=== PATIENT | male | born 1940 | race Hispanic/Latino ===

== ENCOUNTER 2017-10-07 15:49 | Inpatient (IN) | payer MEDICARE, BC ==
[2017-10-07 15:49] VITALS: BMI 28.8
[2017-10-07 16:57] LABS: BASO # 0.03 K/mm3 (0.0-2.0); BASO % 0.1 % (0.0-3.0); EOS # 0.1 (0.0-0.7); EOS % 0.1 % (1.5-5.0); MEAN CELL VOLUME 99.1 fl (80.0-105.0); MEAN CORPUSCULAR HEMOGLOBIN 32.3 pg (25.0-35.0); MEAN CORPUSCULAR HGB CONC 32.6 g/dl (31.0-37.0); MEAN PLATELET VOLUME 10.5 fl (7.0-11.0); PLATELET COUNT 100 10^3/uL (120.0-450.0); RED CELL DISTRIBUTION WIDTH 16.9 % (11.5-14.5)
[2017-10-07 16:58] LABS: HEMATOCRIT 22.4 % (42.0-52.0)
[2017-10-07 17:03] LABS: ALB/GLOB RATIO 1.1 (1.1-1.8); ALKALINE PHOSPHATASE 95 U/L (38-126); ALT/SGPT 104 U/L (7-56); AST/SGOT 93 U/L (17-59); BILIRUBIN,TOTAL 0.9 mg/dL (0.2-1.3); BLOOD UREA NITROGEN 38 mg/dL (7-21); CALCIUM 8.6 mg/dL (8.4-10.5); CARBON DIOXIDE 24 mmol/L (21-33); CHLORIDE 99 mmol/L (98-107); GFR AFRICAN-AMERICAN > 60; GLUCOSE,RANDOM 163 mg/dL (70-110); MAGNESIUM 2.5 mg/dL (1.7-2.2); PHOSPHOROUS 3.2 mg/dL (2.5-4.5); POTASSIUM 3.8 mmol/L (3.6-5.0); SODIUM 134 mmol/L (132-148); TOTAL PROTEIN 6.4 g/dL (5.8-8.3)
[2017-10-07 17:06] LABS: INR 1.55 (0.93-1.08); PARTIAL THROMBOPLASTIN TIME 30.4 Seconds (25.1-36.5)
[2017-10-07 17:17] LABS: TROPONIN I < 0.01 ng/mL
--- NOTE | 2017-10-07 17:42 | RAD ---
HISTORY: r/o infiltrate COMPARISON: Comparison is made to 11/05/2016 TECHNIQUE: Chest PA and lateral FINDINGS: LUNGS: Heterogeneous opacity and infiltrate at the left lower lung may represent pneumonia. PLEURA: Left pleural effusion is also noted new compared to the previous exam may represent parapneumonic effusion CARDIOVASCULAR: Normal. OSSEOUS STRUCTURES: No significant abnormalities. VISUALIZED UPPER ABDOMEN: Normal. OTHER FINDINGS: None. IMPRESSION: Heterogeneous opacity and infiltrate at the left lower lobe associated with left pleural effusion may represent pneumonia and parapneumonic effusion.
[2017-10-07] MEDS ORDERED: Cefepime 1gm in NS 100ml 1 GM/100 ML BAG IVPB SCH ×2 (17:45→22:00)
[2017-10-07] MEDS ORDERED: Vancomycin 1gm in NS 250ml 1 GM/250 ML BAG IVPB SCH (17:45)
--- NOTE | 2017-10-07 17:57 | CP.PCM.CON ---
<Harshal Paredes - Last Filed: 10/07/17 18:15> History of Present Illness - History of Present Illness History of Present Illness: Critical Care Consult note. Dr Bird 77yo M with PMHx Bladder CA, B Cell Lymphoma, CAD w/ stents, HTN, HLD, DM here for evaluation of shortness of breath. Patient reports that he has been coughing for the past week and was evaluated at [facility] and was diagnosed with pneumonia and started of Avelox, which he has been taking for the past 5 days. He then flew to [place] two days ago and started have worsening SBO and cough. He denies any fevers or chills. He went to see his PMD today, and was sent to [facility] for further evaluation. He does report increased bilateral lower extremity swelling over the past few days. Currently, he states that his shortness of breath has improved while on 2L NC. He does report orthopnea. Denies any N/V/D. No abd pain. No headaches. No urinary changes. PMD: Dr. Johnson Heme/Onc: Dr. Lane ([place]) PMHx: B Cell Lymphoma (recently diagnosed, not on chemo), Bladder CA, CAD, DM, HTN, HLD PSHx: Coronary stents x5, L orchiectomy Social Hx: Denies Tob, Occasional ETOH, Denies substance abuse Allergy: Scottie Review of Systems - Review of Systems All systems: reviewed and no additional remarkable complaints except - Constitutional Constitutional: absent: Chills, Fever - EENT Ears: absent: Ear Discharge, Dizziness Nose/Mouth/Throat: absent: Epistaxis - Cardiovascular Cardiovascular: Dyspnea, Edema, Leg Edema. absent: Chest Pain - Respiratory Respiratory: Cough, Dyspnea - Genitourinary Genitourinary: absent: Dysuria, Flank Pain - Musculoskeletal Musculoskeletal: absent: Back Pain Past Patient History - Past Medical History & Family History Past Medical History?: Yes - Past Social History Smoking Status: Never Smoked Alcohol: Occasional Drugs: Denies - CARDIAC Hx Cardiac Disorders: Yes Hx Hypercholesterolemia: Yes Hx Hypertension: Yes Hx Pacemaker: No - PULMONARY Hx Respiratory Disorders: No - NEUROLOGICAL Hx Neurological Disorder: No Hx Paralysis: No - HEENT Hx HEENT Problems: No - RENAL Hx Chronic Kidney Disease: No - ENDOCRINE/METABOLIC Hx Endocrine Disorders: Yes Hx Diabetes Mellitus Type 2: Yes - HEMATOLOGICAL/ONCOLOGICAL Hx Blood Disorders: Yes Hx Blood Transfusions: No Hx Blood Transfusion Reaction: No Hx Cancer: Yes (bladder) Hx Leukemia: Yes (B cell) - INTEGUMENTARY Hx Dermatological Problems: No Hx Basil Cell: No - MUSCULOSKELETAL/RHEUMATOLOGICAL Hx Musculoskeletal Disorders: Yes Hx Back Pain: Yes - GASTROINTESTINAL Hx Gastrointestinal Disorders: No - GENITOURINARY/GYNECOLOGICAL Hx Genitourinary Disorders: No - PSYCHIATRIC Hx Psychophysiologic Disorder: No Hx Emotional Abuse: No Hx Physical Abuse: No Hx Substance Use: No - SURGICAL HISTORY Hx Surgeries: Yes Hx Cardiac Catheterization: Yes Hx Coronary Stent: Yes - ANESTHESIA Hx Anesthesia Reactions: No Hx Malignant Hyperthermia: No Meds Allergies/Adverse Reactions: Allergies Allergy/AdvReac Type Severity Reaction Status Date / Time mussels Allergy Severe VOMITING/GI Verified 10/07/17 16:15 DISTRESS Physical Exam - Constitutional Appears: Well, No Acute Distress - Head Exam Head Exam: ATRAUMATIC, NORMAL INSPECTION, NORMOCEPHALIC - Eye Exam Eye Exam: EOMI, Normal appearance - ENT Exam ENT Exam: Mucous Membranes Moist - Neck Exam Neck exam: Positive for: Normal Inspection - Respiratory Exam Respiratory Exam: absent: Respiratory Distress Additional comments: egophany Left lung - Cardiovascular Exam Cardiovascular Exam: RRR. absent: JVD - GI/Abdominal Exam GI & Abdominal Exam: Soft. absent: Distended, Firm, Guarding, Tenderness - Extremities Exam Extremities exam: Positive for: pedal edema Additional comments: bilateral 2+ pitting edema - Neurological Exam Neurological exam: Alert, Oriented x3 - Psychiatric Exam Psychiatric exam: Normal Affect, Normal Mood - Skin Skin Exam: Dry, Intact, Normal Color, Warm Results - Vital Signs Recent Vital Signs: Last Vital Signs Temp 98.8 F 10/07/17 16:34 Pulse 60 10/07/17 16:34 Resp 18 10/07/17 16:49 BP 130/60 10/07/17 16:34 Pulse Ox 95 10/07/17 16:49 - Labs Result Diagrams: 10/07/17 16:30 10/07/17 16:30 Labs: Laboratory Results - last 24 hr 10/07/17 10/07/17 10/07/17 16:30 16:30 16:30 WBC 38.0 H* D RBC 2.26 L Hgb 7.3 L Hct 22.4 L MCV 99.1 MCH 32.3 MCHC 32.6 RDW 16.9 H Plt Count 100 L MPV 10.5 Eos % (Auto) 0.1 L Baso % (Auto) 0.1 Eos # 0.1 Baso # 0.03 PT 17.0 H INR 1.55 H APTT 30.4 Sodium 134 Potassium 3.8 Chloride 99 Carbon Dioxide 24 Anion Gap 15 BUN 38 H Creatinine 1.1 Est GFR ( Amer) > 60 Est GFR (Non-Af Amer) > 60 Random Glucose 163 H Calcium 8.6 Phosphorus 3.2 Magnesium 2.5 H Total Bilirubin 0.9 AST 93 H ALT 104 H Alkaline Phosphatase 95 Lactate Dehydrogenase 526 Total Creatine Kinase 74 Troponin I < 0.01 NT-Pro-B Natriuret Pep 562 H Total Protein 6.4 Albumin 3.3 Globulin 3.1 Albumin/Globulin Ratio 1.1 Assessment & Plan - Assessment and Plan (Free Text) Assessment: 77yo M with PMHx of B Cell lymphoma, Bladder CA, HTN, DM, HLD, CAD and recent diagnosis of left sided Pneumonia here for evaluation of worsening SOB. Neuro: Alert and oriented x3 Cardio: Vital signs stable bilateral LE edema noted f/u ECHO continue home meds Cardio consult requested, appreciate recs Resp: CXR - left lower lobe pneumonia ID consult requested by PMD, recs appreciated Abx as per ID GI: heart healthy diet ID: Left lower lobe pneumonia WBC 38 in the setting of B Cell lymphoma. Afebrile Failed outpatient ABX (Avelox x 5 days taken) ID consult requested Heme/Onc: WBC 38 (Lymphocyte predominant) in the setting of B Cell lymphoma Heme/Onc consult requested. Recs appreciated Extremities: bilateral lower extremity edema noted in the setting of recent air travel f/u Lower Extremity Doppler Endocrine: Hx of DM Accuchecks continue home meds Discussed case with Dr. Marge Paredes PGY1 <Rory Bird - Last Filed: 10/07/17 18:34> Meds - Medications Medications: Current Medications Aspirin (Ecotrin) 81 mg PO QAM DAISY Atorvastatin Calcium (Lipitor) 20 mg PO QPM DAISY Furosemide (Lasix) 40 mg IV ONCE ONE Stop: 10/07/17 21:01 Glyburide (Micronase) 5 mg PO BRKDIN DAISY Non-Formulary Medication (Dutasteride [Avodart]) 0.5 mg PO QAM DAISY Propranolol HCl (Inderal La) 120 mg PO DAILY DAISY Tamsulosin HCl (Flomax) 0.4 mg PO QPM DAISY Results - Vital Signs Recent Vital Signs: Last Vital Signs Temp 98.8 F 10/07/17 16:34 Pulse 63 10/07/17 18:26 Resp 18 10/07/17 18:26 BP 128/58 L 10/07/17 18:26 Pulse Ox 90 L 10/07/17 18:26 - Labs Result Diagrams: 10/07/17 16:30 10/07/17 16:30 Labs: Laboratory Results - last 24 hr 10/07/17 10/07/17 10/07/17 16:30 16:30 16:30 WBC 38.0 H* D RBC 2.26 L Hgb 7.3 L Hct 22.4 L MCV 99.1 MCH 32.3 MCHC 32.6 RDW 16.9 H Plt Count 100 L MPV 10.5 Eos % (Auto) 0.1 L Baso % (Auto) 0.1 Eos # 0.1 Baso # 0.03 PT 17.0 H INR 1.55 H APTT 30.4 Sodium 134 Potassium 3.8 Chloride 99 Carbon Dioxide 24 Anion Gap 15 BUN 38 H Creatinine 1.1 Est GFR ( Amer) > 60 Est GFR (Non-Af Amer) > 60 Random Glucose 163 H Calcium 8.6 Phosphorus 3.2 Magnesium 2.5 H Total Bilirubin 0.9 AST 93 H ALT 104 H Alkaline Phosphatase 95 Lactate Dehydrogenase 526 Total Creatine Kinase 74 Troponin I < 0.01 NT-Pro-B Natriuret Pep 562 H Total Protein 6.4 Albumin 3.3 Globulin 3.1 Albumin/Globulin Ratio 1.1 Crossmatch BBK History Checked 10/07/17 18:00 WBC RBC Hgb Hct MCV MCH MCHC RDW Plt Count MPV Eos % (Auto) Baso % (Auto) Eos # Baso # PT INR APTT Sodium Potassium Chloride Carbon Dioxide Anion Gap BUN Creatinine Est GFR ( Amer) Est GFR (Non-Af Amer) Random Glucose Calcium Phosphorus Magnesium Total Bilirubin AST ALT Alkaline Phosphatase Lactate Dehydrogenase Total Creatine Kinase Troponin I NT-Pro-B Natriuret Pep Total Protein Albumin Globulin Albumin/Globulin Ratio Crossmatch See Detail BBK History Checked No verified bt Assessment & Plan - Assessment and Plan (Free Text) Assessment: Patient seen and examined with resident, agree with note with following additions/exceptions: Pt is 77yo M with PMHx of B Cell lymphoma, Bladder CA, HTN, DM, HLD, CAD and recent diagnosis of left sided Pneumonia here for evaluation of worsening SOB. Currently the patient is awake, alert, NAD, comfortable on 2LNC, no resting SOB. Endorses dry non productive cough, and orthopnea, associated with LE edema. Had outpatient CT scan of chest which showed left sided infiltrate with effusion. Has taken Avelox for 4 days. PNA Pleural Effusion DM HTN HLD Hx of B cell lymphoma Recommend: - supp o2 as needed - antibiotics as per ID - hold BP meds for now - ECHO - LE Duplex, r/o DVT - ID consult - Duonebs - GI ppx - DVT ppx - Admit to MICU
--- NOTE | 2017-10-07 18:11 | ED PDOC ---
Arrival/HPI - General Chief Complaint: Cough, Cold, Congestion Time Seen by Provider: 10/07/17 16:09 Historian: Patient - History of Present Illness Narrative History of Present Illness (Text): 10/07/17 16:30 A 77 year old male presents to the emergency department referred by PMD complaining of increasing shortness of breath and cough. Patient also reports increasing lower extremity edema. Patient has a history of CLL, currently being treated in [facility]. Patient had CT of chest done, which showed small pleural effusion and moderate left side infiltrate, currently on Avelox. Patient denies any chest pain, fever, nausea, vomiting or any other complaints at this time. PMD: Dr. Johnson Symptom Onset: Sudden Symptom Course: Unchanged Activities at Onset: Rest Context: Home Past Medical History - Provider Review Nursing Documentation Reviewed: Yes - Cardiac Hx Cardiac Disorders: Yes Hx Hypertension: Yes Hx Pacemaker: No - Pulmonary Hx Respiratory Disorders: No - Neurological Hx Neurological Disorder: No Hx Paralysis: No - HEENT Hx HEENT Disorder: No - Renal Hx Renal Disorder: No - Endocrine/Metabolic Hx Endocrine Disorders: Yes Hx Diabetes Mellitus Type 2: Yes - Hematological/Oncological Hx Blood Disorders: Yes Hx Blood Transfusions: No Hx Blood Transfusion Reaction: No Hx Cancer: Yes (bladder) Hx Leukemia: Yes (B cell) - Integumentary Hx Dermatological Disorder: No Hx Basal Cell Carcinoma: No - Musculoskeletal/Rheumatological Hx Musculoskeletal Disorders: Yes Hx Back Pain: Yes - Gastrointestinal Hx Gastrointestinal Disorders: No - Genitourinary/Gynecological Hx Genitourinary Disorders: No - Psychiatric Hx Psychophysiologic Disorder: No Hx Emotional Abuse: No Hx Physical Abuse: No Hx Substance Use: No - Surgical History Hx Cardiac Catheterization: Yes Hx Coronary Stent: Yes - Anesthesia Hx Anesthesia Reactions: No Hx Malignant Hyperthermia: No - Suicidal Assessment Feels Threatened In Home Enviroment: No Family/Social History - Physician Review Nursing Documentation Reviewed: Yes Family/Social History: No Known Family HX Smoking Status: Never Smoked Hx Alcohol Use: Yes (OCC WINE) Frequency of alcohol use: Socially Hx Substance Use: No Hx Substance Use Treatment: No Allergies/Home Meds Allergies/Adverse Reactions: Allergies mussels Allergy (Severe, Verified 10/07/17 16:15) VOMITING/GI DISTRESS Home Medications: Home Meds Medication Instructions Recorded Confirmed Atorvastatin Calcium [Lipitor] 20 mg PO QPM 08/12/12 10/07/17 Tamsulosin [Flomax] 0.4 mg PO QPM 02/01/14 10/07/17 Amlodipine Besylate [Norvasc] 10 mg PO DAILY 03/12/16 10/07/17 Aspirin [Ecotrin] 81 mg PO QAM 03/12/16 10/07/17 Dutasteride [Avodart] 0.5 mg PO QAM 03/12/16 10/07/17 Propranolol HCl [Innopran Xl] 120 mg PO DAILY 03/12/16 10/07/17 Diovan Hct 160-25 Mg Tab 1 tab PO QAM 03/28/16 10/07/17 Glyburide/Metformin HCl 1 tab PO BID 10/07/17 10/07/17 [Glucovance 5-500 mg Tablet] Moxifloxacin [Avelox] 400 mg PO DAILY 10/07/17 10/07/17 Review of Systems - Physician Review All systems were reviewed & negative as marked: Yes - Review of Systems Constitutional: absent: Fevers Respiratory: SOB, Cough Cardiovascular: absent: Chest Pain Gastrointestinal: absent: Nausea, Vomiting Musculoskeletal: Other (LE edema) Physical Exam Vital Signs Reviewed: Yes Vital Signs Temp Pulse Resp BP Pulse Ox 10/07/17 18:26 63 18 128/58 L 90 L 10/07/17 16:49 18 95 10/07/17 16:34 98.8 F 60 18 130/60 90 L Temperature: Afebrile Blood Pressure: Normal Pulse: Regular Respiratory Rate: Normal Appearance: Positive for: Well-Appearing, Non-Toxic, Comfortable Pain Distress: None Mental Status: Positive for: Alert and Oriented X 3 - Systems Exam Head: Present: Atraumatic, Normocephalic Pupils: Present: PERRL Extroacular Muscles: Present: EOMI Conjunctiva: Present: Normal Mouth: Present: Dry Neck: Present: Normal Range of Motion Respiratory/Chest: Present: Rhonchi (left sided). No: Accessory Muscle Use Cardiovascular: Present: Regular Rate and Rhythm, Normal S1, S2. No: Murmurs Abdomen: Present: Normal Bowel Sounds. No: Tenderness, Distention, Peritoneal Signs Back: Present: Normal Inspection Upper Extremity: Present: Normal Inspection. No: Cyanosis, Edema Lower Extremity: Present: Normal Inspection, Edema (1+ LE edema) Neurological: Present: GCS=15, CN II-XII Intact, Speech Normal Skin: Present: Warm, Dry, Normal Color. No: Rashes Psychiatric: Present: Alert, Oriented x 3, Normal Insight, Normal Concentration Medical Decision Making ED Course and Treatment: 10/07/17 16:30 Impression: A 77 year old male with shortness of breath and cough. Plan: -- EKG -- chest xray -- US lower extremity -- labs -- Urinalysis -- Reassess and disposition Prior Visits: Notes and results from previous visits were reviewed. Patient last reported to the emergency department on 08/12/12 for evaluation of abdominal pain. Progress Notes: EKG: Ordered, reviewed, and independently interpreted the EKG. Rate: 59 BPM Rhythm: Sinus bradycardia Interpretation: Normal intervals, normal axis 10/07/17 17:44 Chest xray: Creator : Marek Nuñez MD FINDINGS: LUNGS: Heterogeneous opacity and infiltrate at the left lower lung may represent pneumonia. PLEURA: Left pleural effusion is also noted new compared to the previous exam may represent parapneumonic effusion CARDIOVASCULAR: Normal. OSSEOUS STRUCTURES: No significant abnormalities. VISUALIZED UPPER ABDOMEN: Normal. IMPRESSION: Heterogeneous opacity and infiltrate at the left lower lobe associated with left pleural effusion may represent pneumonia and parapneumonic effusion. Dr. johnson in ER requesting consults for cardiology ID and hematology and ICU eval. - Lab Interpretations Lab Results: 10/07/17 16:30 10/07/17 16:30 Lab Results 10/07/17 18:00: Blood Type Pending, Antibody Screen Pending, Crossmatch See Detail, BBK History Checked No verified bt 10/07/17 16:30: Sodium 134, Potassium 3.8, Chloride 99, Carbon Dioxide 24, Anion Gap 15, BUN 38 H, Creatinine 1.1, Est GFR ( Amer) > 60, Est GFR ( Non-Af Amer) > 60, Random Glucose 163 H, Calcium 8.6, Phosphorus 3.2, Magnesium 2.5 H, Total Bilirubin 0.9, AST 93 H, ALT 104 H, Alkaline Phosphatase 95, Lactate Dehydrogenase 526, Total Creatine Kinase 74, Troponin I < 0.01, NT-Pro- B Natriuret Pep 562 H, Total Protein 6.4, Albumin 3.3, Globulin 3.1, Albumin/ Globulin Ratio 1.1 10/07/17 16:30: PT 17.0 H, INR 1.55 H, APTT 30.4 10/07/17 16:30: WBC 38.0 H* D, RBC 2.26 L, Hgb 7.3 L, Hct 22.4 L, MCV 99.1, MCH 32.3, MCHC 32.6, RDW 16.9 H, Plt Count 100 L, MPV 10.5, Eos % (Auto) 0.1 L, Baso % (Auto) 0.1, Eos # 0.1, Baso # 0.03, Neutrophils % (Manual) Pending, Lymphocytes % (Manual) Pending, Monocytes % (Manual) Pending I have reviewed the lab results: Yes - RAD Interpretation Radiology Orders: 10/07/17 16:23 CHEST TWO VIEWS (PA/LAT) [RAD] Stat DUPLEX LOWER EXTRM VEIN BILAT [US] Stat - EKG Interpretation Interpreted by ED Physician: Yes Type: 12 lead EKG - Medication Orders Current Medication Orders: Aspirin (Ecotrin) 81 mg PO QAM DAISY Atorvastatin Calcium (Lipitor) 20 mg PO QPM DAISY Furosemide (Lasix) 40 mg IV ONCE ONE Stop: 10/07/17 21:01 Glyburide (Micronase) 5 mg PO BRKDIN DAISY Cefepime HCl (Maxipime 1gm) 1 gm in 100 mls @ 100 mls/hr IVPB Q8 DAISY PRN Reason: Protocol Vancomycin HCl (Vancomycin 1gm) 1 gm in 250 mls @ 167 mls/hr IVPB Q12H DAISY PRN Reason: Protocol Metformin HCl (Glucophage) 500 mg PO BRKDIN DAISY Non-Formulary Medication (Dutasteride [Avodart]) 0.5 mg PO QAM DAISY Propranolol HCl (Inderal La) 120 mg PO DAILY DAISY Tamsulosin HCl (Flomax) 0.4 mg PO QPM DAISY Discontinued Medications Potassium Chloride (K-Dur 20 Meq Er Tab) 40 meq PO STAT STA Stop: 10/07/17 18:22 - Scribe Statement The provider has reviewed the documentation as recorded by the Scribe Marshal Rivera All medical record entries made by the Scribe were at my direction and personally dictated by me. I have reviewed the chart and agree that the record accurately reflects my personal performance of the history, physical exam, medical decision making, and the department course for this patient. I have also personally directed, reviewed, and agree with the discharge instructions and disposition. Disposition/Present on Arrival - Present on Arrival Any Indicators Present on Arrival: No History of DVT/PE: No History of Uncontrolled Diabetes: No Urinary Catheter: No History of Decub. Ulcer: No History Surgical Site Infection Following: None - Disposition Have Diagnosis and Disposition been Completed?: Yes Diagnosis: Pneumonia, CLL (chronic lymphocytic leukemia), Anemia Disposition Time: 18:10 Condition: GUARDED Referrals: Melissa Johnson MD [Primary Care Provider] - Follow up with primary Forms: [employer] (Moroccan) Critical Care Time - Critical Care Note Total Time (in mins): 30 Documented critical care: time excludes all time spent performing seperately billable procedures.
[2017-10-07] MEDS ORDERED: Potassium Chloride 20 mEq ER Tab PO STA (18:21)
[2017-10-07] MEDS: Vancomycin 1gm in NS 250ml 1 GM/250 ML BAG IVPB SCH (18:59)
[2017-10-07 19:56] LABS: EOSINOPHIL 2 % (0.0-3.0); MYELOCYTE 1 %; NEUTROPHIL 10 % (50.0-70.0)
[2017-10-07] MEDS: POLYETHYLENE GLYCOL 3350 17 GM/Dose PACKET PO SCH (22:00)
[2017-10-07] MEDS: Meropenem 1 GM in Dextrose 5% In Water 100 ML IVPB SCH (22:13)
--- NOTE | 2017-10-08 03:11 | CON ---
DATE: 10/07/2017 REASON FOR CONSULTATION: Followup cardiac evaluation, history of coronary artery disease, admitted with shortness of breath, bilateral leg swelling, severe anemia, thrombocytopenia and leukocytosis. BRIEF CLINICAL HISTORY: This is a 77-year-old male with past medical history significant for coronary artery disease, status post multiple stents, history of prostate CA in the past, who recently diagnosed B-cell lymphoma and recently had left lower lobe pneumonia, was treated with Levaquin. The patient went to [place] while taking Levaquin. On way home, yesterday, the patient became very short of breath in the airport, so came to see Dr. Johnson who found the patient to be severely anemic, leukocytosis and thrombocytopenia with leg swelling. He denies any chest pain, denies any shortness of breath, denies any palpitation. PAST MEDICAL HISTORY: Significant for coronary artery disease; diabetes; hypertension; hyperlipidemia; prostate CA, status post chemo; history of multiple PTCAs in January 2008, April 2009 and most recently the patient in 03/2016, mid LAD with RANDY was done. The patient was recently diagnosed B-cell lymphoma and received a call from [employer] in [place] that he wanted to start the chemo which has increased risk of bleeding and the patient is on dual-antiplatelet therapy, so after consultation states it is more than a year, the last angioplasty was done, so decided to leave on baby aspirin and discontinue Plavix. Recently, the patient was diagnosed with pneumonia, treated with Levaquin. The patient went to [place] and way back, the patient was very short of breath and today came to the emergency room. SOCIAL HISTORY: Denies any smoking history. Denies any history of alcohol abuse. CARDIAC WORKUP: Most recent cardiac workup, the patient has a stress test on 03/12/2016 with apical ischemia followed by the patient had a cardiac catheterization and subsequently, PTCA of the stent in mid LAD was done. The patient's echocardiography done dated 02/15/2016 that shows a trace aortic regurgitation, [id number] mitral regurgitation, mild tricuspid regurgitation and mild pulmonary insufficiency. The patient's baseline hemoglobin is 14, WBC is 13 and platelets 139. CURRENT MEDICATIONS: The patient is taking Flomax, propanolol, Avelox, glyburide, Diovan, atorvastatin, aspirin and amlodipine. REVIEW OF SYSTEMS: As per HPI. PHYSICAL EXAMINATION: VITAL SIGNS: Temperature afebrile, heart rate 60 and blood pressure 130/60. HEENT: PERRLA, intact. NECK: Supple. No carotid bruit. No thyromegaly. CHEST: Clear to auscultation. HEART: S1 and S2 regular. ABDOMEN: Soft. EXTREMITIES: Clubbing and cyanosis negative. E to A changes noted on the left side. LABORATORY DATA: Blood workup as follows: WBC 38, hemoglobin 7.2, hematocrit 22.4 and platelet count 100. Chemistry shows sodium 134, potassium 3.0, chloride 90, calcium 24, anion gap of 38, BUN 15 and creatinine 1.1. Troponin is 0.01. EKG pending. Chest x-ray shows left lower lobe pneumonia. IMPRESSION: Leukocytosis, severe anemia, thrombocytopenia, possibly secondary to B-cell lymphoma, this seems most likely secondary attributable to anemia as well as pneumonia, doubt it is cardiac, leg edema, it could be secondary to lymphadenopathy as well as now secondary to amlodipine. RECOMMENDATION: We will get echo, lipid profile, TSH, hemoglobin A1c, lower extremity Duplex, stat followup chest x-ray,EKG, get echocardiogram to assess LV function, give diuretics and give 1 unit of packed RBC. We will discuss with Dr. Johnson. Thank you Dr. Johnson for providing us the opportunity in taking care of Reji Buchanan. Toribio Valles MD
[2017-10-08 05:19] LABS: URINE BILIRUBIN NEGATIVE (NEGATIVE); URINE BLOOD NEGATIVE (NEGATIVE); URINE GLUCOSE (UA) NEGATIVE (NEGATIVE); URINE KETONE NEGATIVE (NEGATIVE); URINE LEUKOCYTE ESTERASE NEGATIVE Leu/uL (NEGATIVE); URINE PROTEIN NEGATIVE mg/dL (<30 mg/dL); URINE UROBILINOGEN 0.2 E.U./dL (<1 E.U./dL)
[2017-10-08 05:26] LABS: URINE APPEARANCE CLEAR (CLEAR); URINE COLOR YELLOW (YELLOW)
--- NOTE | 2017-10-08 05:53 | HP ---
HISTORY OF PRESENT ILLNESS: This is a 77-year-old male who was referred to [facility]. The patient had a history of a dry cough and was being following by his oncologist, who has been following the patient for a B-cell lymphoma. A recent CT of his chest showed evidence of a left pleural effusion with pulmonary infiltrates in the left middle and upper lobes. He was initiated on Avelox by his oncologist. The patient over the course of the weekend, traveled and today noted that the cough had become productive and he was mildly short of breath. Denied any chest pain, fever or chills, but in fact had been stating that he felt worth. He also noticed that there was evidence of swelling of his legs. PAST MEDICAL HISTORY: The patient has a past medical history of bladder cancer, coronary artery disease with stents, non-insulin dependent diabetes, hypertension, lumbar disc disease, BPH, bladder cancer. SOCIAL HISTORY: He is a nonsmoker, nondrinker. ALLERGIES: HE HAS ALLERGY TO MUSSELS. REVIEW OF SYSTEMS: Ten systems are reviewed. Pertinent finding as stated above. PHYSICAL EXAMINATION: VITAL SIGNS: The patient was found to have a temp of 98.8 orally, his pulse is 60, his blood pressure is 130/60, his respiratory rate is 18 and his oxygen saturation on room air is reported at 88% to 90%. GENERAL: He is alert and oriented x3. LUNGS: Auscultation of the lungs show bibasilar rhonchi with rales. HEART: S1 and S2 rhythm. ABDOMEN: Soft, scaphoid with positive bowel sounds. EXTREMITIES: Show 2+ edema. NEUROLOGIC: He is alert and oriented x3. LABORATORY DATA: Shows a WBC of 38, RBC 2.26, hemoglobin 7.3, hematocrit 22.4, platelet count 100,000. His PT is 17 with an INR of 1.55. His PTT is 30.4. Chemistry showed a sodium of 134, potassium 3.8, chloride 99, BUN is 38, his creatinine is 1 . His magnesium is 2.5, phosphorus 2.2. AST 93, ALT 104. His BNP was 562 and his troponin was less than 0.01. A Doppler study of the lower extremities was verbally reported as showing no evidence of DVT. His chest x-ray was to be reported as showing heterogeneous opacity and infiltrate of the left lower lung, left pleural effusion. HOME MEDICATIONS: The patient's home medications consist of Avelox 400 mg daily, Lipitor 20 mg daily, Flomax 0.4 mg daily, Glucovance 5/500 b.i.d., Avodart 0.5 mg daily, amlodipine 10 mg daily, propranolol 120 mg daily, Diovan/hydrochlorothiazide 160/25 daily, and Ecotrin 81 mg daily. IMPRESSION: A 77-year-old male with B-cell lymphoma, chronic lymphocytic leukemia with pleural effusion, pneumonic infiltrate, anemia, pedal edema, history of bladder cancer, non-insulin dependent diabetes, hypertension, coronary artery disease. A request has been made for the patient to be seen by the grout pump operator in the intensive care unit and discussion with his oncologist, Dr. Nielson. The patient will receive 1 unit of blood. Infectious Disease consult has been requested. The patient has been pancultured to rule out underlying possibility of sepsis. His weather strip installer has been requesting to see the patient as well for his Pulmonary. More than 50 minutes have been spent reviewing the clinical data, discussing the clinical findings with the emergency room staff, individual tanning consultant, the patient and the family. Melissa Johnson MD
[2017-10-08 06:12] LABS: BASO # 0.02 K/mm3 (0.0-2.0); BASO % 0.1 % (0.0-3.0); EOS # 0.1 (0.0-0.7); EOS % 0.2 % (1.5-5.0); HEMATOCRIT 25.4 % (42.0-52.0); MEAN CELL VOLUME 97.3 fl (80.0-105.0); MEAN CORPUSCULAR HEMOGLOBIN 31.8 pg (25.0-35.0); MEAN CORPUSCULAR HGB CONC 32.7 g/dl (31.0-37.0); MEAN PLATELET VOLUME 10.3 fl (7.0-11.0); PLATELET COUNT 92 10^3/uL (120.0-450.0); RED CELL DISTRIBUTION WIDTH 18.7 % (11.5-14.5)
[2017-10-08 06:39] LABS: WHITE BLOOD COUNT 37.8 10^3/ul (4.5-11.0)
[2017-10-08 06:49] LABS: ALKALINE PHOSPHATASE 92 U/L (38-126); ALT/SGPT 104 U/L (7-56); AST/SGOT 103 U/L (17-59); BILIRUBIN,TOTAL 1.3 mg/dL (0.2-1.3); BLOOD UREA NITROGEN 30 mg/dL (7-21); CALCIUM 8.7 mg/dL (8.4-10.5); CARBON DIOXIDE 27 mmol/L (21-33); CHLORIDE 102 mmol/L (98-107); CHOLESTEROL 60 mg/dL (130-200); GFR AFRICAN-AMERICAN > 60; GLUCOSE,RANDOM 132 mg/dL (70-110); MAGNESIUM 2.4 mg/dL (1.7-2.2); PHOSPHOROUS 3.2 mg/dL (2.5-4.5); POTASSIUM 3.7 mmol/L (3.6-5.0); SODIUM 138 mmol/L (132-148); TOTAL PROTEIN 6.1 g/dL (5.8-8.3)
[2017-10-08 06:57] LABS: EOSINOPHIL 1 % (0.0-3.0); NEUTROPHIL 7 % (50.0-70.0)
[2017-10-08 06:58] LABS: PLATELET ESTIMATE LOW (NORMAL)
[2017-10-08] MEDS ORDERED: Albuterol-Ipratrop 3 mg / 0.5 (3 ml) UD IH PRN (06:59)
[2017-10-08] MEDS: Meropenem 1 GM in Dextrose 5% In Water 100 ML IVPB SCH ×3 (07:00→22:00)
[2017-10-08] MEDS: Vancomycin 1gm in NS 250ml 1 GM/250 ML BAG IVPB SCH ×2 (07:02→20:27)
[2017-10-08] MEDS: Budesonide 0.5 mg/2 ml Inhal Susp UD IH SCH ×2 (07:10→20:18)
[2017-10-08] MEDS: Albuterol-Ipratrop 3 mg / 0.5 (3 ml) UD IH SCH ×3 (07:10→20:18)
--- NOTE | 2017-10-08 07:27 | CON ---
DATE: 10/08/2017 REASON FOR CONSULTATION: Pneumonia. REFERRING PHYSICIAN: Melissa Johnson MD HISTORY OF PRESENT ILLNESS: The patient is a 77-year-old male, with past medical history significant for coronary artery disease, status post multiple cardiac stents, recently diagnosed B-cell lymphoma, diabetes mellitus, hypertension, who presents to [facility] with main complaints of dyspnea on exertion, cough, and sputum production for the past week. The patient denies shortness of breath at rest. There is also no history of chest pain, coughing up of blood, or chest pain-made worse with deep respirations. There is no history of temperatures, chills, or infectious exposure. There is no history of night sweats, weight loss or appetite change prior to the above events. No history of calf pains. No history of syncope or diaphoresis. The patient has traveled recently. No history of trauma. REVIEW OF SYSTEMS: No history of nausea, vomiting or diarrhea. No acute urinary symptoms. No new neurologic or musculoskeletal complaints. Rest of the review of systems negative. ALLERGIES: NO KNOWN DEMONSTRABLE ALLERGIES. SOCIAL HISTORY: Negative for tobacco and negative for alcohol. FAMILY HISTORY: No inheritable diseases HOME MEDICATIONS: Include Avelox, Lipitor, Flomax, Avodart, Norvasc, Diovan, Ecotrin and Plavix. PHYSICAL EXAMINATION: GENERAL: The patient is resting comfortably. He is not short of breath at rest. VITAL SIGNS: Temperature is 98.5, pulse 58, respirations 18, blood pressure 129/48. Oxygen saturation on nasal cannula is 94%. HEENT: Normocephalic, atraumatic. NECK: No JVD. CARDIOVASCULAR: Systolic ejection murmur at the lower left sternal border. No S3 gallop. LUNGS: Crackles noted at the left lower lobe. Scattered bilateral rhonchi. No wheezing. EXTREMITIES: Mild edema. No cyanosis, no clubbing. Calves are nontender to palpation. GASTROINTESTINAL: Abdomen is soft, nontender and nondistended. Bowel sounds are positive. SKIN: No acute rash. NEUROLOGIC: Limited at the present time. PERTINENT LABORATORY DATA: Chest x-ray was done yesterday and reviewed. There is a left lower lobe infiltrate with associated left pleural effusion noted. CBC: White count 37,800, hemoglobin 8.3, hematocrit 25.4, platelets of 92,000. INR 1.55. Complete metabolic profile: BUN 38, glucose 163, magnesium 2.5, AST 93, ALT 104. B-type natriuretic peptide 562. Rest of the metabolic profile is within normal limits. IMPRESSION: 1. Left lower lobe pneumonia. 2. Left pleural effusion. 3. Acute bronchitis. 4. B-cell lymphoma. 5. Anemia. PLAN: The patient presents to [facility] with a 1-week history of worsening pulmonary symptoms. Apparently, the patient did have an outpatient CAT scan chest-which showed a left lower lobe infiltrate, and left pleural effusion. That CAT scan (and the results) are not available at the present time. The patient did state that he would ask his to bring in the scan this morning. I will check it when feasible. I did review the chest x-ray as above. There is a left lower lobe infiltrate with left pleural effusion noted. The patient has been pancultured, and started on antibiotic therapy. Input by Infectious Disease is noted. On physical exam, the patient is in mild bronchospasm. I will start nebulizer treatments and inhaled steroids this morning. I would also check a repeat chest x-ray in a few days-for comparison. The patient was also seen by Cardiology. Input by Dr. Valles is noted. The patient does state to feeling much better this morning, and is clinically improved. Additional pulmonary intervention will be based on the above results, as well as the clinical status of the patient. I did discuss the case with Dr. Johnson last night. I will discuss the above with him this morning. I will also discuss the above with the entire ICU team later this morning. Thank you very much for this pulmonary consultation. Tyler Moore MD NELSY
--- NOTE | 2017-10-08 07:37 | CP.CCUPN ---
<Harshal Paredes - Last Filed: 10/08/17 10:38> CCU Subjective - Physician Review Events Since Last Encounter (Free Text): 10/08/17 10:[address] Bird Patient seen and examined at bedside. No acute events overnight. Denies any N/V/ D. States that lower extremity swelling has improved. Still with mild pink tinged sputum with cough. Denies any F/C. Still c/o mild SOB. Denies any CP. No new complaints. No signs of active bleeding. CCU Objective - Vital Signs / Intake & Output Vital Signs (Last 4 hours): Vital Signs Pulse 10/08/17 04:08 58 L Intake and Output (Last 8hrs): Intake & Output 10/07/17 10/08/17 10/08/17 22:59 06:59 14:59 Intake Total 0 1525 Output Total 1500 Balance 0 25 Intake: IV 450 Bilateral Antecubital 450 Oral 750 Blood Product 0 325 Red Blood Cells Cpd As1 0 325 Lr Unit [id number] Output: Urine 1500 Urine, Voided 1500 Other: # Bowel Movements 1 - Physical Exam Head: Positive for: Atraumatic, Normocephalic Pupils: Positive for: PERRL Extroacular Muscles: Positive for: EOMI Conjunctiva: Positive for: Normal Mouth: Positive for: Dry Neck: Positive for: Normal Range of Motion Respiratory/Chest: Positive for: Rhonchi (left sided), Other (left sided egophany). Negative for: Accessory Muscle Use Cardiovascular: Positive for: Regular Rate and Rhythm, Normal S1, S2. Negative for: Murmurs Abdomen: Positive for: Normal Bowel Sounds. Negative for: Tenderness, Distention, Peritoneal Signs Back: Positive for: Normal Inspection Upper Extremity: Positive for: Normal Inspection. Negative for: Cyanosis, Edema Lower Extremity: Positive for: Edema (lower extremity edema improving). Negative for: CALF TENDERNESS Neurological: Positive for: GCS=15, CN II-XII Intact, Speech Normal Skin: Positive for: Warm, Dry, Normal Color. Negative for: Rashes Psychiatric: Positive for: Alert, Oriented x 3, Normal Insight, Normal Concentration - Medications Active Medications: Active Medications Generic Name Dose Route Start Last Admin Trade Name Freq PRN Reason Stop Dose Admin Albuterol/Ipratropium 3 ml 10/08/17 08:00 10/08/17 07:10 Duoneb 3 Mg/0.5 Mg (3 Ml) Ud IH 3 ml [id number] DAISY Administration Albuterol/Ipratropium 3 ml 10/08/17 06:59 Duoneb 3 Mg/0.5 Mg (3 Ml) Ud IH Q2H PRN Shortness of Breath Aspirin 81 mg 10/08/17 10:00 Ecotrin PO QAM DAISY Atorvastatin Calcium 20 mg 10/08/17 18:00 Lipitor PO QPM DAISY Budesonide 0.5 mg 10/08/17 08:00 10/08/17 07:10 Pulmicort Respules IH 0.5 mg [id number] DAISY Administration Doxycycline Hyclate 100 mg 10/07/17 22:00 10/07/17 22:13 Doryx PO 100 mg Q12 DAISY Administration Protocol Glyburide 5 mg 10/08/17 08:00 Micronase PO BRKDIN DAISY Vancomycin HCl 1 gm in 250 mls @ 167 mls/hr 10/07/17 19:00 10/08/17 07:02 Vancomycin 1gm IVPB 167 mls/hr Q12H DAISY Administration Protocol Meropenem 1 gm/ Dextrose 100 mls @ 100 mls/hr 10/07/17 19:15 10/08/17 07:00 IVPB 10/14/17 19:16 100 mls/hr Q8 DAISY Administration Protocol Metformin HCl 500 mg 10/08/17 07:30 Glucophage PO BRKDIN DAISY Non-Formulary Medication 0.5 mg 10/08/17 10:00 Dutasteride [Avodart] PO QAM DAISY Polyethylene Glycol 17 gm 10/07/17 21:00 10/07/17 22:00 Miralax PO 17 gm BID DAISY Administration Propranolol HCl 120 mg 10/08/17 10:00 Inderal La PO DAILY DAISY Tamsulosin HCl 0.4 mg 10/08/17 18:00 Flomax PO QPM DAISY - Patient Studies Lab Studies: Lab Studies 10/08/17 10/08/17 10/08/17 Range/Units 05:30 05:30 04:09 WBC 37.8 H* (4.5-11.0) 10^3/ul RBC 2.61 L (3.5-6.1) 10^6/uL Hgb 8.3 L (14.0-18.0) g/dL Hct 25.4 L (42.0-52.0) % MCV 97.3 (80.0-105.0) fl MCH 31.8 (25.0-35.0) pg MCHC 32.7 (31.0-37.0) g/dl RDW 18.7 H (11.5-14.5) % Plt Count 92 L (120.0-450.0) 10^3/uL MPV 10.3 (7.0-11.0) fl Eos % (Auto) 0.2 L (1.5-5.0) % Baso % (Auto) 0.1 (0.0-3.0) % Eos # 0.1 (0.0-0.7) Baso # 0.02 (0.0-2.0) K/mm3 Neutrophils % (Manual) 7 L (50.0-70.0) % Lymphocytes % (Manual) 90 H (22.0-35.0) % Monocytes % (Manual) 2 (1.0-6.0) % Eosinophils % (Manual) 1 (0.0-3.0) % Platelet Evaluation Low (NORMAL) Sodium 138 (132-148) mmol/L Potassium 3.7 (3.6-5.0) mmol/L Chloride 102 (98-107) mmol/L Carbon Dioxide 27 (21-33) mmol/L Anion Gap 13 (10-20) BUN 30 H (7-21) mg/dL Creatinine 1.0 (0.8-1.5) mg/dL Est GFR ( Amer) > 60 Est GFR (Non-Af Amer) > 60 POC Glucose (mg/dL) (65-110) mg/dL Random Glucose 132 H (70-110) mg/dL Calcium 8.7 (8.4-10.5) mg/dL Phosphorus 3.2 (2.5-4.5) mg/dL Magnesium 2.4 H (1.7-2.2) mg/dL Total Bilirubin 1.3 (0.2-1.3) mg/dL AST 103 H (17-59) U/L ALT 104 H (7-56) U/L Alkaline Phosphatase 92 (38-126) U/L Total Protein 6.1 (5.8-8.3) g/dL Albumin 3.1 (3.0-4.8) g/dL Globulin 3.0 gm/dL Albumin/Globulin Ratio 1.0 L (1.1-1.8) Triglycerides 67 (35-160) mg/dL Cholesterol 60 L (130-200) mg/dL LDL Cholesterol Direct 40 (0-129) mg/dL HDL Cholesterol 14 L (29-60) mg/dL Urine Color Yellow (YELLOW) Urine Appearance Clear (CLEAR) Urine pH 6.0 (4.7-8.0) Ur Specific [place] 1.010 (1.005-1.035) Urine Protein Negative (<30 mg/dL) mg/dL Urine Glucose (UA) Negative (NEGATIVE) mg/dL Urine Ketones Negative (NEGATIVE) mg/dL Urine Blood Negative (NEGATIVE) Urine Nitrate Negative (NEGATIVE) Urine Bilirubin Negative (NEGATIVE) Urine Urobilinogen 0.2 (<1 E.U./dL) E.U./dL Ur Leukocyte Esterase Negative (NEGATIVE) Teresa/uL 10/07/17 Range/Units 21:08 WBC (4.5-11.0) 10^3/ul RBC (3.5-6.1) 10^6/uL Hgb (14.0-18.0) g/dL Hct (42.0-52.0) % MCV (80.0-105.0) fl MCH (25.0-35.0) pg MCHC (31.0-37.0) g/dl RDW (11.5-14.5) % Plt Count (120.0-450.0) 10^3/uL MPV (7.0-11.0) fl Eos % (Auto) (1.5-5.0) % Baso % (Auto) (0.0-3.0) % Eos # (0.0-0.7) Baso # (0.0-2.0) K/mm3 Neutrophils % (Manual) (50.0-70.0) % Lymphocytes % (Manual) (22.0-35.0) % Monocytes % (Manual) (1.0-6.0) % Eosinophils % (Manual) (0.0-3.0) % Platelet Evaluation (NORMAL) Sodium (132-148) mmol/L Potassium (3.6-5.0) mmol/L Chloride (98-107) mmol/L Carbon Dioxide (21-33) mmol/L Anion Gap (10-20) BUN (7-21) mg/dL Creatinine (0.8-1.5) mg/dL Est GFR ( Amer) Est GFR (Non-Af Amer) POC Glucose (mg/dL) 203 H (65-110) mg/dL Random Glucose (70-110) mg/dL Calcium (8.4-10.5) mg/dL Phosphorus (2.5-4.5) mg/dL Magnesium (1.7-2.2) mg/dL Total Bilirubin (0.2-1.3) mg/dL AST (17-59) U/L ALT (7-56) U/L Alkaline Phosphatase (38-126) U/L Total Protein (5.8-8.3) g/dL Albumin (3.0-4.8) g/dL Globulin gm/dL Albumin/Globulin Ratio (1.1-1.8) Triglycerides (35-160) mg/dL Cholesterol (130-200) mg/dL LDL Cholesterol Direct (0-129) mg/dL HDL Cholesterol (29-60) mg/dL Urine Color (YELLOW) Urine Appearance (CLEAR) Urine pH (4.7-8.0) Ur Specific [place] (1.005-1.035) Urine Protein (<30 mg/dL) mg/dL Urine Glucose (UA) (NEGATIVE) mg/dL Urine Ketones (NEGATIVE) mg/dL Urine Blood (NEGATIVE) Urine Nitrate (NEGATIVE) Urine Bilirubin (NEGATIVE) Urine Urobilinogen (<1 E.U./dL) E.U./dL Ur Leukocyte Esterase (NEGATIVE) Teresa/uL Laboratory Results - last 24 hr 10/07/17 10/08/17 10/08/17 21:08 04:09 05:30 WBC 37.8 H* RBC 2.61 L Hgb 8.3 L Hct 25.4 L MCV 97.3 MCH 31.8 MCHC 32.7 RDW 18.7 H Plt Count 92 L MPV 10.3 Eos % (Auto) 0.2 L Baso % (Auto) 0.1 Eos # 0.1 Baso # 0.02 Neutrophils % (Manual) 7 L Lymphocytes % (Manual) 90 H Monocytes % (Manual) 2 Eosinophils % (Manual) 1 Platelet Evaluation Low Sodium Potassium Chloride Carbon Dioxide Anion Gap BUN Creatinine Est GFR ( Amer) Est GFR (Non-Af Amer) POC Glucose (mg/dL) 203 H Random Glucose Calcium Phosphorus Magnesium Total Bilirubin AST ALT Alkaline Phosphatase Total Protein Albumin Globulin Albumin/Globulin Ratio Triglycerides Cholesterol LDL Cholesterol Direct HDL Cholesterol Urine Color Yellow Urine Appearance Clear Urine pH 6.0 Ur Specific [place] 1.010 Urine Protein Negative Urine Glucose (UA) Negative Urine Ketones Negative Urine Blood Negative Urine Nitrate Negative Urine Bilirubin Negative Urine Urobilinogen 0.2 Ur Leukocyte Esterase Negative 10/08/17 05:30 WBC RBC Hgb Hct MCV MCH MCHC RDW Plt Count MPV Eos % (Auto) Baso % (Auto) Eos # Baso # Neutrophils % (Manual) Lymphocytes % (Manual) Monocytes % (Manual) Eosinophils % (Manual) Platelet Evaluation Sodium 138 Potassium 3.7 Chloride 102 Carbon Dioxide 27 Anion Gap 13 BUN 30 H Creatinine 1.0 Est GFR ( Amer) > 60 Est GFR (Non-Af Amer) > 60 POC Glucose (mg/dL) Random Glucose 132 H Calcium 8.7 Phosphorus 3.2 Magnesium 2.4 H Total Bilirubin 1.3 AST 103 H ALT 104 H Alkaline Phosphatase 92 Total Protein 6.1 Albumin 3.1 Globulin 3.0 Albumin/Globulin Ratio 1.0 L Triglycerides 67 Cholesterol 60 L LDL Cholesterol Direct 40 HDL Cholesterol 14 L Urine Color Urine Appearance Urine pH Ur Specific [place] Urine Protein Urine Glucose (UA) Urine Ketones Urine Blood Urine Nitrate Urine Bilirubin Urine Urobilinogen Ur Leukocyte Esterase Assessment/Plan - Assessment and Plan (Free Text) Assessment: 77yo M with PMHx of B Cell lymphoma, Bladder CA, HTN, DM, HLD, CAD and recent diagnosis of left sided Pneumonia here after no clinical improvement on Avelox as out-patient and with para-pneumonic effusion. Patient also found to be anemic in the setting of recent dx of B cell lymphoma. ID, Pulmonology, heme/onc , cardiology following. Neuro: Alert and oriented x3 Cardio: Vital signs stable bilateral LE edema improving f/u ECHO continue home meds Cardio consult requested, appreciate recs Resp: CXR - left lower lobe pneumonia family to bring in CT scan from [place] will consider repeat CT chest ID consult requested by PMD, recs appreciated Abx as per ID inhaled steroids Pulm following. Continue current management GI: heart healthy diet ID: Left lower lobe pneumonia WBC 37.8 in the setting of B Cell lymphoma. Afebrile Failed outpatient ABX (Avelox x 5 days taken at home) ID consult appreciated Merrem and vanc as per ID Heme/Onc: WBC 37.8 (Lymphocyte predominant) in the setting of B Cell lymphoma Hb 8.3 today, S/p 1U PRBC with appropriate response Heme/Onc consult requested. Recs appreciated Extremities: bilateral lower extremity edema improved after lasix in the setting of recent air travel Lower Extremity Doppler - negative DVT study Endocrine: Hx of DM Accuchecks continue home meds PPx: SCDs Lovenox Daily Discussed case with Dr. Marge Paredes PGY1 <Rory Bird - Last Filed: 10/08/17 11:20> CCU Objective - Vital Signs / Intake & Output Vital Signs (Last 4 hours): Vital Signs Temp Pulse Resp BP Pulse Ox 10/08/17 11:00 94 L 10/08/17 10:50 60 17 155/103 H 93 L 10/08/17 10:40 62 26 H 95 10/08/17 10:30 58 L 19 95 10/08/17 10:21 63 155/100 H 10/08/17 10:20 61 19 93 L 10/08/17 10:10 63 26 H 93 L 10/08/17 10:00 63 16 144/61 94 L 10/08/17 09:50 64 25 H 92 L 10/08/17 09:40 62 28 H 89 L 10/08/17 09:30 60 15 90 L 10/08/17 09:20 62 21 90 L 10/08/17 09:10 60 20 93 L 10/08/17 09:00 59 L 20 143/61 93 L 10/08/17 08:50 62 23 91 L 10/08/17 07:51 63 21 146/57 L 93 L 10/08/17 07:50 63 24 92 L 10/08/17 07:40 70 30 H 93 L 10/08/17 07:30 98.5 F 56 L 22 93 L 10/08/17 07:20 58 L 19 93 L Intake and Output (Last 8hrs): Intake & Output 10/07/17 10/08/17 10/08/17 22:59 06:59 14:59 Intake Total 0 1525 250 Output Total 1500 500 Balance 0 25 -250 Intake: IV 450 250 Bilateral Antecubital 450 250 Oral 750 Blood Product 0 325 Red Blood Cells Cpd As1 0 325 Lr Unit [id number] Output: Urine 1500 500 Urine, Voided 1500 500 Other: # Bowel Movements 1 - Medications Active Medications: Active Medications Generic Name Dose Route Start Last Admin Trade Name Freq PRN Reason Stop Dose Admin Albuterol/Ipratropium 3 ml 10/08/17 08:00 10/08/17 07:10 Duoneb 3 Mg/0.5 Mg (3 Ml) Ud IH 3 ml [id number] DAISY Administration Albuterol/Ipratropium 3 ml 10/08/17 06:59 Duoneb 3 Mg/0.5 Mg (3 Ml) Ud IH Q2H PRN Shortness of Breath Aspirin 81 mg 10/08/17 10:00 10/08/17 10:22 Ecotrin PO 81 mg QAM DAISY Administration Atorvastatin Calcium 20 mg 10/08/17 18:00 Lipitor PO QPM DAISY Budesonide 0.5 mg 10/08/17 08:00 10/08/17 07:10 Pulmicort Respules IH 0.5 mg [id number] DAISY Administration Doxycycline Hyclate 100 mg 10/07/17 22:00 10/08/17 10:22 Doryx PO 100 mg Q12 DAISY Administration Protocol Enoxaparin Sodium 30 mg 10/08/17 10:00 10/08/17 10:22 Lovenox SC 30 mg DAILY DAISY Administration Protocol Glyburide 5 mg 10/08/17 08:00 10/08/17 10:31 Micronase PO 5 mg BRKDIN DAISY Administration Hydrochlorothiazide 25 mg 10/08/17 10:00 10/08/17 10:21 Hydrodiuril PO 25 mg DAILY DAISY Administration Vancomycin HCl 1 gm in 250 mls @ 167 mls/hr 10/07/17 19:00 10/08/17 07:02 Vancomycin 1gm IVPB 167 mls/hr Q12H DAISY Administration Protocol Meropenem 1 gm/ Dextrose 100 mls @ 100 mls/hr 10/07/17 19:15 10/08/17 07:00 IVPB 10/14/17 19:16 100 mls/hr Q8 DAISY Administration Protocol Insulin Human Regular 0 units 10/08/17 11:30 Humulin R Low SC ACHS DAISY Protocol Losartan Potassium 100 mg 10/08/17 10:00 10/08/17 10:21 Cozaar PO 100 mg DAILY DAISY Administration Metformin HCl 500 mg 10/08/17 07:30 10/08/17 07:52 Glucophage PO 500 mg BRKDIN DAISY Administration Non-Formulary Medication 0.5 mg 10/08/17 10:00 Dutasteride [Avodart] PO QAM DAISY Polyethylene Glycol 17 gm 10/07/17 21:00 10/08/17 10:22 Miralax PO 17 gm BID DAISY Administration Propranolol HCl 120 mg 10/08/17 10:00 10/08/17 10:21 Inderal La PO 120 mg DAILY DAISY Administration Tamsulosin HCl 0.4 mg 10/08/17 18:00 Flomax PO QPM DAISY - Patient Studies Lab Studies: Lab Studies 10/08/17 10/08/17 10/08/17 Range/Units 07:48 06:00 05:30 WBC (4.5-11.0) 10^3/ul RBC (3.5-6.1) 10^6/uL Hgb (14.0-18.0) g/dL Hct (42.0-52.0) % MCV (80.0-105.0) fl MCH (25.0-35.0) pg MCHC (31.0-37.0) g/dl RDW (11.5-14.5) % Plt Count (120.0-450.0) 10^3/uL MPV (7.0-11.0) fl Eos % (Auto) (1.5-5.0) % Baso % (Auto) (0.0-3.0) % Eos # (0.0-0.7) Baso # (0.0-2.0) K/mm3 Neutrophils % (Manual) (50.0-70.0) % Lymphocytes % (Manual) (22.0-35.0) % Monocytes % (Manual) (1.0-6.0) % Eosinophils % (Manual) (0.0-3.0) % Platelet Evaluation (NORMAL) Sodium 138 (132-148) mmol/L Potassium 3.7 (3.6-5.0) mmol/L Chloride 102 (98-107) mmol/L Carbon Dioxide 27 (21-33) mmol/L Anion Gap 13 (10-20) BUN 30 H (7-21) mg/dL Creatinine 1.0 (0.8-1.5) mg/dL Est GFR ( Amer) > 60 Est GFR (Non-Af Amer) > 60 POC Glucose (mg/dL) 159 H (65-110) mg/dL Random Glucose 132 H (70-110) mg/dL Calcium 8.7 (8.4-10.5) mg/dL Phosphorus 3.2 (2.5-4.5) mg/dL Magnesium 2.4 H (1.7-2.2) mg/dL Total Bilirubin 1.3 (0.2-1.3) mg/dL AST 103 H (17-59) U/L ALT 104 H (7-56) U/L Alkaline Phosphatase 92 (38-126) U/L Total Protein 6.1 (5.8-8.3) g/dL Albumin 3.1 (3.0-4.8) g/dL Globulin 3.0 gm/dL Albumin/Globulin Ratio 1.0 L (1.1-1.8) Triglycerides 67 (35-160) mg/dL Cholesterol 60 L (130-200) mg/dL LDL Cholesterol Direct 40 (0-129) mg/dL HDL Cholesterol 14 L (29-60) mg/dL TSH 3rd Generation 1.13 (0.46-4.68) mIU/mL Urine Color (YELLOW) Urine Appearance (CLEAR) Urine pH (4.7-8.0) Ur Specific [place] (1.005-1.035) Urine Protein (<30 mg/dL) mg/dL Urine Glucose (UA) (NEGATIVE) mg/dL Urine Ketones (NEGATIVE) mg/dL Urine Blood (NEGATIVE) Urine Nitrate (NEGATIVE) Urine Bilirubin (NEGATIVE) Urine Urobilinogen (<1 E.U./dL) E.U./dL Ur Leukocyte Esterase (NEGATIVE) Teresa/uL 10/08/17 10/08/17 10/07/17 Range/Units 05:30 04:09 21:08 WBC 37.8 H* (4.5-11.0) 10^3/ul RBC 2.61 L (3.5-6.1) 10^6/uL Hgb 8.3 L (14.0-18.0) g/dL Hct 25.4 L (42.0-52.0) % MCV 97.3 (80.0-105.0) fl MCH 31.8 (25.0-35.0) pg MCHC 32.7 (31.0-37.0) g/dl RDW 18.7 H (11.5-14.5) % Plt Count 92 L (120.0-450.0) 10^3/uL MPV 10.3 (7.0-11.0) fl Eos % (Auto) 0.2 L (1.5-5.0) % Baso % (Auto) 0.1 (0.0-3.0) % Eos # 0.1 (0.0-0.7) Baso # 0.02 (0.0-2.0) K/mm3 Neutrophils % (Manual) 7 L (50.0-70.0) % Lymphocytes % (Manual) 90 H (22.0-35.0) % Monocytes % (Manual) 2 (1.0-6.0) % Eosinophils % (Manual) 1 (0.0-3.0) % Platelet Evaluation Low (NORMAL) Sodium (132-148) mmol/L Potassium (3.6-5.0) mmol/L Chloride (98-107) mmol/L Carbon Dioxide (21-33) mmol/L Anion Gap (10-20) BUN (7-21) mg/dL Creatinine (0.8-1.5) mg/dL Est GFR ( Amer) Est GFR (Non-Af Amer) POC Glucose (mg/dL) 203 H (65-110) mg/dL Random Glucose (70-110) mg/dL Calcium (8.4-10.5) mg/dL Phosphorus (2.5-4.5) mg/dL Magnesium (1.7-2.2) mg/dL Total Bilirubin (0.2-1.3) mg/dL AST (17-59) U/L ALT (7-56) U/L Alkaline Phosphatase (38-126) U/L Total Protein (5.8-8.3) g/dL Albumin (3.0-4.8) g/dL Globulin gm/dL Albumin/Globulin Ratio (1.1-1.8) Triglycerides (35-160) mg/dL Cholesterol (130-200) mg/dL LDL Cholesterol Direct (0-129) mg/dL HDL Cholesterol (29-60) mg/dL TSH 3rd Generation (0.46-4.68) mIU/mL Urine Color Yellow (YELLOW) Urine Appearance Clear (CLEAR) Urine pH 6.0 (4.7-8.0) Ur Specific [place] 1.010 (1.005-1.035) Urine Protein Negative (<30 mg/dL) mg/dL Urine Glucose (UA) Negative (NEGATIVE) mg/dL Urine Ketones Negative (NEGATIVE) mg/dL Urine Blood Negative (NEGATIVE) Urine Nitrate Negative (NEGATIVE) Urine Bilirubin Negative (NEGATIVE) Urine Urobilinogen 0.2 (<1 E.U./dL) E.U./dL Ur Leukocyte Esterase Negative (NEGATIVE) Teresa/uL Laboratory Results - last 24 hr 10/07/17 10/08/17 10/08/17 21:08 04:09 05:30 WBC 37.8 H* RBC 2.61 L Hgb 8.3 L Hct 25.4 L MCV 97.3 MCH 31.8 MCHC 32.7 RDW 18.7 H Plt Count 92 L MPV 10.3 Eos % (Auto) 0.2 L Baso % (Auto) 0.1 Eos # 0.1 Baso # 0.02 Neutrophils % (Manual) 7 L Lymphocytes % (Manual) 90 H Monocytes % (Manual) 2 Eosinophils % (Manual) 1 Platelet Evaluation Low Sodium Potassium Chloride Carbon Dioxide Anion Gap BUN Creatinine Est GFR ( Amer) Est GFR (Non-Af Amer) POC Glucose (mg/dL) 203 H Random Glucose Calcium Phosphorus Magnesium Total Bilirubin AST ALT Alkaline Phosphatase Total Protein Albumin Globulin Albumin/Globulin Ratio Triglycerides Cholesterol LDL Cholesterol Direct HDL Cholesterol TSH 3rd Generation Urine Color Yellow Urine Appearance Clear Urine pH 6.0 Ur Specific [place] 1.010 Urine Protein Negative Urine Glucose (UA) Negative Urine Ketones Negative Urine Blood Negative Urine Nitrate Negative Urine Bilirubin Negative Urine Urobilinogen 0.2 Ur Leukocyte Esterase Negative 10/08/17 10/08/17 10/08/17 05:30 06:00 07:48 WBC RBC Hgb Hct MCV MCH MCHC RDW Plt Count MPV Eos % (Auto) Baso % (Auto) Eos # Baso # Neutrophils % (Manual) Lymphocytes % (Manual) Monocytes % (Manual) Eosinophils % (Manual) Platelet Evaluation Sodium 138 Potassium 3.7 Chloride 102 Carbon Dioxide 27 Anion Gap 13 BUN 30 H Creatinine 1.0 Est GFR ( Amer) > 60 Est GFR (Non-Af Amer) > 60 POC Glucose (mg/dL) 159 H Random Glucose 132 H Calcium 8.7 Phosphorus 3.2 Magnesium 2.4 H Total Bilirubin 1.3 AST 103 H ALT 104 H Alkaline Phosphatase 92 Total Protein 6.1 Albumin 3.1 Globulin 3.0 Albumin/Globulin Ratio 1.0 L Triglycerides 67 Cholesterol 60 L LDL Cholesterol Direct 40 HDL Cholesterol 14 L TSH 3rd Generation 1.13 Urine Color Urine Appearance Urine pH Ur Specific [place] Urine Protein Urine Glucose (UA) Urine Ketones Urine Blood Urine Nitrate Urine Bilirubin Urine Urobilinogen Ur Leukocyte Esterase Assessment/Plan - Assessment and Plan (Free Text) Assessment: Patient seen and examined with resident, agree with note with following additions/exceptions: Patient is 77yo male with PMhx of B cell Lymphoma, CAD, DM, HTN, a.w worsening PNA, and SOB. Patient is afebrile, HD stable, comfortable on 2LNC, sitting up in a chair. ID, cardiology, and pulmonary following. CXR with LLL PNA with possible effusion, concerning for parapneumonic effusion. Dopplers LE negative. SOB PNA Cough LE edema CAD Hx of Lymphoma Leukocytosis Pleural Effusion Recommend: - supp o2 as needed - antibiotics as per ID - ECHO - Duonebs PRN - IV steroids - follow up pulmonary, consider diagnostic thoracentesis with IR of L pleural effusion - follow up ID - follow up Heme Onc - would hold off IVF for now - FS control - GI ppx - DVT ppx - continue care in MICU
[2017-10-08] MEDS ORDERED: Potassium Chloride 20 mEq ER Tab PO ONE (07:39)
--- NOTE | 2017-10-08 09:28 | US ---
HISTORY: Leg pain and swelling. Evaluate for DVT PHYSICIAN(S): Jerome Rivera MD. TECHNIQUE: Duplex sonography and color-flow Doppler with graded compression were used to evaluate the deep venous systems of both lower extremities. FINDINGS: The visualized deep venous systems of both lower extremities are sonographically normal and compressible. Normal wave forms and augmentation are seen. There is no sonographic evidence for deep venous thrombosis in the visualized segments of both lower extremities. IMPRESSION: No sonographic evidence for deep venous thrombosis in the visualized segments of both lower extremities.
[2017-10-08] MEDS ORDERED: DIOVAN HCT PO SCH (10:00)
--- NOTE | 2017-10-08 10:13 | CP.PCM.CON ---
History of Present Illness - History of Present Illness History of Present Illness: 77 year old male with PMH of B-cell lymphoma, CAD S/P PCI and stents placed, HTN , DM, dyslipidemia, bladder CA, s/P left orchiectomy was brought in to [facility] because of continued cough and SOB which started about a week ago. He was being worked up for his lymphoma which included a CT scan of the chest which showed left sided pneumonia. He was given Avelox and he took it for at least 5 days. He went to [place] last week [place] made him cough more. He did not have fever or chills, he was not in direct contact with the animals at the racetrack, no nausea or vomiting, no headache or dizziness, no chest pain, no abdominal pain, no diarrhea, no dysuria, no sore throat, no bleeding, no dysphagia. CXR is still showing the left sided infiltrate and WBC count is markedly elevated. Infectious Diseases consult is requested to further evaluate and manage. Review of Systems - Review of Systems All systems: reviewed and no additional remarkable complaints except (as per HPI ) Past Patient History - Past Medical History & Family History Past Medical History?: Yes - Past Social History Smoking Status: Never Smoked - CARDIAC Hx Cardiac Disorders: Yes Hx Hypertension: Yes Hx Pacemaker: No - PULMONARY Hx Respiratory Disorders: No - NEUROLOGICAL Hx Neurological Disorder: No Hx Paralysis: No - HEENT Hx HEENT Problems: No - RENAL Hx Chronic Kidney Disease: No - ENDOCRINE/METABOLIC Hx Endocrine Disorders: Yes Hx Diabetes Mellitus Type 2: Yes - HEMATOLOGICAL/ONCOLOGICAL Hx Blood Disorders: Yes Hx Blood Transfusions: No Hx Blood Transfusion Reaction: No Hx Cancer: Yes (bladder) Hx Leukemia: Yes (B cell) - INTEGUMENTARY Hx Dermatological Problems: No Hx Basil Cell: No - MUSCULOSKELETAL/RHEUMATOLOGICAL Hx Musculoskeletal Disorders: Yes Hx Back Pain: Yes - GASTROINTESTINAL Hx Gastrointestinal Disorders: No - GENITOURINARY/GYNECOLOGICAL Hx Genitourinary Disorders: No - PSYCHIATRIC Hx Psychophysiologic Disorder: No Hx Emotional Abuse: No Hx Physical Abuse: No Hx Substance Use: No - SURGICAL HISTORY Hx Cardiac Catheterization: Yes Hx Coronary Stent: Yes - ANESTHESIA Hx Anesthesia Reactions: No Hx Malignant Hyperthermia: No Meds Allergies/Adverse Reactions: Allergies Allergy/AdvReac Type Severity Reaction Status Date / Time mussels Allergy Severe VOMITING/GI Verified 10/07/17 16:15 DISTRESS - Medications Medications: Current Medications Aspirin (Ecotrin) 81 mg PO QAM DAISY Atorvastatin Calcium (Lipitor) 20 mg PO QPM DAISY Furosemide (Lasix) 40 mg IV ONCE ONE Stop: 10/07/17 21:01 Glyburide (Micronase) 5 mg PO BRKDIN COUNTS INCLUDE 234 BEDS AT THE [facility] Vancomycin HCl (Vancomycin 1gm) 1 gm in 250 mls @ 167 mls/hr IVPB Q12H DAISY PRN Reason: Protocol Last Admin: 10/07/17 18:59 Dose: 167 mls/hr Meropenem 1 gm/ Dextrose 100 mls @ 100 mls/hr IVPB Q8 DAISY PRN Reason: Protocol Stop: 10/08/17 06:59 Metformin HCl (Glucophage) 500 mg PO BRKDIN COUNTS INCLUDE 234 BEDS AT THE [facility] Non-Formulary Medication (Dutasteride [Avodart]) 0.5 mg PO QAM DAISY Propranolol HCl (Inderal La) 120 mg PO DAILY DAISY Tamsulosin HCl (Flomax) 0.4 mg PO QPM DAISY Physical Exam - Constitutional Appears: Non-toxic - Head Exam Head Exam: NORMAL INSPECTION - ENT Exam ENT Exam: Mucous Membranes Moist - Neck Exam Neck exam: Negative for: Lymphadenopathy, Meningismus - Respiratory Exam Respiratory Exam: Decreased Breath Sounds (at the bases with crackles noted left greater than right) - Cardiovascular Exam Cardiovascular Exam: +S1, +S2 - GI/Abdominal Exam GI & Abdominal Exam: Soft. absent: Tenderness Results - Vital Signs Recent Vital Signs: Last Vital Signs Temp 98.8 F 10/07/17 16:34 Pulse 63 10/07/17 18:26 Resp 18 10/07/17 18:26 BP 128/58 L 10/07/17 18:26 Pulse Ox 90 L 10/07/17 18:26 - Labs Result Diagrams: 10/08/17 05:30 10/08/17 05:30 Assessment & Plan - Assessment and Plan (Free Text) Plan: Assessment Sepsis due to healthcare-associated left lower lobe pneumonia (since he has been on Avelox in the previous week) B-cell lymphoma CAD S/P PCI and stents placed HTN DM dyslipidemia bladder CA S/P left orchiectomy Plan Started patient on Vancomycin , Merrem and Doxycycline pending blood, sputum cx , PCT; reviewed CXR which shows left sided infiltrate follow up Heme/Onc evaluation and recommendations will monitor WBC count will follow clinically discussed with Dr. Johnson
[2017-10-08] MEDS: Propranolol 60 mg ER Cap PO SCH (10:21)
[2017-10-08] MEDS: Enoxaparin 30 mg Syringe SC SCH (10:22)
[2017-10-08] MEDS: POLYETHYLENE GLYCOL 3350 17 GM/Dose PACKET PO SCH ×2 (10:22→17:11)
--- NOTE | 2017-10-08 11:08 | CARD ---
APPROVED REPORT EKG Measurement Heart [id number] <Conclusion> Sinus bradycardia Otherwise normal ECG
[2017-10-08] MEDS: Insulin Reg-LOW-Coverage SC SCH ×3 (12:22→22:00)
--- NOTE | 2017-10-08 13:14 | PN ---
DATE: 10/08/2017 REFERRING PHYSICIAN: Toribio Valles MD REASON FOR CONSULTATION AND FOLLOWUP: Cardiac evaluation, history of coronary artery disease, admitted to shortness of breath, bilateral leg swelling, severe anemia, thrombocytopenia and leukocytosis. SUBJECTIVE: The patient denies any chest pain, feels a lot better, leg swelling went down and can lie flat on the bed. OBJECTIVE: GENERAL: Not in apparent distress. VITAL SIGNS: As follows: Temperature afebrile, heart rate 63 and blood pressure 146/57. HEENT: PERRLA, intact. NECK: Supple. No carotid bruit or thyromegaly, mild JVD elevated. CHEST: Decreased air entry at the left bases. ABDOMEN: Soft. EXTREMITIES: Clubbing and cyanosis negative. LABORATORY DATA: Blood workup as follows: WBC 37.8, hemoglobin 8.3, hematocrit 25.4 and platelet count 92. Chemistry shows sodium 138, potassium 3.7, chloride 102, carbon dioxide 27, anion gap of 30, BUN 13 and creatinine 1.0. Total protein 6.1, albumin 3.1, albumin-globulin ratio 1.0. TSH 1.13. BNP mildly elevated 562. Chest x-ray consist with left lower lobe pneumonia. IMPRESSION: Left lower lobe pneumonia, recently diagnosed B-cell lymphoma, not on chemotherapy, leukocytosis, anemia, thrombocytopenia as a part of lymphoma, history of coronary artery disease, history of a stent, last stent in March at mid left anterior descending, history of prostate carcinoma, diabetes, hypertension, hyperlipidemia and hypokalemia. RECOMMENDATIONS: Give 40 of K-Dur in order to supplement. The patient started on propranolol (Inderal). We will resume the patient's baseline medications such as Diovan with hydrochlorothiazide starting today. We will hold Norvasc because of the leg swelling, possibly the leg swelling bilaterally secondary to Norvasc as there is some fluid overload. Continue antibiotics as per ID. We will follow with him. Get an echocardiogram to assess LV function. We will put insulin coverage with a.c. and at bedtime. We will put low-dose DVT prophylaxis to prevent DVT. Thank you Dr. Johnson for providing us the opportunity in taking care of Chanel. Toribio Valles MD
[2017-10-08 17:39] LABS: BASO # 0.05 K/mm3 (0.0-2.0); HEMATOCRIT 27.3 % (42.0-52.0); MEAN CELL VOLUME 98.2 fl (80.0-105.0); MEAN CORPUSCULAR HEMOGLOBIN 31.3 pg (25.0-35.0); MEAN CORPUSCULAR HGB CONC 31.9 g/dl (31.0-37.0); MEAN PLATELET VOLUME 10.3 fl (7.0-11.0); PLATELET COUNT 111 10^3/uL (120.0-450.0); RED CELL DISTRIBUTION WIDTH 19.1 % (11.5-14.5)
[2017-10-08 17:55] LABS: WHITE BLOOD COUNT 49.7 10^3/ul (4.5-11.0)
--- NOTE | 2017-10-08 22:33 | PN ---
DATE: SUBJECTIVE: This is a 77-year-old man in CCU, bed 5. Nursing staff relates that there were no particular problems during the night. He is status post transfusion of 1 unit of packed red blood cells. PHYSICAL EXAMINATION GENERAL: He is alert and oriented x3. VITAL SIGNS: His pulse is 58, his blood pressure is 135/60, his temperature is 98.7 and his oxygen saturation is 93%. HEART: S1 and S2 rhythm. LUNGS: Show rhonchi with diminished breath sounds and rales at the left. ABDOMEN: Soft scaphoid with positive bowel sounds. EXTREMITIES: Show evidence of rash. There is 1+ edema in the lower extremities. LABORATORY DATA: At 24-hour, the blood culture preliminary is negative. His laboratory data showed a WBC of 37.8, RBC 2.61, hemoglobin 8.3, hematocrit 25.4 and platelet count 92,000. His chemistry shows electrolytes; his sodium is 138, potassium 3.7, chloride 102, BUN is 30, creatinine 1 and the blood sugar is 132. AST is 103 and ALT is 104. Hemoglobin A1c is 7. MEDICATIONS: He is currently receiving Cozaar 100 mg daily, Doryx 100 mg b.i.d., albuterol treatment q. 2 and q. 6, Avodart 0.5 mg in the morning, Ecotrin 81 mg daily, Flomax 0.4 mg in the evening, he is on metformin 500 mg twice a day, he is on a sliding insulin scale for his diabetes, he is on HydroDIURIL 25 mg daily, Inderal 120 mg daily, Lipitor 20 mg daily, he is on subcutaneous Lovenox for DVT prophylaxis and he is on meropenem 1 g q. 8. Micronase 5 mg b.i.d., MiraLax 17 g b.i.d., Pulmicort inhalation treatments b.i.d. and vancomycin 1 g q. 12. A discussion has been held with the patient regarding the findings of a left pleural effusion in the setting of pulmonary infiltrates. After discussion with Oncology, Dr. Nielson; Cardiology, Dr. Valles; Infectious Disease, Dr. Gutierrez and Pulmonary, Dr. Moore, it has been generally recommended that the patient undergo analysis of the left pleural effusion. He has an underlying history of CLL with a B-cell lymphoma. Currently, receiving IV antibiotics for pulmonary infiltrates on a chest x-ray. He has a history of splenomegaly. There is a history of lumbar disk disease. There is a history of bladder cancer, history of [id number] diabetes, history of coronary disease with several stents. I will continue the current medical management at this time. The recommendation for the analysis of pleural fluid has been discussed with the patient who was in agreement as well as with the consultants of Oncology, Cardiology and Infectious Disease, has also been discussed with Pulmonary. We will continue to monitor the patient closely in the ICU and CCU setting and follow up the patient's labs. Melissa Johnson MD
[2017-10-09] MEDS: Meropenem 1 GM in Dextrose 5% In Water 100 ML IVPB SCH ×3 (05:27→22:00)
[2017-10-09 06:22] LABS: BASO # 0.04 K/mm3 (0.0-2.0); BASO % 0.1 % (0.0-3.0); EOS # 0.1 (0.0-0.7); EOS % 0.2 % (1.5-5.0); HEMATOCRIT 29.2 % (42.0-52.0); MEAN CELL VOLUME 98.6 fl (80.0-105.0); MEAN CORPUSCULAR HEMOGLOBIN 31.4 pg (25.0-35.0); MEAN CORPUSCULAR HGB CONC 31.8 g/dl (31.0-37.0); MEAN PLATELET VOLUME 10.9 fl (7.0-11.0); PLATELET COUNT 107 10^3/uL (120.0-450.0); RED CELL DISTRIBUTION WIDTH 18.9 % (11.5-14.5)
[2017-10-09 06:36] LABS: ALKALINE PHOSPHATASE 89 U/L (38-126); ALT/SGPT 109 U/L (7-56); AST/SGOT 66 U/L (17-59); BILIRUBIN,TOTAL 1.1 mg/dL (0.2-1.3); BLOOD UREA NITROGEN 19 mg/dL (7-21); CALCIUM 8.9 mg/dL (8.4-10.5); CARBON DIOXIDE 27 mmol/L (21-33); CHLORIDE 105 mmol/L (98-107); GFR AFRICAN-AMERICAN > 60; GLUCOSE,RANDOM 112 mg/dL (70-110); MAGNESIUM 2.3 mg/dL (1.7-2.2); PHOSPHOROUS 2.9 mg/dL (2.5-4.5); POTASSIUM 4.1 mmol/L (3.6-5.0); SODIUM 139 mmol/L (132-148); TOTAL PROTEIN 6.4 g/dL (5.8-8.3)
[2017-10-09] MEDS: Vancomycin 1gm in NS 250ml 1 GM/250 ML BAG IVPB SCH ×2 (07:11→20:53)
--- NOTE | 2017-10-09 07:32 | CP.CCUPN ---
<[employer] purvis - Last Filed: 10/09/17 11:00> CCU Subjective - Physician Review Subjective (Free Text): Patient seen and examined at bedside. Resting comfortably in bed. No acute overnight events. Patient states SOB has significantly improved relative to baseline. Offers no new complaints at this time. Denies fever, chills, chest pain, abdominal pain, nausea, vomiting, diarrhea, constipation, and urinary symptoms. 10/09/17 10:44 CCU Objective - Vital Signs / Intake & Output Vital Signs (Last 4 hours): Vital Signs Pulse Resp BP Pulse Ox 10/09/17 07:08 59 L 25 H 120/69 90 L 10/09/17 07:00 61 31 H 144/76 92 L 10/09/17 06:59 63 34 H 10/09/17 06:40 69 24 89 L 10/09/17 06:30 64 14 89 L 10/09/17 06:20 53 L 18 83 L 10/09/17 06:10 53 L 17 83 L 10/09/17 06:00 55 L 18 131/49 L 83 L 10/09/17 05:50 56 L 19 84 L 10/09/17 05:40 56 L 18 90 L 10/09/17 05:30 53 L 19 89 L 10/09/17 05:20 51 L 18 90 L 10/09/17 05:10 54 L 18 92 L 10/09/17 05:00 54 L 19 138/52 L 90 L 10/09/17 04:50 53 L 19 90 L 10/09/17 04:40 56 L 19 91 L 10/09/17 04:30 56 L 18 93 L 10/09/17 04:20 55 L 18 96 10/09/17 04:10 56 L 15 93 L 10/09/17 04:04 60 10/09/17 04:00 57 L 16 144/58 L 94 L 10/09/17 03:50 57 L 14 98 10/09/17 03:40 59 L 14 100 Intake and Output (Last 8hrs): Intake & Output 10/08/17 10/09/17 10/09/17 22:59 06:59 14:59 Intake Total 720 450 Output Total 375 1500 Balance 345 -1050 Intake: IV 450 Right Antecubital 450 Oral 720 Output: Urine 375 1500 Urine, Voided 375 1500 - Physical Exam Head: Positive for: Atraumatic, Normocephalic Extroacular Muscles: Positive for: EOMI Conjunctiva: Positive for: Normal Mouth: Positive for: Moist Mucous Membranes Neck: Positive for: Normal Range of Motion Respiratory/Chest: Positive for: Other (left lower lobe crackles). Negative for : Accessory Muscle Use Cardiovascular: Positive for: Regular Rate and Rhythm, Normal S1, S2. Negative for: Murmurs Abdomen: Positive for: Normal Bowel Sounds. Negative for: Tenderness, Distention, Peritoneal Signs Back: Positive for: Normal Inspection Upper Extremity: Positive for: Normal Inspection. Negative for: Cyanosis, Edema Lower Extremity: Positive for: Edema (lower extremity edema improving). Negative for: CALF TENDERNESS Neurological: Positive for: GCS=15, CN II-XII Intact, Speech Normal Skin: Positive for: Warm, Dry, Normal Color. Negative for: Rashes Psychiatric: Positive for: Alert, Oriented x 3, Normal Insight, Normal Concentration - Medications Active Medications: Active Medications Generic Name Dose Route Start Last Admin Trade Name Freq PRN Reason Stop Dose Admin Albuterol/Ipratropium 3 ml 10/08/17 08:00 10/08/17 20:18 Duoneb 3 Mg/0.5 Mg (3 Ml) Ud IH 3 ml [id number] DAISY Administration Albuterol/Ipratropium 3 ml 10/08/17 06:59 Duoneb 3 Mg/0.5 Mg (3 Ml) Ud IH Q2H PRN Shortness of Breath Aspirin 81 mg 10/08/17 10:00 10/08/17 10:22 Ecotrin PO 81 mg QAM DAISY Administration Atorvastatin Calcium 20 mg 10/08/17 18:00 10/08/17 17:06 Lipitor PO 20 mg QPM DAISY Administration Budesonide 0.5 mg 10/08/17 08:00 10/08/17 20:18 Pulmicort Respules IH 0.5 mg [id number] DAISY Administration Doxycycline Hyclate 100 mg 10/07/17 22:00 10/08/17 22:00 Doryx PO 100 mg Q12 DAISY Administration Protocol Enoxaparin Sodium 30 mg 10/08/17 10:00 10/08/17 10:22 Lovenox SC 30 mg DAILY DAISY Administration Protocol Glyburide 5 mg 10/08/17 08:00 10/08/17 17:06 Micronase PO 5 mg BRKDIN DAISY Administration Hydrochlorothiazide 25 mg 10/08/17 10:00 10/08/17 10:21 Hydrodiuril PO 25 mg DAILY DAISY Administration Vancomycin HCl 1 gm in 250 mls @ 167 mls/hr 10/07/17 19:00 10/09/17 07:11 Vancomycin 1gm IVPB 167 mls/hr Q12H DAISY Administration Protocol Meropenem 1 gm/ Dextrose 100 mls @ 100 mls/hr 10/07/17 19:15 10/09/17 05:27 IVPB 10/14/17 19:16 100 mls/hr Q8 DAISY Administration Protocol Insulin Human Regular 0 units 10/08/17 11:30 10/08/17 22:00 Humulin R Low SC Not Given ACHS DAISY Protocol Losartan Potassium 100 mg 10/08/17 10:00 10/08/17 10:21 Cozaar PO 100 mg DAILY DAISY Administration Metformin HCl 500 mg 10/08/17 07:30 10/08/17 17:06 Glucophage PO 500 mg BRKDIN DAISY Administration Non-Formulary Medication 0.5 mg 10/08/17 10:00 10/08/17 12:22 Dutasteride [Avodart] PO Not Given QAM DAISY Polyethylene Glycol 17 gm 10/07/17 21:00 10/08/17 17:11 Miralax PO Not Given BID DAISY Propranolol HCl 120 mg 10/08/17 10:00 10/08/17 10:21 Inderal La PO 120 mg DAILY DAISY Administration Tamsulosin HCl 0.4 mg 10/08/17 18:00 10/08/17 17:05 Flomax PO 0.4 mg QPM DAISY Administration - Patient Studies Lab Studies: Lab Studies 10/09/17 10/09/17 10/08/17 Range/Units 05:10 05:10 22:00 WBC 44.0 H* (4.5-11.0) 10^3/ul RBC 2.96 L (3.5-6.1) 10^6/uL Hgb 9.3 L (14.0-18.0) g/dL Hct 29.2 L (42.0-52.0) % MCV 98.6 (80.0-105.0) fl MCH 31.4 (25.0-35.0) pg MCHC 31.8 (31.0-37.0) g/dl RDW 18.9 H (11.5-14.5) % Plt Count 107 L (120.0-450.0) 10^3/uL MPV 10.9 (7.0-11.0) fl Eos % (Auto) 0.2 L (1.5-5.0) % Baso % (Auto) 0.1 (0.0-3.0) % Eos # 0.1 (0.0-0.7) Baso # 0.04 (0.0-2.0) K/mm3 Sodium 139 (132-148) mmol/L Potassium 4.1 (3.6-5.0) mmol/L Chloride 105 (98-107) mmol/L Carbon Dioxide 27 (21-33) mmol/L Anion Gap 11 (10-20) BUN 19 (7-21) mg/dL Creatinine 1.0 (0.8-1.5) mg/dL Est GFR ( Amer) > 60 Est GFR (Non-Af Amer) > 60 POC Glucose (mg/dL) 188 H (65-110) mg/dL Random Glucose 112 H (70-110) mg/dL Hemoglobin A1c (4.2-6.5) % Calcium 8.9 (8.4-10.5) mg/dL Phosphorus 2.9 (2.5-4.5) mg/dL Magnesium 2.3 H (1.7-2.2) mg/dL Total Bilirubin 1.1 (0.2-1.3) mg/dL AST 66 H D (17-59) U/L ALT 109 H (7-56) U/L Alkaline Phosphatase 89 (38-126) U/L Total Protein 6.4 (5.8-8.3) g/dL Albumin 3.3 (3.0-4.8) g/dL Globulin 3.2 gm/dL Albumin/Globulin Ratio 1.0 L (1.1-1.8) TSH 3rd Generation (0.46-4.68) mIU/mL 10/08/17 10/08/17 10/08/17 Range/Units 17:29 15:39 11:26 WBC 49.7 H* D (4.5-11.0) 10^3/ul RBC 2.78 L (3.5-6.1) 10^6/uL Hgb 8.7 L (14.0-18.0) g/dL Hct 27.3 L (42.0-52.0) % MCV 98.2 (80.0-105.0) fl MCH 31.3 (25.0-35.0) pg MCHC 31.9 (31.0-37.0) g/dl RDW 19.1 H (11.5-14.5) % Plt Count 111 L (120.0-450.0) 10^3/uL MPV 10.3 (7.0-11.0) fl Eos % (Auto) (1.5-5.0) % Baso % (Auto) (0.0-3.0) % Eos # (0.0-0.7) Baso # 0.05 (0.0-2.0) K/mm3 Sodium (132-148) mmol/L Potassium (3.6-5.0) mmol/L Chloride (98-107) mmol/L Carbon Dioxide (21-33) mmol/L Anion Gap (10-20) BUN (7-21) mg/dL Creatinine (0.8-1.5) mg/dL Est GFR ( Amer) Est GFR (Non-Af Amer) POC Glucose (mg/dL) 141 H 262 H (65-110) mg/dL Random Glucose (70-110) mg/dL Hemoglobin A1c (4.2-6.5) % Calcium (8.4-10.5) mg/dL Phosphorus (2.5-4.5) mg/dL Magnesium (1.7-2.2) mg/dL Total Bilirubin (0.2-1.3) mg/dL AST (17-59) U/L ALT (7-56) U/L Alkaline Phosphatase (38-126) U/L Total Protein (5.8-8.3) g/dL Albumin (3.0-4.8) g/dL Globulin gm/dL Albumin/Globulin Ratio (1.1-1.8) TSH 3rd Generation (0.46-4.68) mIU/mL 10/08/17 10/08/17 10/08/17 Range/Units 07:48 06:00 05:30 WBC (4.5-11.0) 10^3/ul RBC (3.5-6.1) 10^6/uL Hgb (14.0-18.0) g/dL Hct (42.0-52.0) % MCV (80.0-105.0) fl MCH (25.0-35.0) pg MCHC (31.0-37.0) g/dl RDW (11.5-14.5) % Plt Count (120.0-450.0) 10^3/uL MPV (7.0-11.0) fl Eos % (Auto) (1.5-5.0) % Baso % (Auto) (0.0-3.0) % Eos # (0.0-0.7) Baso # (0.0-2.0) K/mm3 Sodium (132-148) mmol/L Potassium (3.6-5.0) mmol/L Chloride (98-107) mmol/L Carbon Dioxide (21-33) mmol/L Anion Gap (10-20) BUN (7-21) mg/dL Creatinine (0.8-1.5) mg/dL Est GFR ( Amer) Est GFR (Non-Af Amer) POC Glucose (mg/dL) 159 H (65-110) mg/dL Random Glucose (70-110) mg/dL Hemoglobin A1c 7.0 H (4.2-6.5) % Calcium (8.4-10.5) mg/dL Phosphorus (2.5-4.5) mg/dL Magnesium (1.7-2.2) mg/dL Total Bilirubin (0.2-1.3) mg/dL AST (17-59) U/L ALT (7-56) U/L Alkaline Phosphatase (38-126) U/L Total Protein (5.8-8.3) g/dL Albumin (3.0-4.8) g/dL Globulin gm/dL Albumin/Globulin Ratio (1.1-1.8) TSH 3rd Generation 1.13 (0.46-4.68) mIU/mL Laboratory Results - last 24 hr 10/08/17 10/08/17 10/08/17 05:30 06:00 07:48 WBC RBC Hgb Hct MCV MCH MCHC RDW Plt Count MPV Eos % (Auto) Baso % (Auto) Eos # Baso # Sodium Potassium Chloride Carbon Dioxide Anion Gap BUN Creatinine Est GFR ( Amer) Est GFR (Non-Af Amer) POC Glucose (mg/dL) 159 H Random Glucose Hemoglobin A1c 7.0 H Calcium Phosphorus Magnesium Total Bilirubin AST ALT Alkaline Phosphatase Total Protein Albumin Globulin Albumin/Globulin Ratio TSH 3rd Generation 1.13 10/08/17 10/08/17 10/08/17 11:26 15:39 17:29 WBC 49.7 H* D RBC 2.78 L Hgb 8.7 L Hct 27.3 L MCV 98.2 MCH 31.3 MCHC 31.9 RDW 19.1 H Plt Count 111 L MPV 10.3 Eos % (Auto) Baso % (Auto) Eos # Baso # 0.05 Sodium Potassium Chloride Carbon Dioxide Anion Gap BUN Creatinine Est GFR ( Amer) Est GFR (Non-Af Amer) POC Glucose (mg/dL) 262 H 141 H Random Glucose Hemoglobin A1c Calcium Phosphorus Magnesium Total Bilirubin AST ALT Alkaline Phosphatase Total Protein Albumin Globulin Albumin/Globulin Ratio TSH 3rd Generation 10/08/17 10/09/17 10/09/17 22:00 05:10 05:10 WBC 44.0 H* RBC 2.96 L Hgb 9.3 L Hct 29.2 L MCV 98.6 MCH 31.4 MCHC 31.8 RDW 18.9 H Plt Count 107 L MPV 10.9 Eos % (Auto) 0.2 L Baso % (Auto) 0.1 Eos # 0.1 Baso # 0.04 Sodium 139 Potassium 4.1 Chloride 105 Carbon Dioxide 27 Anion Gap 11 BUN 19 Creatinine 1.0 Est GFR ( Amer) > 60 Est GFR (Non-Af Amer) > 60 POC Glucose (mg/dL) 188 H Random Glucose 112 H Hemoglobin A1c Calcium 8.9 Phosphorus 2.9 Magnesium 2.3 H Total Bilirubin 1.1 AST 66 H D ALT 109 H Alkaline Phosphatase 89 Total Protein 6.4 Albumin 3.3 Globulin 3.2 Albumin/Globulin Ratio 1.0 L TSH 3rd Generation Fingerstick Blood Sugar Results: 188 Review of Systems - Review of Systems Review of Systems: 12 point review of systems negative except as indicated in the HPI Assessment/Plan - Assessment and Plan (Free Text) Assessment: 77yo M with PMHx of B Cell lymphoma, Bladder CA, HTN, DM, HLD, CAD and recent diagnosis of left sided Pneumonia here after no clinical improvement on Avelox as out-patient and with para-pneumonic effusion. Patient also found to be anemic in the setting of recent dx of B cell lymphoma. ID, Pulmonology, heme/onc , cardiology following. Patient had thoracentesis completed today. Plan: Neuro: Alert and oriented x3 Cardio: HR trended, reviewed, and appreciated, will continue to monitor closely BPs trended, reviewed, and appreciated, will continue to monitor closely ECHO- reviewed- LVEF 45%, mild-moderate tricuspid regurg, mild concentric left ventricular hypertrophy Cardio consult requested, appreciate recs. continue aspirin and statin, continue losartan, hctz, and propanolol Resp: CXR - left lower lobe pneumonia Abx as per ID- darya salmon vanco Pulm following. Continue current management ID consult requested by PMD, recs appreciated Patient is s/p thoracentesis via IR, drained approximately 750 cc of valerie colored fluid GI: heart healthy diet ID: Left lower lobe pneumonia WBC elevated in the setting of CLL. Afebrile Failed outpatient ABX (Avelox x 5 days taken at home) ID consult appreciated Abx as per ID- darya salmon vanco Heme/Onc: WBC elevated (Lymphocyte predominant) in the setting of CLL Hgbs trended, reviewed, and appreciated, will continue to monitor closely, S/p 1U PRBC with appropriate response Heme/Onc consult requested. Recs appreciated DVT prophylaxis- Lovenox Extremities: Bilateral lower extremity edema improved Lower Extremity Doppler - negative DVT study Endocrine: Hx of DM Accuchecks Continue home meds- glyburide and metformin Medicine team will sign off at this time. Please reconsult if needed. Thank you for the opportunity to participate in the care of this patient. Patient seen, case discussed with, and plan approved by attending physician, Dr. Cardozo. <Rodrigo Cardozo - Last Filed: 10/09/17 15:31> CCU Objective - Vital Signs / Intake & Output Vital Signs (Last 4 hours): Vital Signs Temp Pulse Resp BP Pulse Ox 10/09/17 14:16 92 L 10/09/17 12:08 97.8 F 10/09/17 11:45 58 L 35 H 124/52 L 92 L 10/09/17 11:40 58 L 24 91 L 10/09/17 11:30 62 19 93 L Intake and Output (Last 8hrs): Intake & Output 10/09/17 10/09/17 10/09/17 06:59 14:59 22:59 Intake Total 450 Output Total 1500 Balance -1050 Intake: IV 450 Right Antecubital 450 Output: Urine 1500 Urine, Voided 1500 - Medications Active Medications: Active Medications Generic Name Dose Route Start Last Admin Trade Name Freq PRN Reason Stop Dose Admin Albuterol/Ipratropium 3 ml 10/08/17 08:00 10/09/17 14:13 Duoneb 3 Mg/0.5 Mg (3 Ml) Ud IH 3 ml [id number] DAISY Administration Albuterol/Ipratropium 3 ml 10/08/17 06:59 Duoneb 3 Mg/0.5 Mg (3 Ml) Ud IH Q2H PRN Shortness of Breath Aspirin 81 mg 10/08/17 10:00 10/09/17 10:13 Ecotrin PO 81 mg QAM DAISY Administration Atorvastatin Calcium 20 mg 10/08/17 18:00 10/08/17 17:06 Lipitor PO 20 mg QPM DAISY Administration Budesonide 0.5 mg 10/08/17 08:00 10/09/17 07:42 Pulmicort Respules IH 0.5 mg [id number] DAISY Administration Doxycycline Hyclate 100 mg 10/07/17 22:00 10/09/17 10:13 Doryx PO 100 mg Q12 DAISY Administration Protocol Enoxaparin Sodium 30 mg 10/08/17 10:00 10/09/17 10:15 Lovenox SC Not Given DAILY DAISY Protocol Glyburide 5 mg 10/08/17 08:00 10/09/17 08:06 Micronase PO 5 mg BRKDIN DAISY Administration Hydrochlorothiazide 25 mg 10/08/17 10:00 10/09/17 10:16 Hydrodiuril PO 25 mg DAILY DAISY Administration Vancomycin HCl 1 gm in 250 mls @ 167 mls/hr 10/07/17 19:00 10/09/17 07:11 Vancomycin 1gm IVPB 167 mls/hr Q12H DAISY Administration Protocol Meropenem 1 gm/ Dextrose 100 mls @ 100 mls/hr 10/07/17 19:15 10/09/17 14:48 IVPB 10/14/17 19:16 100 mls/hr Q8 DAISY Administration Protocol Insulin Human Regular 0 units 10/08/17 11:30 10/09/17 12:06 Humulin R Low SC Not Given ACHS [facility] Protocol Losartan Potassium 100 mg 10/08/17 10:00 10/09/17 10:13 Cozaar PO 100 mg DAILY DAISY Administration Metformin HCl 500 mg 10/08/17 07:30 10/09/17 08:06 Glucophage PO 500 mg BRKDIN DAISY Administration Non-Formulary Medication 0.5 mg 10/08/17 10:00 10/09/17 10:14 Dutasteride [Avodart] PO Not Given QAM DAISY Polyethylene Glycol 17 gm 10/07/17 21:00 10/09/17 10:15 Miralax PO Not Given BID DAISY Propranolol HCl 120 mg 10/08/17 10:00 10/09/17 10:14 Inderal La PO 120 mg DAILY DASIY Administration Tamsulosin HCl 0.4 mg 10/08/17 18:00 10/08/17 17:05 Flomax PO 0.4 mg QPM DAISY Administration - Patient Studies Lab Studies: Microbiology Studies 10/07/17 20:50 MRSA Culture (Admit) - Final Naris MRSA NOT DETECTED 10/08/17 04:09 Urine Culture - Final Urine No Growth (<1,000 CFU/ML) Lab Studies 10/09/17 10/09/17 10/09/17 Range/Units 10:40 09:54 07:50 WBC (4.5-11.0) 10^3/ul RBC (3.5-6.1) 10^6/uL Hgb (14.0-18.0) g/dL Hct (42.0-52.0) % MCV (80.0-105.0) fl MCH (25.0-35.0) pg MCHC (31.0-37.0) g/dl RDW (11.5-14.5) % Plt Count (120.0-450.0) 10^3/uL MPV (7.0-11.0) fl Eos % (Auto) (1.5-5.0) % Baso % (Auto) (0.0-3.0) % Eos # (0.0-0.7) Baso # (0.0-2.0) K/mm3 Neutrophils % (Manual) (50.0-70.0) % Lymphocytes % (Manual) (22.0-35.0) % Monocytes % (Manual) (1.0-6.0) % Nucleated RBC % % Large Platelets Sodium (132-148) mmol/L Potassium (3.6-5.0) mmol/L Chloride (98-107) mmol/L Carbon Dioxide (21-33) mmol/L Anion Gap (10-20) BUN (7-21) mg/dL Creatinine (0.8-1.5) mg/dL Est GFR ( Amer) Est GFR (Non-Af Amer) POC Glucose (mg/dL) 111 H (65-110) mg/dL Random Glucose (70-110) mg/dL Calcium (8.4-10.5) mg/dL Phosphorus (2.5-4.5) mg/dL Magnesium (1.7-2.2) mg/dL Total Bilirubin (0.2-1.3) mg/dL AST (17-59) U/L ALT (7-56) U/L Alkaline Phosphatase (38-126) U/L Total Protein (5.8-8.3) g/dL Albumin (3.0-4.8) g/dL Globulin gm/dL Albumin/Globulin Ratio (1.1-1.8) Fluid Source Pleural Fluid Appearance Clear (CLEAR) Fluid WBC 446.0 H (0.0-300.0) /uL Fluid RBC 1931.0 H (0.0-0.0) /uL Fluid Tot Cell Count 100 H (0-0) Fluid Neutrophils 5.4 H (0-0) % Fluid Lymphocytes 94.6 H (0-0) % Fld Monocyte/Macrophag TEST NOT PERFORMED Fluid Comment Yellow Pleural pH 7.0 10/09/17 10/09/17 10/08/17 Range/Units 05:10 05:10 22:00 WBC 44.0 H* (4.5-11.0) 10^3/ul RBC 2.96 L (3.5-6.1) 10^6/uL Hgb 9.3 L (14.0-18.0) g/dL Hct 29.2 L (42.0-52.0) % MCV 98.6 (80.0-105.0) fl MCH 31.4 (25.0-35.0) pg MCHC 31.8 (31.0-37.0) g/dl RDW 18.9 H (11.5-14.5) % Plt Count 107 L (120.0-450.0) 10^3/uL MPV 10.9 (7.0-11.0) fl Eos % (Auto) 0.2 L (1.5-5.0) % Baso % (Auto) 0.1 (0.0-3.0) % Eos # 0.1 (0.0-0.7) Baso # 0.04 (0.0-2.0) K/mm3 Neutrophils % (Manual) 3 L (50.0-70.0) % Lymphocytes % (Manual) 94 H (22.0-35.0) % Monocytes % (Manual) 3 (1.0-6.0) % Nucleated RBC % 1 % Large Platelets Present Sodium 139 (132-148) mmol/L Potassium 4.1 (3.6-5.0) mmol/L Chloride 105 (98-107) mmol/L Carbon Dioxide 27 (21-33) mmol/L Anion Gap 11 (10-20) BUN 19 (7-21) mg/dL Creatinine 1.0 (0.8-1.5) mg/dL Est GFR ( Amer) > 60 Est GFR (Non-Af Amer) > 60 POC Glucose (mg/dL) 188 H (65-110) mg/dL Random Glucose 112 H (70-110) mg/dL Calcium 8.9 (8.4-10.5) mg/dL Phosphorus 2.9 (2.5-4.5) mg/dL Magnesium 2.3 H (1.7-2.2) mg/dL Total Bilirubin 1.1 (0.2-1.3) mg/dL AST 66 H D (17-59) U/L ALT 109 H (7-56) U/L Alkaline Phosphatase 89 (38-126) U/L Total Protein 6.4 (5.8-8.3) g/dL Albumin 3.3 (3.0-4.8) g/dL Globulin 3.2 gm/dL Albumin/Globulin Ratio 1.0 L (1.1-1.8) Fluid Source Fluid Appearance (CLEAR) Fluid WBC (0.0-300.0) /uL Fluid RBC (0.0-0.0) /uL Fluid Tot Cell Count (0-0) Fluid Neutrophils (0-0) % Fluid Lymphocytes (0-0) % Fld Monocyte/Macrophag Fluid Comment Pleural pH 10/08/17 10/08/17 Range/Units 17:29 15:39 WBC 49.7 H* D (4.5-11.0) 10^3/ul RBC 2.78 L (3.5-6.1) 10^6/uL Hgb 8.7 L (14.0-18.0) g/dL Hct 27.3 L (42.0-52.0) % MCV 98.2 (80.0-105.0) fl MCH 31.3 (25.0-35.0) pg MCHC 31.9 (31.0-37.0) g/dl RDW 19.1 H (11.5-14.5) % Plt Count 111 L (120.0-450.0) 10^3/uL MPV 10.3 (7.0-11.0) fl Eos % (Auto) (1.5-5.0) % Baso % (Auto) (0.0-3.0) % Eos # (0.0-0.7) Baso # 0.05 (0.0-2.0) K/mm3 Neutrophils % (Manual) (50.0-70.0) % Lymphocytes % (Manual) (22.0-35.0) % Monocytes % (Manual) (1.0-6.0) % Nucleated RBC % % Large Platelets Sodium (132-148) mmol/L Potassium (3.6-5.0) mmol/L Chloride (98-107) mmol/L Carbon Dioxide (21-33) mmol/L Anion Gap (10-20) BUN (7-21) mg/dL Creatinine (0.8-1.5) mg/dL Est GFR ( Amer) Est GFR (Non-Af Amer) POC Glucose (mg/dL) 141 H (65-110) mg/dL Random Glucose (70-110) mg/dL Calcium (8.4-10.5) mg/dL Phosphorus (2.5-4.5) mg/dL Magnesium (1.7-2.2) mg/dL Total Bilirubin (0.2-1.3) mg/dL AST (17-59) U/L ALT (7-56) U/L Alkaline Phosphatase (38-126) U/L Total Protein (5.8-8.3) g/dL Albumin (3.0-4.8) g/dL Globulin gm/dL Albumin/Globulin Ratio (1.1-1.8) Fluid Source Fluid Appearance (CLEAR) Fluid WBC (0.0-300.0) /uL Fluid RBC (0.0-0.0) /uL Fluid Tot Cell Count (0-0) Fluid Neutrophils (0-0) % Fluid Lymphocytes (0-0) % Fld Monocyte/Macrophag Fluid Comment Pleural pH Laboratory Results - last 24 hr 10/08/17 10/08/17 10/08/17 15:39 17:29 22:00 WBC 49.7 H* D RBC 2.78 L Hgb 8.7 L Hct 27.3 L MCV 98.2 MCH 31.3 MCHC 31.9 RDW 19.1 H Plt Count 111 L MPV 10.3 Eos % (Auto) Baso % (Auto) Eos # Baso # 0.05 Neutrophils % (Manual) Lymphocytes % (Manual) Monocytes % (Manual) Nucleated RBC % Large Platelets Sodium Potassium Chloride Carbon Dioxide Anion Gap BUN Creatinine Est GFR ( Amer) Est GFR (Non-Af Amer) POC Glucose (mg/dL) 141 H 188 H Random Glucose Calcium Phosphorus Magnesium Total Bilirubin AST ALT Alkaline Phosphatase Total Protein Albumin Globulin Albumin/Globulin Ratio Fluid Source Fluid Appearance Fluid WBC Fluid RBC Fluid Tot Cell Count Fluid Neutrophils Fluid Lymphocytes Fld Monocyte/Macrophag Fluid Comment Pleural pH 10/09/17 10/09/17 10/09/17 05:10 05:10 07:50 WBC 44.0 H* RBC 2.96 L Hgb 9.3 L Hct 29.2 L MCV 98.6 MCH 31.4 MCHC 31.8 RDW 18.9 H Plt Count 107 L MPV 10.9 Eos % (Auto) 0.2 L Baso % (Auto) 0.1 Eos # 0.1 Baso # 0.04 Neutrophils % (Manual) 3 L Lymphocytes % (Manual) 94 H Monocytes % (Manual) 3 Nucleated RBC % 1 Large Platelets Present Sodium 139 Potassium 4.1 Chloride 105 Carbon Dioxide 27 Anion Gap 11 BUN 19 Creatinine 1.0 Est GFR ( Amer) > 60 Est GFR (Non-Af Amer) > 60 POC Glucose (mg/dL) 111 H Random Glucose 112 H Calcium 8.9 Phosphorus 2.9 Magnesium 2.3 H Total Bilirubin 1.1 AST 66 H D ALT 109 H Alkaline Phosphatase 89 Total Protein 6.4 Albumin 3.3 Globulin 3.2 Albumin/Globulin Ratio 1.0 L Fluid Source Fluid Appearance Fluid WBC Fluid RBC Fluid Tot Cell Count Fluid Neutrophils Fluid Lymphocytes Fld Monocyte/Macrophag Fluid Comment Pleural pH 10/09/17 10/09/17 09:54 10:40 WBC RBC Hgb Hct MCV MCH MCHC RDW Plt Count MPV Eos % (Auto) Baso % (Auto) Eos # Baso # Neutrophils % (Manual) Lymphocytes % (Manual) Monocytes % (Manual) Nucleated RBC % Large Platelets Sodium Potassium Chloride Carbon Dioxide Anion Gap BUN Creatinine Est GFR ( Amer) Est GFR (Non-Af Amer) POC Glucose (mg/dL) Random Glucose Calcium Phosphorus Magnesium Total Bilirubin AST ALT Alkaline Phosphatase Total Protein Albumin Globulin Albumin/Globulin Ratio Fluid Source Pleural Fluid Appearance Clear Fluid WBC 446.0 H Fluid RBC 1931.0 H Fluid Tot Cell Count 100 H Fluid Neutrophils 5.4 H Fluid Lymphocytes 94.6 H Fld Monocyte/Macrophag TEST NOT PERFORMED Fluid Comment Yellow Pleural pH 7.0 Attending/Attestation - Attestation I have personally seen and examined this patient.: Yes I have fully participated in the care of the patient.: Yes I have reviewed all pertinent clinical information: Yes Notes (Text): 10/09/17 15:28 77 yo male with CAP, clinically stable. No fever, leukocytosis likely due to CLL , hemodynamically and respiratory walker stable, BUN/creat are WNL. ok to downgrade to tele ccm time 40 min
[2017-10-09] MEDS: Albuterol-Ipratrop 3 mg / 0.5 (3 ml) UD IH SCH ×3 (07:41→20:35)
[2017-10-09] MEDS: Budesonide 0.5 mg/2 ml Inhal Susp UD IH SCH ×2 (07:42→20:35)
--- NOTE | 2017-10-09 07:52 | PN ---
DATE: 10/09/2017 SUBJECTIVE: The patient appears comfortable this morning. He is mildly short of breath, but in no acute distress. PHYSICAL EXAMINATION: VITAL SIGNS: Last temperature recorded is 98.5, pulse on the monitor is 64, respiratory rate is approximately is 22, and blood pressure is 120/69. Oxygen saturation on nasal cannula is 94%. HEENT: Normocephalic and atraumatic. NECK: No JVD. CARDIOVASCULAR: Systolic ejection murmur at the lower left sternal border. No S3 gallop. LUNGS: Crackles at the left lower lobe. Much less rhonchi. No wheezing. Extremities: Mild edema. No cyanosis and no clubbing. Calves are nontender to palpation. GASTROINTESTINAL: Abdomen is soft, nontender and nondistended. Bowel sounds are positive. SKIN: No acute rash. NEUROLOGIC: Exam limited at the present time. IMPRESSION 1. Left lower lobe pneumonia. 2. Left pleural effusion. 3. Acute bronchitis. 4. B-cell lymphoma. 5. Anemia. PLAN: The patient appears comfortable this morning. He is mildly short of breath, but in no acute distress. He does state that he is feeling much better overall. On physical exam, his bronchospasm is certainly less. I will continue the current nebulizer treatments and inhaled steroids for now. I will also continue with the incentive spirometry, and have the patient out of bed as much as possible. I would continue with the antibiotic coverage as per infectious disease. Input by Dr. Gutierrez is noted. I will also order a repeat chest x-ray - for tomorrow morning - for comparison. Clinical status of the patient is improved - compared to his initial presentation. I will discuss the above with the entire ICU team the next few moments. I will discuss the above with Dr. Johnson later this morning. Tyler Moore MD [facility]
[2017-10-09] MEDS: Insulin Reg-LOW-Coverage SC SCH ×4 (07:54→22:25)
--- NOTE | 2017-10-09 09:01 | CARD ---
APPROVED REPORT EXAM: Two-dimensional and M-mode echocardiogram with Doppler and color Doppler. INDICATION 2D DIMENSIONS IVSd1.1 (0.7-1.1cm)LVDd4.8 (3.9-5.9cm) PWd1.2 (0.7-1.1cm)LVDs3.9 (2.5-4.0cm) FS (%) 19.2 %LVEF (%)39.7 (>50%) M-Mode DIMENSIONS Left Atrium (MM)5.10 (2.5-4.0cm)Aortic Root3.20 (2.2-3.7cm) Aortic Cusp Exc.2.00 (1.5-2.0cm) Aortic Valve AoV Peak Tugaokzz066.0cm/Trevor Peak GR.10mmHg Mitral Valve MV E Soylxatz218.0cm/sMV A Vzutzxvm475.0cm/sE/A ratio1.2 TDI Lateral E' Peak V9.07cm/sMedial E' Peak V7.97cm/sE/Lateral E'13.7 E/Medial E'15.6 Tricuspid Valve TR Peak Pkjewfpp173dw/sRAP [id number] Peak Gr.43mmHg [id number] LEFT VENTRICLE The left ventricle is normal size. There is mild concentric left ventricular hypertrophy. The systolic function is mildly impaired.EF-45% There is mild to Moderate hypokinesis in the apical anterior wall. The left ventricular diastolic function is normal. No left ventricle thrombus noted on this study. There is no ventricular septal defect visualized. There is no left ventricular aneurysm. There is no mass noted in the left ventricle. RIGHT VENTRICLE The right ventricle is normal size. There is normal right ventricular wall thickness. The right ventricular systolic function is normal. ATRIA The left atrium is mildly dilated. The right atrium size is normal. The interatrial septum is intact with no evidence for an atrial septal defect. AORTIC VALVE The aortic valve is thickened but opens well. No aortic regurgitation is present. There is no aortic valvular stenosis. There is no aortic valvular vegetation. MITRAL VALVE The mitral valve is thickened but opens well. Mitral regurgitation is mild. There is no mitral valve stenosis. There is no evidence of mitral valve prolapse. TRICUSPID VALVE The tricuspid valve leaflets are thickened , but open well. There is mild to moderate tricuspid regurgitation.RVSP-53 mmof hg. There is no tricuspid valve stenosis. There is no tricuspid valve prolapse or vegetation. PULMONIC VALVE The pulmonic valve is borderline thickened. There is trace pulmonic valvular regurgitation. There is no pulmonic valvular stenosis. GREAT VESSELS The aortic root is normal in size. The ascending aorta is normal in size. The pulmonary artery is normal. The IVC is dilated. PERICARDIAL EFFUSION There is no pleural effusion. There is no pericardial effusion. <Conclusion> The left ventricle is normal size. There is mild concentric left ventricular hypertrophy. The systolic function is mildly impaired.EF-45% Mitral regurgitation is mild. There is mild to moderate tricuspid regurgitation.RVSP-53 mmof hg. The IVC is dilated. There is no pericardial effusion.
[2017-10-09] MEDS ORDERED: Bacitracin 500 Units/gm Oint Foilpak UD ONE (09:11)
--- NOTE | 2017-10-09 10:04 | CP.PCM.PN ---
Subjective - Date & Time of Evaluation Date of Evaluation: 10/09/17 Time of Evaluation: 09:30 - Subjective Subjective: Thoracentesis being done at bedside by Dr. Rivera, patient comfortable during the procedure, no fevers overnight. Objective - Vital Signs/Intake and Output Vital Signs (last 24 hours): Temp Pulse Resp BP Pulse Ox 98.5 F 60 26 H 128/50 L 91 L 10/08/17 16:12 10/09/17 04:04 10/08/17 18:59 10/08/17 18:11 10/08/17 18:59 Intake and Output: 10/08/17 10/09/17 18:59 06:59 Intake Total 970 450 Output Total 875 1500 Balance 95 -1050 - Medications Medications: Current Medications Albuterol/Ipratropium (Duoneb 3 Mg/0.5 Mg (3 Ml) Ud) 3 ml IH [id number] [facility] Last Admin: 10/08/17 20:18 Dose: 3 ml Albuterol/Ipratropium (Duoneb 3 Mg/0.5 Mg (3 Ml) Ud) 3 ml IH Q2H PRN PRN Reason: Shortness of Breath Aspirin (Ecotrin) 81 mg PO QAM [facility] Last Admin: 10/08/17 10:22 Dose: 81 mg Atorvastatin Calcium (Lipitor) 20 mg PO QPM [facility] Last Admin: 10/08/17 17:06 Dose: 20 mg Budesonide (Pulmicort Respules) 0.5 mg IH [id number] [facility] Last Admin: 10/08/17 20:18 Dose: 0.5 mg Doxycycline Hyclate (Doryx) 100 mg PO Q12 [facility] PRN Reason: Protocol Last Admin: 10/08/17 22:00 Dose: 100 mg Enoxaparin Sodium (Lovenox) 30 mg SC DAILY [facility] PRN Reason: Protocol Last Admin: 10/08/17 10:22 Dose: 30 mg Glyburide (Micronase) 5 mg PO BRKDIN [facility] Last Admin: 10/08/17 17:06 Dose: 5 mg Hydrochlorothiazide (Hydrodiuril) 25 mg PO DAILY [facility] Last Admin: 10/08/17 10:21 Dose: 25 mg Vancomycin HCl (Vancomycin 1gm) 1 gm in 250 mls @ 167 mls/hr IVPB Q12H [facility] PRN Reason: Protocol Last Admin: 10/08/17 20:27 Dose: 167 mls/hr Meropenem 1 gm/ Dextrose 100 mls @ 100 mls/hr IVPB Q8 [facility] PRN Reason: Protocol Stop: 10/14/17 19:16 Last Admin: 10/09/17 05:27 Dose: 100 mls/hr Insulin Human Regular (Humulin R Low) 0 units SC ACHS [facility] PRN Reason: Protocol Last Admin: 10/08/17 22:00 Dose: Not Given Losartan Potassium (Cozaar) 100 mg PO DAILY [facility] Last Admin: 10/08/17 10:21 Dose: 100 mg Metformin HCl (Glucophage) 500 mg PO BRKDIN [facility] Last Admin: 10/08/17 17:06 Dose: 500 mg Non-Formulary Medication (Dutasteride [Avodart]) 0.5 mg PO QAM [facility] Last Admin: 10/08/17 12:22 Dose: Not Given Polyethylene Glycol (Miralax) 17 gm PO BID [facility] Last Admin: 10/08/17 17:11 Dose: Not Given Propranolol HCl (Inderal La) 120 mg PO DAILY [facility] Last Admin: 10/08/17 10:21 Dose: 120 mg Tamsulosin HCl (Flomax) 0.4 mg PO QPM [facility] Last Admin: 10/08/17 17:05 Dose: 0.4 mg - Labs Labs: 10/08/17 17:29 10/08/17 05:30 PT 17.0 SECONDS (9.4-12.5) H 10/07/17 16:30 INR 1.55 (0.93-1.08) H 10/07/17 16:30 APTT 30.4 Seconds (25.1-36.5) 10/07/17 16:30 - Constitutional Appears: No Acute Distress - Head Exam Head Exam: NORMAL INSPECTION - ENT Exam ENT Exam: Mucous Membranes Moist - Neck Exam Neck Exam: absent: Meningismus - Respiratory Exam Respiratory Exam: Decreased Breath Sounds (on the left base), Rales (scattered) - Cardiovascular Exam Cardiovascular Exam: +S1, +S2 - GI/Abdominal Exam GI & Abdominal Exam: Soft. absent: Tenderness Assessment and Plan - Assessment and Plan (Free Text) Plan: Assessment Sepsis due to healthcare-associated left lower lobe pneumonia (since he has been on Avelox in the previous week), with left sided pleural effusion S/P ultrasound-guided thoracentesis today B-cell lymphoma CAD S/P PCI and stents placed HTN DM dyslipidemia bladder CA S/P left orchiectomy Plan continue Vancomycin , Merrem and Doxycycline day 2 pending blood, sputum cx, pleural fluid cx; PCT; reviewed CXR which shows left sided infiltrate and effusion pleural fluid looks to be serous, will also be sent for flow cytometry follow up further Heme/Onc evaluation and recommendations discussed with Dr. Moore, Dr. Johnson and Dr. Jerome Rivera will continue monitor WBC count will continue to follow clinically
[2017-10-09] MEDS: Propranolol 60 mg ER Cap PO SCH (10:14)
[2017-10-09] MEDS: POLYETHYLENE GLYCOL 3350 17 GM/Dose PACKET PO SCH ×2 (10:15→17:10)
[2017-10-09] MEDS: Enoxaparin 30 mg Syringe SC SCH (10:15)
[2017-10-09 10:47] LABS: BODY FLUID TYPE PLEURAL
--- NOTE | 2017-10-09 11:23 | PN ---
DATE: SUBJECTIVE: A 77-year-old male in CCU, bed 5. The patient is status post thoracentesis by Dr. Jerome Rivera. Nurses states that the patient had a quiet night with no problems. PHYSICAL EXAMINATION: VITAL SIGNS: His temperature is 98.7, his pulse is 58, his respiratory rate is 20, and his oxygen saturation is reported 93% on 2 L of nasal oxygen. GENERAL: The patient states that he is feeling better this morning and actually with even more so since the fluid was removed by Dr. Rivera. He is alert and oriented x3. NECK: Supple. LUNGS: Show diminished breath sounds at the bases. HEART: S1 and S2 rhythm. ABDOMEN: Soft, positive bowel sounds. EXTREMITIES: Show no evidence of edema at this time. Microbiological studies today at 24 hours occult blood cultures are negative and urine culture is negative. LABORATORY DATA: Shows sodium of 139, potassium of 4.1, chloride of 105, BUN is 19, and creatinine is 1. His blood sugar is 111. His AST is 66 and his ALT is 109. CBC shows WBC of 44,000, RBC is 2.96, hemoglobin is 9.3, hematocrit is 29.2, and platelet count is 107,000. MEDICATIONS: Currently, the patient is receiving Doryx 100 mg q.12 hours p.o. and Merrem IV and vancomycin. He is also on Pulmicort Respules, MiraLax, Micronase b.i.d., Lovenox subcutaneous, Lipitor, Inderal, HydroDIURIL, finger stick coverage with insulin, Glucophage, Flomax, Ecotrin, Avodart, DuoNeb treatments, and Cozaar. ASSESSMENT AND PLAN: The patient has left pleural effusion, which was just taped. He has pulmonary infiltrates. He has a history of B-cell lymphoma, history of bladder cancer, benign prostatic hypertrophy, coronary artery disease, lumbar disc disease, [id number] diabetes, and hypertension. We monitored the patient's labs. Await diagnostic studies that have been requested. Melissa Johnson MD
[2017-10-09 11:52] LABS: BF GROSS APPEARANCE CLEAR (CLEAR)
[2017-10-09 11:53] LABS: BODY FLUID TOTAL COUNT 100 (0-0)
[2017-10-09 12:12] LABS: NEUTROPHIL 3 % (50.0-70.0); NUCLEATED RED BLOOD CELL 1 %
[2017-10-09 12:13] LABS: LARGE PLATELETS PRESENT
--- NOTE | 2017-10-09 12:41 | PN ---
DATE: 10/09/2017 REASON FOR CONSULTATION AND FOLLOWUP: Cardiac evaluation, history of coronary artery disease, admitted with shortness of breath, bilateral leg swelling, severe anemia, thrombocytopenia, leukocytosis, pneumonia. SUBJECTIVE: The patient denies any chest pain, shortness of breath, or any palpitation. Feels a lot better. OBJECTIVE: GENERAL: Not in apparent distress. Sitting on the chair. VITAL SIGNS: As follows, temperature afebrile, heart rate 58, blood pressure 120/60. HEENT: PERRLA. Extraocular muscles intact. NECK: Supple. No carotid bruit or thyromegaly. CHEST: Clear to auscultation. HEART: S1 and S2 regular. ABDOMEN: Soft. EXTREMITIES: Clubbing and cyanosis negative. LABORATORY DATA: Blood workup as follows: WBC 44, hemoglobin 9.7, hematocrit 29.2, and platelet count 107. Chemistry shows sodium 139, potassium 4.1, chloride 105, carbon dioxide 27, anion gap of 11, BUN 19, and creatinine 1.0. IMPRESSION: Left lower lobe pneumonia, recently diagnosed B-cell lymphoma, not on chemotherapy, leukocytosis, anemia, thrombocytopenia as a part of lymphoma, history of coronary artery disease, history of a stent, history of last stent in 03/2016, mid left anterior descending, history of prostate carcinoma, diabetes, hypertension, hyperlipidemia and hypokalemia, improved. RECOMMENDATIONS: Discussed with Dr. Johnson yesterday possible for CT guided biopsy. CT guided thoracentesis for cytology as well as diagnostic as well as therapeutic. Interim continue hydrochlorothiazide. Continue propranolol. Continue atorvastatin. Continue losartan. Norvasc on hold because of the leg swelling. Continue diuretics. Monitor electrolytes. We will follow with you. Okay to transfer to telemetry. Thank you Dr. Johnson for providing us the opportunity in taking care of the patient, Chanel, he spoke to the patient in length. Toribio Valles MD cc: Melissa Johnson MD
--- NOTE | 2017-10-09 21:01 | CON ---
ONCOLOGY CONSULTATION DATE: HISTORY OF PRESENT ILLNESS: This is a 77-year-old man with a B-cell lymphoma and chronic lymphocytic leukemia. The patient was well until about 11/2016, when he developed a pneumonia and at that point, he was noted to have a white count that was elevated and the white count was not going down after the infection was improved. We did test in the new office and the flow cytometry implied a chronic lymphocytic leukemia. We decided not to treat him at that time and just observe him. His hemoglobin at that time as well as platelets were normal. However, about the last month, we began to realize that he was not improving. His hemoglobin started dropping down to about 9 and his white count increased to about 40,000 and platelet count had been about 110. So I referred him over to [facility] to Dr. Mendoza, who has just recently done a good number of tests and I believe ; however, the patient then developed a new infiltrate on his chest x-ray. He does not seem to have a fever, but he is somewhat short of breath and was admitted to the hospital for this. PHYSICAL EXAMINATION: SKIN: No petechiae or bruises. HEENT: Anicteric. NODES: Nonpalpable in axillary, cervical, supraclavicular or inguinal regions. LUNGS: Clear at present. No vertebral tenderness. HEART: S1 and S2. ABDOMEN: Shows no liver and no spleen tenderness, no rebound. EXTREMITIES: No edema. CENTRAL NERVOUS SYSTEM: No focal findings. LABORATORY DATA: White count is 44,000 with markedly increased leukocyte count. His hemoglobin is 9.3 after transfusion; was 8.7 beforehand, and platelet count of 107. Furthermore, his AST is 66 and ALT of 109. I have to check and see if that was different from before. ASSESSMENT AND PLAN: At this point; although, his flow cytometry shows an indolent lymphoma, he is not acting that way and being pneumonia or inflammatory condition of the lung and his blood counts have been dropping. I spoke with Dr. Melissa Johnson and it was agreed upon that we should tap the fluid in his lung to see what kind of infection or if this is secondary to heart failure. Jak MD Nisreen
[2017-10-10] MEDS: Albuterol-Ipratrop 3 mg / 0.5 (3 ml) UD IH SCH ×4 (02:10→19:35)
[2017-10-10] MEDS: Meropenem 1 GM in Dextrose 5% In Water 100 ML IVPB SCH ×3 (06:27→21:21)
[2017-10-10 07:00] LABS: HEMATOCRIT 27.3 % (42.0-52.0); MEAN CELL VOLUME 99.3 fl (80.0-105.0); MEAN CORPUSCULAR HEMOGLOBIN 31.6 pg (25.0-35.0); MEAN CORPUSCULAR HGB CONC 31.9 g/dl (31.0-37.0); PLATELET COUNT 88 10^3/uL (120.0-450.0); RED CELL DISTRIBUTION WIDTH 18.6 % (11.5-14.5)
--- NOTE | 2017-10-10 07:14 | PN ---
DATE: 10/10/2017 PULMONARY NOTE SUBJECTIVE: The patient appears comfortable this morning. He is not short of breath at rest. OBJECTIVE: VITAL: Temperature is 98.1, pulse is 62, respirations 18, blood pressure 149/60. Oxygen saturation on nasal cannula is 95%. HEENT: Normocephalic and atraumatic. No JVD. CARDIOVASCULAR: Systolic ejection murmur at the lower left sternal border. No S3 gallop. LUNGS: Less crackles at the left lower lobe. Less rhonchi. No wheezing. EXTREMITIES: Mild edema. No cyanosis, no clubbing. Calves are nontender to palpation. GI: Abdomen is soft, nontender and nondistended. Bowel sounds are positive. SKIN: No acute rash. NEUROLOGIC: Limited at the present time. IMPRESSION: 1. Left lower lobe pneumonia. 2. Left pleural effusion. 3. Acute bronchitis. 4. B-cell lymphoma. 5. Anemia. PLAN: The patient appears comfortable this morning. He is not short of breath at rest. He does state to feeling much better overall. I did discuss the case with the night nurse at length. The night nurse stated that the patient had a very good night. On physical exam, there is certainly less bronchospasm noted. In addition, the oxygen saturation is now 95% on nasal cannula. I will continue the current nebulizer treatments and inhaled steroids for now. The patient is also reminded to use his incentive spirometer frequently, and be out of bed as much as possible. I did order a repeat chest x-ray for today, I will check that when feasible. The patient is status post thoracentesis. The total white count is 446 with a lymphocyte predominance. We are awaiting additional cultures and cytology on the fluid. Repeat a.m. labs are also pending. The patient continues to improve clinically. He does state to feeling much better overall. I would continue with him being out of bed, and increasing his activity as tolerated. I will discuss the above with the entire ICU team the next few moments. I will discuss the above with Dr. Johnson later this morning. Tyler Moore MD [facility] # [id number] MTDTaqueria
[2017-10-10 07:16] LABS: ALB/GLOB RATIO 1.1 (1.1-1.8); ALKALINE PHOSPHATASE 79 U/L (38-126); ALT/SGPT 92 U/L (7-56); AST/SGOT 52 U/L (17-59); BLOOD UREA NITROGEN 17 mg/dL (7-21); CARBON DIOXIDE 28 mmol/L (21-33); CHLORIDE 105 mmol/L (98-107); GFR AFRICAN-AMERICAN > 60; GLUCOSE,RANDOM 92 mg/dL (70-110); POTASSIUM 4.4 mmol/L (3.6-5.0); SODIUM 138 mmol/L (132-148)
[2017-10-10] MEDS: Budesonide 0.5 mg/2 ml Inhal Susp UD IH SCH ×2 (07:31→19:35)
[2017-10-10] MEDS: Vancomycin 1gm in NS 250ml 1 GM/250 ML BAG IVPB SCH ×2 (07:42→18:22)
[2017-10-10 07:50] LABS: WHITE BLOOD COUNT 36.8 10^3/ul (4.5-11.0)
[2017-10-10] MEDS: Insulin Reg-LOW-Coverage SC SCH ×4 (08:03→21:29)
--- NOTE | 2017-10-10 09:33 | CP.PCM.PN ---
Subjective - Date & Time of Evaluation Date of Evaluation: 10/10/17 Time of Evaluation: 09:20 - Subjective Subjective: Patient feeling much better, no fevers overnight, not in distress, breathing better, less cough. Objective - Vital Signs/Intake and Output Vital Signs (last 24 hours): Temp Pulse Resp BP Pulse Ox 98.1 F 60 26 H 149/60 93 L 10/09/17 16:30 10/10/17 06:24 10/10/17 06:24 10/10/17 06:24 10/10/17 06:24 Intake and Output: 10/09/17 10/10/17 18:59 06:59 Intake Total 1190 450 Output Total 600 1025 Balance 590 -575 - Medications Medications: Current Medications Albuterol/Ipratropium (Duoneb 3 Mg/0.5 Mg (3 Ml) Ud) 3 ml IH [id number] [facility] Last Admin: 10/10/17 02:10 Dose: Not Given Albuterol/Ipratropium (Duoneb 3 Mg/0.5 Mg (3 Ml) Ud) 3 ml IH Q2H PRN PRN Reason: Shortness of Breath Aspirin (Ecotrin) 81 mg PO QAM [facility] Last Admin: 10/09/17 10:13 Dose: 81 mg Atorvastatin Calcium (Lipitor) 20 mg PO QPM [facility] Last Admin: 10/09/17 17:20 Dose: 20 mg Budesonide (Pulmicort Respules) 0.5 mg IH [id number] [facility] Last Admin: 10/09/17 20:35 Dose: 0.5 mg Doxycycline Hyclate (Doryx) 100 mg PO Q12 [facility] PRN Reason: Protocol Last Admin: 10/10/17 06:29 Dose: 100 mg Enoxaparin Sodium (Lovenox) 30 mg SC DAILY [facility] PRN Reason: Protocol Last Admin: 10/09/17 10:15 Dose: Not Given Glyburide (Micronase) 5 mg PO BRKDIN [facility] Last Admin: 10/09/17 17:20 Dose: 5 mg Hydrochlorothiazide (Hydrodiuril) 25 mg PO DAILY [facility] Last Admin: 10/09/17 10:16 Dose: 25 mg Vancomycin HCl (Vancomycin 1gm) 1 gm in 250 mls @ 167 mls/hr IVPB Q12H [facility] PRN Reason: Protocol Last Admin: 10/09/17 20:53 Dose: 167 mls/hr Meropenem 1 gm/ Dextrose 100 mls @ 100 mls/hr IVPB Q8 [facility] PRN Reason: Protocol Stop: 10/14/17 19:16 Last Admin: 10/10/17 06:27 Dose: 100 mls/hr Insulin Human Regular (Humulin R Low) 0 units SC ACHS [facility] PRN Reason: Protocol Last Admin: 10/09/17 22:25 Dose: Not Given Losartan Potassium (Cozaar) 100 mg PO DAILY [facility] Last Admin: 10/09/17 10:13 Dose: 100 mg Metformin HCl (Glucophage) 500 mg PO BRKDIN [facility] Last Admin: 10/09/17 17:20 Dose: 500 mg Non-Formulary Medication (Dutasteride [Avodart]) 0.5 mg PO QAM [facility] Last Admin: 10/09/17 10:14 Dose: Not Given Polyethylene Glycol (Miralax) 17 gm PO BID [facility] Last Admin: 10/09/17 17:10 Dose: Not Given Propranolol HCl (Inderal La) 120 mg PO DAILY [facility] Last Admin: 10/09/17 10:14 Dose: 120 mg Tamsulosin HCl (Flomax) 0.4 mg PO QPM [facility] Last Admin: 10/09/17 17:20 Dose: 0.4 mg - Labs Labs: 10/09/17 05:10 10/09/17 05:10 PT 17.0 SECONDS (9.4-12.5) H 10/07/17 16:30 INR 1.55 (0.93-1.08) H 10/07/17 16:30 APTT 30.4 Seconds (25.1-36.5) 10/07/17 16:30 - Constitutional Appears: Non-toxic, No Acute Distress - Head Exam Head Exam: NORMAL INSPECTION - ENT Exam ENT Exam: Mucous Membranes Moist - Neck Exam Neck Exam: absent: Lymphadenopathy, Meningismus - Respiratory Exam Respiratory Exam: Decreased Breath Sounds (at the left base, with crackles) - Cardiovascular Exam Cardiovascular Exam: +S1, +S2 - GI/Abdominal Exam GI & Abdominal Exam: Soft. absent: Tenderness Assessment and Plan - Assessment and Plan (Free Text) Plan: Assessment Sepsis due to healthcare-associated left lower lobe pneumonia (since he has been on Avelox in the previous week), with left sided pleural effusion S/P ultrasound-guided thoracentesis POD #1 B-cell lymphoma CAD S/P PCI and stents placed HTN DM dyslipidemia bladder CA S/P left orchiectomy Plan continue Vancomycin , Merrem and Doxycycline day 3; blood cx are negative; follow up pleural fluid cx; follow up PCT and urine Legionella Ag; reviewed CXR which shows left sided infiltrate and effusion pleural fluid looks to be serous, will also be sent for flow cytometry follow up further Heme/Onc evaluation and recommendations discussed with Dr. Moore, Dr. Johnson and Dr. Jerome Rivera previously will continue to monitor WBC count will continue to follow clinically
[2017-10-10] MEDS: Propranolol 60 mg ER Cap PO SCH (09:39)
[2017-10-10] MEDS: Enoxaparin 30 mg Syringe SC SCH (09:39)
[2017-10-10] MEDS: POLYETHYLENE GLYCOL 3350 17 GM/Dose PACKET PO SCH ×2 (09:40→17:27)
--- NOTE | 2017-10-10 11:53 | US ---
PROCEDURE: Ultrasound guided left thoracentesis. CLINICAL HISTORY: Left lower lobe pneumonia. CLL. Left pleural effusion. Evaluate for empyema PHYSICIAN(S): Jerome Rivera MD. TECHNIQUE: The relative risks and indications of the procedure were explained to the patient and consent obtained. The patient was placed in a sitting position on the stretcher and sonography of the right chest performed. This revealed a small to moderate leftpleural effusion. A left posterolateral intercostal approach was selected and the area prepped and draped usual sterile fashion. 1% Xylocaine was used to anesthetize the skin and soft tissues. A 7 Thai thoracentesis catheter was trocared into the right pleural cavity and 750ccof clear mcgill fluid aspirated. Specimens were sent to the lab. IMPRESSION: 1. Ultrasound guided left thoracentesis. 750cc of clear tanfluid were aspirated.
--- NOTE | 2017-10-10 15:31 | RAD ---
HISTORY: COMPARISON: 10/07/2017 TECHNIQUE: Chest PA and lateral FINDINGS: LINES AND TUBES: None. LUNG AND PLEURA: The right lung is well inflated and clear. There is a left retrocardiac opacity and moderate pleural effusion. HEART AND MEDIASTINUM: The heart is not enlarged. The hilar and mediastinal contours are within normal limits. SKELETAL STRUCTURES: The bony structures are within normal limits for the patient's age. VISUALIZED UPPER ABDOMEN: Normal. OTHER FINDINGS: None. IMPRESSION: No change in left lower lobe atelectasis/pneumonia and moderate left pleural effusion.
--- NOTE | 2017-10-10 18:29 | PN ---
DATE: 10/10/2017 REASON FOR CONSULTATION AND FOLLOWUP: Cardiac evaluation, history of coronary artery disease, admitted with shortness of breath, bilateral leg swelling, severe anemia, thrombocytopenia, leukocytosis, and pneumonia. SUBJECTIVE: The patient denies any chest pain, shortness of breath, or any palpitation. Feels a lot better. PHYSICAL EXAMINATION: GENERAL: Not in apparent distress. VITAL SIGNS: Temperature afebrile, heart rate 62, blood pressure 155/67. HEENT: PERRLA. Extraocular muscles are intact. NECK: Supple. No carotid bruit or thyromegaly. CHEST: Clear to auscultation. HEART: S1 and S2, regular. ABDOMEN: Soft. EXTREMITIES: Clubbing and cyanosis negative. LABORATORY DATA: Blood workup as follows: WBC 36.8, hemoglobin 8.7, hematocrit 27.3, platelet count 88. Chemistry shows sodium 130, potassium 4.5, chloride 105, carbon dioxide 28, anion gap of 9, BUN 17, creatinine 0.9. IMPRESSION: A 77-year-old male with a past medical history significant for arrhythmia, now within normal sinus, history of coronary artery disease, multiple stents, admitted with pneumonia, left pleural effusion, status post thoracentesis, 750 mL of fluid clear was drained, history of B-cell lymphoma, not on chemotherapy as of yet; thrombocytopenia, leukocytosis, anemia, swelling of the legs is multifactorial secondary to Norvasc as well as mild congestive heart failure. Patient had echocardiography done yesterday that showed ejection fraction 45%, mild mitral regurgitation, [id number] tricuspid regurgitation, right ventricular systolic pressure 53. The patient was given a dose of Lasix. Significantly improved coronary artery disease, status post stent. Last stent was done in 03/2016 of mid left anterior descending. I discussed with Hematology at [place]. Chemotherapy, plan for B-cell lymphoma, has a bleeding tendency, so Plavix will be discontinued and left on aspirin alone, so patient can get the chemotherapy. RECOMMENDATION: Discontinue Norvasc because of the leg swelling, resume back losartan, resume hydrochlorothiazide, resume back propanolol, atorvastatin, DVT prophylaxis. We will get a MUGA scan to assess LV function. We will follow with you. He will be transferred to the Telemetry. Follow up analysis of his thoracentesis fluid. We will repeat CBC and SMA-7 tomorrow. Thank you, Dr. Johnson for providing us the opportunity in taking care of the patient, Chanel. Toribio Valles MD
--- NOTE | 2017-10-10 19:15 | PN ---
DATE: SUBJECTIVE: A 77-year-old male in the Coronary Care Unit, bed 5. Nursing staff relates that the patient had a quiet night with no problems. PHYSICAL EXAMINATION: GENERAL: The patient is stating objectively that he is feeling a bit better. He is status post thoracentesis. He is alert and oriented x3. VITAL SIGNS: Show a temperature of 98.2 with pulse of 63, his blood pressure is 120/64, respiratory rate is 20 and oxygen saturation 93% on room air. LUNGS: Show diminished breath sounds at the bases, left more than right. HEART: Has an S1 and S2 rhythm. ABDOMEN: Soft, scaphoid, positive bowel sounds. EXTREMITIES: Show no evidence of edema. NEUROLOGIC: He is alert and oriented x3. LABORATORY DATA: WBC is 36.8, RBC 2.75, hemoglobin 8.7, hematocrit 27.3 and platelet count is 88,000. Chemistry shows normal electrolytes. The BUN is 17, creatinine is 0.9. His AST is now normal and his ALT is decreased to 92. Preliminary results on the fluid during the permanent thoracentesis is showing 94.6% lymphocytes, 5.4% neutrophils. The appearance is clear with 446,000 wbc's, rbc's, total cell count is 100. Total pH is 7. Currently, the patient is receiving antibiotics for left pulmonary infiltrate and pulmonary treatments. He is being followed by Pulmonary and Infectious Disease. He is on metformin twice a day with a sliding insulin scale for his non-insulin dependent diabetes, Flomax for BPH, Ecotrin 81 mg for the known history of coronary disease, Inderal 120 mg daily, Lipitor 20 mg daily. He is on Lovenox subQ for DVT prophylaxis and he is on Micronase 5 mg twice a day for his diabetes, MiraLax 17 g b.i.d. for constipation as needed and vancomycin IV. At this particular point in time, urine culture is negative, MRSA screen is negative, blood cultures are negative. Fluid analysis for bacteria and fungi are pending. We will continue current level of care. All clinical findings to date have been discussed with the patient. Melissa Johnson MD
[2017-10-11] MEDS: Albuterol-Ipratrop 3 mg / 0.5 (3 ml) UD IH SCH ×4 (01:04→19:24)
[2017-10-11 05:55] LABS: BASO # 0.03 K/mm3 (0.0-2.0); BASO % 0.1 % (0.0-3.0); EOS # 0.1 (0.0-0.7); EOS % 0.2 % (1.5-5.0); HEMATOCRIT 25.8 % (42.0-52.0); MEAN CELL VOLUME 99.6 fl (80.0-105.0); MEAN CORPUSCULAR HEMOGLOBIN 31.7 pg (25.0-35.0); MEAN CORPUSCULAR HGB CONC 31.8 g/dl (31.0-37.0); MEAN PLATELET VOLUME 10.8 fl (7.0-11.0); PLATELET COUNT 77 10^3/uL (120.0-450.0)
[2017-10-11] MEDS: Meropenem 1 GM in Dextrose 5% In Water 100 ML IVPB SCH ×3 (06:00→21:57)
[2017-10-11 06:06] LABS: WHITE BLOOD COUNT 35.6 10^3/ul (4.5-11.0)
--- NOTE | 2017-10-11 06:48 | CARD ---
APPROVED REPORT INDICATION PNEUMONIA,EVALUATE LV AND RV EF% PROCEDURE The above named patient recieved 21 millicuries of Tc99m tagged red blood cells intravenously. After achieving equilibrium, gated imaging of 16/frame/cycle was performed utillizing Gamma camera interfaced with a digital computer and gated device. Gated imaging was then performed in the left anterior oblique, anterior, and the left lateral projections. Findings Left Ventricle: The quality of the study is good. The left ventricle is within normal limits in size. The right ventricle is normal in size. Wall motion study shows good contractility of the left ventricle. RV wall motion is normal. The right atrium is dynamic.. The left atrium is prominent. The remainder of the study is unremarkable. Impressions Normal gated wall motion of left ventricle wall. LVEF = 67%. Normal RV wall motion. Prominent left atrium.
[2017-10-11] MEDS: Budesonide 0.5 mg/2 ml Inhal Susp UD IH SCH ×2 (07:28→19:24)
[2017-10-11] MEDS ORDERED: Lidocaine 1% Inj (20ml) SC STA (07:59)
--- NOTE | 2017-10-11 09:09 | PN ---
DATE: 10/11/2017 SUBJECTIVE: The patient appears very comfortable at rest. He is not short of breath. PHYSICAL EXAMINATION: VITAL SIGNS: Temperature is 98.1, pulse 55, respirations 18, blood pressure 165/76. Oxygen saturation on room air is 95%. HEENT: Normocephalic, atraumatic. No JVD. CARDIOVASCULAR: Systolic ejection murmur at the lower left sternal border. No S3 gallop. LUNGS: Less crackles at the left lower lobe. Much less/minimal rhonchi. No wheezing. EXTREMITIES: Mild edema. No cyanosis, no clubbing. Calves are nontender to palpation. GI: Abdomen is soft, nontender and nondistended. Bowel sounds are positive. SKIN: No acute rash. NEUROLOGIC: Exam limited at the present time. PERTINENT LABORATORY DATA: The patient did have a repeat chest x-ray done yesterday. There is a definite decrease in consolidation noted in the left lower lobe/left base. This improvement is especially seen when changing to the inverse/density windows. IMPRESSION: 1. Left lower lobe pneumonia. 2. Left pleural effusion. S/P thoracentesis. 3. Acute bronchitis. 4. B-cell lymphoma. 5. Anemia. PLAN: The patient appears very comfortable this morning. He is not short of breath at rest. He also has much less dyspnea on exertion. He does state to ambulating without problems yesterday. He states to feeling much better overall. On physical exam, there is certainly less bronchospasm noted. In addition, the oxygen saturation is now 95% on room air. I will continue the current nebulizer treatments and inhaled steroids for now. I did review the repeat chest x-ray as above. There is definite improvement in the x-ray-- with decreased consolidation at the left lower lobe/left base. I would continue with the antibiotic coverage as per Infectious Disease. Input by Dr. Gutierrez is noted. Additional pleural fluid studies/cytology are pending. Clinical status of the patient is significantly improved overall. I will discuss the above with Dr. Johnson. Tyler Moore MD NELSY
[2017-10-11] MEDS: Enoxaparin 30 mg Syringe SC SCH (09:30)
[2017-10-11] MEDS: Propranolol 60 mg ER Cap PO SCH (09:30)
[2017-10-11] MEDS: Vancomycin 1gm in NS 250ml 1 GM/250 ML BAG IVPB SCH (09:31)
[2017-10-11] MEDS: Insulin Reg-LOW-Coverage SC SCH ×4 (09:33→22:09)
[2017-10-11] MEDS: POLYETHYLENE GLYCOL 3350 17 GM/Dose PACKET PO SCH ×2 (10:20→17:28)
[2017-10-11 11:33] LABS: NEUTROPHIL 6 % (50.0-70.0)
[2017-10-11] MEDS ORDERED: Oxycodone/Acetaminophen 5/325 mg Tab PO PRN (13:33)
--- NOTE | 2017-10-11 13:49 | PN ---
DATE: 10/11/2017 REASON FOR CONSULTATION AND FOLLOWUP: Cardiac evaluation, history of coronary artery disease, admitted with shortness of breath, bilateral leg swelling, severe anemia, thrombocytopenia, leukocytosis, pneumonia, history of recently diagnosed B cell lymphoma. SUBJECTIVE: The patient denies any chest pain or shortness of breath. Feels little better, status post thoracentesis. OBJECTIVE GENERAL: Lying flat in the bed, not in apparent distress. VITAL SIGNS: As follows: Temperature afebrile, heart rate 55, blood pressure 165/67. HEENT: PERRLA. Extraocular muscles are intact. NECK: Supple. No carotid bruit or thyromegaly. CHEST: Clear to auscultation. Decreased air entry at the left bases. HEART: S1 and S2 regular. ABDOMEN: Soft. EXTREMITIES: Clubbing and cyanosis negative. LABORATORY DATA: Blood workup as follows: WBC 35.6, hemoglobin 8.2, hematocrit 25.8, and platelet count 77. Chemistry shows elevated sodium 130, potassium 4.4, chloride 105, carbon dioxide 28, anion gap of 9, BUN 17, and creatinine 0.9. MUGA scan shows ejection fraction of 67%. Chest x-ray, post thoracentesis, significant improvement in the lung expansion and decrease in pleural effusion, status post thoracentesis, 750 mL of fluid has been aspirated in ultrasound guided thoracentesis, clear fluid aspirated. Patient had an echocardiography done on 10/08/2017 that shows decreased LV function, ejection fraction of 45%, mild MR, [id number] TR, that is why MUGA scan done that shows ejection fraction of 67%. IMPRESSION: B cell lymphoma, recently diagnosed thrombocytopenia, anemia, leukocytosis B cell lymphoma, hypertension, coronary artery disease, status post multiple stents, last stent in 03/2016, paroxysmal atrial fibrillation with a normal sinus. RECOMMENDATIONS: Continue Inderal (propranolol) 120 mg. Continue losartan 100 mg. Patient has Diovan at home, . Continue Cozaar and hydrochlorothiazide. Continue atorvastatin. Continue DVT prophylaxis. We will add Norvasc 10 mg because of elevated blood pressure. Norvasc was held because of the low pressure on admitting and also the patient has leg swelling with non pitting edema possibly secondary to Norvasc. We will restart Norvasc because of elevated blood pressure. We will follow with you. Repeat the labs in the morning. Possible discharge planning, hemodynamically stable. Thank you Dr. Johnson for providing us the opportunity in taking care of Reji Buchanan. Toribio Valles MD
--- NOTE | 2017-10-11 15:46 | CP.PCM.PN ---
Subjective - Date & Time of Evaluation Date of Evaluation: 10/11/17 Time of Evaluation: 10:10 - Subjective Subjective: Comfortable, not in distress, afebrile, breathing better. Objective - Vital Signs/Intake and Output Vital Signs (last 24 hours): Temp Pulse Resp BP Pulse Ox 98.1 F 55 L 18 165/76 H 95 10/11/17 06:00 10/11/17 06:00 10/11/17 06:00 10/11/17 06:00 10/11/17 06:00 Intake and Output: 10/11/17 10/11/17 06:59 18:59 Intake Total 240 Output Total 0 Balance 240 - Medications Medications: Current Medications Albuterol/Ipratropium (Duoneb 3 Mg/0.5 Mg (3 Ml) Ud) 3 ml IH [id number] [facility] Last Admin: 10/11/17 07:27 Dose: 3 ml Albuterol/Ipratropium (Duoneb 3 Mg/0.5 Mg (3 Ml) Ud) 3 ml IH Q2H PRN PRN Reason: Shortness of Breath Amlodipine Besylate (Norvasc) 10 mg PO DAILY [facility] Aspirin (Ecotrin) 81 mg PO QAM [facility] [place] Last Admin: 10/10/17 09:34 Dose: 81 mg Atorvastatin Calcium (Lipitor) 20 mg PO QPM [facility] [place] Last Admin: 10/10/17 17:26 Dose: 20 mg Budesonide (Pulmicort Respules) 0.5 mg IH [id number] [facility] [place] Last Admin: 10/11/17 07:28 Dose: 0.5 mg Doxycycline Hyclate (Doryx) 100 mg PO Q12 [facility] PRN Reason: Protocol Last Admin: 10/10/17 21:21 Dose: 100 mg Enoxaparin Sodium (Lovenox) 30 mg SC DAILY [facility] PRN Reason: Protocol Last Admin: 10/10/17 09:39 Dose: 30 mg Glyburide (Micronase) 5 mg PO BRKDIN [facility] Last Admin: 10/10/17 17:26 Dose: 5 mg Hydrochlorothiazide (Hydrodiuril) 25 mg PO DAILY [facility] [place] Last Admin: 10/10/17 09:34 Dose: 25 mg Vancomycin HCl (Vancomycin 1gm) 1 gm in 250 mls @ 167 mls/hr IVPB Q12H [facility] PRN Reason: Protocol Last Admin: 10/10/17 18:22 Dose: 167 mls/hr Meropenem 1 gm/ Dextrose 100 mls @ 100 mls/hr IVPB Q8 [facility]IS[facility] PRN Reason: Protocol Stop: 10/14/17 19:16 Last Admin: 10/11/17 06:00 Dose: 100 mls/hr Insulin Human Regular (Humulin R Low) 0 units SC ACHS [facility] PRN Reason: Protocol Last Admin: 10/10/17 21:29 Dose: Not Given Losartan Potassium (Cozaar) 100 mg PO DAILY [facility] [place] Last Admin: 10/10/17 09:34 Dose: 100 mg Metformin HCl (Glucophage) 500 mg PO BRKDIN [facility] [place] Last Admin: 10/10/17 17:26 Dose: 500 mg Non-Formulary Medication (Dutasteride [Avodart]) 0.5 mg PO QAM [facility] [place] Last Admin: 10/10/17 10:30 Dose: Not Given Polyethylene Glycol (Miralax) 17 gm PO BID [facility] [place] Last Admin: 10/10/17 17:27 Dose: Not Given Propranolol HCl (Inderal La) 120 mg PO DAILY [facility] [place] Last Admin: 10/10/17 09:39 Dose: 120 mg Tamsulosin HCl (Flomax) 0.4 mg PO QPM [facility] [place] Last Admin: 10/10/17 17:26 Dose: 0.4 mg - Labs Labs: 10/11/17 05:20 10/10/17 06:30 PT 17.0 SECONDS (9.4-12.5) H 10/07/17 16:30 INR 1.55 (0.93-1.08) H 10/07/17 16:30 APTT 30.4 Seconds (25.1-36.5) 10/07/17 16:30 - Constitutional Appears: Non-toxic, No Acute Distress - Head Exam Head Exam: NORMAL INSPECTION - ENT Exam ENT Exam: Mucous Membranes Moist - Neck Exam Neck Exam: absent: Lymphadenopathy, Meningismus - Respiratory Exam Respiratory Exam: Decreased Breath Sounds. absent: Rales - Cardiovascular Exam Cardiovascular Exam: +S1, +S2 - GI/Abdominal Exam GI & Abdominal Exam: Soft. absent: Tenderness Assessment and Plan - Assessment and Plan (Free Text) Plan: Assessment Sepsis due to healthcare-associated left lower lobe pneumonia (since he has been on Avelox in the previous week), with left sided pleural effusion S/P ultrasound-guided thoracentesis POD #2 B-cell lymphoma CAD S/P PCI and stents placed HTN DM dyslipidemia bladder CA S/P left orchiectomy Plan will d/c Vancomycin and continue Merrem and Doxycycline day 4; blood cx are negative; pleural fluid cx are negative; reviewed CXR which shows left sided infiltrate and effusion pleural fluid looks to be serous, will also be sent for flow cytometry follow up further Heme/Onc evaluation and recommendations discussed with Dr. Moore, Dr. Johnson and Dr. Jerome Rivera previously will continue to monitor WBC count will continue to follow clinically
--- NOTE | 2017-10-11 18:12 | CON ---
HISTORY OF PRESENT ILLNESS: This is a 77-year-old man who is here treated: 1. For CLL, recent diagnosis. 2. Possible infection with pleural effusion. This was tapped at about 800 mL. markedly improved breathing. In terms of the cause of this effusion, it is not clear. With his CHF, his ejection fraction turned out to be normal done the other day. 3. Infection. We do not see the cultures back yet. 4. Chronic lymphocytic leukemia. Flow cytometry has been ordered on the pleural fluid. In the meantime, the patient has to progressive anemia. In 11/2016, his hemoglobin was 12 that has steadily dropped and when he came to the hospital, it was around 7.8. He had a transfusion. His hemoglobin has been maintaining between 8 and 8.5. It is unclear as to what the cause is and as to whether this is a CLL as well. So, I performed a bone marrow aspiration biopsy today after obtaining consent. The was present, the daughter was present as well. I am going to obtain the consent, performed it on the right posterior iliac crest, under sterile conditions with 1% lidocaine and samples were sent for flow cytometry and histopathology, and we will await those reports. They would not come back for at least a week. I told him that most likely if it has continued to improve he may be discharged over the weekend and he knows to see me next week if he is discharged. Jak Nielson MD
--- NOTE | 2017-10-11 19:14 | PN ---
DATE: SUBJECTIVE: The patient is resting comfortably this morning. Nursing staff relates that there were no problems during the night. PHYSICAL EXAMINATION VITAL SIGNS: Temperature 97.9 and blood pressure 127/62. LABORATORY DATA: His laboratory data shows a WBC of 35.6, hemoglobin 8.2, hematocrit 25.8 and platelet count 77,000. Chemistry shows blood sugar of 118. His Legionella pneumonia was canceled. At this particular point in time, his blood cultures and urine cultures were negative. Cultures of the pleural fluid analysis are pending. ASSESSMENT AND PLAN: The patient is being followed by Oncology for chronic lymphocytic leukemia history, bone marrow biopsy is going to be performed today. He is status post thoracentesis of pleural effusion with elevated lymphocytes. He is being treated with IV antibiotics for pneumonia. He has non-insulin dependant diabetes, remote coronary artery disease with percutaneous transluminal coronary angioplasty and stents, bladder cancer history, benign prostatic hypertrophy, and lumbar disc disease. We will continue current medical management at this time. Followup the patient's labs and await results of his bone marrow biopsy. Melissa Johnson MD
[2017-10-11 22:44] LABS: GLUCOSE PLEURAL FLUID 123 mg/dL; LDH PLEURAL FLUID 59 U/L
[2017-10-12] MEDS: Albuterol-Ipratrop 3 mg / 0.5 (3 ml) UD IH SCH ×4 (01:03→20:35)
[2017-10-12] MEDS: Meropenem 1 GM in Dextrose 5% In Water 100 ML IVPB SCH ×3 (05:16→21:38)
[2017-10-12 07:13] LABS: HEMATOCRIT 25.2 % (42.0-52.0); MEAN CELL VOLUME 99.6 fl (80.0-105.0); MEAN CORPUSCULAR HGB CONC 32.1 g/dl (31.0-37.0); MEAN PLATELET VOLUME 11.2 fl (7.0-11.0); PLATELET COUNT 84 10^3/uL (120.0-450.0)
[2017-10-12 07:18] LABS: ALKALINE PHOSPHATASE 69 U/L (38-126); ALT/SGPT 73 U/L (7-56); AST/SGOT 39 U/L (17-59); BILIRUBIN,TOTAL 0.7 mg/dL (0.2-1.3); BLOOD UREA NITROGEN 20 mg/dL (7-21); CALCIUM 9.3 mg/dL (8.4-10.5); CARBON DIOXIDE 29 mmol/L (21-33); CHLORIDE 105 mmol/L (98-107); GFR AFRICAN-AMERICAN > 60; GLUCOSE,RANDOM 82 mg/dL (70-110); MAGNESIUM 2.1 mg/dL (1.7-2.2); PHOSPHOROUS 3.7 mg/dL (2.5-4.5); POTASSIUM 4.3 mmol/L (3.6-5.0); SODIUM 137 mmol/L (132-148); TOTAL PROTEIN 5.9 g/dL (5.8-8.3)
[2017-10-12 07:34] LABS: WHITE BLOOD COUNT 36.9 10^3/ul (4.5-11.0)
[2017-10-12] MEDS: Budesonide 0.5 mg/2 ml Inhal Susp UD IH SCH ×2 (07:49→20:35)
[2017-10-12] MEDS: Insulin Reg-LOW-Coverage SC SCH ×4 (08:07→21:42)
[2017-10-12] MEDS: Enoxaparin 30 mg Syringe SC SCH (10:00)
[2017-10-12] MEDS: POLYETHYLENE GLYCOL 3350 17 GM/Dose PACKET PO SCH ×2 (10:01→17:43)
--- NOTE | 2017-10-12 11:12 | PN ---
PULMONARY PROGRESS NOTE DATE: 10/12/2017 SUBJECTIVE: The patient was seen and examined at bedside. He is currently not on oxygen and receiving breathing treatments with DuoNeb. He appears comfortable. Currently, not short of breath. PHYSICAL EXAMINATION: VITAL SIGNS: Temperature is 98.8, pulse 84, respirations 18, blood pressure 150/76, and room air oxygen saturation is 95%. HEAD, EARS, NOSE, AND THROAT: Normocephalic and atraumatic. NECK: No JVD. CARDIOVASCULAR: S1 and S2. A 2/6 systolic ejection murmur, regular. PULMONARY: Diminished breath sounds at both lung bases, left more than right, few rhonchi. No wheezing. EXTREMITIES: No pedal edema. GASTROINTESTINAL: Soft and nontender. No organomegaly. SKIN: No acute skin rash. NEUROLOGIC: No focal deficits. PERTINENT LABORATORY DATA: The patient had a chest x-ray yesterday, there is a decrease in consolidation in the left lower base and improvement in effusion. ASSESSMENT: 1. Left lower lobe pneumonia. 2. Left pleural effusion, status post thoracentesis. 3. B-cell lymphoma. 4. Anemia. PLAN: The patient continue his current antibiotic coverage, awaiting cultures and cytology on pleural fluid. Overall, his oxygenation is improving as well as his chest x-ray. Blane Molina MD
--- NOTE | 2017-10-12 11:23 | PN ---
DATE: 10/12/2017 REASON FOR CONSULTATION AND FOLLOWUP: Cardiac evaluation and history of coronary artery disease, admitted with shortness of breath, bilateral leg edema, severe anemia, thrombocytopenia, leucocytosis, pneumonia, history of recently diagnosed B-cell lymphoma. SUBJECTIVE: Denies any chest pain, shortness of breath or any palpitations. Had a bone marrow biopsy, concerned about the result. OBJECTIVE: GENERAL: Lying flat, not in apparent distress. VITAL SIGNS: As follows. Temperature afebrile, heart rate 62, blood pressure 142/75. HEENT: PERRLA intact. NECK: Supple. No carotid bruit or thyromegaly. CHEST: Clear to auscultation. HEART: S1 and S2 regular. ABDOMEN: Soft. EXTREMITIES: Clubbing and cyanosis negative. LABORATORY DATA: WBC 36.9, hemoglobin 8.1, hematocrit 25.2, platelet count 84. Chemistry shows sodium 137, potassium 4.3, chloride 105, carbon dioxide 29, anion gap of 7, BUN 20, and creatinine 1.0. DIAGNOSTIC DATA: The patient had MUGA scan done yesterday that showed ejection fraction 67%. Prior to that, the patient had echocardiography done on 10/08/2017 that showed an ejection fraction of 45%, mild MR and [id number] TR. That is why patient had MUGA scan that showed ejection fraction of 67%. Yesterday, the patient had bone marrow biopsy. IMPRESSION: B-cell lymphoma, recently diagnosed thrombocytopenia, anemia, leukocytosis secondary to the B-cell lymphoma, hypertension, coronary artery disease status post multiple stents, last stent in March 2016, paroxysmal atrial fibrillation on normal sinus. RECOMMENDATIONS: Continue propranolol 120 mg. Continue losartan and hydrochlorothiazide. Deep venous thrombosis prophylaxis, atorvastatin and amlodipine. We will discontinue telemetry if cardiovascular status is stable. Possible discharge when okay from Hematology/Oncology and Pulmonary point of view. We will discontinue telemetry. Toribio Valles MD
[2017-10-12] MEDS: Propranolol 60 mg ER Cap PO SCH (11:33)
--- NOTE | 2017-10-12 14:54 | PN ---
DATE: SUBJECTIVE: A 77-year-old male on telemetry. The patient has no specific complaints. This morning, he states he is feeling better. Nursing staff relates that there were no problems during the night. PHYSICAL EXAMINATION: VITAL SIGNS: His temperature is 98.2, his pulse is 88, his blood pressure is 138/70, and his oxygen saturation is 99% on nasal cannula. GENERAL: He is alert and oriented x3. NECK: Supple. HEART: S1 and S2 rhythm. LUNGS: Showed decreased breath sounds at the left base. ABDOMEN: Soft, scaphoid, positive bowel sounds. EXTREMITIES: Show no evidence of edema. LABORATORY DATA: Shows WBC of 36.9, RBC of 2.53, hemoglobin of 8.1, hematocrit of 25.2, and platelet count of 84,000. Chemistry: Sodium is 137, potassium is 4.3, chloride is 105, BUN is 20, and creatinine is 1. Blood sugar fingerstick was 99. The patient has underlying B-cell lymphoma, pulmonary infiltrates with left pleural effusion status post thoracentesis. Currently on IV antibiotics by Infectious Disease with respiratory treatment by Pulmonary. Cultures of blood and urine and pleural fluid at this point in time are negative. Cytology on the pleural fluid is pending. Recommendations for course of antibiotic regimen as per Infectious Disease. He has a history of coronary artery disease with angioplasty and stent placement in the past, history of bladder cancer, history of BPH, history of lumbar disc disease, and history of [id number] diabetes. Notes of Cardiology and Pulmonary have been reviewed as well as by Oncology. Bone marrow biopsy has been performed, results are pending. We will continue current level of care. Monitor the patient's lab work. His clinical findings have been discussed with the patient and his family. He will continue at this time on Cozaar 100 mg daily, Doryx 100 mg b.i.d., albuterol treatments, Avodart 0.5 mg daily, Ecotrin 81 mg daily, Flomax 0.4 mg daily, Glucophage 500 mg b.i.d., Humulin fingerstick coverage, HydroDIURIL 25 mg daily, Inderal 120 mg daily, Lipitor 20 mg daily, Lovenox 30 mg subcu daily, meropenem IV q.8 hours, Micronase 5 mg b.i.d., MiraLax 17 g p.o. b.i.d., Norvasc 10 mg daily, Percocet 1 tab q.6 hours p.r.n. for moderate pain, and Pulmicort respiratory treatment b.i.d. Melissa Johnson MD
--- NOTE | 2017-10-12 18:15 | CP.PCM.PN ---
Subjective - Date & Time of Evaluation Date of Evaluation: 10/12/17 Time of Evaluation: 08:10 - Subjective Subjective: Breathing better, no fevers overnight, not in distress. Objective - Vital Signs/Intake and Output Vital Signs (last 24 hours): Temp Pulse Resp BP Pulse Ox 98.6 F 63 19 151/68 H 96 10/12/17 05:49 10/12/17 05:49 10/12/17 05:49 10/12/17 05:49 10/12/17 05:49 - Medications Medications: Current Medications Albuterol/Ipratropium (Duoneb 3 Mg/0.5 Mg (3 Ml) Ud) 3 ml IH [id number] [facility] Last Admin: 10/12/17 01:03 Dose: 3 ml Albuterol/Ipratropium (Duoneb 3 Mg/0.5 Mg (3 Ml) Ud) 3 ml IH Q2H PRN PRN Reason: Shortness of Breath Amlodipine Besylate (Norvasc) 10 mg PO DAILY [facility] Last Admin: 10/11/17 09:29 Dose: 10 mg Aspirin (Ecotrin) 81 mg PO QAM [facility] Last Admin: 10/11/17 09:29 Dose: 81 mg Atorvastatin Calcium (Lipitor) 20 mg PO QPM [facility] Last Admin: 10/11/17 17:53 Dose: 20 mg Budesonide (Pulmicort Respules) 0.5 mg IH [id number] [facility] Last Admin: 10/11/17 19:24 Dose: 0.5 mg Doxycycline Hyclate (Doryx) 100 mg PO Q12 [facility] PRN Reason: Protocol Last Admin: 10/11/17 21:57 Dose: 100 mg Enoxaparin Sodium (Lovenox) 30 mg SC DAILY [facility] PRN Reason: Protocol Last Admin: 10/11/17 09:30 Dose: 30 mg Glyburide (Micronase) 5 mg PO BRKDIN [facility] Last Admin: 10/11/17 17:53 Dose: 5 mg Hydrochlorothiazide (Hydrodiuril) 25 mg PO DAILY [facility] Last Admin: 10/11/17 09:30 Dose: 25 mg Meropenem 1 gm/ Dextrose 100 mls @ 100 mls/hr IVPB Q8 [facility] PRN Reason: Protocol Stop: 10/14/17 19:16 Last Admin: 10/12/17 05:16 Dose: 100 mls/hr Insulin Human Regular (Humulin R Low) 0 units SC ACHS DAISY PRN Reason: Protocol Last Admin: 10/11/17 22:09 Dose: Not Given Losartan Potassium (Cozaar) 100 mg PO DAILY [facility] Last Admin: 10/11/17 09:29 Dose: 100 mg Metformin HCl (Glucophage) 500 mg PO BRKDIN [facility] Last Admin: 10/11/17 17:53 Dose: 500 mg Non-Formulary Medication (Dutasteride [Avodart]) 0.5 mg PO QAM [facility] Last Admin: 10/11/17 10:19 Dose: Not Given Oxycodone/Acetaminophen (Percocet 5/325 Mg Tab) 1 tab PO Q6H PRN PRN Reason: Pain, moderate (4-7) Stop: 10/14/17 13:34 Polyethylene Glycol (Miralax) 17 gm PO BID [facility] Last Admin: 10/11/17 17:28 Dose: Not Given Propranolol HCl (Inderal La) 120 mg PO DAILY [facility] Last Admin: 10/11/17 09:30 Dose: 120 mg Tamsulosin HCl (Flomax) 0.4 mg PO QPM [facility] Last Admin: 10/11/17 17:53 Dose: 0.4 mg - Labs Labs: 10/11/17 05:20 10/10/17 06:30 PT 17.0 SECONDS (9.4-12.5) H 10/07/17 16:30 INR 1.55 (0.93-1.08) H 10/07/17 16:30 APTT 30.4 Seconds (25.1-36.5) 10/07/17 16:30 - Constitutional Appears: Non-toxic - Head Exam Head Exam: NORMAL INSPECTION - ENT Exam ENT Exam: Mucous Membranes Moist - Neck Exam Neck Exam: absent: Lymphadenopathy, Meningismus - Respiratory Exam Respiratory Exam: Decreased Breath Sounds (at the bases) - Cardiovascular Exam Cardiovascular Exam: +S1, +S2 - GI/Abdominal Exam GI & Abdominal Exam: Soft. absent: Tenderness Assessment and Plan - Assessment and Plan (Free Text) Plan: Assessment Sepsis due to healthcare-associated left lower lobe pneumonia (since he has been on Avelox in the previous week), with left sided pleural effusion S/P ultrasound-guided thoracentesis POD #3 B-cell lymphoma CAD S/P PCI and stents placed HTN DM dyslipidemia bladder CA S/P left orchiectomy Plan Vancomycin and continue Merrem and Doxycycline day 5; blood cx are negative; pleural fluid cx are negative; reviewed CXR which shows left sided infiltrate and effusion; should complete at least 7 days of antibiotics follow up further Heme/Onc evaluation and recommendations discussed with Dr. Moore, Dr. Johnson and Dr. Jerome Rivera previously will continue to monitor WBC count will continue to follow clinically
[2017-10-13] MEDS: Albuterol-Ipratrop 3 mg / 0.5 (3 ml) UD IH SCH ×4 (02:35→19:56)
[2017-10-13] MEDS: Meropenem 1 GM in Dextrose 5% In Water 100 ML IVPB SCH ×3 (05:39→21:26)
[2017-10-13 06:25] LABS: BASO # 0.03 K/mm3 (0.0-2.0); BASO % 0.1 % (0.0-3.0); EOS % 0.1 % (1.5-5.0); HEMATOCRIT 25.3 % (42.0-52.0); MEAN CELL VOLUME 99.6 fl (80.0-105.0); MEAN CORPUSCULAR HEMOGLOBIN 31.9 pg (25.0-35.0); PLATELET COUNT 71 10^3/uL (120.0-450.0); RED CELL DISTRIBUTION WIDTH 17.9 % (11.5-14.5)
[2017-10-13 06:35] LABS: WHITE BLOOD COUNT 36.9 10^3/ul (4.5-11.0)
[2017-10-13] MEDS: Insulin Reg-LOW-Coverage SC SCH ×3 (07:50→17:38)
--- NOTE | 2017-10-13 10:28 | PN ---
DATE: 10/13/2017 PULMONARY PROGRESS NOTE SUBJECTIVE: The patient was seen and examined at bedside. He states he feels better. He is not short of breath. PHYSICAL EXAMINATION: VITAL SIGNS: Temperature is 97.8, pulse rate is 60, respirations 20, pulse oximetry is 93% on room air, blood pressure 146/63, intake and output positive 580. HEAD, EARS, NOSE, AND THROAT: Normocephalic and atraumatic. NECK: Supple. No jugular vein distentions. CARDIOVASCULAR: S1 and S2. No S3, regular. PULMONARY: Diminished breath sounds at the left and right lung bases with dullness to percussion and few rhonchi. No wheezing. EXTREMITIES: No pedal edema. GASTROINTESTINAL: Soft and nontender. No organomegaly. SKIN: Clear with no skin rashes. NEUROLOGIC: No focal deficits. LABORATORY DATA: I reviewed today's blood work, his WBC is 36,900, hemoglobin is 8.1, RBC is 2.54, and platelet count is 71,000. ASSESSMENT: 1. Left lower lobe pneumonia. 2. Left pleural effusion. 3. Chronic lymphocytic leukemia. 4. B-cell lymphoma. 5. Anemia. 6. Thrombocytopenia. DISCUSSION: The patient was admitted with diagnosis of left lower lobe pneumonia and left pleural effusion. His lymphoma no longer behaves like stable in the B-cell lymphoma because he developed leukemic phase, chronic leukocytic leukemia that appears to be more aggressive with decrease in hemoglobin and decrease in platelet count. I would await results of bone marrow examination, but it sounds like the patient will need more active treatment and aggressive treatment for his hematologic condition. We will also await results of examination of pleural fluid. If the effusion is not resolved and still significant, he may require an additional tap. Blane Molina MD MTDD
[2017-10-13] MEDS: Enoxaparin 30 mg Syringe SC SCH (10:46)
[2017-10-13 10:47] LABS: ATYPICAL LYMPHOCYTE 2 % (0.0-0.0); NEUTROPHIL 5 % (50.0-70.0)
[2017-10-13] MEDS: POLYETHYLENE GLYCOL 3350 17 GM/Dose PACKET PO SCH ×2 (10:53→18:26)
--- NOTE | 2017-10-13 11:18 | PN ---
DATE: 10/13/2017 REASON FOR CONSULTATION AND FOLLOWUP: Cardiac evaluation, history of coronary artery disease, admitted with shortness of breath, bilateral leg swelling, severe anemia, thrombocytopenia, leukocytosis, pneumonia history of recently diagnosed B-cell lymphoma. SUBJECTIVE: Denies any chest pain, shortness of breath or palpitations. Feels better. OBJECTIVE: GENERAL: Sitting in the chair. VITAL SIGNS: Temperature afebrile, heart rate 55, blood pressure 146/63. HEENT: PERRLA. Extraocular muscles intact. NECK: Supple. No carotid bruit or thyromegaly. CHEST: Clear to auscultation. HEART: S1 and S2 regular. ABDOMEN: Soft. EXTREMITIES: Clubbing and cyanosis negative. LABORATORY DATA: Blood workup as follows; WBC 36.9, hemoglobin 8.1, hematocrit 25.3, platelet count 71. Chemistry shows sodium 137, potassium 4.3, chloride 105, carbon dioxide 29, anion gap of 7, BUN 20, and creatinine 1.0. IMPRESSION: Pneumonia, left lower lobe pleural effusion, status post thoracentesis, coronary artery disease, paroxysmal atrial fibrillation, hypertension, hyperlipidemia, B-cell lymphoma, thrombocytopenia, leukocytosis, and anemia part of B-cell lymphoma status post biopsy of the bone marrow. RECOMMENDATIONS: Continue losartan, continue aspirin, continue propranolol 120 mg, continue atorvastatin, continue deep venous thrombosis prophylaxis, and continue Norvasc, pressure well maintained. We will get a chest x-ray PA and lateral. Echo showed ejection fraction of 45% and the MUGA scan shows ejection fraction 67%. We will follow with you. Thank you Dr. Johnson for providing us the opportunity in taking care of the patient. I will follow with you. Toribio Valles MD
[2017-10-13] MEDS: Propranolol 60 mg ER Cap PO SCH (12:21)
--- NOTE | 2017-10-13 12:54 | RAD ---
HISTORY: F/U pneumonia and compare COMPARISON: Comparison is made to 10/10/2017 TECHNIQUE: Chest PA and lateral FINDINGS: LUNGS: Interval improvement in the left lung since the previous exam with residual hazy opacity likely at the lingula. PLEURA: Interval improvement in the left pleural effusion. Persistent blunting of the left costophrenic angle. CARDIOVASCULAR: Normal. OSSEOUS STRUCTURES: No significant abnormalities. VISUALIZED UPPER ABDOMEN: Normal. OTHER FINDINGS: None. IMPRESSION: Interval improvement in the left lung since the previous exam and decrease in the size of the left pleural effusion. Otherwise no change.
[2017-10-13] MEDS: Budesonide 0.5 mg/2 ml Inhal Susp UD IH SCH ×2 (13:13→19:56)
[2017-10-13] MEDS ORDERED: Dextrose 50% SYRINGE Inj (50 ml) IVP ONE (16:11)
--- NOTE | 2017-10-13 19:00 | PN ---
DATE: SUBJECTIVE: The patient is resting comfortably in bed this morning. Nursing staff relates that there were no problems during the night. PHYSICAL EXAMINATION VITAL SIGNS: Temperature 97.8, his pulse is 58, and blood pressure is 146/63, and oxygen saturation 93% on room air. He is alert and oriented x3. LUNGS: Show diminished breath sounds at the bases with rhonchi left more than right. HEART: Has an S1 and S2. ABDOMEN: Soft, scaphoid, positive bowel sounds. EXTREMITIES: Show no evidence of edema. LABORATORY DATA: Shows WBC is 36.9, RBC 2.54, hemoglobin 8.1, hematocrit 25.3 and platelet count is 71,000. Chemistry shows his blood sugar was 69 this morning. ASSESSMENT AND PLAN: The patient is currently on day 6 of IV antibiotics and as per Infectious Disease, recommend seven days of IV antibiotics. He is status post thoracentesis for pleural effusion with pulmonary infiltrates in the left lung. The patient has underlying chronic lymphocytic leukemia with anemia, thrombocytopenia. Repeat bone marrow biopsy has been performed by the Oncologist Dr. Nielson, results of which are pending. He continues on his diabetic medication on a diabetic diet with monitoring of his blood sugar. We will continue current medical management with respiratory treatment, cardiac meds as per Dr. Valles. Follow up the patient's labs in the morning and continue IV antibiotics therapy. Melissa Johnson MD
[2017-10-14] MEDS: Albuterol-Ipratrop 3 mg / 0.5 (3 ml) UD IH SCH ×4 (02:16→22:54)
[2017-10-14] MEDS: Insulin Reg-LOW-Coverage SC SCH ×5 (03:21→21:21)
[2017-10-14] MEDS: Meropenem 1 GM in Dextrose 5% In Water 100 ML IVPB SCH ×2 (05:50→13:47)
[2017-10-14] MEDS: Budesonide 0.5 mg/2 ml Inhal Susp UD IH SCH ×2 (07:17→22:54)
[2017-10-14 07:19] LABS: HEMATOCRIT 26.1 % (42.0-52.0); MEAN CELL VOLUME 99.6 fl (80.0-105.0); MEAN CORPUSCULAR HEMOGLOBIN 31.7 pg (25.0-35.0); MEAN CORPUSCULAR HGB CONC 31.8 g/dl (31.0-37.0); MEAN PLATELET VOLUME 10.7 fl (7.0-11.0); PLATELET COUNT 70 10^3/uL (120.0-450.0); RED CELL DISTRIBUTION WIDTH 17.7 % (11.5-14.5)
[2017-10-14 07:32] LABS: ALB/GLOB RATIO 1.1 (1.1-1.8); ALKALINE PHOSPHATASE 70 U/L (38-126); ALT/SGPT 65 U/L (7-56); AST/SGOT 51 U/L (17-59); BILIRUBIN,TOTAL 0.9 mg/dL (0.2-1.3); BLOOD UREA NITROGEN 19 mg/dL (7-21); CALCIUM 9.7 mg/dL (8.4-10.5); CARBON DIOXIDE 30 mmol/L (21-33); CHLORIDE 103 mmol/L (98-107); GFR AFRICAN-AMERICAN > 60; GLUCOSE,RANDOM 134 mg/dL (70-110); SODIUM 137 mmol/L (132-148); TOTAL PROTEIN 6.2 g/dL (5.8-8.3)
[2017-10-14] MEDS: Propranolol 60 mg ER Cap PO SCH (10:29)
[2017-10-14] MEDS: Enoxaparin 30 mg Syringe SC SCH ×2 (10:29→10:37)
[2017-10-14] MEDS: POLYETHYLENE GLYCOL 3350 17 GM/Dose PACKET PO SCH ×2 (10:30→17:13)
--- NOTE | 2017-10-14 12:15 | CP.PCM.PN ---
Subjective - Date & Time of Evaluation Date of Evaluation: 10/14/17 Time of Evaluation: 11:35 - Subjective Subjective: No fevers, breathing better, no nausea or vomiting, no diarrhea, no abdominal pain, no dysuria. Objective - Vital Signs/Intake and Output Vital Signs (last 24 hours): Temp Pulse Resp BP Pulse Ox 98.4 F 60 19 139/60 91 L 10/14/17 07:30 10/14/17 10:29 10/14/17 07:30 10/14/17 10:29 10/14/17 07:30 Intake and Output: 10/14/17 10/14/17 06:59 18:59 Intake Total 540 200 Balance 540 200 - Medications Medications: Current Medications Albuterol/Ipratropium (Duoneb 3 Mg/0.5 Mg (3 Ml) Ud) 3 ml IH [id number] [facility] Last Admin: 10/14/17 07:17 Dose: 3 ml Albuterol/Ipratropium (Duoneb 3 Mg/0.5 Mg (3 Ml) Ud) 3 ml IH Q2H PRN PRN Reason: Shortness of Breath Amlodipine Besylate (Norvasc) 10 mg PO DAILY [facility] Last Admin: 10/14/17 10:28 Dose: 10 mg Aspirin (Ecotrin) 81 mg PO QAM [facility] Last Admin: 10/14/17 10:27 Dose: 81 mg Atorvastatin Calcium (Lipitor) 20 mg PO QPM [facility] Last Admin: 10/13/17 18:25 Dose: 20 mg Budesonide (Pulmicort Respules) 0.5 mg IH [id number] [facility] Last Admin: 10/14/17 07:17 Dose: 0.5 mg Doxycycline Hyclate (Doryx) 100 mg PO Q12 [facility] PRN Reason: Protocol Last Admin: 10/14/17 10:27 Dose: 100 mg Enoxaparin Sodium (Lovenox) 30 mg SC DAILY [facility] PRN Reason: Protocol Last Admin: 10/14/17 10:37 Dose: Not Given Glyburide (Micronase) 5 mg PO BRKDIN [facility] Last Admin: 10/14/17 08:40 Dose: 5 mg Hydrochlorothiazide (Hydrodiuril) 25 mg PO DAILY [facility] Last Admin: 10/14/17 10:28 Dose: 25 mg Meropenem 1 gm/ Dextrose 100 mls @ 100 mls/hr IVPB Q8 [facility] PRN Reason: Protocol Stop: 10/14/17 19:16 Last Admin: 10/14/17 05:50 Dose: 100 mls/hr Insulin Human Regular (Humulin R Low) 0 units SC ACHS [facility] PRN Reason: Protocol Last Admin: 10/14/17 08:51 Dose: Not Given Losartan Potassium (Cozaar) 100 mg PO DAILY [facility] Last Admin: 10/14/17 10:26 Dose: 100 mg Metformin HCl (Glucophage) 500 mg PO BRKDIN [facility] Last Admin: 10/14/17 07:40 Dose: 500 mg Non-Formulary Medication (Dutasteride [Avodart]) 0.5 mg PO QAM [facility] Last Admin: 10/14/17 10:27 Dose: Not Given Oxycodone/Acetaminophen (Percocet 5/325 Mg Tab) 1 tab PO Q6H PRN PRN Reason: Pain, moderate (4-7) Stop: 10/14/17 13:34 Polyethylene Glycol (Miralax) 17 gm PO BID [facility] Last Admin: 10/14/17 10:30 Dose: Not Given Propranolol HCl (Inderal La) 120 mg PO DAILY [facility] Last Admin: 10/14/17 10:29 Dose: 120 mg Tamsulosin HCl (Flomax) 0.4 mg PO QPM [facility] Last Admin: 10/13/17 18:25 Dose: 0.4 mg - Labs Labs: 10/14/17 06:40 10/14/17 06:40 PT 17.0 SECONDS (9.4-12.5) H 10/07/17 16:30 INR 1.55 (0.93-1.08) H 10/07/17 16:30 APTT 30.4 Seconds (25.1-36.5) 10/07/17 16:30 - Constitutional Appears: Non-toxic - Head Exam Head Exam: NORMAL INSPECTION - ENT Exam ENT Exam: Mucous Membranes Moist - Neck Exam Neck Exam: absent: Lymphadenopathy, Meningismus - Respiratory Exam Respiratory Exam: Decreased Breath Sounds (at the bases) - Cardiovascular Exam Cardiovascular Exam: +S1, +S2 - GI/Abdominal Exam GI & Abdominal Exam: Soft. absent: Tenderness Assessment and Plan - Assessment and Plan (Free Text) Plan: Assessment Sepsis due to healthcare-associated left lower lobe pneumonia (since he has been on Avelox in the previous week), with left sided pleural effusion S/P ultrasound-guided thoracentesis POD #5 B-cell lymphoma CAD S/P PCI and stents placed HTN DM dyslipidemia bladder CA S/P left orchiectomy Plan Vancomycin and continue Merrem and Doxycycline day 7; blood cx are negative; pleural fluid cx are negative; reviewed CXR which shows left sided infiltrate and effusion; should complete at least 7 days of antibiotics - can be switched to PO Vantin and Doxycycline for another 3 days when ready for discharge follow up further Heme/Onc evaluation and recommendations discussed with Dr. Johnson and Dr. Velázquez will continue to monitor WBC count will continue to follow clinically
--- NOTE | 2017-10-14 12:27 | PN ---
DATE: 10/14/2017 PULMONARY NOTE SUBJECTIVE: The patient appears comfortable this morning. He is not short of breath at rest. OBJECTIVE: VITALS (Last noted in the computer): Temperature is 98.5, pulse 65, respirations 18, blood pressure 152/70. Oxygen saturation on room air is 90% to 94%. HEENT: Normocephalic, atraumatic. No JVD. CARDIOVASCULAR: Systolic ejection murmur at the lower left sternal border. No S3 gallop. LUNGS: Continued decreased crackles at the left lower lobe. Very minimal/less rhonchi. No wheezing. EXTREMITIES: Mild edema. No cyanosis, no clubbing. Calves are nontender to palpation. GASTROINTESTINAL: Abdomen is soft, nontender and nondistended. Bowel sounds are positive. SKIN: No acute rash. NEUROLOGIC: Exam limited at the present time. PERTINENT LABORATORY DATA: Chest x-ray was repeated yesterday and reviewed. It continues to improve-- with almost complete resolution of the left lower lobe infiltrate. A very small left pleural effusion remains. There is overall a significant increase in the aeration to the left lower lobe. IMPRESSION 1. Left lower lobe pneumonia. 2. Left pleural effusion. Status post thoracentesis. 3. Acute bronchitis. 4. B-cell lymphoma. 5. Anemia. PLAN: The patient appears very comfortable this morning. He is not short of breath at rest. He is much less dyspneic on exertion. He does state to feeling much, much better overall. On physical exam, his bronchospasm continues to resolve. In addition, the alveolar arterial gradient also continues to resolve. I will continue the current nebulizer treatments and inhaled steroids for now. I did review the chest x-ray as above. The chest x-ray continues to improve-- with almost complete resolution of the left lower lobe infiltrate. A very small left pleural effusion remains. The patient is status post thoracentesis. We are awaiting the final results/flow cytometry on the fluid. I will discuss the case with Dr. Rae (pathology) today. I would continue with the antibiotic coverage as per Infectious Disease. There are no temperatures noted. Clinical status of the patient is significantly improved. Input by Oncology is also noted. I will discuss the above with Dr. Johnson. Tyler Moore MD [facility] # [id number] NELSY
--- NOTE | 2017-10-14 15:47 | PN ---
DATE: 10/14/2017 LOCATION: The patient is in room 565, bed 2. REASON FOR CONSULTATION AND FOLLOWUP: History of coronary artery disease, shortness of breath, bilateral leg swelling, severe anemia, thrombocytopenia, leukocytosis, pneumonia, history of recently diagnosed B-cell lymphoma, pleural effusion. SUBJECTIVE: The patient sitting in chair without any chest pain, shortness of breath, or palpitation. He states compared to admission, his shortness of breath has improved. Denies any palpitation. PHYSICAL EXAMINATION: VITAL SIGNS: Blood pressure 139/60, respirations 19, pulse 60, temperature 98.4. HEENT: Head is normocephalic. Eyes: Pupils are normal. Conjunctivae slightly pale. NECK: JVP low. Carotids equal. THORAX: AP diameter normal. LUNGS: Slightly diminished breath sounds on the left base, otherwise no rales. CARDIOVASCULAR: S1 and S2. ABDOMEN: Soft. No organomegaly. EXTREMITIES: No clubbing. No cyanosis. LABORATORY DATA: WBC 38.0, hemoglobin 8.3, hematocrit 26.1, platelets 70. Sodium 137, potassium 5.0, BUN 19, creatinine 0.9, sugar 152, total bilirubin 0.9, AST 51, ALT 65. Total protein and albumin are normal. DIAGNOSES: Pneumonia, left lower lobe pleural effusion, status post thoracentesis, coronary artery disease, paroxysmal atrial fibrillation, hypertension, hyperlipidemia, thrombocytopenia, leukocytosis, anemia, B-cell lymphoma, status post biopsy of the bone marrow. Echo showed left ventricular ejection fraction of 45% and MUGA scan showed left ventricular ejection fraction of 67%. PLAN: The patient is on losartan 100 mg daily, Doryx 100 mg p.o. q. 12 hours, DuoNeb hand nebulizer therapy, aspirin 81 mg daily, Flomax 0.4 mg daily, metformin 500 mg p.o. b.i.d., hydrochlorothiazide 25 mg daily, Inderal LA 120 mg p.o. daily, Lipitor 20 mg daily, Lovenox 30 mg subcutaneous daily, Merrem IV 1 g q. 8 hours, glyburide 5 mg p.o. b.i.d., amlodipine 10 mg daily. We will follow. Toribio Velázquez MD
--- NOTE | 2017-10-14 21:18 | PN ---
DATE: SUBJECTIVE: A 77-year-old male resting comfortably in bed this morning. Nursing staff relates that there were no problems during the night. PHYSICAL EXAMINATION: VITAL SIGNS: Temperature is 98.3, blood pressure is 146/62, pulse is 67, respiratory rate is 20, oxygen saturation is 91% on room air. LABORATORY DATA: Shows a WBC of 38,000 with RBC of 2.62, hemoglobin 8.3, hematocrit 26 and platelet count 70,000. His chemistry shows electrolytes are normal. His BUN is 90 with a creatinine of 0.9. Random blood sugar is 134. His ALT is 65. ASSESSMENT AND PLAN: The patient is receiving IV antibiotics for presumptive community-acquired pneumonia. He is status post thoracentesis. Cytology showing findings consistent with CLL. He is on respiratory treatments by Pulmonary. Oncology has recommended transfusing the patient a unit of blood given his drop in hemoglobin. Infectious Disease recommends continuation of IV antibiotics 7 days of IV antibiotics. He has underlying coronary artery disease, non-insulin dependent diabetes, history of lumbar disk disease, and history of bladder cancer. We will continue current level of supportive care. Melissa Johnson MD
[2017-10-15] MEDS: Albuterol-Ipratrop 3 mg / 0.5 (3 ml) UD IH SCH ×3 (02:00→13:24)
[2017-10-15 07:18] LABS: HEMATOCRIT 28.8 % (42.0-52.0); MEAN CELL VOLUME 97.3 fl (80.0-105.0); MEAN CORPUSCULAR HEMOGLOBIN 31.1 pg (25.0-35.0); MEAN CORPUSCULAR HGB CONC 31.9 g/dl (31.0-37.0); MEAN PLATELET VOLUME 11.4 fl (7.0-11.0); PLATELET COUNT 68 10^3/uL (120.0-450.0); RED CELL DISTRIBUTION WIDTH 17.9 % (11.5-14.5)
[2017-10-15 07:23] VITALS: BP 165/75; RESP 17; TEMP 98; O2SAT 90
[2017-10-15 07:41] LABS: WHITE BLOOD COUNT 38.6 10^3/ul (4.5-11.0)
--- NOTE | 2017-10-15 08:13 | PN ---
DATE: 10/15/2017 SUBJECTIVE: The patient appears very comfortable this morning. He is not short of breath at rest. PHYSICAL EXAMINATION: VITAL SIGNS: Temperature is 98.0, pulse 59, respirations 17, blood pressure 165/75. Oxygen saturation on room air is 90-94%. HEENT: Normocephalic, atraumatic. No JVD. CARDIOVASCULAR: Systolic ejection murmur at the lower left sternal border. No S3 gallop. LUNGS: Minimal/decreased crackles at the left base. Lungs are otherwise clear. EXTREMITIES: Mild edema. No cyanosis, no clubbing. Calves are nontender to palpation. GI: Abdomen is soft, nontender and nondistended. Bowel sounds are positive. SKIN: No acute rash. NEUROLOGIC: Exam limited at the present time. PERTINENT LABORATORY DATA: Cytopathology is back on the pleural fluid. The flow cytometric analysis reveals B-cell lymphoma. IMPRESSION: 1. Left lower lobe pneumonia. 2. Left pleural effusion. Status post thoracentesis. 3. Acute bronchitis. 4. Advanced B-cell lymphoma. 5. Anemia. PLAN: The patient appears very comfortable this morning. He is not short of breath at rest. He is not short of breath on exertion. He states to feeling much, much better overall. On physical exam, his bronchospasm is resolved. In addition, there is no significant alveolar-arterial gradient. Analysis of the pleural fluid is noted above. Oncology evaluation is ongoing. I would continue with the antibiotic coverage as per Infectious Disease. Input by Dr. Gutierrez is noted. Clinical status of the patient is significantly improved - compared to the initial presentation. However, unfortunately, the future status/prognosis for this patient does remain guarded. I will discuss the above with Dr. Johnson. Tyler Moore MD [id number]
[2017-10-15] MEDS: Budesonide 0.5 mg/2 ml Inhal Susp UD IH SCH (08:17)
[2017-10-15] MEDS: Insulin Reg-LOW-Coverage SC SCH (08:30)
[2017-10-15] MEDS: Propranolol 60 mg ER Cap PO SCH (09:56)
[2017-10-15] MEDS: Enoxaparin 30 mg Syringe SC SCH ×2 (09:57→10:00)
[2017-10-15] MEDS: POLYETHYLENE GLYCOL 3350 17 GM/Dose PACKET PO SCH (09:57)
[2017-10-15 09:59] VITALS: PULSE 60
--- NOTE | 2017-10-15 12:19 | CP.PCM.PN ---
Subjective - Date & Time of Evaluation Date of Evaluation: 10/15/17 Time of Evaluation: 12:00 - Subjective Subjective: Resting comfortably in bed, breathing and cough is much better, no fevers overnight. Objective - Vital Signs/Intake and Output Vital Signs (last 24 hours): Temp Pulse Resp BP Pulse Ox 98.0 F 60 17 165/75 H 90 L 10/15/17 07:22 10/15/17 09:56 10/15/17 07:22 10/15/17 09:56 10/15/17 07:22 Intake and Output: 10/15/17 10/15/17 06:59 18:59 Intake Total 660 Balance 660 - Medications Medications: Current Medications Albuterol/Ipratropium (Duoneb 3 Mg/0.5 Mg (3 Ml) Ud) 3 ml IH [id number] [facility] Last Admin: 10/15/17 08:18 Dose: 3 ml Albuterol/Ipratropium (Duoneb 3 Mg/0.5 Mg (3 Ml) Ud) 3 ml IH Q2H PRN PRN Reason: Shortness of Breath Amlodipine Besylate (Norvasc) 10 mg PO DAILY [facility] Last Admin: 10/15/17 09:55 Dose: 10 mg Aspirin (Ecotrin) 81 mg PO QAM [facility] Last Admin: 10/15/17 09:53 Dose: 81 mg Atorvastatin Calcium (Lipitor) 20 mg PO QPM [facility] Last Admin: 10/14/17 17:13 Dose: 20 mg Budesonide (Pulmicort Respules) 0.5 mg IH [id number] [facility] Last Admin: 10/15/17 08:17 Dose: 0.5 mg Doxycycline Hyclate (Doryx) 100 mg PO Q12 [facility] PRN Reason: Protocol Last Admin: 10/15/17 09:53 Dose: 100 mg Enoxaparin Sodium (Lovenox) 30 mg SC DAILY [facility] PRN Reason: Protocol Last Admin: 10/15/17 10:00 Dose: Not Given Glyburide (Micronase) 5 mg PO BRKDIN [facility] Last Admin: 10/15/17 08:30 Dose: 5 mg Hydrochlorothiazide (Hydrodiuril) 25 mg PO DAILY [facility] Last Admin: 10/15/17 09:54 Dose: 25 mg Insulin Human Regular (Humulin R Low) 0 units SC ACHS [facility] PRN Reason: Protocol Last Admin: 10/15/17 08:30 Dose: Not Given Losartan Potassium (Cozaar) 100 mg PO DAILY [facility] Last Admin: 10/15/17 09:53 Dose: 100 mg Metformin HCl (Glucophage) 500 mg PO BRKDIN [facility] Last Admin: 10/15/17 08:30 Dose: 500 mg Non-Formulary Medication (Dutasteride [Avodart]) 0.5 mg PO QAM [facility] Last Admin: 10/14/17 10:27 Dose: Not Given Polyethylene Glycol (Miralax) 17 gm PO BID [facility] Last Admin: 10/15/17 09:57 Dose: Not Given Propranolol HCl (Inderal La) 120 mg PO DAILY [facility] Last Admin: 10/15/17 09:56 Dose: 120 mg Tamsulosin HCl (Flomax) 0.4 mg PO QPM [facility] Last Admin: 10/14/17 17:13 Dose: 0.4 mg - Labs Labs: 10/15/17 06:45 10/14/17 06:40 PT 17.0 SECONDS (9.4-12.5) H 10/07/17 16:30 INR 1.55 (0.93-1.08) H 10/07/17 16:30 APTT 30.4 Seconds (25.1-36.5) 10/07/17 16:30 - Constitutional Appears: Non-toxic - Head Exam Head Exam: NORMAL INSPECTION - Respiratory Exam Respiratory Exam: Decreased Breath Sounds (at the bases) - Cardiovascular Exam Cardiovascular Exam: +S1, +S2 - GI/Abdominal Exam GI & Abdominal Exam: Soft. absent: Tenderness Assessment and Plan - Assessment and Plan (Free Text) Plan: Assessment Sepsis due to healthcare-associated left lower lobe pneumonia (since he has been on Avelox in the previous week), with left sided pleural effusion S/P ultrasound-guided thoracentesis POD #6, clinically improved B-cell lymphoma CAD S/P PCI and stents placed HTN DM dyslipidemia bladder CA S/P left orchiectomy Plan has had 7 days of Merrem and Doxycycline; blood cx are negative; pleural fluid cx are negative; reviewed CXR which shows left sided infiltrate and effusion; can be switched to PO Vantin and Doxycycline for another 3 days when ready for discharge follow up further Heme/Onc evaluation and recommendations discussed with Dr. Johnson
--- NOTE | 2017-10-15 15:43 | PN ---
DATE: 10/15/2017 REASON FOR CONSULTATION AND FOLLOWUP: Cardiac evaluation, history of coronary artery disease, admitted with shortness of breath, bilateral leg swelling, severe anemia with thrombocytopenia, leukocytosis, pneumonia, recently diagnosed B-cell lymphoma. SUBJECTIVE: The patient denies any chest pain, shortness of breath or any palpitations. Feels better, except generalized weakness. No chest pain, no shortness of breath, and no palpitations. OBJECTIVE: VITAL SIGNS: Temperature is afebrile, heart rate is 60, and blood pressure is 160/75. HEENT: PERRLA and intact. NECK: Supple. No carotid bruit or thyromegaly. CHEST: Clear to auscultation. HEART: S1 and S2 regular. ABDOMEN: Soft. EXTREMITIES: Clubbing and cyanosis negative. LABORATORY DATA: WBC of 38.6, hemoglobin of 9.8, hematocrit of 28.8, and platelet count of 68. Chemistry shows sodium of 130, potassium of 5.1, chloride of 103, carbon dioxide of 30, anion gap of 9, BUN of 19, and creatinine of 0.9. IMPRESSION: Pneumonia, left lower lobe pleural effusion, status post thoracentesis, acute bronchitis, B-cell lymphoma, anemia, thrombocytopenia, leukocytosis, coronary artery disease status post stent, last stent to mid left anterior descending in 03/2016. Echo shows mild decreased left ventricular function. MUGA scan done that shows ejection fraction of 67%, and history of paroxysmal atrial fibrillation. RECOMMENDATIONS: Continue aspirin, continue propranolol, continue atorvastatin, and continue Norvasc. Chest x-ray significantly improved. Discussed with the patient, the patient is concerned about the new medications for B-cell lymphoma, has bleeding tendency as well atrial fibrillation, mentioned that currently the patient's propranolol if needed. We can change Norvasc to Cardizem, if recurs. For now, continue current medications and we will follow with you. Possible discharge today and we will follow with you. Thank you Dr. Johnson for providing us the opportunity in taking care of the patient, Chanel Mendoza. Toribio Valles MD
== END 2017-10-15 15:38 | disposition home or self-care (01) | DRG 871 ==
LOC: ED 15:49 → ERH 18:53 → CCU 20:00 → 2RNO 10-10 11:58 → 5RNO 10-13 10:04
PROVIDERS: ADMIT Internal Medicine; ATTEND Internal Medicine
PROC: 30233N1 Transfusion of Nonautologous Red Blood Cells into Peripheral Vein, Percutaneous Approach (ICD-10-PCS; 2017-10-07)
PROC: 0W9B3ZZ Drainage of Left Pleural Cavity, Percutaneous Approach (ICD-10-PCS; 2017-10-09)
PROC: BB4BZZZ Ultrasonography of Pleura (ICD-10-PCS; 2017-10-09)
PROC: 07DR3ZZ Extraction of Iliac Bone Marrow, Percutaneous Approach (ICD-10-PCS; principal; 2017-10-11)
DX: A41.9 Sepsis, unspecified organism (principal); J18.9 Pneumonia, unspecified organism; J90 Pleural effusion, not elsewhere classified; I11.0 Hypertensive heart disease with heart failure; D69.6 Thrombocytopenia, unspecified; C85.10 Unspecified B-cell lymphoma, unspecified site; C91.10 Chronic lymphocytic leukemia of B-cell type not having achieved remission; I08.1 Rheumatic disorders of both mitral and tricuspid valves; I50.9 Heart failure, unspecified; E11.9 Type 2 diabetes mellitus without complications; D64.9 Anemia, unspecified; E78.00 Pure hypercholesterolemia, unspecified; E78.5 Hyperlipidemia, unspecified; I25.10 Atherosclerotic heart disease of native coronary artery without angina pectoris; I48.0 Paroxysmal atrial fibrillation; J20.9 Acute bronchitis, unspecified; N40.0 Benign prostatic hyperplasia without lower urinary tract symptoms; Z79.899 Other long term (current) drug therapy; Z79.84 Long term (current) use of oral hypoglycemic drugs; Z85.46 Personal history of malignant neoplasm of prostate; Z85.51 Personal history of malignant neoplasm of bladder; Z92.21 Personal history of antineoplastic chemotherapy; Z95.5 Presence of coronary angioplasty implant and graft; Z91.013 Allergy to seafood; R40.2412 Glasgow coma scale score 13-15, at arrival to emergency department; R00.1 Bradycardia, unspecified; M53.87 Other specified dorsopathies, lumbosacral region; E87.6 Hypokalemia

== ENCOUNTER 2017-12-16 05:13 | Inpatient (IN) | payer MEDICARE, BC ==
--- NOTE | 2017-12-16 05:49 | ED PDOC ---
Arrival/HPI - General Chief Complaint: Shortness Of Breath Time Seen by Provider: 12/16/17 05:19 Historian: Patient - History of Present Illness Narrative History of Present Illness (Text): 12/16/17 05:49 A 77 year old male, whose past medical history includes CLL, B cell lymphoma, hypertension, diabetes and recurrent pleural effusion, presents to the emergency department complaining of shortness of breath for the past couple days , dyspnea on exertion, orthopnea and intermittent nonproductive cough. Patient states he recently finished course of antibiotics. Also states he had a chest xray done recently, which showed pleural effusion. Patient denies any chest pain , fever, chills or any other complaints at this time. Time/Duration: < week Symptom Onset: Sudden Symptom Course: Unchanged Activities at Onset: Rest Context: Home Past Medical History - Provider Review Nursing Documentation Reviewed: Yes - Cardiac Hx Cardiac Disorders: Yes Hx Hypertension: Yes - Pulmonary Hx Respiratory Disorders: No - Neurological Hx Neurological Disorder: No Hx Paralysis: No - HEENT Hx HEENT Disorder: No - Renal Hx Renal Disorder: No - Endocrine/Metabolic Hx Endocrine Disorders: Yes Hx Diabetes Mellitus Type 2: Yes - Hematological/Oncological Hx Blood Disorders: Yes Hx Blood Transfusions: No Hx Blood Transfusion Reaction: No Hx Cancer: Yes (bladder) Hx Leukemia: Yes (B cell) - Integumentary Hx Dermatological Disorder: No Hx Basal Cell Carcinoma: No - Musculoskeletal/Rheumatological Hx Musculoskeletal Disorders: Yes Hx Back Pain: Yes - Gastrointestinal Hx Gastrointestinal Disorders: No - Genitourinary/Gynecological Hx Genitourinary Disorders: No - Psychiatric Hx Psychophysiologic Disorder: No Hx Emotional Abuse: No Hx Physical Abuse: No Hx Substance Use: No - Surgical History Hx Cardiac Catheterization: Yes Hx Coronary Stent: Yes - Anesthesia Hx Anesthesia Reactions: No Hx Malignant Hyperthermia: No - Suicidal Assessment Feels Threatened In Home Enviroment: No Family/Social History - Physician Review Nursing Documentation Reviewed: Yes Family/Social History: No Known Family HX Smoking Status: Never Smoked Hx Alcohol Use: Yes (OCC WINE) Hx Substance Use: No Hx Substance Use Treatment: No Allergies/Home Meds Allergies/Adverse Reactions: Allergies mussels Allergy (Severe, Verified 10/07/17 16:15) VOMITING/GI DISTRESS Home Medications: Home Meds Medication Instructions Recorded Confirmed Aspirin [Lo-Dose Aspirin EC] 81 mg PO DAILY 12/16/17 12/16/17 Atorvastatin [Lipitor] 20 mg PO DAILY 12/16/17 12/16/17 Dutasteride [Avodart] 0.5 mg PO DAILY 12/16/17 12/16/17 Glyburide/Metformin HCl 500 mg PO BID 12/16/17 12/16/17 [Glucovance 5 mg-500 mg] Ibrutinib [Imbruvica] 3 cap PO DAILY 12/16/17 12/16/17 Propranolol HCl [Propranolol HCl 120 mg PO DAILY 12/16/17 12/16/17 ER] Tamsulosin [Flomax] 0.4 mg PO DAILY 12/16/17 12/16/17 Valsartan/Hydrochlorothiazide 1 each PO DAILY 12/16/17 12/16/17 [Diovan Hct 160-25 mg Tablet] amLODIPine [Norvasc] 10 mg PO DAILY 12/16/17 12/16/17 Review of Systems - Physician Review All systems were reviewed & negative as marked: Yes - Review of Systems Constitutional: absent: Fevers, Other (chills) Respiratory: SOB, Cough (nonproductive) Cardiovascular: DOS SANTOS, Orthopnea. absent: Chest Pain Physical Exam Vital Signs Reviewed: Yes Vital Signs Temp Pulse Resp BP Pulse Ox 12/16/17 07:49 130 H 16 97/58 L 95 12/16/17 06:22 109/55 L 12/16/17 06:13 91 H 22 109/55 L 90 L 12/16/17 06:01 130 H 12/16/17 05:25 98.2 F 130 H 22 139/63 92 L Temperature: Afebrile Blood Pressure: Normal Pulse: Tachycardic Respiratory Rate: Normal Appearance: Positive for: Well-Appearing, Non-Toxic, Comfortable Pain Distress: None Mental Status: Positive for: Alert and Oriented X 3 - Systems Exam Head: Present: Atraumatic, Normocephalic Pupils: Present: PERRL Extroacular Muscles: Present: EOMI Conjunctiva: Present: Normal Mouth: Present: Moist Mucous Membranes Neck: Present: Normal Range of Motion Respiratory/Chest: Present: Good Air Exchange, Rales (mild bibasilar). No: Respiratory Distress, Accessory Muscle Use Cardiovascular: Present: Irregular Rhythm, Tachycardic Abdomen: Present: Normal Bowel Sounds. No: Tenderness, Distention, Peritoneal Signs Back: Present: Normal Inspection Upper Extremity: Present: Normal Inspection. No: Cyanosis, Edema Lower Extremity: Present: Edema (pitting edema b/l L > R) Neurological: Present: GCS=15, CN II-XII Intact, Speech Normal Skin: Present: Warm, Dry, Normal Color. No: Rashes Psychiatric: Present: Alert, Oriented x 3, Normal Insight, Normal Concentration Medical Decision Making ED Course and Treatment: 12/16/17 05:46 Impression: A 77 year old male with shortness of breath, dyspnea on exertion, orthopnea and intermittent cough. Plan: -- EKG -- chest xray -- labs -- Cardizem -- Reassess and disposition Prior Visits: Notes and results from previous visits were reviewed. Patient was last seen in the emergency department on 10/07/17 for evaluation of shortness of breath, cough and increasing lower extremity edema. Progress Notes: EKG: Ordered, reviewed, and independently interpreted the EKG. Rate : 140 BPM Rhythm : atrial fibrillation Interpretation : rapid ventricular response, nonspecific ST/T changes 12/16/17 06:01 Chest xray: mildly increased pulmonary vascular markings, as read by me. 12/16/17 07:52 Case was d/w .who accepted to his service.Case was d/w Dr. Moore who evaluated pt. in the ED. Case was d/w well familiar with the pt.Note made of pt. taking Imbruvica for his CLL thus anticoagulation contraindicated at this time.Pt. with transient increases in heart rate.Digoxin started. to evaluate pt .in ED. - Lab Interpretations Lab Results: 12/16/17 05:50 12/16/17 05:50 Lab Results 12/16/17 05:50: WBC 24.5 H D, RBC 2.48 L, Hgb 8.2 L, Hct 26.1 L, MCV 105.2 H D, MCH 33.1, MCHC 31.4, RDW 19.1 H, Plt Count 103 L, MPV 13.1 H 12/16/17 05:50: Sodium 130 L, Potassium 4.1, Chloride 97 L, Carbon Dioxide 26, Anion Gap 11, BUN 28 H, Creatinine 0.9, Est GFR ( Amer) > 60, Est GFR ( Non-Af Amer) > 60, Random Glucose 154 H, Calcium 9.4, Total Bilirubin 0.8, AST 27, ALT 42, Alkaline Phosphatase 55, Lactate Dehydrogenase 315 L, Total Creatine Kinase < 20 L, Troponin I < 0.01, Total Protein 6.0, Albumin 3.2, Globulin 2.8, Albumin/Globulin Ratio 1.1 12/16/17 05:50: PT 15.5 H, INR 1.34 H, APTT 27.9 I have reviewed the lab results: Yes - RAD Interpretation Radiology Orders: 12/16/17 05:25 CHEST PORTABLE [RAD] Stat - EKG Interpretation Interpreted by ED Physician: Yes Type: 12 lead EKG - Medication Orders Current Medication Orders: Budesonide (Pulmicort Respules) 0.5 mg IH [id number] DAISY diltiaZEM IVPB 100mg in NS (Cardizem 100mg In Ns) 100 mls @ 5 mls/hr IV .Q20H PRN; Protocol; 5 MG/HR PRN Reason: TITRATE PER MD ORDER Last Admin: 12/16/17 06:02 Dose: 5 mls/hr eMAR Start Stop Document 12/16/17 06:02 CNR (Rec: 12/16/17 06:02 CNR [id number]) Intravenous Solution Start Date 12/16/17 Start Time 06:02 Levalbuterol HCl (Xopenex) 0.63 mg IH [id number] Last Admin: 12/16/17 08:01 Dose: 0.63 mg Levalbuterol HCl (Xopenex) 0.63 mg IH Q2 PRN PRN Reason: Shortness of Breath Methylprednisolone (Solu-Medrol) 30 mg IVP Q12 [facility] Discontinued Medications Digoxin (Lanoxin) 0.25 mg IVP STAT STA Stop: 12/16/17 07:48 Last Admin: 12/16/17 08:01 Dose: 0.25 mg MAR Apical Pulse Rate Document 12/16/17 08:01 [facility] [place] (Rec: 12/16/17 08:01 LM [id number]) Apical Pulse Rate Apical Pulse Rate (60-90 beats/min) 130 IVP Administration Document 12/16/17 08:01 [facility] [place] (Rec: 12/16/17 08:01 [facility] [place] [id number]) Charges for Administration # of IVP Administrations 1 Diltiazem HCl (Cardizem) 20 mg IVP ONCE ONE Stop: 12/16/17 05:43 Last Admin: 12/16/17 06:01 Dose: 20 mg IVP Administration Document 12/16/17 06:01 CNR (Rec: 12/16/17 06:02 CNR [id number]) Charges for Administration # of IVP Administrations 1 MAR Pulse and Blood Pressure Document 12/16/17 06:01 CNR (Rec: 12/16/17 06:02 CNR [id number]) Pulse Pulse Rate (60-90 beats/min) 130 Furosemide (Lasix) 40 mg IVP ONCE ONE Stop: 12/16/17 06:17 Last Admin: 12/16/17 06:22 Dose: 40 mg MAR Blood Pressure Document 12/16/17 06:22 CNR (Rec: 12/16/17 06:22 CNR [id number]) Blood Pressure Blood Pressure (100/60-150/90 mm Hg) 109/55 IVP Administration Document 12/16/17 06:22 CNR (Rec: 12/16/17 06:22 CNR [id number]) Charges for Administration # of IVP Administrations 1 Methylprednisolone (Solu-Medrol) 125 mg IVP ONCE ONE Stop: 12/16/17 06:22 Last Admin: 12/16/17 06:50 Dose: 125 mg IVP Administration Document 12/16/17 06:50 CNR (Rec: 12/16/17 06:[address]) Charges for Administration # of IVP Administrations 1 - Scribe Statement The provider has reviewed the documentation as recorded by the Jomar Rivera Provider Scribe Attestation: All medical record entries made by the Scribmichael were at my direction and personally dictated by me. I have reviewed the chart and agree that the record accurately reflects my personal performance of the history, physical exam, medical decision making, and the department course for this patient. I have also personally directed, reviewed, and agree with the discharge instructions and disposition. Disposition/Present on Arrival - Present on Arrival Any Indicators Present on Arrival: No History of DVT/PE: No History of Uncontrolled Diabetes: No Urinary Catheter: No History of Decub. Ulcer: No History Surgical Site Infection Following: None - Disposition Have Diagnosis and Disposition been Completed?: Yes Diagnosis: New onset atrial fibrillation, CHF (congestive heart failure) Disposition: HOSPITALIZED Disposition Time: 07:52 Patient Plan: Admission Patient Problems: Current Active Problems Problem Status Onset CHF (congestive heart failure) Acute New onset atrial fibrillation Acute Condition: STABLE
[2017-12-16] MEDS: diltiaZEM IVPB 100mg in NS 100 ML IV PRN ×2 (06:02→20:35)
[2017-12-16 06:35] LABS: ALB/GLOB RATIO 1.1 (1.1-1.8); ALBUMIN 3.2 g/dL (3.0-4.8); ALT/SGPT 42 U/L (7-56); AST/SGOT 27 U/L (17-59); BLOOD UREA NITROGEN 28 mg/dL (7-21); CALCIUM 9.4 mg/dL (8.4-10.5); GFR AFRICAN-AMERICAN > 60; GFR NON-AFRICAN AMERICAN > 60
[2017-12-16 06:37] LABS: INR 1.34 (0.93-1.08); PARTIAL THROMBOPLASTIN TIME 27.9 Seconds (25.1-36.5); PROTHROMBIN TIME 15.5 SECONDS (9.4-12.5)
[2017-12-16 06:47] LABS: TROPONIN I < 0.01 ng/mL
[2017-12-16 06:48] LABS: HEMOGLOBIN 8.2 g/dL (14.0-18.0); MEAN CORPUSCULAR HEMOGLOBIN 33.1 pg (25.0-35.0); MEAN CORPUSCULAR HGB CONC 31.4 g/dl (31.0-37.0); MEAN PLATELET VOLUME 13.1 fl (7.0-11.0); RBC 2.48 [, 10^6/uL] (3.5-6.1); RED CELL DISTRIBUTION WIDTH 19.1 % (11.5-14.5); WHITE BLOOD COUNT 24.5 [, 10^3/ul] (4.5-11.0)
[2017-12-16 06:52] LABS: MEAN CELL VOLUME 105.2 fl (80.0-105.0)
[2017-12-16] MEDS ORDERED: Levalbuterol 0.63 MG/3 ML Inhal Soln UD IH PRN (06:58)
[2017-12-16] MEDS ORDERED: Digoxin 500 mcg/2ml (0.5 mg/2ml) Inj IVP STA ×2 (07:47→13:09)
[2017-12-16] MEDS ORDERED: Heparin25000 units/250ml 1/2NS 25,000 UNITS/250 ML BAG IV PRN (07:56)
[2017-12-16] MEDS: Budesonide 0.5 mg/2 ml Inhal Susp UD IH SCH ×2 (08:00→20:27)
[2017-12-16] MEDS: Levalbuterol 0.63 MG/3 ML Inhal Soln UD IH SCH ×3 (08:01→20:27)
--- NOTE | 2017-12-16 09:10 | RAD ---
HISTORY: Shortness of breath COMPARISON: 10/13/2017. FINDINGS: LUNGS: The lungs are well inflated. There is bibasilar atelectasis/scarring. PLEURA: No significant pleural effusion identified, no pneumothorax apparent. CARDIOVASCULAR: Normal. OSSEOUS STRUCTURES: No significant abnormalities. VISUALIZED UPPER ABDOMEN: Normal. OTHER FINDINGS: None. IMPRESSION: No active pulmonary disease.
[2017-12-16] MEDS ORDERED: MethylPREDNISolone 40 mg Vial IVP SCH (10:00)
--- NOTE | 2017-12-16 10:27 | CARD ---
APPROVED REPORT EKG Measurement Heart [id number] <Conclusion> AF with RVR, new c/w ECG 10/07/17 NSSTW changes
[2017-12-16] MEDS ORDERED: Non Formulary Medication (Dutasteride [Avodart] 0.5 MG) PO SCH (11:00)
--- NOTE | 2017-12-16 11:11 | CON ---
DATE: 12/16/2017 PULMONARY CONSULTATION REASON FOR CONSULTATION: Shortness of breath. REFERRING PHYSICIAN: Dr. Melissa Johnson. HISTORY: The patient is a 77-year-old male, with past medical history significant for advanced B-cell lymphoma, status post recent thoracentesis (positive for lymphoma), coronary artery disease, status post multiple cardiac stents, diabetes mellitus, hypertension, who presents to [facility] with worsening shortness of breath at rest, dyspnea on exertion, cough, and minimal sputum production for the past 3 days. I did treat this patient --as an outpatient recently. After a short course of steroids and diuretics, the patient had complete resolution of his symptoms. I also gave him a course of Levaquin as an outpatient. However, as above, the above symptoms have returned significantly - especially at night and when lying down. There is no history of chest pain, coughing up of blood, or chest pain - made worse with deep respirations. There is no history of temperatures, chills, or infectious exposure. There is no history of night sweats, weight loss, or appetite change prior to the above events. No history of calf pains. No history of syncope or diaphoresis. No history of recent travel or trauma. REVIEW OF SYSTEMS: No history of nausea, vomiting, or diarrhea. No acute urinary symptoms. No new neurologic or musculoskeletal complaints. Rest of the review of systems is negative. ALLERGIES: TO MUSSELS. SOCIAL HISTORY: Negative for tobacco and negative for alcohol. FAMILY HISTORY: No inheritable diseases. HOME MEDICATIONS: Include Flomax, Lipitor, Norvasc, glyburide, Diovan, Avodart, propranolol, imbruvica, prednisone. PHYSICAL EXAMINATION: GENERAL: The patient is mildly short of breath, but in no acute distress. He is not using accessory muscles for breathing. VITALS: Temperature 98.2, pulse is 124, respiratory rate 20/22, blood pressure 109/55. Oxygen saturation on nasal cannula is 92%. HEENT: Normocephalic, atraumatic. No JVD. CARDIOVASCULAR: Systolic ejection murmur at the lower left sternal border. Questionable S3 gallop. LUNGS: Crackles at both bases. Minimal bilateral rhonchi. No wheezing. EXTREMITIES: Positive for edema. No cyanosis, no clubbing. Calves are nontender to palpation. GI: Abdomen is soft, nontender, and nondistended. Bowel sounds are positive. SKIN: No acute rash. NEUROLOGIC: Limited at the present time. CURRENT LABORATORY DATA: Chest x-ray was done this morning and reviewed. There is mild pulmonary edema seen on the most present film. The small pleural effusion seen on the film of 10/13/2017 - is not readily apparent. CBC: White count 24.5, hemoglobin 8.2, hematocrit 26.1, platelets of 103,000. Complete metabolic profile: Sodium 130, chloride 97, BUN 28, glucose 154, LDH 315. Rest of the metabolic profiles within normal limits. B-type natriuretic peptide - pending. IMPRESSION: 1. Acute pulmonary edema, rule out congestive heart failure. 2. Rapid atrial fibrillation. 3. Acute bronchitis. 4. Advanced B-cell lymphoma. 5. Chronic anemia, thrombocytopenia. PLAN: The patient presents to [facility] with a 3-day history of worsening pulmonary symptoms. I did discuss the case with the patient and at length. The patient states that his symptoms are significantly worse at night, and when lying down. As above, I did treat this patient for an acute bronchitis - with complete resolution of his symptoms. He also received a course of Levaquin --as an outpatient. I did review the chest x-ray as above. The chest x-ray shows acute pulmonary edema. The patient was given a dose of Lasix in the emergency room. I have also reviewed the EKG. Rapid atrial fibrillation is noted. The patient is now on a Cardizem drip. On physical exam, the patient is only in mild bronchospasm. I will start the patient on half-strength Xopenex nebulizer treatments, inhaled budesonide, and low-dose intravenous steroids. Consultation with Dr. Valles (Cardiology) is ordered. The patient was scheduled to see Dr. Valles this Saturday. Additional pulmonary intervention will be based on the above results, and clinical status of the patient. I will discuss the above with Dr. Johnson later this morning. Thank you very much for this pulmonary consultation. Tyler Moore MD NELSY
[2017-12-16 12:12] VITALS: BMI 29.0
[2017-12-16] MEDS: Heparin25000 units/250ml 1/2NS 25,000 UNITS/250 ML BAG IV PRN (13:40)
[2017-12-16] MEDS ORDERED: Insulin Reg-LOW-Coverage SC SCH ×2 (16:30)
[2017-12-16] MEDS ORDERED: GLYBURIDE PO SCH (18:00)
[2017-12-16] MEDS ORDERED: Digoxin 500 mcg/2ml (0.5 mg/2ml) Inj IVP ONE (18:00)
[2017-12-16] MEDS ORDERED: METFORMIN HCL PO SCH (18:00)
[2017-12-16] MEDS ORDERED: Insulin Regular 1 UNITS/0.01 ML ML SC ONE (20:19)
[2017-12-16] MEDS: Insulin Reg-HIGH-Coverage SC SCH (21:48)
--- NOTE | 2017-12-16 22:16 | HP ---
HISTORY OF PRESENT ILLNESS: A 77-year-old male, referred to [facility] with a history of congestion and shortness of breath. The patient states that he has been feeling this way for few days. He states that approximately one week ago, he was treated for respiratory tract infection, also given Lasix initiated by his Oncologist for some swelling in the lower extremities. He denies any fever or chills, nausea, vomiting, or diarrhea. ALLERGIES: ALLERGY HISTORY IS TO MUSSELS. MEDICATIONS: His active medications consist of diltiazem. HOME MEDICATION: Consist of Flomax 0.4 mg daily, Lipitor 20 mg daily, Norvasc 10 mg daily, Glucovance 5/500 b.i.d., valsartan, hydrochlorothiazide 160/25 mg daily, Avodart 0.5 mg daily, Inderal 20 mg daily, Ecotrin 81 mg daily, Imbruvica is a immunomodulator drug which the patient is receiving for his CLL. PAST MEDICAL HISTORY: He has a past history of coronary artery disease, cardiac catheterization with stents, history of bladder cancer, history of BPH, history of hyperlipidemia, hypertension, history of CLL, pleural effusions, history of bronchitis, and history of non-insulin dependent diabetes. SOCIAL HISTORY: He is a nonsmoker, nondrinker, and nondrug user. PHYSICAL EXAMINATION: VITAL SIGNS: His pulse is 130; his temperature is 98.2, orally; his blood pressure is 139/63; respiratory rate is 22; oxygen saturation was reported 92% on room air. GENERAL: He is alert and oriented x3. NECK: Supple. HEART: Irregular S1 and S2 rhythm. LUNGS: Show bibasilar rhonchi with some rales. ABDOMEN: Soft, scaphoid. Positive bowel sounds. EXTREMITIES: Show 2+ edema. LABORATORY DATA: Shows a WBC of 24.5, RBC 2.48, hemoglobin 8.2, hematocrit 26.1, and platelet count is 103,000. PT is 15.5 with an INR of 1.34, PTT is 27.9. Chemistry shows sodium of 130, potassium is 4.1, chloride 97, CO2 of 26, BUN is 28, creatinine is 0.9. His random blood sugar is 154. His LDH is 315. LFTs are normal. BNP is 3480. Chest x-ray is read as vascular congestion. EKG is showing findings of atrial fibrillation with nonspecific ST wave changes. IMPRESSION: A 77-year-old male with new onset atrial fibrillation, vascular congestion in the lungs, thrombocytopenia, anemia, history of chronic lymphocytic leukemia, history of coronary artery disease. The patient will be admitted to [facility] placed on a monitored bed. Consults will be requested with Oncology, Infectious, Cardiology, and Pulmonary. Melissa Johnson MD
--- NOTE | 2017-12-16 22:29 | CON ---
DATE: 12/16/2017 REASON FOR CONSULTATION: Follow up of shortness of breath, new-onset atrial fibrillation, congestive heart failure, history of coronary artery disease, history of lymphoma, leukemia. BRIEF CLINICAL HISTORY: This is a 77-year-old male with recently diagnosed CLL leukemia, B-cell lymphoma, hypertension, diabetes, coronary artery disease, status post recurrent pleural effusion, being monitored at [facility] and for coronary artery disease at [facility], came with this complaint of shortness of breath. The patient found to be in congestive heart failure as well as AFib with rapid ventricular rate. The patient is on chemotherapy which contraindicates anticoagulation which was discussed at length by Dr. Jones at [facility]. The patient was on aspirin and Plavix and was suggested by them to hold the Plavix because that medication increases the bleeding tendency. Initially told the heparin to start, but heparin did not start and placed a call to Dr. Jones at [phone] and waiting for the response to start anticoagulation. The patient denies any chest pain, shortness of breath, any palpitation. PAST MEDICAL HISTORY: Significant for coronary artery disease, diabetes, hypertension, hyperlipidemia, prostate CA, status post chemo, history of multiple PTCA in 01/2008, 01/2009, and most recently the patient had in 03/2016 to mid LAD with a drug-eluting stent was done. Recently, the patient was diagnosed with B-cell lymphoma (leukemia and CLL). Hematology from [place], Dr. Jones, telephone number [phone] is being followed where discussion done with the last time and he suggested the patient start the chemo, wants to make sure the patient should be off Plavix, because that chemo increases the bleeding tendency, so the patient was on aspirin and Plavix was discontinued. Last time he was admitted here, on 10/07/2017, large pleural effusion and pneumonia. After thoracentesis, the patient was discharged on medications, who came in with complaint of shortness of breath, hemoglobin found to 8, platelet count with 103, and AFib with rapid ventricular rate. SOCIAL HISTORY: Negative of tobacco, history of alcohol abuse. MOST RECENT CARDIAC WORKUP: The patient has a stress test on 03/12/2016 that was apical ischemia followed by the patient had cardia catheterization and stent in the mid LAD was done. Most recent echocardiography on last admission dated 10/08/2017 showed ejection fraction of 45%, mitral regurgitation, [id number] tricuspid regurgitation, right ventricular systolic pressure 53, IVC dilated. CURRENT MEDICATIONS: The patient is taking at home Flomax, Lipitor 20 mg daily, amlodipine 10 mg daily, Glyburide, metformin 500 mg daily, valsartan/hydrochlorothiazide 160/25 mg daily, Avodart 0.5 mg daily, propranolol extended release 120 mg daily, aspirin 81 mg daily, Imbruvica (trade name ibrupinib) for B-cell lymphoma (leukemia, CLL) three capsules daily. ALLERGIES: TO MUSSELS. REVIEW OF SYSTEMS: As per HPI. PHYSICAL EXAMINATION: VITAL SIGNS: As follows: Temperature afebrile, heart rate 130, blood pressure 109/55. HEENT: PERRLA. Extraocular muscles intact. NECK: Supple. No carotid bruits or thyromegaly. CHEST: Clear to auscultation. HEART: S1 and S2, irregular. ABDOMEN: Soft. EXTREMITIES: Clubbing or cyanosis negative. EKG shows AFib with rapid ventricular rate. The chest x-ray shows mild congestion. No pleural effusion noted. IMPRESSION: A 77-year-old male with past medical history significant for coronary artery disease, status post multiple stent in 04/2009, most recently in 03/2016 with mid LAD stent was done, who came in with decompensated congestive heart failure secondary to AFib, rapid ventricular rate, severe anemia, thrombocytopenia. Last echo showed ejection fraction 45%, followed this patient had a MUGA scan done dated 10/10/2017 that showed ejection fraction of 67%. The patient had echocardiography on 10/08/2017 that showed ejection fraction 45%, [id number] tricuspid regurgitation. As mentioned, history of coronary artery disease, last stent of LAD dated 03/2016 after abnormal stress test. He came in with atrial fibrillation, rapid ventricular congestive heart failure. The patient was started on IV Cardizem because of rate and also was started p.o. propranolol, wanted to start heparin, but the patient's family with very strong component that Dr. Jones at [facility] in [facility] wanted not to start any anticoagulation, so I placed a call to Dr. Jones, telephone [phone]. We are waiting for their call back. Interim, we will continue Cardizem. Give a gentle diuretic as blood pressure tolerated. We will start propanolol. We will follow with you. Disused in length with the patient, patient's family, the , and Dr. Johnson will follow with you. Also, we suggest that Dr. Johnson to have a back tender paper machine on board, probably follows here in the [place], so we will ask Dr. Johnson consult with while the patient is in the hospital. We will follow with you. Thank you Dr. Johnson for providing the opportunity in taking care of the patient. Toribio Valles MD
[2017-12-17] MEDS: Levalbuterol 0.63 MG/3 ML Inhal Soln UD IH SCH ×4 (01:12→23:01)
[2017-12-17] MEDS: Heparin25000 units/250ml 1/2NS 25,000 UNITS/250 ML BAG IV PRN ×2 (06:21→22:56)
[2017-12-17 06:41] LABS: BASO # 0.01 [, K/mm3] (0.0-2.0); BASO % 0.1 % (0.0-3.0); GRAN # 1.61 (1.4-6.5); GRAN % 15.2 % (50.0-68.0); HEMOGLOBIN 8.1 g/dL (14.0-18.0); LYMPH # 8.9 (1.2-3.4); LYMPH % 84.2 % (22.0-35.0); MEAN CELL VOLUME 103.3 fl (80.0-105.0); MEAN CORPUSCULAR HEMOGLOBIN 33.3 pg (25.0-35.0); MEAN CORPUSCULAR HGB CONC 32.3 g/dl (31.0-37.0); MEAN PLATELET VOLUME 11.8 fl (7.0-11.0); MONO # 0.1 (0.1-0.6); MONO % 0.5 % (1.0-6.0); PLATELET COUNT 82 [, 10^3/uL] (120.0-450.0); RBC 2.43 [, 10^6/uL] (3.5-6.1); RED CELL DISTRIBUTION WIDTH 19.1 % (11.5-14.5); WHITE BLOOD COUNT 10.6 [, 10^3/ul] (4.5-11.0)
[2017-12-17 07:02] LABS: ALBUMIN 2.7 g/dL (3.0-4.8); ALT/SGPT 42 U/L (7-56); AST/SGOT 18 U/L (17-59); BLOOD UREA NITROGEN 32 mg/dL (7-21); GFR AFRICAN-AMERICAN > 60; GFR NON-AFRICAN AMERICAN > 60; HDL CHOLESTEROL 21 mg/dL (29-60); MAGNESIUM 1.8 mg/dL (1.7-2.2)
[2017-12-17 07:19] LABS: LDL CHOLESTEROL < 30 mg/dL (0-129)
--- NOTE | 2017-12-17 07:19 | PN ---
DATE: 12/17/2017 PULMONARY NOTE SUBJECTIVE: The patient appears much more comfortable this morning. He is not short of breath at rest. PHYSICAL EXAMINATION: VITAL SIGNS: Temperature is 97.4, pulse 100, respirations 18/20, blood pressure 119/59. Oxygen saturation on room air is 94-96%. HEENT: Normocephalic, atraumatic. NECK: No JVD. CARDIOVASCULAR: Systolic ejection murmur at the lower left sternal border. Questionable S3 gallop. LUNGS: Less crackles at the bases. Much less rhonchi. No wheezing. EXTREMITIES: Less edema. No cyanosis, no clubbing. Calves are nontender to palpation. GI: Abdomen is soft, nontender and nondistended. Bowel sounds are positive. SKIN: No acute rash. NEUROLOGIC: Exam limited at the present time. IMPRESSION: 1. Acute congestive heart failure. 2. Rapid atrial fibrillation. 3. Acute bronchitis. 4. Advanced B-cell lymphoma. 5. Chronic anemia, thrombocytopenia. PLAN: The patient appears much more comfortable this morning. He is not short of breath at rest. He is lying flat in bed. He does state to feeling much, much better overall. On physical exam, there is significantly less bronchospasm noted. I will continue with the current nebulizer treatments and decrease the intravenous steroids this morning. I did review the laboratory data from yesterday. The B-type natriuretic peptide was significantly elevated at 3480. Input by Cardiology (Dr. Valles) is noted. The patient remains on a Cardizem drip. The patient also remains on Lasix. Again, the patient is significantly improved this morning. I will discuss the above with Dr. Johnson. Tyler Moore MD MTDD
[2017-12-17] MEDS: Budesonide 0.5 mg/2 ml Inhal Susp UD IH SCH ×2 (08:08→23:02)
[2017-12-17 08:14] LABS: LYMPHOCYTE 89 % (22.0-35.0); NEUTROPHIL 11 % (50.0-70.0)
[2017-12-17 08:15] LABS: ANISOCYTOSIS SLIGHT; PLATELET ESTIMATE LOW (NORMAL)
[2017-12-17] MEDS: Insulin Reg-HIGH-Coverage SC SCH ×4 (08:24→21:16)
--- NOTE | 2017-12-17 08:25 | PQF CHF ---
This form is a permanent part of the medical record Clarification of your documentation is requested to better reflect the severity of illness and intensity of treatment of your patient. Indicators present Admitted w/ AF w/ RVR & CHF. Please document type & severity of CHF POA [x] Diagnosis of CHF and/or history of CHF [x] BNP > 200 [] Imaging Finding of Pulmonary Edema /Pleural Effusions [] Fluid/Volume Overload [] Pitting edema [] Ejection Fraction < 40% (Indicative of Systolic Heart Failure) [] Ejection Fraction > 40% (Indicative of Diastolic Heart Failure) [x] Dyspnea / Orthopenea / Paroxysmal Nocturnal Dyspnea [] Other: Location in the medical record that reflects the above clinical findings: [x] Admission note & Card consult Treatment Provided: [] IV Lasix PHYSICIAN'S RESPONSE Based on your medical judgment of the clinical indicators outlined above, are you treating this patient for a known or suspected: [] Acute CHF [] Systolic [] Diastolic [] Combined [] Chronic CHF [] Systolic [] Diastolic [] Combined [] Acute on Chronic CHF []Systolic [] Diastolic [] Combined [] CHF due hypertension [] Acute systolic []Chronic systolic [] Acute/ chronic systolic [x] Other, please indicate: [x ] A Fib with rapid Ventricular rate [] If Unable to Determine, please check the box, sign and date. Present On Admission (POA) Indicator: [X] Present at the time of admission [] Not present at the time of admission [] Clinically Undetermined In responding to this query, please exercise your independent professional judgment. The fact that a question is asked does not imply that any particular answer is desired or expected. Thank you for your clarification on this documentation. If you have any questions please call:[ ] [phone] * Thank you, [ ] Zahra Moulton RN CDS healthcare economics manager NELSY
--- NOTE | 2017-12-17 08:48 | PN ---
DATE: 12/16/2017 ADDENDUM Addendum to the initial consult dictated this morning. REASON FOR ADDENDUM: I spoke to Hematology and Oncology Mazin with Dr. Good, agreed to start heparin and hold anticancer medication imbruvica (Ibrutinib) for 1 week. This is an anticancer medication well-known to cause atrial fibrillation. So we will continue Cardizem, we will give 1 dose of digoxin and see if he gets converted. Once he gets converted, we will stop anticoagulation and we will hold for 1 week on imbruvica. I discussed with Dr. Johnson. We will give 1 dose of digoxin also. Thank you Dr. Johnson for providing us the opportunity in taking care of the patientChanel. Toribio Valles MD
[2017-12-17] MEDS: MethylPREDNISolone 40 mg Vial IVP SCH ×2 (09:02→21:33)
[2017-12-17] MEDS: Non Formulary Medication (Dutasteride [Avodart] 0.5 MG) PO SCH (10:00)
[2017-12-17] MEDS ORDERED: Potassium Chloride 20 mEq ER Tab PO ONE (11:46)
--- NOTE | 2017-12-17 15:24 | CON ---
DATE: HEMATOLOGY CONSULTATION HISTORY OF PRESENT ILLNESS: This is a 77-year-old man with chronic lymphocytic leukemia and anemia. The patient presented about almost 2 years ago with a pleural effusion, CHF, and at that time had a high white count and was found to have chronic lymphocytic leukemia. He was observed for about a year, but we could see that the white count was going up to about 50,000, and I referred him to the Dr. Kelly gates at the [facility]. Dr. Mendoza watched him because he had some kind of shortness of breath and finally started him on Imbruvica pills a day on November 01. During this last couple of weeks, however, prior to this, he needed blood transfusions because his hemoglobin dropped down below 9, he did have shortness of breath. So, in the last couple of weeks he started having increasing shortness of breath. He was treated for infection and he was treated for some kind of viral inflammation of his lungs with steroids. None of this helped. He was also given a blood transfusion about a week and a half ago by Dr. Kelly gates at [place], and ultimately he was found to have recurrent pleural effusion again with new atrial fibrillation and is admitted now for this. PHYSICAL EXAMINATION: SKIN: No petechiae, no bruises. HEENT: Anicteric. NODES: Nonpalpable in the axillary, cervical, supraclavicular or inguinal regions. LUNGS: At present showed decreased breath sounds on the left. HEART: S1 and S2, irregularly irregular. ABDOMEN: Shows no liver, no spleen, no tenderness, no rebound. EXTREMITIES: +1 edema. CENTRAL NERVOUS SYSTEM: No focal findings. ASSESSMENT AND PLAN: We held his Imbruvica as he is on blood thinners now to contraindication. His white count which was 50,000, has gone down to the 10,000, with 85% lymphocytes and that is an improvement on the Imbruvica that he has been on for about a month and his hemoglobin is down to 8.1. We know that when his hemoglobin goes down to below 9, he starts developing shortness of breath that he can tell the difference; so, I am going to give him 1 unit of packed cells today that should bring him over 9. In the meantime, he is getting Lasix and being treated for his atrial fibrillation and we held his Imbruvica. Ultimately, Dr. Mendoza will decide whether we start the Imbruvica or not. The patient will most likely have to depend on a blood thinner because of the atrial fibrillation and we will continue followup in this way. Jak MD Nisreen
--- NOTE | 2017-12-18 00:19 | PN ---
DATE: SUBJECTIVE: A 77-year-old male on telemetry. Nursing staff relates that there were no particular problems during the night. PHYSICAL EXAMINATION VITAL SIGNS: His temperature is 97.6, his pulse is 80, his blood pressure is 120/69, his respiratory rate is 20. GENERAL: He is alert and oriented x3. NECK: Supple. LUNGS: Show bibasilar rhonchi with diminished breath sounds at the bases. HEART: Has an irregular S1 and S2 rhythm. ABDOMEN: Soft, scaphoid. Positive bowel sounds. EXTREMITIES: Show no evidence of edema. There is a mild rash in the gluteal area. LABORATORY DATA: Shows WBC of 10.6, RBC of 2.43, hemoglobin 8, hematocrit 25, platelet count 82,000. His PTT is 52. Chemistries show normal electrolytes, the BUN is 32, the creatinine is 0.8, and blood sugar is now 244. His hemoglobin A1c is 7. LFTs are normal. MEDICATIONS: Currently, the patient is on Avodart 0.5 mg daily, Flomax 0.4 mg daily, Glucophage 500 mg b.i.d., heparin IV as per protocol, Humulin sliding scale low-dose, regular insulin, Inderal 10 mg t.i.d., Lasix 20 mg IV b.i.d., Micronase 5 mg b.i.d., budesonide 0.5 mg q.12, Solu-Medrol has been lowered to 20 mg IV q.12, he is also on Xopenex. ASSESSMENT AND PLAN: The patient was seen by Oncology, Dr. Nielson, who has recommended a transfusion of packed red blood cells. He is being followed by Pulmonary who lowered his dose of steroids. He is being followed by Dr. Valles of Cardiology. The patient has chronic lymphocytic leukemia, congestive heart failure, new onset atrial fibrillation, history of bladder cancer, history of benign prostate hypertrophy, history of [id number] diabetes, history of lumbar degenerative disease, history of hypertension. Currently, the patient will be continued on current medical management. His IV heparin will be continued as per Cardiology. His Cardizem drip has been placed on hold, We will follow up labs in the morning. His chemotherapy medication has also been placed on hold at this time. Melissa Johnson MD [facility] # [phone]
[2017-12-18 06:41] LABS: GRAN # 1.61 (1.4-6.5); GRAN % 21.4 % (50.0-68.0); HEMOGLOBIN 8.9 g/dL (14.0-18.0); LYMPH # 5.9 (1.2-3.4); LYMPH % 78.5 % (22.0-35.0); MEAN CORPUSCULAR HEMOGLOBIN 33.3 pg (25.0-35.0); MEAN CORPUSCULAR HGB CONC 32.4 g/dl (31.0-37.0); MEAN PLATELET VOLUME 12.8 fl (7.0-11.0); MONO % 0.1 % (1.0-6.0); RBC 2.67 [, 10^6/uL] (3.5-6.1); RED CELL DISTRIBUTION WIDTH 20.1 % (11.5-14.5); WHITE BLOOD COUNT 7.5 [, 10^3/ul] (4.5-11.0)
[2017-12-18 07:04] LABS: ALBUMIN 2.7 g/dL (3.0-4.8); ALT/SGPT 42 U/L (7-56); AST/SGOT 18 U/L (17-59); BLOOD UREA NITROGEN 40 mg/dL (7-21); CALCIUM 8.6 mg/dL (8.4-10.5); GFR AFRICAN-AMERICAN > 60; GFR NON-AFRICAN AMERICAN > 60; MAGNESIUM 1.8 mg/dL (1.7-2.2)
--- NOTE | 2017-12-18 08:10 | PN ---
DATE: 12/17/2017 REASON FOR CONSULTATION AND FOLLOWUP: Atrial fibrillation, new onset congestive heart failure secondary to mild systolic dysfunction as well as atrial fibrillation with rapid ventricular rate. SUBJECTIVE: The patient denies any chest pain, shortness of breath or any palpitation. OBJECTIVE: GENERAL: Not in apparent distress. VITAL SIGNS: As follows; temperature afebrile, heart rate 73, and blood pressure 111/60. HEENT: PERRLA. Extraocular muscles intact. NECK: Supple. No carotid bruits or thyromegaly. LUNGS: Clear to auscultation. HEART: S1 and S2. ABDOMEN: Regular. EXTREMITIES: Clubbing and cyanosis negative. LABORATORY DATA: Blood workup as follows; WBC 10.3, hemoglobin 8.1, hematocrit 25.1, and platelet count 82. Chemistry shows sodium 134, potassium 3.9, chloride 99, carbon dioxide 27, anion gap 12, BUN 32, and creatinine 0.8. Total protein , albumin 2.7, albumin-globulin ratio 1. IMPRESSION: Anemia, thrombocytopenia, protein-calorie malnutrition present on admission moderate, atrial fibrillation with rapid ventricular rate, multiple arrhythmias noted, multiple pauses, ventricular tachycardia, congestive heart failure, possibly secondary to mild systolic dysfunction as most likely secondary to atrial fibrillation with rapid ventricular rate, leg edema secondary to fluid overload and congestive heart failure, coronary artery disease, history of multiple stents in the past, leukemia, and B-cell lymphoma new onset, on chemotherapy. Currently is on Imbruvica (ibrutinib) for B-cell lymphoma. Discussed with flow match sofa cutter in [place], mostly his arrhythmia is secondary to this Imbruvica. This is a well-known side effect of atrial fibrillation, so we will hold Imbruvica for at least 1 week. PLAN: Plan is to continue heparin, continue low-dose beta-caitie. The patient was on valsartan and propranolol 120 with started 10 mg t.i.d., monitor closely. All these arrhythmias are happening secondary to Imbruvica. Monitor platelets. We will transfuse 1 unit of blood. Increase nutritional support. Continue gentle diuretics as blood pressure is tolerated. If the patient does not get converted, we will consider YOHANNES conversion and start Eliquis 3 days after the Imbruvica out of the system because Imbruvica has increased bleeding tendency, so we will wait for 3 days. In the interim, continue heparin and monitor for drop in hemoglobin, if hemoglobin is below 8, consider packed RBC transfusion. Discussed with Dr. Johnson and discussed with the patient. In the interim, continue gentle diuretics 20 mg of IV Lasix, continue Cardizem, this is on hold because of multiple pauses. Continue low-dose propranolol p.o. 3 mg daily and if the blood pressure remains elevated, which is now on the lower side, then we will increase back his baseline medication, which is propranolol, amlodipine, and propranolol long-acting 120 mg and Diovan, but now the patient also will hold all 3 medications; amlodipine we will hold, continue to hold valsartan and continue to hold propranolol ER 120 mg, 10 mg p.o. t.i.d., and we will give 40 mg of Lasix posttransfusion. We will follow with you. We will also supplement potassium. Thank you Dr. Johnson for providing us the opportunity in taking care of the patient, Reji Buchanan. Troibio Valles MD
[2017-12-18] MEDS: Budesonide 0.5 mg/2 ml Inhal Susp UD IH SCH ×2 (08:17→19:25)
[2017-12-18] MEDS: Levalbuterol 0.63 MG/3 ML Inhal Soln UD IH SCH ×3 (08:17→19:25)
[2017-12-18] MEDS: Insulin Reg-HIGH-Coverage SC SCH ×4 (08:19→22:50)
--- NOTE | 2017-12-18 08:28 | PN ---
DATE: 12/18/2017 PULMONARY PROGRESS NOTE SUBJECTIVE: The patient appears very comfortable this morning. He is not short of breath at rest. PHYSICAL EXAMINATION: VITAL SIGNS: Temperature is 97.5, pulse on the monitor is 113, respiratory rate is 18, and blood pressure is 115/83. Oxygen saturation on nasal cannula is 96% to 98%. HEENT: Normocephalic and atraumatic. NECK: No JVD. CARDIOVASCULAR: Systolic ejection murmur at the lower left sternal border. Questionable S3 gallop. LUNGS: Minimal/less crackles at the bases. No rhonchi or wheezing this morning. EXTREMITIES: Less edema. No cyanosis and no clubbing. Calves are nontender to palpation. GASTROINTESTINAL: Abdomen is soft, nontender and nondistended. Bowel sounds are positive. SKIN: No acute rash. NEUROLOGIC: Exam is limited at the present time. IMPRESSION 1. Acute congestive heart failure. 2. Rapid atrial fibrillation. 3. Acute bronchitis. 4. Advanced B-cell lymphoma. 5. Chronic anemia, thrombocytopenia. PLAN: The patient appears very comfortable this morning. He is not short of breath at rest. He does state to feeling much better overall. On physical exam, his bronchospasm continues to resolve. In addition, the oxygen saturation on nasal cannula is now 96% to 98%. I will continue the current nebulizer treatments and change to low-dose oral steroids this morning. I would continue with the treatment for congestive heart failure and cardiac arrhythmias as per Cardiology. Input by Dr. Valles is noted. Input by Dr. Nielson (Hematology) is also noted. Clinical status of the patient is significantly improved - compared to the initial presentation. However, unfortunately, the overall status/prognosis for this patient does remain very guarded. I will discuss the above with Dr. Johnson. Tyler Moore MD NELSY
[2017-12-18] MEDS: Non Formulary Medication (Dutasteride [Avodart] 0.5 MG) PO SCH (10:59)
--- NOTE | 2017-12-18 12:12 | PN ---
DATE: SUBJECTIVE: A 77-year-old male resting comfortably in bed. Nursing staff relates that there were no particular problems during the night. PHYSICAL EXAMINATION: VITAL SIGNS: The patient has a temperature of 97.5, his pulse is 120, blood pressure is 115/83, and the oxygen saturation is 96% on 2 L of nasal oxygen. GENERAL: He is alert and oriented x3. LUNGS: Show scattered rhonchi. HEART: Irregular S1 and S2 rhythm. ABDOMEN: Soft and scaphoid with positive bowel sounds. EXTREMITIES: Show no evidence of edema. LABORATORY DATA: Shows WBC of 7.5, RBC of 2.67, hemoglobin of 8.9, hematocrit of 27.5, and platelet count is 83,000. His PTT is 63.5. His chemistry shows sodium of 134, potassium of 3.9, chloride of 101, BUN is 40, and the creatinine is 0.9. The random blood sugar was 223. His LFTs are normal. MEDICATIONS: Currently, the patient is on Flomax 0.4 mg daily, Glucophage 500 mg b.i.d., heparin IV infusion, Humulin sliding scale low dose, regular insulin, Inderal 10 mg t.i.d., Lasix 20 mg b.i.d., Micronase 5 mg b.i.d., prednisone 20 mg daily, Pulmicort 0.5 mg q.12 hours. and Xopenex 0.63 q. 2 hours. p.r.n. and q. 6 hours. ASSESSMENT AND PLAN: 1. The patient presented with new onset atrial fibrillation and congestive heart failure. He is currently being treated and followed by Cardiology. His heart rate still is in the 100 range. 2. He had respiratory symptoms being followed by Pulmonary placed on steroid regimen which has now been changed to p.o. and he continues with pulmonary medications. He previously had a respiratory tract infection. 3. He is being treating for his congestive heart failure. 4. He has chronic lymphocytic leukemia. He is currently off chemotherapy at this time being monitored on telemetry for his arrhythmia. He is being followed also by oncologist, Dr. Nielson and he is status post 1 unit of packed red blood cells. The patient was encouraged to ambulate. We will continue to monitor the patient on telemetry. Follow up the patient's laboratories. 5. He has a past medical history of bladder cancer, benign prostate hypertrophy, hypertension, lumbar degenerative disk disease and non-insulin dependent diabetes. Melissa Johnson MD
--- NOTE | 2017-12-18 12:43 | PN ---
DATE: 12/18/2017 REASON FOR CONSULTATION: Followup atrial fibrillation, new onset heart failure secondary to mild systolic dysfunction as well as atrial fibrillation with rapid ventricular rate. SUBJECTIVE: The patient denies any chest pain, shortness of breath or any palpitation. OBJECTIVE: GENERAL: Not in apparent distress. VITAL SIGNS: As follows; heart rate 120, blood pressure 113/72. HEENT: PERRLA. Extraocular muscles intact. NECK: Supple. No carotid bruits or thyromegaly. CHEST: Clear to auscultation. HEART: S1 and S2, regular. ABDOMEN: Soft. EXTREMITIES: Clubbing and cyanosis negative. LABORATORY DATA: Blood workup as follows; WBC 7.1, hemoglobin 8.9, hematocrit 27.5, and platelet count 83. Sodium 134, potassium 3.9, chloride 101, carbon dioxide 24, anion gap 13, BUN 40, and creatinine 0.9. IMPRESSION: New onset of atrial fibrillation most likely secondary to Imbruvica-induced atrial fibrillation secondary to chemotherapy for leukemia, B-cell lymphoma, anemia, thrombocytopenia, protein-calorie malnutrition present on admission, atrial fibrillation new onset secondary to as mentioned Imbruvica. Mild cardiomyopathy, coronary artery disease, multiple stents, thrombocytopenia, leg edema, B-cell lymphoma on Imbruvica. RECOMMENDATIONS: Since Imbruvica half life , so we will continue the heparin for now. From tomorrow, we will start low dose of Eliquis if the platelet count is okay. We will also change Cardizem to metoprolol, propranolol 120 mg from today starting and we will discontinue Cardizem and monitor heart rate and the blood pressure remained stable, possible discharge home by tomorrow or day after and YOHANNES cardioversion as an outpatient. Discussed with Dr. Johnson. Discussed with the patient. Toribio Valles MD
[2017-12-18] MEDS ORDERED: Magnesium Hydroxide Susp 30 ml UD PO ONE (14:27)
[2017-12-18] MEDS: Heparin25000 units/250ml 1/2NS 25,000 UNITS/250 ML BAG IV PRN (17:13)
[2017-12-18] MEDS: diltiaZEM IVPB 100mg in NS 100 ML IV PRN (17:15)
[2017-12-19 06:41] LABS: BASO # 0.01 [, K/mm3] (0.0-2.0); BASO % 0.1 % (0.0-3.0); GRAN # 1.04 (1.4-6.5); GRAN % 15.1 % (50.0-68.0); HEMOGLOBIN 9.6 g/dL (14.0-18.0); LYMPH # 5.8 (1.2-3.4); LYMPH % 84.5 % (22.0-35.0); MEAN CELL VOLUME 101.7 fl (80.0-105.0); MEAN CORPUSCULAR HEMOGLOBIN 32.5 pg (25.0-35.0); MEAN PLATELET VOLUME 11.9 fl (7.0-11.0); MONO % 0.3 % (1.0-6.0); RBC 2.95 [, 10^6/uL] (3.5-6.1); RED CELL DISTRIBUTION WIDTH 20.4 % (11.5-14.5); WHITE BLOOD COUNT 6.9 [, 10^3/ul] (4.5-11.0)
[2017-12-19] MEDS: Insulin Reg-HIGH-Coverage SC SCH ×3 (08:19→17:33)
[2017-12-19 08:24] LABS: BLOOD UREA NITROGEN 38 mg/dL (7-21); CALCIUM 8.4 mg/dL (8.4-10.5); GFR AFRICAN-AMERICAN > 60; GFR NON-AFRICAN AMERICAN > 60
[2017-12-19] MEDS: Budesonide 0.5 mg/2 ml Inhal Susp UD IH SCH ×2 (08:55→19:29)
[2017-12-19 09:13] LABS: MAGNESIUM 1.9 mg/dL (1.7-2.2)
[2017-12-19] MEDS: Propranolol 80 mg ER Cap PO SCH (09:16)
[2017-12-19] MEDS: Non Formulary Medication (Dutasteride [Avodart] 0.5 MG) PO SCH (09:17)
--- NOTE | 2017-12-19 12:07 | PN ---
DATE: 12/19/2017 PULMONARY NOTE SUBJECTIVE: The patient appears very comfortable this morning. He is not short of breath at rest. PHYSICAL EXAMINATION: VITAL SIGNS: Temperature is 98.4, pulse on the monitor is 112, respiratory rate 18, blood pressure 122/69. Oxygen saturation on nasal cannula is 97%. HEENT: Normocephalic, atraumatic. No JVD. CARDIOVASCULAR: Systolic ejection murmur at the lower left sternal border. Questionable S3 gallop. LUNGS: Minimal/less crackles at the bases. No rhonchi. No wheezing. EXTREMITIES: Less edema. No cyanosis, no clubbing. Calves are nontender to palpation. GI: Abdomen is soft, nontender and nondistended. Bowel sounds are positive. SKIN: No acute rash. NEUROLOGIC: Limited at the present time. IMPRESSION: 1. Acute congestive heart failure. 2. Rapid atrial fibrillation. Ventricular tachycardia. 3. Acute bronchitis. 4. Advanced B-cell lymphoma. 5. Chronic anemia, thrombocytopenia. PLAN: The patient appears very comfortable this morning. He is not short of breath at rest. He does state to feeling much better overall. I did discuss the case with the night nurse at length. The night nurse stated that the patient had a good night, but did have several short runs of ventricular tachycardia. I would continue with the cardiology evaluation and treatment as per Dr. Valles. His input is noted. On physical exam, the patient's bronchospasm has primarily resolved. I will continue with the low-dose oral steroids and inhaled steroids for now. I will discontinue the schedule Xopenex treatments-given the above arrhythmias. I will leave the patient on Xopenex treatments-only on a p.r.n. basis. Clinical status of the patient is significantly improved-compared to the initial presentation. However, again, his overall status/prognosis does remain very guarded. I will discuss the above with Dr. Johnson. Tyler Moore MD MTDD
--- NOTE | 2017-12-19 16:51 | PN ---
DATE: 12/19/2017 [id number] FOR CONSULTATION AND FOLLOWUP: Atrial fibrillation, new onset; heart failure secondary to systolic mild dysfunction as well as atrial fibrillation with rapid ventricular rate; leukemia; thrombocytopenia; anemia. SUBJECTIVE: The patient denies any chest pain, shortness of breath, or any palpitation. On IV Cardizem and heparin. OBJECTIVE: VITAL SIGNS: As follows, temperature afebrile, heart rate 120, and blood pressure 122/69. HEENT: PERRLA. Extraocular muscles intact. NECK: Supple. No carotid bruits or thyromegaly. CHEST: Clear to auscultation. HEART: S1 and S2 regular. ABDOMEN: Soft. EXTREMITIES: Clubbing and cyanosis negative. LABORATORY DATA: WBC 6.9, hemoglobin 9.6, hematocrit 30.0, platelet count 75. Chemistry shows sodium 135, potassium 3.9, chloride 101, carbon dioxide 26, anion gap of 12, BUN 38, and creatinine 0.9. IMPRESSION: Atrial fibrillation, new onset, with rapid ventricular rate secondary to chemotherapy for leukemia, Imbruvica. Discussed with Hematology/Oncology at [facility]. This is a well-known side effect from Imbruvica, Imbruvica-induced atrial fibrillation, secondary to chemotherapy for leukemia, B-cell lymphoma, anemia, thrombocytopenia, protein-calorie malnutrition present on admission, mild congestive heat failure secondary to systolic dysfunction as well as atrial fibrillation with rapid ventricular rate, history of coronary artery disease, status post multiple stents in the past, leg edema. RECOMMENDATIONS: Hold Imbruvica for at least one week. Start Eliquis. Discontinue heparin. Start Cardizem p.o. Discontinue IV Cardizem. Start propranolol 80 mg dose. The patient was at home at 120. We will see the monitored heart rate and pulse. If the patient ambulates and if the heart rate remains stable, we will discharge him on metoprolol 25 b.i.d., propranolol 80 mg and Eliquis and DC cardioversion on Saturday. Discussed with the patient. We will discuss with you. We will follow with you. Thank you Dr. Johnson for providing us the opportunity in taking care of the patient, Reji Buchanan. Continue gentle diuretics. We will give a 40 of Lasix today at 2 p.m. rather than 20 and change Lasix to 40 from tomorrow to every day. We will check the blood workup in the morning. Also DC PT/PTT since heparin is discontinued. Toribio Valles MD
--- NOTE | 2017-12-20 02:11 | PN ---
DATE: SUBJECTIVE: A 77-year-old male on telemetry. Nursing staff relates that there were no particular problems during the night. PHYSICAL EXAMINATION: VITAL SIGNS: On the patient this morning show a temperature of 97.3, his pulse is 59, his blood pressure is 131/52, his respiratory rate is 18. GENERAL: He is alert and oriented x3. LUNGS: Clear. HEART: Irregular S1, S2 rhythm. ABDOMEN: Soft. Positive bowel sounds. EXTREMITIES: Show no evidence of edema. NEUROLOGIC: He is alert and oriented x3. LABORATORY DATA: Patient's WBC is 6.9, RBC 2.95, hemoglobin is 9.6, hematocrit 30, platelet count is 75,000. Chemistry showed normal electrolytes, the BUN is 38,the creatinine is 0.9, his blood sugar random was 147, calcium is 8.4, phosphorous 3, magnesium 1.9. MEDICATIONS: Currently, the patient is on Cardizem 30 mg q.i.d., Avodart 0.5 mg daily, Eliquis 2.5 mg b.i.d., Flomax 0.4 mg daily, Glucophage 500 mg b.i.d. He is on sliding low dose regular insulin scale, Inderal long acting 80 mg daily, Lasix 40 mg IV daily, Micronase 5 mg b.i.d., prednisone 20 mg daily, Pulmicort Respules 0.5 mg b.i.d. and Xopenex 0.63 mg q. 2 hours p.r.n. for shortness of breath. ASSESSMENT AND PLAN: Patient has, 1. New onset atrial fibrillation. 2. Chronic lymphocytic leukemia. 3. Presented with congestive heart failure. 4. History of benign prostatic hypertrophy. 5. History of bladder cancer. 6. History of degenerative lumbar disk disease. The patient is currently being followed by Cardiology, Pulmonary and Oncology. At this particular point in time, patient is being managed with anticoagulation therapy with an attempt to control his rhythm. Discussion is ongoing regarding possible cardioversion as an outpatient. In the interim, his chemotherapy with the consent of his oncologist has been on hold and he has been on placed on anticoagulation therapy. Continue to monitor the patient closely on telemetry. Follow up his labs in the morning and follow the recommendations of the individual consultants. Melissa Johnson MD [facility] # [id number]
[2017-12-20] MEDS: Insulin Reg-HIGH-Coverage SC SCH ×5 (02:25→22:36)
[2017-12-20 06:37] LABS: EOS % 0.2 % (1.5-5.0); GRAN # 0.62 (1.4-6.5); GRAN % 9.3 % (50.0-68.0); HEMOGLOBIN 9.3 g/dL (14.0-18.0); LYMPH % 90.2 % (22.0-35.0); MEAN CELL VOLUME 102.1 fl (80.0-105.0); MEAN CORPUSCULAR HGB CONC 32.3 g/dl (31.0-37.0); MEAN PLATELET VOLUME 11.3 fl (7.0-11.0); MONO % 0.3 % (1.0-6.0); PLATELET COUNT 67 [, 10^3/uL] (120.0-450.0); RBC 2.82 [, 10^6/uL] (3.5-6.1); RED CELL DISTRIBUTION WIDTH 19.9 % (11.5-14.5); WHITE BLOOD COUNT 6.6 [, 10^3/ul] (4.5-11.0)
[2017-12-20 07:18] LABS: ALB/GLOB RATIO 1.1 (1.1-1.8); ALBUMIN 2.6 g/dL (3.0-4.8); ALT/SGPT 33 U/L (7-56); AST/SGOT 15 U/L (17-59); BLOOD UREA NITROGEN 35 mg/dL (7-21); CALCIUM 8.3 mg/dL (8.4-10.5); GFR AFRICAN-AMERICAN > 60; GFR NON-AFRICAN AMERICAN > 60; MAGNESIUM 1.9 mg/dL (1.7-2.2)
[2017-12-20 08:06] LABS: ATYPICAL LYMPHOCYTE 2 % (0.0-0.0); LYMPHOCYTE 77 % (22.0-35.0); MONOCYTE 4 % (1.0-6.0); NEUTROPHIL 17 % (50.0-70.0); PLATELET ESTIMATE LOW (NORMAL)
[2017-12-20] MEDS: Budesonide 0.5 mg/2 ml Inhal Susp UD IH SCH ×2 (08:30→19:31)
[2017-12-20] MEDS: Propranolol 80 mg ER Cap PO SCH (09:02)
[2017-12-20] MEDS ORDERED: Potassium Chloride 20 mEq ER Tab PO ONE ×2 (09:08→13:00)
[2017-12-20] MEDS: Non Formulary Medication (Dutasteride [Avodart] 0.5 MG) PO SCH (09:22)
--- NOTE | 2017-12-20 11:50 | PN ---
DATE: 12/20/2017 SUBJECTIVE: The patient appears very comfortable this morning. He is not short of breath at rest. PHYSICAL EXAMINATION: VITAL SIGNS: Temperature is 98.2, pulse on the monitor is 61, respiratory rate 18, blood pressure 114/58. Oxygen saturation on room air is 95%. HEENT: Normocephalic, atraumatic. No JVD. CARDIOVASCULAR: Systolic ejection murmur at the lower left sternal border. Questionable S3 gallop. LUNGS: Very minimal/less crackles at the bases. Otherwise clear. EXTREMITIES: Less edema. No cyanosis, no clubbing. Calves are nontender to palpation. GI: Abdomen is soft, nontender and nondistended. Bowel sounds are positive. SKIN: No acute rash. NEUROLOGIC: Exam limited at the present time. IMPRESSION: 1. Acute congestive heart failure. 2. Rapid atrial fibrillation. Ventricular tachycardia. 3. Acute bronchitis. 4. Advanced B-cell lymphoma. 5. Chronic anemia, thrombocytopenia. PLAN: The patient appears very comfortable this morning. He is not short of breath at rest. He is not coughing. He states to feeling much, much better overall. I did discuss the case with the night nurse at length. The night nurse stated that the patient had a very good night, and converted to normal sinus rhythm. On physical exam, his bronchospasm continues to resolve. In addition, the oxygen saturation on room air is now 95%. I will continue the inhaled Pulmicort and decrease the prednisone dosage this morning. I would continue with the cardiology evaluation as per Dr. Valles. His input is noted. Clinical status of the patient is significantly improved. I will discuss the above with Dr. Johnson. Tyler Moore MD NELSY
--- NOTE | 2017-12-20 12:59 | PN ---
DATE: REASON FOR CONSULTATION AND FOLLOWUP: Atrial fibrillation, new onset, CHF secondary to mild systolic dysfunction as well as AFib with rapid ventricular rate, thrombocytopenia, leukemia, anemia, status post converted to normal sinus reverted back to AFib this morning. SUBJECTIVE: The patient denies any chest pain, shortness of breath or any palpitation. OBJECTIVE: GENERAL: Not in apparent distress. Feels better. Leg swelling decreased. VITAL SIGNS: As follows, temperature afebrile, heart rate 108, and blood pressure 140/70. HEENT: PERRLA intact. NECK: Supple. No carotid bruits or thyromegaly. CHEST: Clear to auscultation. HEART: S1 and S2 regular. ABDOMEN: Soft. EXTREMITIES: Clubbing and cyanosis negative. LABORATORY DATA: Blood workup as follows; WBC , hemoglobin 9.3, hematocrit 28.8, and platelet count 67. Chemistry shows sodium 134, potassium 3.5, chloride 101, carbon dioxide 26, anion gap 11, BUN 35, and creatinine 0.9. Albumin 2.6. IMPRESSION: Protein-calorie malnutrition, which was not present on admission, leg edema, atrial fibrillation with rapid ventricular rate, last night converted to normal sinus, reverted back this morning to atrial fibrillation with rapid rate, thrombocytopenia, anemia, B-cell lymphoma, leukemia, history of coronary artery disease, multiple stents, new onset atrial fibrillation, congestive heart failure, multifactorial secondary to atrial fibrillation with rapid ventricular rate as well as mild decreased left ventricular dysfunction. Atrial fibrillation is most likely secondary to chemotherapy for leukemia, Imbruvica most likely as per Hematology/Oncology from [facility]. RECOMMENDATIONS: Hold Imbruvica for at least 1 week. The patient started Eliquis. Started on propranolol 80 mg, the patient was at home 120 mg cut down because of the patient's bradycardia. Continue Cardizem 60. Home medications; 120 mg propranolol is on hold. Home medication; Diovan is on hold. Home medication; Norvasc is on hold. Continue Eliquis and see the response. If the patient converted to normal sinus, no need for YOHANNES cardioversion, but the patient reversing back and forth then no need again to YOHANNES cardioversion, otherwise, the patient is scheduled for Saturday for YOHANNES cardioversion. If remained stable, possible discharge home today and YOHANNES cardioversion as an outpatient on Saturday. We will change Lasix to 40 mg daily, supplement potassium. We will follow with you. Thank you Dr. Johnson for providing us the opportunity in taking care of the patient, Reji Buchanan. Discussed in length with the patient about the patient's condition as a long-term plan. We will give 40 K stat and another 40 at 3:00 p.m. We will Lasix 40 at 10:00 a.m. IV. Discussed with Dr. Johnson yesterday. Toribio Valles MD
--- NOTE | 2017-12-20 19:44 | PN ---
DATE: SUBJECTIVE: This is a 77-year-old male resting in bed comfortably this morning. He offers no specific complaints at this time. He has a temp of 98, his pulse is 133, and he is in atrial fibrillation. The patient is reported to have converted to sinus rhythm yesterday, but earlier this morning reverted back to atrial fibrillation. PHYSICAL EXAMINATION: GENERAL: He is alert and oriented x3. VITAL SIGNS: His blood pressure is 130/68 and his respiratory rate is 19. LUNGS: Clear. HEART: S1 and S2, irregular rhythm. ABDOMEN: Soft and scaphoid. Positive bowel sounds. EXTREMITIES: Shows no evidence of edema. LABORATORY DATA: Shows a WBC of 6.6, RBC 2.82, hemoglobin 9.3, hematocrit 28.8, and platelet count 67,000. His chemistry shows a sodium of 135, potassium 3.5, chloride 101, BUN is 35, and creatinine is 0.9. His random blood sugar is 130. ASSESSMENT AND PLAN: The patient is receiving treatment for new onset atrial fibrillation in the setting of congestive heart failure. He also has a history of chronic lymphocytic leukemia, degenerative arthritis of the lumbar spine, bladder cancer, benign prostatic hyperplasia, and [id number]-fxlaugosn diabetes. He will continue to be monitored at this time. We will replete his potassium. Notes of the individual consultants have been reviewed. Case has been discussed both with Pulmonary and Cardiology as well as with the patient. We will continue current medical management and followup the patient's labs. Melissa Johnson MD
--- NOTE | 2017-12-20 21:01 | PN ---
DATE: ADDENDUM REASON FOR DICTATION: Addendum to the initial progress note dictated this morning. REASON FOR ADDENDUM: The patient went into atrial fibrillation with rapid ventricular rate. Initial plan was to discharge the patient on propranolol, Cardizem and Eliquis, and bring the patient back outpatient on Saturday for YOHANNES cardioversion. The patient is having heart rate of 120 to 140. Cardizem 20 mg IV bolus was given, and the plan is to increase the propranolol to 120 mg daily with p.r.n. verapamil and keep the patient here, and we will do the YOHANNES cardioversion on Saturday. Keep n.p.o. after 12 midnight for cardiac catheterization. We will discuss with Dr. Johnson. Discussed in length with the patient's daughter, and the patient, agreed to stay. Toribio Valles MD
[2017-12-21 07:07] LABS: EOS % 0.1 % (1.5-5.0); GRAN # 0.67 (1.4-6.5); HEMOGLOBIN 10.7 g/dL (14.0-18.0); LYMPH # 6.8 (1.2-3.4); LYMPH % 90.8 % (22.0-35.0); MEAN CELL VOLUME 103.4 fl (80.0-105.0); MEAN CORPUSCULAR HEMOGLOBIN 32.8 pg (25.0-35.0); MEAN CORPUSCULAR HGB CONC 31.8 g/dl (31.0-37.0); MEAN PLATELET VOLUME 11.7 fl (7.0-11.0); MONO % 0.1 % (1.0-6.0); RBC 3.26 [, 10^6/uL] (3.5-6.1); RED CELL DISTRIBUTION WIDTH 19.9 % (11.5-14.5); WHITE BLOOD COUNT 7.5 [, 10^3/ul] (4.5-11.0)
[2017-12-21] MEDS: Insulin Reg-HIGH-Coverage SC SCH ×4 (07:50→21:35)
[2017-12-21] MEDS: Budesonide 0.5 mg/2 ml Inhal Susp UD IH SCH ×2 (09:31→21:30)
[2017-12-21] MEDS: Propranolol 60 mg ER Cap PO SCH (09:48)
[2017-12-21] MEDS: Non Formulary Medication (Dutasteride [Avodart] 0.5 MG) PO SCH (09:49)
[2017-12-21] MEDS ORDERED: Digoxin 500 mcg/2ml (0.5 mg/2ml) Inj IVP ONE (12:04)
--- NOTE | 2017-12-21 13:36 | PN ---
DATE: 12/21/2017 PULMONARY PROGRESS NOTE SUBJECTIVE: The patient is feeling better, but complains of right posterior rib pain. Etiology of this is unknown, perhaps musculoskeletal from lying in bed, perhaps rib fracture from coughing. He is concerned about this and requests further diagnostics. His respiratory status is improved, however. He remains on oral and inhaled corticosteroids. The patient is feeling better and medications are being tapered slowly. PHYSICAL EXAMINATION: GENERAL: He is resting, sitting up in bed. VITAL SIGNS: Stable, afebrile. Unfortunately, his heart rate is very rapid 130 and he is getting verapamil now, planning on cardioversion on Saturday, oxygen saturation is 96% on room air. HEENT: Normocephalic and atraumatic. NECK: No JVD. No lymphadenopathy. No bruit. CARDIOVASCULAR: Regular rhythm. Soft systolic ejection murmur at the lower left sternal border. Rapid rate. No gallop appreciated. LUNGS: Essentially clear. Slight rales clear with cough. ABDOMEN: Soft. Bowel sounds normoactive without mass, guarding, rebound or organomegaly. EXTREMITIES: Reveal no clubbing, cyanosis or edema. There is no Homans' sign. SKIN: Shows no rash or excoriation. Lymphadenopathy is not present in the supraclavicular area nor in the cervical, inguinal or axillary areas. NEUROLOGIC: Shows no focal findings. Evaluation of the right posterior rib cage shows point tenderness on 1 or 2 ribs. There is muscular tenderness as well. CLINICAL IMPRESSION: 1. Possible rib fracture. 2. Musculoskeletal chest discomfort. 3. Status post heart failure. 4. Atrial fibrillation with rapid ventricular response. 5. Acute and chronic bronchitis or B-cell lymphoma. 6. Anemia. PLAN: We will get an x-ray of the right posterior ribs and PA and lateral at the request of Dr. Johnson. Prednisone can be decreased to 5 mg daily. We will continue with inhaled corticosteroids and bronchodilators as originally started by Dr. Moore. Followup evaluation by him prior to cardioversion scheduled for Saturday by Dr. Valles. We have discussed this case with Dr. Johnson and he is aware of our input. Thank you for the opportunity to see Mr. Buchanan. Abhishek Jacobs MD
[2017-12-21 13:53] VITALS: PULSE 155
--- NOTE | 2017-12-21 16:23 | RAD ---
HISTORY: CHF COMPARISON: 12/16/2017 FINDINGS: LUNGS: There is interval increase in left lower lobe infiltrate and atelectasis from prior study. Stable mild crowding at the right lung base is noted. There is also some minimal linear new subsegmental atelectasis in the right mid lung field. PLEURA: Small left effusion is not excluded. CARDIOVASCULAR: No CHF is seen. Vasculature may be slightly improved. OSSEOUS STRUCTURES: No significant abnormalities. VISUALIZED UPPER ABDOMEN: Normal. OTHER FINDINGS: None. IMPRESSION: Increased left lower lobe infiltrate or atelectasis from prior study.
[2017-12-22 05:40] VITALS: O2SAT 95
[2017-12-22 06:56] LABS: EOS % 0.2 % (1.5-5.0); GRAN # 0.33 (1.4-6.5); HEMOGLOBIN 9.4 g/dL (14.0-18.0); LYMPH # 5.2 (1.2-3.4); LYMPH % 93.8 % (22.0-35.0); MEAN CELL VOLUME 102.1 fl (80.0-105.0); MEAN CORPUSCULAR HEMOGLOBIN 32.8 pg (25.0-35.0); MEAN CORPUSCULAR HGB CONC 32.1 g/dl (31.0-37.0); MEAN PLATELET VOLUME 10.8 fl (7.0-11.0); RBC 2.87 [, 10^6/uL] (3.5-6.1); RED CELL DISTRIBUTION WIDTH 19.2 % (11.5-14.5); WHITE BLOOD COUNT 5.5 [, 10^3/ul] (4.5-11.0)
[2017-12-22 07:24] LABS: BLOOD UREA NITROGEN 23 mg/dL (7-21); CALCIUM 8.8 mg/dL (8.4-10.5); GFR AFRICAN-AMERICAN > 60; GFR NON-AFRICAN AMERICAN > 60
[2017-12-22] MEDS: Insulin Reg-HIGH-Coverage SC SCH ×4 (07:44→21:38)
[2017-12-22] MEDS: Budesonide 0.5 mg/2 ml Inhal Susp UD IH SCH ×2 (08:01→20:54)
--- NOTE | 2017-12-22 09:22 | PN ---
DATE: 12/21/2017 SUBJECTIVE: This is a 77-year-old male resting in bed comfortably this morning. Nursing staff relates that there are no problems during the night. PHYSICAL EXAMINATION: GENERAL: He is alert and oriented x3. VITAL SIGNS: His temperature is 98.4, his pulse is 107, and respiratory rate is 20. NECK: Supple. LUNGS: Show diminished breath sounds at the bases with few rhonchi. HEART: Irregular S1 and S2 rhythm. ABDOMEN: Soft and scaphoid. Positive bowel sounds. EXTREMITIES: Shows no evidence of edema. LABORATORY DATA: Shows WBC of 7.5, RBC of 3.26, hemoglobin of 7.7, hematocrit of , and platelet count of 90,000. Chemistry shows normal electrolytes, his BUN is 23, his creatinine is 0.8, and calcium is 8.8. ASSESSMENT AND PLAN: The patient is receiving therapy for rapid atrial fibrillation with new onset in the setting of congestive heart failure. He is being followed by Cardiology. He has chronic lymphocytic leukemia, being followed by Dr. Jak Nielson. He has a history of benign prostatic hyperplasia, remote history of bladder cancer, [id number]-vgnpjboaa diabetes, hypertension, and coronary artery disease, and he is currently on Xopenex, verapamil 2.5 mg IV p.r.n. q.6 hours for heart rate greater than 130, budesonide 0.5 b.i.d., prednisone 5 mg daily, Micronase 5 mg b.i.d., Lasix 40 mg IV daily, Inderal mg daily, sliding insulin scale low dose regular insulin for coverage, Glucophage 500 mg b.i.d., Flomax 0.4 mg daily, Eliquis 2.5 mg b.i.d., Avodart 0.5 mg daily, and Cardizem 30 mg daily. He has been followed by Pulmonary, Cardiology, and Oncology. Continue current level of care. Monitor the patient closely if discussion is ongoing regarding cardioversion. Melissa Johnson MD
[2017-12-22] MEDS: Propranolol 60 mg ER Cap PO SCH (10:45)
[2017-12-22 11:14] LABS: MAGNESIUM 1.8 mg/dL (1.7-2.2)
--- NOTE | 2017-12-22 13:06 | RAD ---
Indication: Rule out rib fracture Right ribs radiographs Comparison: Portable chest x-ray performed 12/21/17 Findings: There is small fluid along the right fissure. No appreciable displaced right rib fracture. No definite pneumothorax. Irregularity about the right transverse process of L3, chronic and noted on CT performed 08/23/15. Impression: Small fluid along the right fissure. No appreciable displaced right rib fracture.
[2017-12-22] MEDS: Non Formulary Medication (Dutasteride [Avodart] 0.5 MG) PO SCH (13:12)
--- NOTE | 2017-12-22 13:38 | PN ---
DATE: 12/22/2017 PULMONARY PROGRESS NOTE SUBJECTIVE: The patient is feeling much better and the rib pain appears to be gone. The patient is feeling markedly better, awaiting Cardiology to determine whether or not he needs cardioversion in the morning. He is feeling well. Follow up x-ray does not appear to have been done. We will reorder to make sure there is no infiltrate. PHYSICAL EXAMINATION: GENERAL: He is feeling great, sitting up in bed. VITAL SIGNS: Stable. He is afebrile, heart rate is 90, respiratory rate is 16, blood pressure is 130/70, and O2 saturation is 96% on room air. HEENT: Normocephalic and atraumatic. NECK: Supple. No JVD. No lymphadenopathy. No bruit. CARDIOVASCULAR: Regular rhythm. S1 and S2. Soft systolic ejection murmur at the lower left sternal border. LUNGS: Clear to percussion and auscultation. GASTROINTESTINAL: Abdomen is soft and bowel sounds normoactive, without mass, guarding, rebound or organomegaly. EXTREMITIES: Reveal no clubbing, cyanosis or edema. There is no Homans' sign. SKIN: No rash or excoriation. LYMPHATIC: Lymphadenopathy negative. NEUROLOGIC EXAM: No focal findings. LABORATORY STUDIES: Chest x-ray was not done as ordered. The rib series were done, but not read officially. There does not appear to be any rib fractures according to my evaluation, but I would prefer awaiting official report from Radiology. CLINICAL IMPRESSION: 1. Right rib pain resolved. 2. Status post heart failure. 3. Atrial fibrillation. 4. Chronic obstructive pulmonary disease. 5. B-cell lymphoma. 6. Anemia. PLAN: Continue to decrease medications in the morning. Prednisone was decreased from 10 to 5 yesterday, he is doing well and tolerating the change. We will discuss with Dr. Moore in the morning. Close follow up as required. Thank you for the opportunity to care for this gentleman. Abhishek Jacobs MD
--- NOTE | 2017-12-22 14:27 | PN ---
DATE: SUBJECTIVE: This is a 77-year-old male resting in bed comfortably this morning. The patient offers no specific complaints at this time. PHYSICAL EXAMINATION: VITAL SIGNS: Temperature of 99.6, his pulse is 100, his blood pressure is 143/63, his respiratory rate is 20, and his oxygen saturation is 95% on room air. NECK: Supple. LUNGS: Show scattered rhonchi. HEART: Regular S1 and S2 rhythm at this moment. ABDOMEN: Soft and scaphoid. Positive bowel sounds. EXTREMITIES: Show no evidence of edema. LABORATORY DATA: Shows WBC of 5.5, RBC of 2.87, hemoglobin of 9.4, hematocrit of 29.3, and platelet count of 69,000. Chemistry shows normal electrolytes, BUN is 23, creatinine is 0.8, calcium is 8.8, magnesium and phosphorous will be checked. ASSESSMENT AND PLAN: The patient was reported to have had brief ventricular nonsustained tachycardia followed by sinus bradycardia and then a sinus rhythm. He is currently being treated with new onset atrial fibrillation and congestive heart failure. He has an underlined history of chronic lymphocytic leukemia on Imbruvica, which is currently being held. He has thrombocytopenia as well. He has [id number] diabetes, benign prostatic hyperplasia, remote history of bladder cancer, and degenerative arthritis of the lumbar spine. I will continue current level of medical care, check his electrolytes, and wait for Cardiology's input regarding his arrhythmia and atrial fibrillation. We will get an x-ray of his right ribs as the patient has some discomfort over this area. A Doppler of the lower extremities was ordered and as per the emergency veterinary technician, it is reported as being negative at this time. I will wait for the final report. He is currently on Eliquis 2.5 mg p.o. b.i.d. I will continue currently level of care. Melissa Johnson MD
--- NOTE | 2017-12-22 19:14 | PN ---
DATE: SUBJECTIVE: The patient complained of swelling of feet earlier this morning. He denies any chest pain. PHYSICAL EXAMINATION: VITAL SIGNS: Blood pressure 141/65, heart rate 62, temperature 98, respiration 20. HEENT: Pale conjunctivae. CHEST: Clear. HEART: S1 and S2, regular. EXTREMITIES: 1+ pitting edema. LABORATORY DATA: Hemoglobin and hematocrit are 9.4 and 29.3, white count 5.5, platelet count 69,000. Today, his SMA-7 is within normal limit except for BUN of 23. DIAGNOSTIC DATA: Lower extremity ultrasound was performed. The report is still pending. Rib x-ray: Small fluid along the right fissure. ASSESSMENT: 1. Paroxysmal atrial fibrillation and atrial flutter. 2. History of coronary artery disease. 3. B-cell lymphoma, status post chemotherapy. RECOMMENDATIONS: Continue Eliquis 2.5 mg twice a day, Inderal 120 mg once a day, Lasix once a day. Discontinue Cardizem. Start amiodarone 200 mg orally twice a day. Case was discussed with Dr. Johnson. Alex Andrew MD
[2017-12-23] MEDS: Budesonide 0.5 mg/2 ml Inhal Susp UD IH SCH (07:52)
[2017-12-23] MEDS: Insulin Reg-HIGH-Coverage SC SCH ×2 (08:02→11:49)
--- NOTE | 2017-12-23 09:29 | PN ---
DATE: 12/21/[address] Valles. SUBJECTIVE: The patient is in atrial flutter with 2:1 conduction now. He denies any dizziness or palpitation. PHYSICAL EXAMINATION VITAL SIGNS: Blood pressure 101/81, heart rate is 152, temperature 99.3 and respirations 20. HEENT: Normocephalic. CHEST: Minimal right-sided rhonchi. HEART: S1 and S2 regular. EXTREMITIES: 1+ pitting edema. LABORATORY DATA: Hemoglobin and hematocrit 10.7 and 33.7, white count 7.5 and platelet count 90,000. PTT 63.5 on 12/18/2017. SMA-7 today, sodium 135, potassium 3.5, chloride 101, CO2 26, glucose 182, BUN 35 and creatinine 0.9. ASSESSMENT: 1. Atrial fibrillation/atrial flutter with rapid ventricular response. 2. History of beta-cell lymphoma undergoing chemotherapy. 3. History of coronary artery disease status post multiple coronary stenting in the past. 4. Anemia and thrombocytopenia. 5. Coagulopathy. RECOMMENDATIONS: Continue IV verapamil at 2.5 mg q. 6 hours for heart rate more than 130. Continue prednisone 5 mg once a day, Lasix 40 mg intravenously once a day, Cardizem 30 mg p.o. four times a day, Eliquis 2.5 mg twice a day. Obtain portable chest x-ray today as well as venous Doppler of lower extremities and we will administer digoxin 0.25 mg as a single dose today. Alex Andrew MD
[2017-12-23] MEDS: Non Formulary Medication (Dutasteride [Avodart] 0.5 MG) PO SCH (09:33)
[2017-12-23] MEDS: Propranolol 60 mg ER Cap PO SCH (09:34)
[2017-12-23 09:44] LABS: EOS % 0.2 % (1.5-5.0); GRAN # 0.36 (1.4-6.5); GRAN % 6.9 % (50.0-68.0); HEMOGLOBIN 9.6 g/dL (14.0-18.0); LYMPH # 4.8 (1.2-3.4); LYMPH % 92.5 % (22.0-35.0); MEAN CELL VOLUME 102.3 fl (80.0-105.0); MEAN CORPUSCULAR HEMOGLOBIN 32.2 pg (25.0-35.0); MEAN CORPUSCULAR HGB CONC 31.5 g/dl (31.0-37.0); MONO % 0.4 % (1.0-6.0); PLATELET COUNT 75 [, 10^3/uL] (120.0-450.0); RBC 2.98 [, 10^6/uL] (3.5-6.1); RED CELL DISTRIBUTION WIDTH 18.7 % (11.5-14.5); WHITE BLOOD COUNT 5.2 [, 10^3/ul] (4.5-11.0)
--- NOTE | 2017-12-23 09:44 | PN ---
DATE: 12/23/2017 PULMONARY PROGRESS NOTE SUBJECTIVE: The patient appears very comfortable this morning. He is not short of breath at rest. PHYSICAL EXAMINATION: VITAL SIGNS: Temperature is 98.4, pulse is 68, respirations are 18, and blood pressure is 149/60. Oxygen saturation on nasal cannula is 95%. HEENT: Normocephalic and atraumatic. NECK: No JVD. CARDIOVASCULAR: Systolic ejection murmur at the lower left sternal border. Questionable S3 gallop. LUNGS: Minimal/less crackles at the bases. Otherwise clear. EXTREMITIES: Less edema. No cyanosis and no clubbing. Calves are nontender to palpation. GASTROINTESTINAL: Abdomen is soft, nontender and nondistended. Bowel sounds are positive. SKIN: No acute rash. NEUROLOGIC: Exam is limited at the present time. IMPRESSION: 1. Acute congestive heart failure. 2. Rapid atrial fibrillation. Ventricular tachycardia. 3. Acute bronchitis. 4. Advanced B-cell lymphoma. 5. Chronic anemia, thrombocytopenia. PLAN: The patient appears very comfortable this morning. He is not short of breath at rest. He states he is feeling much, much better overall. On physical exam, his bronchospasm continues to resolve. In addition, the alveolar arterial gradient also continues to resolve. I will continue the patient on inhaled steroids and very low-dose oral steroids for now. The patient remains on Eliquis. He is also on amiodarone. We are awaiting additional cardiac decisions. Clinical status of the patient is significantly improved. However, unfortunately, the overall status/prognosis for this patient does remain guarded. I will discuss the above with Dr. Johnson. Tyler Moore MD NELSY
[2017-12-23 09:52] LABS: ALBUMIN 2.9 g/dL (3.0-4.8); ALT/SGPT 62 U/L (7-56); AST/SGOT 37 U/L (17-59); BLOOD UREA NITROGEN 22 mg/dL (7-21); CALCIUM 9.3 mg/dL (8.4-10.5); GFR AFRICAN-AMERICAN > 60; GFR NON-AFRICAN AMERICAN > 60; MAGNESIUM 1.8 mg/dL (1.7-2.2)
[2017-12-23 10:17] VITALS: PULSE 69
[2017-12-23 10:20] LABS: EOSINOPHIL 1 % (0.0-3.0); LYMPHOCYTE 91 % (22.0-35.0); MONOCYTE 1 % (1.0-6.0); NEUTROPHIL 7 % (50.0-70.0)
[2017-12-23 10:21] LABS: PLATELET ESTIMATE LOW (NORMAL)
--- NOTE | 2017-12-23 12:53 | PN ---
DATE: 12/23/2017 REASON FOR CONSULTATION AND FOLLOWUP: AFib, rapid ventricular rate, now converted to normal sinus. OBJECTIVE: GENERAL: Not in apparent distress. VITAL SIGNS: As follows, temperature afebrile, heart rate 69, blood pressure 142/60. HEENT: PERRLA intact. NECK: Supple. No carotid bruits or thyromegaly. CHEST: Clear to auscultation. HEART: S1 and S2 regular. ABDOMEN: Soft. EXTREMITIES: Clubbing and cyanosis negative. LABORATORY DATA: Blood workup as follows; WBC , hemoglobin 9.6, hematocrit 30.5, and platelet count 75. Chemistry shows sodium 130, potassium 4.6, chloride 98, carbon dioxide 26, anion gap of 14, BUN 22, and creatinine 0.9. IMPRESSION: Atrial fibrillation with rapid ventricular rate now converted to normal sinus, mild cardiomyopathy, decompensated congestive heart failure, acute on chronic secondary to systolic dysfunction, coronary artery disease, thrombocytopenia, B-cell lymphoma, leukemia, history of coronary artery disease, history of multiple stents. RECOMMENDATIONS: Continue propranolol 120 mg daily. Continue heparin daily. Continue Lasix. We will get echo before patient goes home. Discontinue YOHANNES cardioversion. The patient has normal sinus. Imbruvica, most likely this AFib secondary to Imbruvica. We will follow with you. Thank you Dr. Johnson for providing us the opportunity in taking care of the patient, Reji Buchanan. We will get EKG, and we will get echo before patient goes home. We will cancel YOHANNES and resume the diet. Toribio Valles MD
[2017-12-23 14:21] VITALS: BP 146/75; RESP 20; TEMP 98.7
--- NOTE | 2017-12-23 16:25 | CARD ---
APPROVED REPORT EKG Measurement Heart [id number] <Conclusion> Normal sinus rhythm ST abnormality, possible digitalis effect Abnormal ECG
--- NOTE | 2017-12-23 19:09 | CARD ---
APPROVED REPORT EXAM: Two-dimensional and M-mode echocardiogram with Doppler and color Doppler. INDICATION 2D DIMENSIONS IVSd0.9 (0.7-1.1cm)LVDd5.8 (3.9-5.9cm) PWd1.1 (0.7-1.1cm)LVDs4.9 (2.5-4.0cm) FS (%) 14.9 %LVEF (%)31.5 (>50%) M-Mode DIMENSIONS Left Atrium (MM)4.80 (2.5-4.0cm)Aortic Root3.20 (2.2-3.7cm) Aortic Cusp Exc.1.90 (1.5-2.0cm) Aortic Valve AoV Peak Hcxjwywj391.0cm/Trevor Peak GR.11mmHg Mitral Valve MV E Zabzsjyb34.2cm/sMV A Fsxpenye688.0cm/sE/A ratio0.8 TDI Lateral E' Peak V7.77cm/sMedial E' Peak V5.01cm/sE/Lateral E'12.0 E/Medial E'18.6 Tricuspid Valve TR Peak Rasqvhha102so/sRAP [id number] Peak Gr.40mmHg [id number] LEFT VENTRICLE The Left Ventricle is mildly dilated. There is normal left ventricular wall thickness. The systolic function is mildly to moderately impaired.EF-35-40% There is mild to moderate hypokinesis in the apical septal wall. Transmitral Doppler flow pattern is Grade III-reversible restrictive diastolic dysfunction. No left ventricle thrombus noted on this study. There is no ventricular septal defect visualized. There is no left ventricular aneurysm. There is no mass noted in the left ventricle. RIGHT VENTRICLE The right ventricle is normal size. There is normal right ventricular wall thickness. The right ventricular systolic function is normal. ATRIA The left atrium is moderately dilated. The right atrium size is normal. The interatrial septum is intact with no evidence for an atrial septal defect. AORTIC VALVE The aortic valve is thickened but opens well. There is trace aortic regurgitation. There is no aortic valvular stenosis. There is no aortic valvular vegetation. MITRAL VALVE The mitral valve is thickened but opens well. Mitral annular calcification is mild. Mitral regurgitation is mild. There is no mitral valve stenosis. There is no evidence of mitral valve prolapse. TRICUSPID VALVE The tricuspid valve leaflets are thickened , but open well. There is mild to moderate tricuspid regurgitation.RVSP-50 mmof Hg. There is no tricuspid valve stenosis. There is no tricuspid valve prolapse or vegetation. PULMONIC VALVE The pulmonic valve is mildly thickened. There is trace pulmonic valvular regurgitation. There is no pulmonic valvular stenosis. GREAT VESSELS The aortic root is normal in size. The ascending aorta is normal in size. The pulmonary artery is normal. The IVC is normal in size and collapses >50% with inspiration. PERICARDIAL EFFUSION There is no pleural effusion. There is a trace pericardial effusion. <Conclusion> The Left Ventricle is mildly dilated. There is normal left ventricular wall thickness. The systolic function is mildly to moderately impaired.EF-35-40% There is trace aortic regurgitation. Mitral regurgitation is mild. There is mild to moderate tricuspid regurgitation.RVSP-50 mmof Hg. The IVC is normal in size and collapses >50% with inspiration. There is a trace pericardial effusion. S/p Chemp, PAF Suggest MUGA scan
--- NOTE | 2017-12-24 04:27 | DS ---
This is 77-year-old male who presented to [facility] with new onset atrial fibrillation, congestive heart failure, with a history of chronic lymphocytic leukemia, on Imbruvica. He has a remote history of bladder cancer, has a history of BPH, suc-ontnnib-mreeixauw diabetes, hypertension, degenerative lumbar disc disease. While in the hospital, he was seen by Pulmonary and Cardiology. He converted to normal sinus rhythm and was improved clinically with treatment for his congestive heart failure. His Imbruvica was held during this course. He has an electrocardiogram which showed sinus rhythm with ST abnormality, possible digitalis effect. However, this was cleared by Dr. Valles, his cardiology. He had an echocardiogram which showed trace aortic regurgitation, mitral regurgitation mild, [id number] tricuspid regurgitation, right ventricular systolic blood pressure of 50 mmHg. The IVC is normal in size, collapse is greater than 50% with inspiration. There was a trace pericardial effusion. Left ventricular was mildly dilated. There was normal left ventricular wall thickness and systolic function is mildly to moderately impaired with ejection fraction of 35% to 40%. He was cleared by consultants following the patient and will be home on amiodarone 200 mg b.i.d., Avodart 0.5 mg daily, Flomax 0.4 mg daily, Glucophage 500 mg b.i.d., Inderal 120 mg daily, Lasix 40 mg daily, Micronase 5 mg b.i.d., be on a tapering course of prednisone. He will be Xopenex inhaler at home. He will be followed up as an outpatient for monitoring of his rhythm and discussion with Oncology and Cardiology and Medicine regarding the next phase of his treatment for his CLL. Venous Doppler of lower extremity was negative. X-ray of his ribs for fracture on the right was negative. Melissa Johnson MD
== END 2017-12-23 17:20 | disposition home or self-care (01) | DRG 308 ==
LOC: ED 05:13 → ERH 07:57 → 2RSO 15:48
PROVIDERS: ADMIT Internal Medicine; ATTEND Internal Medicine
PROC: 3E0F7GC Introduction of Other Therapeutic Substance into Respiratory Tract, Via Natural or Artificial Opening (ICD-10-PCS; principal; 2017-12-17)
DX: I48.0 Paroxysmal atrial fibrillation (principal); I47.2 Ventricular tachycardia; T45.1X5A Adverse effect of antineoplastic and immunosuppressive drugs, initial encounter; I50.23 Acute on chronic systolic (congestive) heart failure; E46 Unspecified protein-calorie malnutrition; C85.10 Unspecified B-cell lymphoma, unspecified site; C91.10 Chronic lymphocytic leukemia of B-cell type not having achieved remission; D69.6 Thrombocytopenia, unspecified; I08.1 Rheumatic disorders of both mitral and tricuspid valves; J44.0 Chronic obstructive pulmonary disease with (acute) lower respiratory infection; J20.9 Acute bronchitis, unspecified; I48.92 Unspecified atrial flutter; I42.9 Cardiomyopathy, unspecified; I11.0 Hypertensive heart disease with heart failure; E11.9 Type 2 diabetes mellitus without complications; E78.5 Hyperlipidemia, unspecified; I25.10 Atherosclerotic heart disease of native coronary artery without angina pectoris; N40.0 Benign prostatic hyperplasia without lower urinary tract symptoms; M51.36 Other intervertebral disc degeneration, lumbar region; D64.9 Anemia, unspecified; Z79.84 Long term (current) use of oral hypoglycemic drugs; Z85.46 Personal history of malignant neoplasm of prostate; Z85.51 Personal history of malignant neoplasm of bladder; Z95.5 Presence of coronary angioplasty implant and graft

== ENCOUNTER 2018-01-01 16:10 | Inpatient (IN) | payer MEDICARE, BC ==
[2018-01-01 16:34] VITALS: PULSE 119
--- NOTE | 2018-01-01 17:03 | ED PDOC ---
Arrival/HPI - General Chief Complaint: Abnormal Labs Time Seen by Provider: 01/01/18 16:27 Historian: Patient - History of Present Illness Narrative History of Present Illness (Text): 01/01/18 17:02 A 77 year old male, whose past medical history includes hypertension, diabetes, CLL, B cell lymphoma, presents to the emergency department for positive blood culture. Patient's PMD called patient and advised patient to come to the emergency department. Patient reported to have transfusion yesterday. Patient was discharged from hospital a week ago, currently taking Z pack. Reports to taking Tylenol this morning. Fever of about 101 yesterday during transfusion, but denies any fever or chills or any other complaints at this time. PMD: Dr. Johnson Symptom Onset: Sudden Symptom Course: Unchanged Activities at Onset: Rest Context: Home Past Medical History - Provider Review Nursing Documentation Reviewed: Yes - Infectious Disease Hx of Infectious Diseases: None - Cardiac Hx Cardiac Disorders: Yes Hx Hypertension: Yes Hx Pacemaker: No Hx Peripheral Edema: Yes - Pulmonary Hx Respiratory Disorders: No Hx Pneumonia: Yes - Neurological Hx Neurological Disorder: No Hx Paralysis: No - HEENT Hx HEENT Disorder: No Hx Glaucoma: Yes - Renal Hx Renal Disorder: No - Endocrine/Metabolic Hx Endocrine Disorders: Yes Hx Diabetes Mellitus Type 2: Yes - Hematological/Oncological Hx Blood Disorders: Yes Hx Blood Transfusions: No Hx Blood Transfusion Reaction: No Hx Cancer: Yes (bladder) Hx Leukemia: Yes (B cell) Other/Comment: Chronic lymphocytic leukemia - Integumentary Hx Dermatological Disorder: No Hx Basal Cell Carcinoma: No - Musculoskeletal/Rheumatological Hx Musculoskeletal Disorders: Yes Hx Back Pain: Yes Hx Falls: No - Gastrointestinal Hx Gastrointestinal Disorders: Yes Other/Comment: Appendectomy - Genitourinary/Gynecological Hx Genitourinary Disorders: No Hx Urinary Tract Infection: Yes - Psychiatric Hx Psychophysiologic Disorder: No Hx Depression: No Hx Emotional Abuse: No Hx Physical Abuse: No Hx Substance Use: No - Surgical History Hx Cardiac Catheterization: Yes Hx Coronary Stent: Yes (5 stents) Other/Comment: Appendectomy. orchidectomy on the right side - Anesthesia Hx Anesthesia Reactions: No Hx Malignant Hyperthermia: No - Suicidal Assessment Feels Threatened In Home Enviroment: No Family/Social History - Physician Review Nursing Documentation Reviewed: Yes Family/Social History: No Known Family HX Smoking Status: Never Smoked Hx Alcohol Use: No (social) Hx Substance Use: No Hx Substance Use Treatment: No Allergies/Home Meds Allergies/Adverse Reactions: Allergies mussels Allergy (Severe, Verified 01/01/18 16:40) VOMITING/GI DISTRESS "newsprint" Allergy (Uncoded 01/01/18 16:40) COUGH Home Medications: Home Meds Medication Instructions Recorded Confirmed Aspirin [Lo-Dose Aspirin EC] 81 mg PO DAILY 12/16/17 01/01/18 Atorvastatin [Lipitor] 20 mg PO DAILY 12/16/17 01/01/18 Dutasteride [Avodart] 0.5 mg PO DAILY 12/16/17 01/01/18 Glyburide/Metformin HCl 500 mg PO BID 12/16/17 01/01/18 [Glucovance 5-500 mg Tablet] Propranolol HCl [Propranolol HCl 120 mg PO DAILY 12/16/17 01/01/18 ER] Tamsulosin [Flomax] 0.4 mg PO DAILY 12/16/17 01/01/18 Furosemide [Lasix] 40 mg PO BID 01/01/18 01/01/18 Review of Systems - Physician Review All systems were reviewed & negative as marked: Yes - Review of Systems Constitutional: absent: Other (chills) Neurological: absent: Headache Physical Exam - Physical Exam Narrative Physical Exam (Text): 01/01/18 17:01 Constitutional: No acute distress. Head: Normocephalic. Atraumatic. Eyes: PERRL. ENT: Moist mucous membranes. Neck: Supple. Cardiovascular: Regular rate. Chest: No tenderness. Respiratory: Clear to auscultation bilaterally. GI: Soft. Nontender. Nondistended. Back: No CVA tenderness. Musculoskeletal: No tenderness or swelling of extremities. Skin: Erythema, excoriation sacrum; no discharge, no open skin (patient states occurred while patient was admitted in hospital for week recently) Neurologic: Alert, no focal deficit. Vital Signs Reviewed: Yes Vital Signs Temp Pulse Resp BP Pulse Ox 01/01/18 20:41 60 18 144/67 96 01/01/18 16:33 97.5 F L 60 18 126/70 97 Medical Decision Making ED Course and Treatment: 01/01/18 17:01 Impression: A 77 year old male with positive blood culture. Plan: -- EKG -- chest xray -- labs -- Urinalysis -- Reassess and disposition Prior Visits: Notes and results from previous visits were reviewed. Patient was last seen in the emergency department on 12/16/17 for evaluation of shortness of breath, orthopnea, dyspnea on exertion, and cough. Patient was admitted for CHF and new onset Atrial fibrillation. Progress Notes: 01/01/18 19:03 Chest xray: No change from yesterday, as read by me. 01/01/18 21:14 Patient will be admitted to ICU under Dr. Morejon's service. 01/01/18 21:27 EKG: Ordered, reviewed, and independently interpreted the EKG. Rate : 60 BPM Rhythm : NSR Interpretation : No ST elevations - Lab Interpretations Lab Results: 01/01/18 17:45 01/01/18 17:45 Lab Results 01/01/18 19:01: Urine Color Yellow, Urine Appearance Clear, Urine pH 6.5, Ur Specific [place] 1.010, Urine Protein Negative, Urine Glucose (UA) >=1000, Urine Ketones Negative, Urine Blood Negative, Urine Nitrate Negative, Urine Bilirubin Negative, Urine Urobilinogen 0.2, Ur Leukocyte Esterase Negative 01/01/18 18:00: Blood Type O POSITIVE, Antibody Screen Negative, BBK History Checked Patient has bt 01/01/18 17:58: pO2 226 H, VBG pH 7.13 L*, VBG pCO2 50.0, VBG HCO3 16.6 L, VBG Total CO2 18.1 L, VBG O2 Sat (Calc) 100.0 H, VBG Base Excess -12.6 L, VBG Potassium 3.0 L, Glucose 464 H*, Lactate 3.2 H, FiO2 21.0, Sodium 138.0, Chloride 73.0 L, Venous Blood Potassium 3.0 L 01/01/18 17:45: Sodium 127 L, Potassium 3.9, Chloride 90 L, Carbon Dioxide 26, Anion Gap 16, BUN 40 H, Creatinine 0.9, Est GFR ( Amer) > 60, Est GFR ( Non-Af Amer) > 60, Random Glucose 544 H* D, Calcium 8.6, Total Bilirubin 0.6, AST 40, ALT 82 H, Alkaline Phosphatase 93, Total Protein 5.6 L, Albumin 2.7 L, Globulin 2.9, Albumin/Globulin Ratio 0.9 L 01/01/18 17:45: PT 16.5 H, INR 1.44 H, APTT 32.0 01/01/18 17:45: WBC 3.2 L D, RBC 3.08 L, Hgb 9.7 L, Hct 29.9 L, MCV 97.1, MCH 31.5, MCHC 32.4, RDW 17.6 H, Plt Count 92 L, MPV 11.5 H, Gran % 5.0 L, Lymph % ( Auto) 94.7 H, [place] % (Auto) 0.3 L, Eos % (Auto) 0.0 L, Baso % (Auto) 0.0, Gran # 0.16 L, Lymph # (Auto) 3.1, [place] # (Auto) 0.0 L, Eos # (Auto) 0.0, Baso # ( Auto) 0.00 I have reviewed the lab results: Yes - RAD Interpretation Radiology Orders: 01/01/18 16:55 CHEST PORTABLE [RAD] Stat - EKG Interpretation Interpreted by ED Physician: Yes Type: 12 lead EKG - Medication Orders Current Medication Orders: Amiodarone HCl (Cordarone) 200 mg PO DAILY DAISY Apixaban (Eliquis) 2.5 mg PO BID DAISY PRN Reason: Protocol Aspirin (Ecotrin) 81 mg PO DAILY DAISY Atorvastatin Calcium (Lipitor) 20 mg PO DAILY DAISY Furosemide (Lasix) 40 mg PO BID DAISY Cefepime HCl (Maxipime 1gm) 1 gm in 100 mls @ 100 mls/hr IVPB Q12 DAISY PRN Reason: Protocol Cefepime HCl (Maxipime 2gm) 2 gm in 100 mls @ 100 mls/hr IVPB Q12 DAISY PRN Reason: Protocol Stop: 01/06/18 22:01 Insulin Human Regular 100 (units/ Sodium Chloride) 100 mls @ 3 mls/hr IV .Q24H PRN; Protocol; 3 UNITS/HR PRN Reason: TITRATE PER MD ORDER Sodium Chloride (Sodium Chloride 0.9%) 1,000 mls @ 100 mls/hr IV .Q10H DAISY Non-Formulary Medication (Dutasteride [Avodart]) 0.5 mg PO DAILY DAISY Propranolol HCl (Inderal La) 120 mg PO DAILY DAISY Tamsulosin HCl (Flomax) 0.4 mg PO DAILY DAISY Discontinued Medications Furosemide (Lasix) 40 mg PO BID DAISY Sodium Chloride (Sodium Chloride 0.9%) 1,000 mls @ 999 mls/hr IV .Q1H1M STA Stop: 01/01/18 19:42 Last Admin: 01/01/18 19:03 Dose: 999 mls/hr eMAR Start Stop Document 01/01/18 19:03 RG (Rec: 01/01/18 19:03 RG [id number]) Intravenous Solution Start Date 01/01/18 Start Time 19:03 - Scribe Statement The provider has reviewed the documentation as recorded by the Jomar Rivera Provider Scribe Attestation: All medical record entries made by the Dudleyibmichael were at my direction and personally dictated by me. I have reviewed the chart and agree that the record accurately reflects my personal performance of the history, physical exam, medical decision making, and the department course for this patient. I have also personally directed, reviewed, and agree with the discharge instructions and disposition. Disposition/Present on Arrival - Present on Arrival Any Indicators Present on Arrival: No History of DVT/PE: No History of Uncontrolled Diabetes: No Urinary Catheter: No History of Decub. Ulcer: No History Surgical Site Infection Following: None - Disposition Have Diagnosis and Disposition been Completed?: Yes Diagnosis: Lactic acidosis, Hyperglycemia, Bacteremia due to Gram-negative bacteria Disposition: HOSPITALIZED Disposition Time: 19:03 Patient Plan: ICU Condition: CRITICAL
[2018-01-01 18:09] LABS: GRAN # 0.16 (1.4-6.5); HEMOGLOBIN 9.7 g/dL (14.0-18.0); LYMPH # 3.1 (1.2-3.4); LYMPH % 94.7 % (22.0-35.0); MEAN CELL VOLUME 97.1 fl (80.0-105.0); MEAN CORPUSCULAR HEMOGLOBIN 31.5 pg (25.0-35.0); MEAN CORPUSCULAR HGB CONC 32.4 g/dl (31.0-37.0); MEAN PLATELET VOLUME 11.5 fl (7.0-11.0); MONO % 0.3 % (1.0-6.0); RBC 3.08 10^6/uL (3.5-6.1); RED CELL DISTRIBUTION WIDTH 17.6 % (11.5-14.5); WHITE BLOOD COUNT 3.2 10^3/ul (4.5-11.0)
[2018-01-01 18:13] LABS: VENOUS BLOOD GAS BASE EXCESS -12.6 mmol/L (0.0-2.0); VENOUS BLOOD GAS PO2 226 mm/Hg (30-55)
[2018-01-01 18:24] LABS: VENOUS BLOOD PH 7.13 (7.32-7.43)
[2018-01-01 18:31] LABS: ALB/GLOB RATIO 0.9 (1.1-1.8); ALBUMIN 2.7 g/dL (3.0-4.8); ALT/SGPT 82 U/L (7-56); AST/SGOT 40 U/L (17-59); BLOOD UREA NITROGEN 40 mg/dL (7-21); CALCIUM 8.6 mg/dL (8.4-10.5); GFR AFRICAN-AMERICAN > 60; GFR NON-AFRICAN AMERICAN > 60
[2018-01-01 18:33] LABS: INR 1.44 (0.93-1.08); PROTHROMBIN TIME 16.5 SECONDS (9.4-12.5)
[2018-01-01] MEDS ORDERED: Sodium Chloride 0.9% 1,000 ML IV STA (18:42)
[2018-01-01 19:34] LABS: PH,URINE 6.5 (4.7-8.0); URINE BILIRUBIN NEGATIVE (NEGATIVE); URINE BLOOD NEGATIVE (NEGATIVE); URINE GLUCOSE (UA) >=1000 mg/dL (NEGATIVE); URINE LEUKOCYTE ESTERASE NEGATIVE Leu/uL (NEGATIVE); URINE NITRATE NEGATIVE (NEGATIVE); URINE PROTEIN NEGATIVE mg/dL (<30 mg/dL); URINE UROBILINOGEN 0.2 E.U./dL (<1 E.U./dL)
[2018-01-01 19:36] LABS: URINE APPEARANCE CLEAR (CLEAR); URINE COLOR YELLOW (YELLOW)
[2018-01-01] MEDS ORDERED: Insulin Regular 100 UNITS in Sodium Chloride 0.9% 99 ML IV PRN (21:17)
[2018-01-01] MEDS ORDERED: Sodium Chloride 0.9% 1,000 ML IV SCH (21:30)
[2018-01-01] MEDS ORDERED: Cefepime 1gm in NS 100ml 1 GM/100 ML BAG IVPB SCH (22:00)
[2018-01-01] MEDS ORDERED: Cefepime IV 2 gm in NS 2 GM/100 ML BAG IVPB SCH (22:00)
[2018-01-01 22:09] LABS: VENOUS BLOOD GAS BASE EXCESS 5.8 mmol/L (0.0-2.0); VENOUS BLOOD GAS PO2 39 mm/Hg (30-55); VENOUS BLOOD PH 7.41 (7.32-7.43)
--- NOTE | 2018-01-01 22:35 | CP.PCM.CON ---
<Gabe Forrester - Last Filed: 01/01/18 22:43> History of Present Illness - History of Present Illness History of Present Illness: 77 y/o with PMH of CLL recently on Imbruvica, Bladder CA, CAD, DM, HTN, HLD, A- fib, CHF presents after advice from his physician, Dr. Johnson. Patient has been receiving blood transfusions for anemia from Dr. Nielson due to Imbruvica, which he is no longer on. While receiving transfusion yesterday, patient broke out into hives and developed a fever. Transfusion was stopped, and blood and urine cultures were obtained. Patient was also given a Z-pack. He was alerted today by Dr. Johnson that his blood cultures were positive for gram negative rods and was advised to come into the hospital. Upon interview with the patient, he states he has no symptoms and feels well. Denies chest pain, shortness of breath , nausea, vomiting, diarrhea, cough, cold, headache, fatigue, pain, fever, chills, dysuria. PMHx: CLL recently on Imbruvica, Bladder CA, CAD, DM, HTN, HLD, A-fif, CHF PSHx: Coronary stents x5, L orchiectomy Family Hx: noncontributory Social Hx: Denies Tobacco use, Occasional ETOH, Denies substance abuse Allergy: Mussels Medications: Reviewed, as per [facility] Review of Systems - Review of Systems Review of Systems: 12 point ROS as per [facility]), otherwise negative. Past Patient History - Infectious Disease Hx of Infectious Diseases: None - Past Medical History & Family History Past Medical History?: Yes - Past Social History Smoking Status: Never Smoked - CARDIAC Hx Cardiac Disorders: Yes Hx Hypertension: Yes Hx Pacemaker: No Hx Peripheral Edema: Yes - PULMONARY Hx Respiratory Disorders: No Hx Pneumonia: Yes - NEUROLOGICAL Hx Neurological Disorder: No Hx Paralysis: No - HEENT Hx HEENT Problems: No Hx Glaucoma: Yes - RENAL Hx Chronic Kidney Disease: No - ENDOCRINE/METABOLIC Hx Endocrine Disorders: Yes Hx Diabetes Mellitus Type 2: Yes - HEMATOLOGICAL/ONCOLOGICAL Hx Blood Disorders: Yes Hx Blood Transfusions: No Hx Blood Transfusion Reaction: No Hx Cancer: Yes (bladder) Hx Leukemia: Yes (B cell) Other/Comment: Chronic lymphocytic leukemia - INTEGUMENTARY Hx Dermatological Problems: No Hx Basil Cell: No - MUSCULOSKELETAL/RHEUMATOLOGICAL Hx Musculoskeletal Disorders: Yes Hx Back Pain: Yes Hx Falls: No - GASTROINTESTINAL Hx Gastrointestinal Disorders: Yes Other/Comment: Appendectomy - GENITOURINARY/GYNECOLOGICAL Hx Genitourinary Disorders: No Hx Urinary Tract Infection: Yes - PSYCHIATRIC Hx Psychophysiologic Disorder: No Hx Depression: No Hx Emotional Abuse: No Hx Physical Abuse: No Hx Substance Use: No - SURGICAL HISTORY Hx Cardiac Catheterization: Yes Hx Coronary Stent: Yes (5 stents) Other/Comment: Appendectomy. orchidectomy on the right side - ANESTHESIA Hx Anesthesia Reactions: No Hx Malignant Hyperthermia: No Meds Allergies/Adverse Reactions: Allergies Allergy/AdvReac Type Severity Reaction Status Date / Time mussels Allergy Severe VOMITING/GI Verified 01/01/18 16:40 DISTRESS "newsprint" Allergy COUGH Uncoded 01/01/18 16:40 - Medications Medications: Current Medications Amiodarone HCl (Cordarone) 200 mg PO DAILY [facility] Apixaban (Eliquis) 2.5 mg PO BID DAISY PRN Reason: Protocol Aspirin (Ecotrin) 81 mg PO DAILY [facility] Atorvastatin Calcium (Lipitor) 20 mg PO DAILY [facility] Furosemide (Lasix) 40 mg PO BID [facility] Cefepime HCl (Maxipime 1gm) 1 gm in 100 mls @ 100 mls/hr IVPB Q12 DAISY PRN Reason: Protocol Last Admin: 01/01/18 21:55 Dose: Not Given Cefepime HCl (Maxipime 2gm) 2 gm in 100 mls @ 100 mls/hr IVPB Q12 DAISY PRN Reason: Protocol Stop: 01/06/18 22:01 Last Admin: 01/01/18 22:07 Dose: 100 mls/hr Insulin Human Regular 100 (units/ Sodium Chloride) 100 mls @ 3 mls/hr IV .Q24H PRN; Protocol; 3 UNITS/HR PRN Reason: TITRATE PER MD ORDER Sodium Chloride (Sodium Chloride 0.9%) 1,000 mls @ 100 mls/hr IV .Q10H [facility] Last Admin: 01/01/18 22:07 Dose: 100 mls/hr Non-Formulary Medication (Dutasteride [Avodart]) 0.5 mg PO DAILY [facility] Propranolol HCl (Inderal La) 120 mg PO DAILY [facility] Tamsulosin HCl (Flomax) 0.4 mg PO DAILY [facility] Physical Exam - Constitutional Appears: Non-toxic, No Acute Distress - Head Exam Head Exam: ATRAUMATIC, NORMAL INSPECTION, NORMOCEPHALIC - Eye Exam Eye Exam: EOMI, Normal appearance - ENT Exam ENT Exam: Mucous Membranes Moist, Normal Exam - Neck Exam Neck exam: Positive for: Normal Inspection. Negative for: Lymphadenopathy - Respiratory Exam Respiratory Exam: Clear to Auscultation Bilateral, NORMAL BREATHING PATTERN - Cardiovascular Exam Cardiovascular Exam: Tachycardia, REGULAR RHYTHM, +S1, +S2 - GI/Abdominal Exam GI & Abdominal Exam: Normal Bowel Sounds, Soft. absent: Tenderness - Extremities Exam Extremities exam: Positive for: pedal edema (+1 edema b/l) - Neurological Exam Neurological exam: Alert, CN II-XII Intact, Oriented x3 - Psychiatric Exam Psychiatric exam: Normal Affect, Normal Mood - Skin Skin Exam: Intact, Normal Color Additional comments: Mild excoriation above gluteal cleft Results - Vital Signs Recent Vital Signs: Last Vital Signs Temp 97.5 F L 01/01/18 16:33 Pulse 60 01/01/18 20:41 Resp 18 01/01/18 20:41 BP 144/67 01/01/18 20:41 Pulse Ox 96 01/01/18 20:41 - Labs Result Diagrams: 01/01/18 17:45 01/01/18 17:45 Labs: Laboratory Results - last 24 hr 01/01/18 01/01/18 21:52 21:52 pO2 39 VBG pH 7.41 VBG pCO2 50.0 VBG HCO3 31.7 H VBG Total CO2 33.2 H VBG O2 Sat (Calc) 78.2 H VBG Base Excess 5.8 H VBG Potassium 4.5 Sodium 131.0 L Chloride 102.0 Glucose 478 H* Lactate 2.5 H FiO2 21.0 Magnesium 1.8 Venous Blood Potassium 4.5 Assessment & Plan - Assessment and Plan (Free Text) Plan: 77 y/o with PMH of CLL recently on Imbruvica, Bladder CA, BPH CAD, DM, HTN, HLD , A-fib, CHF presents with gram negative boris bacteremia. Patient also had gram positive cocci in the urine, which was likely secondary to colonization. Patient was given Cefepime in the ED, which we will continue. Patient will also be given IVF at this time. Patient also arrived with elevated blood sugar, will start insulin drip. We will continue to monitor him closely in the ICU. Neuro AAOx3 Neurochecks q4h Cardio Hemodynamically stable Maintain MAP >65 Continue eliquis, Propanalol, and amiodarone Lasix to begin tomorrow Respiratory No respiratory distress NC at 2L, titrate to keep SaO2 greater than 92 Will monitor closely GI Protonix for GI prophylaxis CCD Nephro Maintain euvolemia Replete electrolyte abnormalities as needed Endocrine Insulin drip Will transition to ISS Maintain euglycemia ID Continue Cefepime Follow cultures Continue fluids ID consulted Prophylaxis Protonix Eliquis Mitzy, PGY-2 <Manny Daily Q - Last Filed: 01/02/18 01:12> Meds - Medications Medications: Current Medications Amiodarone HCl (Cordarone) 200 mg PO DAILY [facility] Apixaban (Eliquis) 2.5 mg PO BID DAISY PRN Reason: Protocol Aspirin (Ecotrin) 81 mg PO DAILY [facility] Atorvastatin Calcium (Lipitor) 20 mg PO DAILY [facility] Furosemide (Lasix) 40 mg PO BID [facility] Insulin Human Regular 100 (units/ Sodium Chloride) 100 mls @ 3 mls/hr IV .Q24H PRN; Protocol; 3 UNITS/HR PRN Reason: TITRATE PER MD ORDER Last Admin: 01/01/18 22:41 Dose: 3 units/hr, 3 mls/hr Sodium Chloride (Sodium Chloride 0.9%) 1,000 mls @ 100 mls/hr IV .Q10H [facility] Last Admin: 01/01/18 22:07 Dose: 100 mls/hr Meropenem/Sodium Chloride (Meropenem 1g/Ns 100ml Ivpb) 1 gm in 100 mls @ 100 mls/hr IVPB Q8 DAISY PRN Reason: Protocol Stop: 01/10/18 23:24 Non-Formulary Medication (Dutasteride [Avodart]) 0.5 mg PO DAILY [facility] Propranolol HCl (Inderal La) 120 mg PO DAILY [facility] Tamsulosin HCl (Flomax) 0.4 mg PO DAILY [facility] Results - Vital Signs Recent Vital Signs: Last Vital Signs Temp 98.1 F 01/01/18 23:43 Pulse 60 01/01/18 23:43 Resp 16 01/01/18 23:43 BP 155/70 H 01/01/18 23:43 Pulse Ox 97 01/01/18 23:43 - Labs Result Diagrams: 01/01/18 17:45 01/01/18 17:45 Labs: Laboratory Results - last 24 hr 01/01/18 01/01/18 01/01/18 21:52 21:52 22:33 pO2 39 VBG pH 7.41 VBG pCO2 50.0 VBG HCO3 31.7 H VBG Total CO2 33.2 H VBG O2 Sat (Calc) 78.2 H VBG Base Excess 5.8 H VBG Potassium 4.5 Sodium 131.0 L Chloride 102.0 Glucose 478 H* Lactate 2.5 H FiO2 21.0 POC Glucose (mg/dL) 344 H Magnesium 1.8 Venous Blood Potassium 4.5 01/02/18 00:20 pO2 VBG pH VBG pCO2 VBG HCO3 VBG Total CO2 VBG O2 Sat (Calc) VBG Base Excess VBG Potassium Sodium Chloride Glucose Lactate FiO2 POC Glucose (mg/dL) 306 H Magnesium Venous Blood Potassium Attending/Attestation - Attestation I have personally seen and examined this patient.: Yes I have fully participated in the care of the patient.: Yes I have reviewed all pertinent clinical information: Yes Notes (Text): 01/02/18 01:08 I agree with the above mentioned note and exam by the resident with the addition /exception of the followin77 y/o male with a PMHx CLL, Htn, DM, h/o bladder Ca, BPH, recently diagnosed with Afib presented to the ED from his primary doctor's office secondary to a positive blood culture for bacteremia. Gram negative bacteremia urine colonization with gram positive, however u/a negative Afib; rate controlled CHF w/EF 31% DM with hyperglycemia over [address] him on cefepime 2gm IV Q12 ID consult c/w eliquis maintain euvolemia insulin drip started for hyperglycemia
[2018-01-02] MEDS: Meropenem 1g/NS 100mL IVPB 1 GM/100 ML PIGGYBACK IVPB SCH ×4 (00:25→21:01)
[2018-01-02 01:36] VITALS: BMI 27.8
[2018-01-02 07:04] LABS: GRAN # 0.11 (1.4-6.5); GRAN % 3.6 % (50.0-68.0); HEMOGLOBIN 8.7 g/dL (14.0-18.0); LYMPH % 95.8 % (22.0-35.0); MEAN CELL VOLUME 95.7 fl (80.0-105.0); MEAN CORPUSCULAR HEMOGLOBIN 31.1 pg (25.0-35.0); MEAN CORPUSCULAR HGB CONC 32.5 g/dl (31.0-37.0); MEAN PLATELET VOLUME 10.9 fl (7.0-11.0); MONO % 0.6 % (1.0-6.0); RBC 2.8 10^6/uL (3.5-6.1); RED CELL DISTRIBUTION WIDTH 17.2 % (11.5-14.5); WHITE BLOOD COUNT 3.1 10^3/ul (4.5-11.0)
--- NOTE | 2018-01-02 07:17 | CP.CCUPN ---
<Harsh Carneyima - Last Filed: 01/02/18 10:56> CCU Subjective - Physician Review Subjective (Free Text): 01/02/18 08:24 Patient seen and examined at bedside. Reports he feels better this AM but is still feeling "washed out". While being transported from the ED overnight patient did experience some sweats and chills which have since resolved. He also complained of a soreness in his buttock and is aware of some skin breakdown which nursing is applying barrier cream. Patient denied acute complaints of fever, headaches, dizziness, blurry vision, sore throat, chest pain, palpitations, SOB, cough, abd pain, nausea, vomiting, bowel/bladder complaints, pain in his legs bilaterally. Patient reports the swelling in his legs b/l has improved slightly. Of note, patient was taking Imbruvica for 6 weeks after being diagnosed with CLL but developed Afib thus Imbruvica was discontinued 2 weeks ago and patient was started on Eliquis for anticoagulation. Critical Care Time Spent (in minutes): 45 CCU Objective - Vital Signs / Intake & Output Vital Signs (Last 4 hours): Vital Signs Pulse Resp BP Pulse Ox 01/02/18 06:00 65 23 134/54 L 97 01/02/18 05:50 65 22 96 01/02/18 05:40 66 23 97 01/02/18 05:30 66 23 97 01/02/18 05:20 66 23 97 01/02/18 05:10 66 23 97 01/02/18 05:00 68 23 136/54 L 98 01/02/18 04:50 70 21 98 01/02/18 04:40 70 20 98 01/02/18 04:30 76 25 H 96 01/02/18 04:20 73 22 97 01/02/18 04:10 74 14 96 01/02/18 04:00 75 17 137/53 L 97 01/02/18 03:50 71 26 H 95 01/02/18 03:40 79 26 H 96 01/02/18 03:30 81 27 H 96 01/02/18 03:20 81 27 H 96 Intake and Output (Last 8hrs): Intake & Output 01/01/18 01/02/18 01/02/18 22:59 06:59 14:59 Intake Total 870 Output Total 575 Balance 295 Weight 80.603 kg Intake: IV 630 Right Hand 600 Oral 240 Output: Urine 575 Urine, Voided 575 Other: # Voids Urine, Voided 3 - Physical Exam Head: Positive for: Atraumatic, Normocephalic Pupils: Positive for: PERRL Extroacular Muscles: Positive for: EOMI Conjunctiva: Positive for: Normal Mouth: Positive for: Moist Mucous Membranes Pharnyx: Negative for: ERYTHEMA Nose (Internal): Positive for: Normal Inspection Neck: Positive for: Normal Range of Motion. Negative for: Lymphadenopathy Respiratory/Chest: Positive for: Clear to Auscultation, Good Air Exchange. Negative for: Respiratory Distress, Accessory Muscle Use, Wheezes, Rales, Rhonchi Cardiovascular: Positive for: Regular Rate and Rhythm, Normal S1, S2. Negative for: Murmurs, Tachycardic, Bradycardic Abdomen: Positive for: Normal Bowel Sounds. Negative for: Tenderness, Distention Upper Extremity: Positive for: Normal Inspection. Negative for: Cyanosis, Edema Lower Extremity: Positive for: Normal Inspection. Negative for: Edema Neurological: Positive for: GCS=15, CN II-XII Intact, Speech Normal, Motor Func Grossly Intact, Normal Sensory Function Skin: Positive for: Warm, Dry, Normal Color, Other (Mild excoriation above gluteal cleft) Psychiatric: Positive for: Alert, Oriented x 3, Normal Insight, Normal Concentration - Medications Active Medications: Active Medications Generic Name Dose Route Start Last Admin Trade Name Freq PRN Reason Stop Dose Admin Amiodarone HCl 200 mg 01/02/18 10:00 Cordarone PO DAILY DAISY Apixaban 2.5 mg 01/02/18 10:00 Eliquis PO BID [facility] Protocol Aspirin 81 mg 01/02/18 10:00 Ecotrin PO DAILY DAISY Atorvastatin Calcium 20 mg 01/02/18 10:00 Lipitor PO DAILY DAISY Furosemide 40 mg 01/02/18 16:00 Lasix PO BID DAISY Sodium Chloride 1,000 mls @ 100 mls/hr 01/01/18 21:30 01/01/18 22:07 Sodium Chloride 0.9% IV 100 mls/hr .Q10H DAISY Administration Meropenem/Sodium Chloride 1 gm in 100 mls @ 100 mls/hr 01/01/18 23:23 06:00 Meropenem 1g/Ns 100ml Ivpb IVPB 01/10/18 23:24 100 mls/hr Q8 [facility] Administration Protocol Insulin Human Regular 0 units 01/02/18 07:30 Humulin R High SC ACHS [facility] Protocol Non-Formulary Medication 0.5 mg 01/02/18 10:00 Dutasteride [Avodart] PO DAILY DAISY Propranolol HCl 120 mg 01/02/18 10:00 Inderal La PO DAILY DAISY Tamsulosin HCl 0.4 mg 01/02/18 10:00 Flomax PO DAILY DAISY - Patient Studies Lab Studies: Lab Studies 01/02/18 01/02/18 01/02/18 Range/Units 04:38 02:36 02:02 pO2 (30-55) mm/Hg VBG pH (7.32-7.43) VBG pCO2 (40-60) VBG HCO3 (21-28) mmol/l VBG Total CO2 (22-28) mmol.L VBG O2 Sat (Calc) (40-65) % VBG Base Excess (0.0-2.0) mmol/L VBG Potassium (3.6-5.2) mmol/L Sodium (132-148) mmol/L Chloride (98-107) mmol/L Glucose (75-110) mg/dl Lactate (0.7-2.1) mmol/L FiO2 % POC Glucose (mg/dL) 106 114 H 145 H (65-110) mg/dL Magnesium (1.7-2.2) mg/dL Venous Blood Potassium (3.6-5.2) mmol/L 01/02/18 01/01/18 01/01/18 Range/Units 00:20 22:33 21:52 pO2 (30-55) mm/Hg VBG pH (7.32-7.43) VBG pCO2 (40-60) VBG HCO3 (21-28) mmol/l VBG Total CO2 (22-28) mmol.L VBG O2 Sat (Calc) (40-65) % VBG Base Excess (0.0-2.0) mmol/L VBG Potassium (3.6-5.2) mmol/L Sodium (132-148) mmol/L Chloride (98-107) mmol/L Glucose (75-110) mg/dl Lactate (0.7-2.1) mmol/L FiO2 % POC Glucose (mg/dL) 306 H 344 H (65-110) mg/dL Magnesium 1.8 (1.7-2.2) mg/dL Venous Blood Potassium (3.6-5.2) mmol/L 01/01/18 Range/Units 21:52 pO2 39 (30-55) mm/Hg VBG pH 7.41 (7.32-7.43) VBG pCO2 50.0 (40-60) VBG HCO3 31.7 H (21-28) mmol/l VBG Total CO2 33.2 H (22-28) mmol.L VBG O2 Sat (Calc) 78.2 H (40-65) % VBG Base Excess 5.8 H (0.0-2.0) mmol/L VBG Potassium 4.5 (3.6-5.2) mmol/L Sodium 131.0 L (132-148) mmol/L Chloride 102.0 (98-107) mmol/L Glucose 478 H* (75-110) mg/dl Lactate 2.5 H (0.7-2.1) mmol/L FiO2 21.0 % POC Glucose (mg/dL) (65-110) mg/dL Magnesium (1.7-2.2) mg/dL Venous Blood Potassium 4.5 (3.6-5.2) mmol/L Laboratory Results - last 24 hr 01/01/18 01/01/18 01/01/18 21:52 21:52 22:33 pO2 39 VBG pH 7.41 VBG pCO2 50.0 VBG HCO3 31.7 H VBG Total CO2 33.2 H VBG O2 Sat (Calc) 78.2 H VBG Base Excess 5.8 H VBG Potassium 4.5 Sodium 131.0 L Chloride 102.0 Glucose 478 H* Lactate 2.5 H FiO2 21.0 POC Glucose (mg/dL) 344 H Magnesium 1.8 Venous Blood Potassium 4.5 01/02/18 01/02/18 01/02/18 00:20 02:02 02:36 pO2 VBG pH VBG pCO2 VBG HCO3 VBG Total CO2 VBG O2 Sat (Calc) VBG Base Excess VBG Potassium Sodium Chloride Glucose Lactate FiO2 POC Glucose (mg/dL) 306 H 145 H 114 H Magnesium Venous Blood Potassium 01/02/18 04:38 pO2 VBG pH VBG pCO2 VBG HCO3 VBG Total CO2 VBG O2 Sat (Calc) VBG Base Excess VBG Potassium Sodium Chloride Glucose Lactate FiO2 POC Glucose (mg/dL) 106 Magnesium Venous Blood Potassium Fingerstick Blood Sugar Results: 145 Review of Systems - Review of Systems All systems: reviewed and no additional remarkable complaints except - Constitutional Constitutional: Chills, Malaise. absent: Fever - EENT Eyes: As Per HPI. absent: Blurred Vision Ears: As Per HPI. absent: Dizziness Nose/Mouth/Throat: As Per HPI. absent: Sore Throat - Cardiovascular Cardiovascular: As Per HPI, Edema, Pedal Edema. absent: Chest Pain, Dyspnea, Dyspnea on Exertion, Palpitations - Respiratory Respiratory: As Per HPI. absent: Cough, Dyspnea, Dyspnea on Exertion - Gastrointestinal Gastrointestinal: As Per HPI. absent: Abdominal Pain, Constipation, Diarrhea, Nausea, Vomiting - Genitourinary Genitourinary: As Per HPI. absent: Dysuria, Flank Pain, Hematuria, Pyuria - Musculoskeletal Musculoskeletal: As Par HPI. absent: Numbness, Tingling - Integumentary Integumentary: As Per HPI - Neurological Neurological: As Per HPI. absent: Dizziness, Numbness, Headaches - Psychiatric Psychiatric: As Per HPI. absent: Anxiety, Depression - Endocrine Endocrine: As Per HPI. absent: Palpitations, Polydipsia, Polyphagia, Polyuria - Hematologic/Lymphatic Hematologic: As Per HPI. absent: Easy Bleeding, Easy Bruising, Lymphadenopathy Assessment/Plan - Assessment and Plan (Free Text) Assessment: 77yo male PMHx CLL (was taking Imbruvica for 6 weeks and d/c 2 weeks ago), Bladder CA, BPH, CAD, DM, HTN, HLD, A-fib, CHF EF 35% presents with gram negative boris bacteremia. Plan: Neuro -AOx3 -no acute issues Cardio -Hemodynamically stable -Maintain MAP >65 -Continue Amiodarone, Eliquis, ASA, Lipitor, Lasix, and Inderal Respiratory -No respiratory distress -NC at 2L, titrate to keep SaO2 greater than 92 -Will monitor closely GI -Protonix for GI prophylaxis -no acute issues Nephro -Maintain euvolemia -Replete electrolyte abnormalities as needed Endocrine -Insulin gtt d/c overnight -RISS high -Maintain euglycemia ID -f/u repeat blood and urine culture -f/u CT Abd/pelvis -f/u procalcitonin -Patient on Merrem day 2 -NS @ 60cc/hr -ID consulted GI ppx: Protonix 40mg po qd DVT ppx: Patient on eliquis 2.5mg po bid Diet: HHD Fluids: NS @ 60cc/hr Dispo: patient to be transferred to [facility] Discussed with Dr. Juliane Carney PGY2 <Rodrigo Cardozo - Last Filed: 01/02/18 14:09> CCU Objective - Vital Signs / Intake & Output Vital Signs (Last 4 hours): Vital Signs Pulse Resp BP Pulse Ox 01/02/18 12:30 61 18 01/02/18 12:28 61 25 H 01/02/18 11:00 142/61 95 01/02/18 10:50 96 01/02/18 10:40 100 01/02/18 10:30 59 L 18 96 01/02/18 10:29 141/62 01/02/18 10:27 51 L 141/62 01/02/18 10:24 66 141/62 01/02/18 10:20 66 25 H 96 01/02/18 10:10 63 31 H 95 Intake and Output (Last 8hrs): Intake & Output 01/01/18 01/02/18 01/02/18 22:59 06:59 14:59 Intake Total 870 Output Total 575 Balance 295 Weight 177 lb 11.2 oz Intake: IV 630 Right Hand 600 Oral 240 Output: Urine 575 Urine, Voided 575 Other: # Voids Urine, Voided 3 - Medications Active Medications: Active Medications Generic Name Dose Route Start Last Admin Trade Name Abdirahmanq PRN Reason Stop Dose Admin Amiodarone HCl 200 mg 01/02/18 10:00 01/02/18 10:24 Cordarone PO 200 mg DAILY DAISY Administration Apixaban 2.5 mg 01/02/18 10:00 01/02/18 10:25 Eliquis PO 2.5 mg BID DAISY Administration Protocol Aspirin 81 mg 01/02/18 10:00 01/02/18 10:25 Ecotrin PO 81 mg DAILY DAISY Administration Atorvastatin Calcium 20 mg 01/02/18 10:00 01/02/18 10:31 Lipitor PO 20 mg DAILY DAISY Administration Furosemide 40 mg 01/02/18 14:00 Lasix IV 0800,1400 DAISY Meropenem/Sodium Chloride 1 gm in 100 mls @ 100 mls/hr 01/01/18 23:23 06:00 Meropenem 1g/Ns 100ml Ivpb IVPB 01/10/18 23:24 100 mls/hr Q8 [facility] Administration Protocol Sodium Chloride 1,000 mls @ 60 mls/hr 01/02/18 08:49 01/02/18 10:31 Sodium Chloride 0.9% IV 60 mls/hr .[id number] [facility]IS[facility] Administration Insulin Human Regular 0 units 01/02/18 07:30 01/02/18 08:00 Humulin R High SC Not Given ACHS [facility] Protocol Non-Formulary Medication 0.5 mg 01/02/18 10:00 Dutasteride [Avodart] PO DAILY DAISY Pantoprazole Sodium 40 mg 01/03/18 06:00 Protonix Ec Tab PO 0600 DAISY Potassium Chloride 20 meq 01/02/18 18:00 K-Dur 20 Meq Er Tab PO 01/02/18 18:01 BID ONE Propranolol HCl 120 mg 01/02/18 10:00 01/02/18 10:27 Inderal La PO 120 mg DAILY DAISY Administration Tamsulosin HCl 0.4 mg 01/02/18 10:00 01/02/18 10:26 Flomax PO 0.4 mg DAILY DAISY Administration - Patient Studies Lab Studies: Lab Studies 01/02/18 01/02/18 01/02/18 Range/Units 07:38 06:24 06:24 WBC 3.1 L (4.5-11.0) 10^3/ul RBC 2.80 L (3.5-6.1) 10^6/uL Hgb 8.7 L (14.0-18.0) g/dL Hct 26.8 L (42.0-52.0) % MCV 95.7 (80.0-105.0) fl MCH 31.1 (25.0-35.0) pg MCHC 32.5 (31.0-37.0) g/dl RDW 17.2 H (11.5-14.5) % Plt Count 89 L (120.0-450.0) 10^3/uL MPV 10.9 (7.0-11.0) fl Gran % 3.6 L (50.0-68.0) % Lymph % (Auto) 95.8 H (22.0-35.0) % Simpson % (Auto) 0.6 L (1.0-6.0) % Eos % (Auto) 0.0 L (1.5-5.0) % Baso % (Auto) 0.0 (0.0-3.0) % Gran # 0.11 L (1.4-6.5) Lymph # (Auto) 3.0 (1.2-3.4) Simpson # (Auto) 0.0 L (0.1-0.6) Eos # (Auto) 0.0 (0.0-0.7) Baso # (Auto) 0.00 (0.0-2.0) K/mm3 pO2 (30-55) mm/Hg VBG pH (7.32-7.43) VBG pCO2 (40-60) VBG HCO3 (21-28) mmol/l VBG Total CO2 (22-28) mmol.L VBG O2 Sat (Calc) (40-65) % VBG Base Excess (0.0-2.0) mmol/L VBG Potassium (3.6-5.2) mmol/L Sodium 132 (132-148) mmol/L Chloride 97 L (98-107) mmol/L Glucose (75-110) mg/dl Lactate (0.7-2.1) mmol/L FiO2 % Potassium 3.8 (3.6-5.0) mmol/L Carbon Dioxide 27 (21-33) mmol/L Anion Gap 12 (10-20) BUN 31 H (7-21) mg/dL Creatinine 0.9 (0.8-1.5) mg/dl Est GFR ( Amer) > 60 Est GFR (Non-Af Amer) > 60 POC Glucose (mg/dL) 128 H (65-110) mg/dL Random Glucose 120 H (70-110) mg/dL Calcium 8.1 L (8.4-10.5) mg/dL Magnesium (1.7-2.2) mg/dL Total Bilirubin 0.8 (0.2-1.3) mg/dL AST 23 (17-59) U/L ALT 68 H (7-56) U/L Alkaline Phosphatase 62 (38-126) U/L Total Protein 4.9 L (5.8-8.3) g/dL Albumin 2.2 L (3.0-4.8) g/dL Globulin 2.7 gm/dL Albumin/Globulin Ratio 0.8 L (1.1-1.8) Venous Blood Potassium (3.6-5.2) mmol/L 01/02/18 01/02/18 01/02/18 Range/Units 04:38 02:36 02:02 WBC (4.5-11.0) 10^3/ul RBC (3.5-6.1) 10^6/uL Hgb (14.0-18.0) g/dL Hct (42.0-52.0) % MCV (80.0-105.0) fl MCH (25.0-35.0) pg MCHC (31.0-37.0) g/dl RDW (11.5-14.5) % Plt Count (120.0-450.0) 10^3/uL MPV (7.0-11.0) fl Gran % (50.0-68.0) % Lymph % (Auto) (22.0-35.0) % Simpson % (Auto) (1.0-6.0) % Eos % (Auto) (1.5-5.0) % Baso % (Auto) (0.0-3.0) % Gran # (1.4-6.5) Lymph # (Auto) (1.2-3.4) Simpson # (Auto) (0.1-0.6) Eos # (Auto) (0.0-0.7) Baso # (Auto) (0.0-2.0) K/mm3 pO2 (30-55) mm/Hg VBG pH (7.32-7.43) VBG pCO2 (40-60) VBG HCO3 (21-28) mmol/l VBG Total CO2 (22-28) mmol.L VBG O2 Sat (Calc) (40-65) % VBG Base Excess (0.0-2.0) mmol/L VBG Potassium (3.6-5.2) mmol/L Sodium (132-148) mmol/L Chloride (98-107) mmol/L Glucose (75-110) mg/dl Lactate (0.7-2.1) mmol/L FiO2 % Potassium (3.6-5.0) mmol/L Carbon Dioxide (21-33) mmol/L Anion Gap (10-20) BUN (7-21) mg/dL Creatinine (0.8-1.5) mg/dl Est GFR ( Amer) Est GFR (Non-Af Amer) POC Glucose (mg/dL) 106 114 H 145 H (65-110) mg/dL Random Glucose (70-110) mg/dL Calcium (8.4-10.5) mg/dL Magnesium (1.7-2.2) mg/dL Total Bilirubin (0.2-1.3) mg/dL AST (17-59) U/L ALT (7-56) U/L Alkaline Phosphatase (38-126) U/L Total Protein (5.8-8.3) g/dL Albumin (3.0-4.8) g/dL Globulin gm/dL Albumin/Globulin Ratio (1.1-1.8) Venous Blood Potassium (3.6-5.2) mmol/L 01/02/18 01/01/18 01/01/18 Range/Units 00:20 22:33 21:52 WBC (4.5-11.0) 10^3/ul RBC (3.5-6.1) 10^6/uL Hgb (14.0-18.0) g/dL Hct (42.0-52.0) % MCV (80.0-105.0) fl MCH (25.0-35.0) pg MCHC (31.0-37.0) g/dl RDW (11.5-14.5) % Plt Count (120.0-450.0) 10^3/uL MPV (7.0-11.0) fl Gran % (50.0-68.0) % Lymph % (Auto) (22.0-35.0) % Simpson % (Auto) (1.0-6.0) % Eos % (Auto) (1.5-5.0) % Baso % (Auto) (0.0-3.0) % Gran # (1.4-6.5) Lymph # (Auto) (1.2-3.4) Simpson # (Auto) (0.1-0.6) Eos # (Auto) (0.0-0.7) Baso # (Auto) (0.0-2.0) K/mm3 pO2 (30-55) mm/Hg VBG pH (7.32-7.43) VBG pCO2 (40-60) VBG HCO3 (21-28) mmol/l VBG Total CO2 (22-28) mmol.L VBG O2 Sat (Calc) (40-65) % VBG Base Excess (0.0-2.0) mmol/L VBG Potassium (3.6-5.2) mmol/L Sodium (132-148) mmol/L Chloride (98-107) mmol/L Glucose (75-110) mg/dl Lactate (0.7-2.1) mmol/L FiO2 % Potassium (3.6-5.0) mmol/L Carbon Dioxide (21-33) mmol/L Anion Gap (10-20) BUN (7-21) mg/dL Creatinine (0.8-1.5) mg/dl Est GFR ( Amer) Est GFR (Non-Af Amer) POC Glucose (mg/dL) 306 H 344 H (65-110) mg/dL Random Glucose (70-110) mg/dL Calcium (8.4-10.5) mg/dL Magnesium 1.8 (1.7-2.2) mg/dL Total Bilirubin (0.2-1.3) mg/dL AST (17-59) U/L ALT (7-56) U/L Alkaline Phosphatase (38-126) U/L Total Protein (5.8-8.3) g/dL Albumin (3.0-4.8) g/dL Globulin gm/dL Albumin/Globulin Ratio (1.1-1.8) Venous Blood Potassium (3.6-5.2) mmol/L 01/01/18 Range/Units 21:52 WBC (4.5-11.0) 10^3/ul RBC (3.5-6.1) 10^6/uL Hgb (14.0-18.0) g/dL Hct (42.0-52.0) % MCV (80.0-105.0) fl MCH (25.0-35.0) pg MCHC (31.0-37.0) g/dl RDW (11.5-14.5) % Plt Count (120.0-450.0) 10^3/uL MPV (7.0-11.0) fl Gran % (50.0-68.0) % Lymph % (Auto) (22.0-35.0) % Simpson % (Auto) (1.0-6.0) % Eos % (Auto) (1.5-5.0) % Baso % (Auto) (0.0-3.0) % Gran # (1.4-6.5) Lymph # (Auto) (1.2-3.4) Simpson # (Auto) (0.1-0.6) Eos # (Auto) (0.0-0.7) Baso # (Auto) (0.0-2.0) K/mm3 pO2 39 (30-55) mm/Hg VBG pH 7.41 (7.32-7.43) VBG pCO2 50.0 (40-60) VBG HCO3 31.7 H (21-28) mmol/l VBG Total CO2 33.2 H (22-28) mmol.L VBG O2 Sat (Calc) 78.2 H (40-65) % VBG Base Excess 5.8 H (0.0-2.0) mmol/L VBG Potassium 4.5 (3.6-5.2) mmol/L Sodium 131.0 L (132-148) mmol/L Chloride 102.0 (98-107) mmol/L Glucose 478 H* (75-110) mg/dl Lactate 2.5 H (0.7-2.1) mmol/L FiO2 21.0 % Potassium (3.6-5.0) mmol/L Carbon Dioxide (21-33) mmol/L Anion Gap (10-20) BUN (7-21) mg/dL Creatinine (0.8-1.5) mg/dl Est GFR ( Amer) Est GFR (Non-Af Amer) POC Glucose (mg/dL) (65-110) mg/dL Random Glucose (70-110) mg/dL Calcium (8.4-10.5) mg/dL Magnesium (1.7-2.2) mg/dL Total Bilirubin (0.2-1.3) mg/dL AST (17-59) U/L ALT (7-56) U/L Alkaline Phosphatase (38-126) U/L Total Protein (5.8-8.3) g/dL Albumin (3.0-4.8) g/dL Globulin gm/dL Albumin/Globulin Ratio (1.1-1.8) Venous Blood Potassium 4.5 (3.6-5.2) mmol/L Laboratory Results - last 24 hr 01/01/18 01/01/18 01/01/18 21:52 21:52 22:33 WBC RBC Hgb Hct MCV MCH MCHC RDW Plt Count MPV Gran % Lymph % (Auto) Simpson % (Auto) Eos % (Auto) Baso % (Auto) Gran # Lymph # (Auto) Simpson # (Auto) Eos # (Auto) Baso # (Auto) pO2 39 VBG pH 7.41 VBG pCO2 50.0 VBG HCO3 31.7 H VBG Total CO2 33.2 H VBG O2 Sat (Calc) 78.2 H VBG Base Excess 5.8 H VBG Potassium 4.5 Sodium 131.0 L Chloride 102.0 Glucose 478 H* Lactate 2.5 H FiO2 21.0 Potassium Carbon Dioxide Anion Gap BUN Creatinine Est GFR ( Amer) Est GFR (Non-Af Amer) POC Glucose (mg/dL) 344 H Random Glucose Calcium Magnesium 1.8 Total Bilirubin AST ALT Alkaline Phosphatase Total Protein Albumin Globulin Albumin/Globulin Ratio Venous Blood Potassium 4.5 01/02/18 01/02/18 01/02/18 00:20 02:02 02:36 WBC RBC Hgb Hct MCV MCH MCHC RDW Plt Count MPV Gran % Lymph % (Auto) Simpson % (Auto) Eos % (Auto) Baso % (Auto) Gran # Lymph # (Auto) Simpson # (Auto) Eos # (Auto) Baso # (Auto) pO2 VBG pH VBG pCO2 VBG HCO3 VBG Total CO2 VBG O2 Sat (Calc) VBG Base Excess VBG Potassium Sodium Chloride Glucose Lactate FiO2 Potassium Carbon Dioxide Anion Gap BUN Creatinine Est GFR ( Amer) Est GFR (Non-Af Amer) POC Glucose (mg/dL) 306 H 145 H 114 H Random Glucose Calcium Magnesium Total Bilirubin AST ALT Alkaline Phosphatase Total Protein Albumin Globulin Albumin/Globulin Ratio Venous Blood Potassium 01/02/18 01/02/18 01/02/18 04:38 06:24 06:24 WBC 3.1 L RBC 2.80 L Hgb 8.7 L Hct 26.8 L MCV 95.7 MCH 31.1 MCHC 32.5 RDW 17.2 H Plt Count 89 L MPV 10.9 Gran % 3.6 L Lymph % (Auto) 95.8 H Simpson % (Auto) 0.6 L Eos % (Auto) 0.0 L Baso % (Auto) 0.0 Gran # 0.11 L Lymph # (Auto) 3.0 Simpson # (Auto) 0.0 L Eos # (Auto) 0.0 Baso # (Auto) 0.00 pO2 VBG pH VBG pCO2 VBG HCO3 VBG Total CO2 VBG O2 Sat (Calc) VBG Base Excess VBG Potassium Sodium 132 Chloride 97 L Glucose Lactate FiO2 Potassium 3.8 Carbon Dioxide 27 Anion Gap 12 BUN 31 H Creatinine 0.9 Est GFR ( Amer) > 60 Est GFR (Non-Af Amer) > 60 POC Glucose (mg/dL) 106 Random Glucose 120 H Calcium 8.1 L Magnesium Total Bilirubin 0.8 AST 23 ALT 68 H Alkaline Phosphatase 62 Total Protein 4.9 L Albumin 2.2 L Globulin 2.7 Albumin/Globulin Ratio 0.8 L Venous Blood Potassium 01/02/18 07:38 WBC RBC Hgb Hct MCV MCH MCHC RDW Plt Count MPV Gran % Lymph % (Auto) Simpson % (Auto) Eos % (Auto) Baso % (Auto) Gran # Lymph # (Auto) Simpson # (Auto) Eos # (Auto) Baso # (Auto) pO2 VBG pH VBG pCO2 VBG HCO3 VBG Total CO2 VBG O2 Sat (Calc) VBG Base Excess VBG Potassium Sodium Chloride Glucose Lactate FiO2 Potassium Carbon Dioxide Anion Gap BUN Creatinine Est GFR ( Amer) Est GFR (Non-Af Amer) POC Glucose (mg/dL) 128 H Random Glucose Calcium Magnesium Total Bilirubin AST ALT Alkaline Phosphatase Total Protein Albumin Globulin Albumin/Globulin Ratio Venous Blood Potassium Attending/Attestation - Attestation I have personally seen and examined this patient.: Yes I have fully participated in the care of the patient.: Yes I have reviewed all pertinent clinical information: Yes Notes (Text): 01/02/18 14:05 77 yo immunocompromized male with severe sepsis due to GNR bacteremia. CT abdo: unremarkable, urine: no UN and no LE, CXR: no active pulmonary disease, no sinusitis symptoms. Patient is on meropenem, hemodynamically and respiratory walker stable, fluid resuscitated. Ok to downgrade to tele ccm time 40 min
[2018-01-02 07:27] LABS: ALB/GLOB RATIO 0.8 (1.1-1.8); ALBUMIN 2.2 g/dL (3.0-4.8); ALT/SGPT 68 U/L (7-56); AST/SGOT 23 U/L (17-59); BLOOD UREA NITROGEN 31 mg/dL (7-21); CALCIUM 8.1 mg/dL (8.4-10.5); GFR AFRICAN-AMERICAN > 60; GFR NON-AFRICAN AMERICAN > 60
[2018-01-02] MEDS: Insulin Reg-HIGH-Coverage SC SCH ×4 (08:00→21:02)
--- NOTE | 2018-01-02 08:37 | RAD ---
HISTORY: bacteremia COMPARISON: 12/31/2017 FINDINGS: LUNGS: No active pulmonary disease. PLEURA: No significant pleural effusion identified, no pneumothorax apparent. CARDIOVASCULAR: Normal. OSSEOUS STRUCTURES: No significant abnormalities. VISUALIZED UPPER ABDOMEN: Normal. OTHER FINDINGS: None. IMPRESSION: No active disease.
[2018-01-02] MEDS ORDERED: Potassium Chloride 20 mEq ER Tab PO ONE ×2 (09:35→18:00)
--- NOTE | 2018-01-02 09:58 | CON ---
DATE: 01/01/2018 The patient is seen in the emergency room; positive blood cultures and he was told to come to the emergency room. HISTORY OF PRESENT ILLNESS: This is a 77-year-old male with history of B-cell lymphoma, CLL who is on Imbruvica. The patient received Imbruvica approximately 2 weeks ago and he states, he was seen yesterday as an outpatient and was given blood transfusion and developed fever. Blood cultures were done and today he was called so he could return because of the Gram-negative boris in the blood. The patient states he did have fevers and chills. No chest pain,no shortness of breath. No abdominal pain, diarrhea or constipation. No dysuria or frequency. PAST MEDICAL HISTORY: Significant for coronary artery disease, hypertension, diabetes, dyslipidemia, bladder cancer and B-cell lymphoma and CLL, on Imbruvica, last time he received it was 2 weeks ago. PAST SURGICAL HISTORY: Significant for left orchiectomy years ago and cardiac catheterization with stent placement. ALLERGIES: THE PATIENT IS ALLERGIC TO MUSSELS. MEDICATIONS AT HOME: Include the patient to be on amiodarone and Flomax, propranolol, Lipitor, Lasix, Avodart, and metformin. PHYSICAL EXAMINATION GENERAL: On exam, the patient is in bed in no acute distress, answering questions appropriately. His is at the bedside in the emergency room. VITAL SIGNS: Temperature of 97.5, the patient did have a temperature up to 100.6 yesterday; blood pressure is 120/70; respiratory rate of 18; heart rate of 60. HEENT: Examination is unremarkable. NECK: Supple. LUNGS: Have decreased breath sounds. HEART: Normal S1, S2. ABDOMEN: Soft, nontender. No rebound or guarding. No masses. LABORATORY EXAMINATION: Reveals a white count is 3.2 with 92,000 platelets and the patient has 5% granulocytosis and 95% lymphocytosis with an absolute granular count of 160 and BUN of 40, creatinine 0.9, glucose is 544 and urinalysis is unremarkable. Completely normal urinalysis. The blood cultures from yesterday are reported to be a Gram-negative boris and the urine culture from yesterday, there is a gram-positive boris, although urinalysis is completely normal and the patient's chest x-ray results are pending in the emergency room, chart is reviewed. ASSESSMENT AND PLAN: This is a 77-year-old male with a B-cell lymphoma, chronic lymphocytic leukemia, on Imbruvica, the last one was two weeks ago; history of coronary artery disease; hypertension; diabetes; dyslipidemia; bladder cancer with sepsis and leukopenia. Severe sepsis with pancytopenia and neutropenia with gram-negative boris bacteremia, must rule out underlying gastrointestinal pathology. We will start the patient on meropenem, place the patient on neutropenic precautions and recommend a CT scan of the abdomen and pelvis and we will check on the identification of gram-negative boris and will make further recommendations. Abebe Rolle MD
[2018-01-02] MEDS ORDERED: PROPRANOLOL HCL 120 MG PO SCH (10:00)
[2018-01-02] MEDS: Propranolol 60 mg ER Cap PO SCH (10:27)
[2018-01-02] MEDS: Sodium Chloride 0.9% 1,000 ML IV SCH (10:31)
--- NOTE | 2018-01-02 10:43 | CP.PCM.PN ---
Subjective - Date & Time of Evaluation Date of Evaluation: 01/02/18 Time of Evaluation: 10:00 - Subjective Subjective: Has some cough but non-productive, no abdominal pain, no dysuria, no fevers overnight. Objective - Vital Signs/Intake and Output Vital Signs (last 24 hours): Temp Pulse Resp BP Pulse Ox 98.0 F 51 L 23 141/62 97 01/02/18 00:59 01/02/18 10:27 01/02/18 06:00 01/02/18 10:29 01/02/18 06:00 Intake and Output: 01/02/18 01/02/18 06:59 18:59 Intake Total 870 Output Total 575 Balance 295 - Medications Medications: Current Medications Amiodarone HCl (Cordarone) 200 mg PO DAILY [facility] Last Admin: 01/02/18 10:24 Dose: 200 mg Apixaban (Eliquis) 2.5 mg PO BID [facility] PRN Reason: Protocol Last Admin: 01/02/18 10:25 Dose: 2.5 mg Aspirin (Ecotrin) 81 mg PO DAILY [facility] Last Admin: 01/02/18 10:25 Dose: 81 mg Atorvastatin Calcium (Lipitor) 20 mg PO DAILY [facility] Last Admin: 01/02/18 10:31 Dose: 20 mg Furosemide (Lasix) 40 mg IV 0800,1400 [facility] Meropenem/Sodium Chloride (Meropenem 1g/Ns 100ml Ivpb) 1 gm in 100 mls @ 100 mls/hr IVPB Q8 [facility] PRN Reason: Protocol Stop: 01/10/18 23:24 Last Admin: 01/02/18 06:00 Dose: 100 mls/hr Sodium Chloride (Sodium Chloride 0.9%) 1,000 mls @ 60 mls/hr IV .[id number] [facility] Last Admin: 01/02/18 10:31 Dose: 60 mls/hr Insulin Human Regular (Humulin R High) 0 units SC ACHS [facility] PRN Reason: Protocol Last Admin: 01/02/18 08:00 Dose: Not Given Non-Formulary Medication (Dutasteride [Avodart]) 0.5 mg PO DAILY [facility] Pantoprazole Sodium (Protonix Ec Tab) 40 mg PO 0600 [facility] Potassium Chloride (K-Dur 20 Meq Er Tab) 20 meq PO BID ONE Stop: 01/02/18 18:01 Propranolol HCl (Inderal La) 120 mg PO DAILY [facility] Last Admin: 01/02/18 10:27 Dose: 120 mg Tamsulosin HCl (Flomax) 0.4 mg PO DAILY [facility] Last Admin: 01/02/18 10:26 Dose: 0.4 mg - Labs Labs: 01/02/18 06:24 01/02/18 06:24 PT 16.5 SECONDS (9.4-12.5) H 01/01/18 17:45 INR 1.44 (0.93-1.08) H 01/01/18 17:45 APTT 32.0 Seconds (25.1-36.5) 01/01/18 17:45 - Constitutional Appears: Non-toxic, Chronically Ill - Head Exam Head Exam: NORMAL INSPECTION - ENT Exam ENT Exam: Mucous Membranes Moist - Neck Exam Neck Exam: absent: Meningismus - Respiratory Exam Respiratory Exam: Decreased Breath Sounds - Cardiovascular Exam Cardiovascular Exam: +S1, +S2 - GI/Abdominal Exam GI & Abdominal Exam: Soft. absent: Tenderness Assessment and Plan - Assessment and Plan (Free Text) Plan: Assessment severe sepsis with neutropenia due to gram negative bacilli bacteremia, suspicious for intra-abdominal infection history of Sepsis due to healthcare-associated left lower lobe pneumonia with left sided pleural effusion S/P ultrasound-guided thoracentesis B-cell lymphoma CAD S/P PCI and stents placed HTN DM dyslipidemia bladder CA S/P left orchiectomy Plan continue Merrem day 2 pending identification and sensitivities of the gram negative bacilli in the blood follow up CT A/P results
--- NOTE | 2018-01-02 14:00 | CT ---
PROCEDURE: CT Abdomen and Pelvis with contrast HISTORY: r/o infx etiology COMPARISON: None. TECHNIQUE: Contrast dose: 100 cc of Omni 350 Radiation dose: Total exam DLP = 685 mGy-cm. This CT exam was performed using one or more of the following dose reduction techniques: Automated exposure control, adjustment of the mA and/or kV according to patient size, and/or use of iterative reconstruction technique. FINDINGS: LOWER THORAX: Small pleural effusions LIVER: Unremarkable. No gross lesion or ductal dilatation. GALLBLADDER AND BILE DUCTS: Unremarkable. PANCREAS: Unremarkable. No gross lesion or ductal dilatation. SPLEEN: Unremarkable. ADRENALS: Unremarkable. No mass. KIDNEYS AND URETERS: Unremarkable. No hydronephrosis. No solid mass. VASCULATURE: Unremarkable. No aortic aneurysm. BOWEL: Unremarkable. No obstruction. No gross mural thickening. APPENDIX: Normal appendix. PERITONEUM: Unremarkable. No free fluid. No free air. LYMPH NODES: Unremarkable. No enlarged lymph nodes. BLADDER: Unremarkable. REPRODUCTIVE: Mild to moderate enlargement of the prostate. 5.2 x 4.6 cm BONES: No acute fracture. OTHER FINDINGS: None. IMPRESSION: No acute intra-abdominal findings
--- NOTE | 2018-01-02 16:15 | CARD ---
APPROVED REPORT EKG Measurement Heart [id number] ID [id number] <Conclusion> Sinus bradycardia ST abnormality, possible digitalis effect Abnormal ECG
--- NOTE | 2018-01-02 18:45 | HP ---
HISTORY OF PRESENT ILLNESS: A 77-year-old male, was referred to [facility] with report of positive blood cultures. The patient had outpatient blood cultures done while on the Oncology Clinic the day before, and the cultures reported as showing positive for Gram negative rods. The patient was referred to the emergency room for further evaluation. He is a 77-year-old male with a history of CLL, paroxysmal atrial fibrillation, congestive heart failure, BPH, bladder cancer, degenerative arthritis of the spine, non-insulin dependent diabetes, hypertension, coronary artery disease, left pleural effusion. ALLERGIES: CONSISTS OF MUSSELS AND NEWSPRINT. HOME MEDICATIONS: Consists of amiodarone 200 mg daily, Avodart 0.5 mg daily, Glucovance 500 mg b.i.d., Ecotrin 81 mg daily, Eliquis 2.5 mg b.i.d., Flomax 0.4 mg daily, propanolol 120 mg daily, Lipitor 20 mg daily and Lasix 40 mg b.i.d. SOCIAL HISTORY: He is a nonsmoker, nondrinker, nondrug user. REVIEW OF SYSTEMS: Ten systems were reviewed. Pertinent findings is that the patient has dependent edema of the lower extremities. PHYSICAL EXAMINATION: VITAL SIGNS: His blood pressure was 136/54, respiratory rate was 23, oxygen saturation was 98% on room air. His temp was 98. HEART: S1 and S2. LUNGS: Shows clear. ABDOMEN: Soft, with positive bowel sounds. EXTREMITIES: Showed 3 + edema. He is wearing a Holter monitor placed by his telephone quotation clerk Dr. Valles as an outpatient. NEUROLOGICAL: He is alert and oriented x3. LABORATORY DATA: Showed a sodium of 127, potassium 3.9, chloride 90, BUN of 40, creatinine of 0.9. Random blood sugar was reported at 544, calcium 8.6. His ALT is 82. His magnesium is 1.8. His PT was 16.5 with an INR of 1.44, PTT of 32.0. WBC of 3.2, RBC 3.0, hemoglobin 11.7, hematocrit 29.9, platelet count 92,000. His serum lactate was 3.2. Urinalysis was clear. IMPRESSION: A 77-year-old male with severe sepsis, with urine culture with Gram positive cocci, blood cultures with Gram negative rods, hyperglycemia, [id number] diabetes, coronary artery disease, BPH, remote history of bladder cancer. The patient received 2 units of packed red blood cells while on the Oncology Clinic the day prior. He also had been given a Z-Moisés as an outpatient by Oncology. He had left orchiectomy as well. We will request an Intensive Care Unit evaluation with the status controller. The patient will be pancultured sepsis protocol. We will get an Infectious Disease consult as well. Placed on GI prophylaxis with Protonix. IV fluids for euvolemia. Insulin therapy for his hyperglycemia. Maintain hemodynamic stability. Cardiology consult will be requested. Follow up the patient's labs. Clinical findings have been discussed with the emergency room staff with the patient and his family. More than 15 minutes have been discussed reviewing this laboratory data and studies, and discussing the plan of care at this time. Melissa Johnson MD
--- NOTE | 2018-01-02 20:58 | CON ---
DATE: 01/02/2018 CONSULT SERVICE: Cardiology. REASON FOR CONSULTATION AND FOLLOWUP: Cardiac evaluation, history of coronary artery disease, history of recent AFib converted to normal sinus, admitted with Gram-negative sepsis. BRIEF CLINICAL HISTORY: This is a 77-year-old male with past medical history of recently diagnosed CLL; B-cell lymphoma, on Imbruvica; bladder CA in the past; CAD, status post stent; hypertension; hyperlipidemia, who was recently admitted with decompensated congestive heart failure, AFib converted to normal sinus, discharged home, yesterday was seen in office, but day before, patient was here for blood transfusion because of low hemoglobin. Blood culture was done that showed Gram-negative sepsis. The patient called for admission and followup. The patient denies any chest pain, shortness of breath, or any palpitations. Only complaint of leg swelling. PAST MEDICAL HISTORY: Significant for CLL, diagnosed recently, on Imbruvica; history of CAD, status post stent; diabetes; hypertension; hyperlipidemia; atrial fibrillation, converted to normal sinus; history of congestive heart failure; and history of cardiomyopathy. PAST SURGICAL HISTORY: History of multiple stents, left orchiectomy from prostate CA. RECENT CARDIAC WORKUP: History of multiple PTCAs in 01/2008 and in 01/2009, most recently patient had mid LAD in 03/2016; recently diagnosed B-cell lymphoma. The patient had recently echocardiography done in the last admission dated 12/23/2017 that showed ejection fraction of 35%-40%, trace aortic regurgitation, mild mitral regurgitation, and [id number] tricuspid regurgitation. REVIEW OF SYSTEMS: As per HPI. CURRENT MEDICATIONS: The patient is on apixaban that is Eliquis 2.5 b.i.d., aspirin, Flomax, amiodarone, propranolol 120 mg daily, and Protonix. ALLERGIES: ALLERGY TO MUSSELS. PHYSICAL EXAMINATION: VITAL SIGNS: Temperature afebrile. Heart rate 64, blood pressure 134/54. HEENT: PERRLA. Extraocular muscles intact. NECK: Supple. No carotid bruits. No thyromegaly. CHEST: Clear to auscultation. HEART: S1 and S2, regular. ABDOMEN: Soft. EXTREMITIES: Clubbing and cyanosis negative. LABORATORY DATA: Blood workup as follows: WBC 3.1, hemoglobin 8.7, hematocrit 26.8, and platelet count 89. Chemistry showed sodium 130, potassium 3.9, chloride 97, carbon dioxide 27, anion gap of 12, BUN 31, creatinine 0.9. IMPRESSION: Gram-negative sepsis, blood as well as in the urine culture, possible source could be the urinary tract infection or abdomen; history of leukemia; B-cell lymphoma, on chemotherapy, was on Imbruvica; went into atrial fibrillation, secondary to chemotherapy; decreased left ventricular function; coronary artery disease, status post stent in 01/2008 and 01/2009, most recent left anterior descending in 2015, converted to normal sinus. The patient is wearing Holter, yesterday placed. PLAN: Continue Holter for 24 hours. We will get a MUGA scan to see LV function. Resume back Eliquis. Resume back amiodarone. Resume back on propranolol. On hold Norvasc from previous admission and on hold losartan. We will give IV Lasix. We will follow with you. Thank you Dr. Johnson for providing us the opportunity in taking care of the patient, Reji Buchanan. Toribio Valles MD
--- NOTE | 2018-01-02 21:00 | CARD ---
APPROVED REPORT INDICATION EVALUATE LV AND RV EF% PROCEDURE The above named patient recieved 25.4 millicuries of Tc99m tagged red blood cells intravenously. After achieving equilibrium, gated imaging of 16/frame/cycle was performed utillizing Gamma camera interfaced with a digital computer and gated device. Gated imaging was then performed in the left anterior oblique, anterior, and the left lateral projections. Findings Left Ventricle: The quality of the study is good. The left ventricle is within normal limits in size. The right ventricle is normal in size. Wall motion study shows good contractility of the left ventricle. RV wall motion is normal. The right atrium is dynamic.. The remainder of the study is unremarkable. Impressions Normal gated wall motion of left ventricle wall. LVEF = 63%. Normal RV wall motion.
--- NOTE | 2018-01-03 00:19 | PN ---
DATE: SUBJECTIVE: The patient is in the intensive care unit. Nursing staff relates that there were no problems during the night. Patient states that he is feeling a bit better. PHYSICAL EXAMINATION: VITAL SIGNS: Blood pressure is 137/67, pulse is 62, oxygen sat is 99% on room air. LUNGS: Clear. HEART: Is in S1, S2 rhythm. ABDOMEN: Soft with positive bowel sounds. EXTREMITIES: Have evidence of edema. LABORATORY DATA: Shows a WBC of 3.1, RBC of 2.8, hemoglobin 8.7, hematocrit 26.8, platelet count is 89,000. Chemistry shows sodium of 132, potassium 3.8, chloride 97, BUN is 31, and creatinine is 0.9. Blood sugar was 120. ALT is 68. Procalcitonin is 1.93. MEDICATIONS: His current medications consist of amiodarone 200 mg daily, Avodart 0.5 mg daily, Ecotrin 81 mg daily, Eliquis 2.5 mg b.i.d., Flomax 0.4 mg daily. He is on a sliding insulin scale, Inderal long acting 120 mg daily. He is on Lasix 40 mg q. 12, Lipitor 20 mg daily. He is on meropenem IV, Protonix p.o., and IV fluids. ASSESSMENT AND PLAN: He has gram-negative rods in blood cultures; identification and sensitivity are pending. He is being followed by Infectious Diseases, Cardiology, and Pulmonary. We will continue current level of care. Follow the patient's blood work. Melissa Johnson MD
[2018-01-03] MEDS: Sodium Chloride 0.9% 1,000 ML IV SCH (04:09)
[2018-01-03] MEDS: Meropenem 1g/NS 100mL IVPB 1 GM/100 ML PIGGYBACK IVPB SCH (05:58)
[2018-01-03] MEDS: Pantoprazole 40 mg EC Tab PO SCH (05:59)
[2018-01-03 07:18] LABS: GRAN # 0.33 (1.4-6.5); GRAN % 12.2 % (50.0-68.0); HEMOGLOBIN 8.1 g/dL (14.0-18.0); LYMPH # 2.3 (1.2-3.4); LYMPH % 86.7 % (22.0-35.0); MEAN CELL VOLUME 96.5 fl (80.0-105.0); MEAN CORPUSCULAR HEMOGLOBIN 31.8 pg (25.0-35.0); MEAN CORPUSCULAR HGB CONC 32.9 g/dl (31.0-37.0); MEAN PLATELET VOLUME 10.7 fl (7.0-11.0); MONO % 1.1 % (1.0-6.0); PLATELET COUNT 80 10^3/uL (120.0-450.0); RBC 2.55 10^6/uL (3.5-6.1); RED CELL DISTRIBUTION WIDTH 17.1 % (11.5-14.5)
[2018-01-03 07:44] LABS: ALB/GLOB RATIO 0.8 (1.1-1.8); ALBUMIN 2.1 g/dL (3.0-4.8); ALT/SGPT 55 U/L (7-56); AST/SGOT 20 U/L (17-59); BLOOD UREA NITROGEN 21 mg/dL (7-21); CALCIUM 7.7 mg/dL (8.4-10.5); GFR AFRICAN-AMERICAN > 60; GFR NON-AFRICAN AMERICAN > 60; MAGNESIUM 1.5 mg/dL (1.7-2.2)
[2018-01-03 07:50] LABS: WHITE BLOOD COUNT 2.7 10^3/ul (4.5-11.0)
[2018-01-03] MEDS: Budesonide 0.5 mg/2 ml Inhal Susp UD IH SCH ×2 (07:58→20:50)
[2018-01-03] MEDS: Insulin Reg-HIGH-Coverage SC SCH ×4 (08:06→21:32)
--- NOTE | 2018-01-03 08:11 | CON ---
DATE: 01/02/2018 HISTORY OF PRESENT ILLNESS: This is a 77-year-old man with several medical problems. 1. He has a history of CHF with pleural effusion. He has recently developed atrial fibrillation and underwent procedure just last week for control of the atrial fibrillation. 2. The patient has chronic lymphocytic leukemia. This has been more aggressive than had been expected. He presented about a year and half ago. It seemed to be an indolent CLL. We observed it for about a year, but then we could see the white counts just climbing rapidly and unexpectedly and went up to about 50,000. He was started on Imbruvica pills chemotherapy about 6 weeks ago and the white count went from about 50,000 down to about 6000 with lymphocytes about 85%, and in that score he was improving. However, he started developing more and more of an anemia. The anemia started developing before the Imbruvica. We did a bone marrow aspiration biopsy to assess the bone marrow. He did not seem to have hemolytic component, and he did not seem to have overwhelming takeover of the bone marrow with the lymphocytes. The CAT scans did not show markedly enlarged paraaortic lymph nodes or markedly enlarged spleen. In any event, he started developing more and more of an anemia, and more recently in the last 4 weeks, he has been having transfusions almost every week. The last transfusion was on Saturday, where his hemoglobin was 9.5. We gave him 2 units of packed cells, and yet his hemoglobin today is 8.7. So, it is unclear why he is having such a severe anemia. In any event, on Saturday, while he was in the office, he was quite weak. We brought him in Saturday for transfusion, and at that time, he started developing shaking chills the night before, and during the transfusion, his temperature went up to about 100.6. He also developed very strange serpiginous rash on his right forearm, and at that time, it was unclear why he developed this rash. We stopped the second unit of packed cells, although we do not feel this was due to the transfusion. We did sent out a blood culture and urine culture. Chest x-ray portable was negative for effusion and negative for any infection. We sent him home on Z-Moisés; however, the blood cultures came back positive for E. coli, both of them, and he is now readmitted for sepsis. Indeed on presentation, his pH was low, his sugars went up to 500, and he had positive blood cultures. ASSESSMENT AND PLAN: Presently hematologically, several issues are present. Protein has gone down, total protein. His white count is 3.1, but his lymphocytes are 95%, only 3.6% are granulocytes. Hemoglobin 8.7, and this is after one and half units of packed cells 2 days ago, and platelet count is 89,000 and that has been relatively stable. At present, he is being treated for the sepsis and we were hoping to start him on chemotherapy next week. We will have to wait on that for now to see how he does, but for present, he is being treated for the sepsis. He may need another blood transfusion if the hemoglobin goes down again. He generally gets short of breath when the hemoglobin is below about 9.5 and hematologically for blood pressure stability, he may be benefited by another transfusion. Jak Nielson MD
--- NOTE | 2018-01-03 08:43 | CON ---
DATE: 01/03/2018 PULMONARY CONSULTATION REASON FOR CONSULTATION: Cough. REFERRING PHYSICIAN: Melissa Johnson M.D. HISTORY OF PRESENT ILLNESS: The patient is a 77-year-old male, with past medical history significant for advanced B-cell lymphoma, status post thoracentesis in the past (positive for lymphoma), coronary artery disease, status post multiple cardiac stents, recent congestive heart failure, cardiomyopathy, diabetes mellitus, hypertension, who presents to [facility] with main complaint of fevers for 2 days. Apparently, the patient was noted to have a low-grade fever-- when he was at the transfusion center a few days ago. Blood cultures were obtained. Subsequent results of the blood culture revealed gram-negative boris bacteremia. The patient was then advised to come back to the hospital for admission and antibiotic therapy. The patient is not short of breath at rest. He does have mild dyspnea on exertion. The patient also states to a cough - worse at night. No significant sputum production. No history of chest pain, coughing up of blood, or chest pain - made worse with deep respirations. The patient did present to the hospital with fevers. The fevers have now resolved. No history of infectious exposure. No history of chills. No history of night sweats. The patient has lost some weight with decreased appetite as of recent. No history of calf pains. No history of syncope or diaphoresis. No history of recent travel or trauma. REVIEW OF SYSTEMS: No acute urinary symptoms. No nausea or vomiting. The patient does state to recent diarrhea. No new musculoskeletal or neurologic complaints. Rest of the review of systems is negative. ALLERGIES: MUSSELS. SOCIAL HISTORY: Negative tobacco and negative for alcohol. FAMILY HISTORY: No inheritable diseases. HOME MEDICATIONS: Include glyburide, Avodart, aspirin, Eliquis, Cordarone, Flomax, propranolol, Lipitor, Lasix. PHYSICAL EXAMINATION: GENERAL: The patient appears comfortable this morning. He is not short of breath at rest. VITAL SIGNS: Temperature is 98.4, pulse 73, respirations 18/20, blood pressure 144/69. Oxygen saturation on nasal cannula is 98%. HEENT: Normocephalic, atraumatic. No JVD. CARDIOVASCULAR: Systolic ejection murmur at the lower left sternal border. No S3 gallop. LUNGS: Minimal crackles at the bases. Minimal bilateral rhonchi. No wheezing. EXTREMITIES: Mild edema. No cyanosis, no clubbing. Calves are nontender to palpation. GASTROINTESTINAL: Abdomen is soft, nontender and nondistended. Bowel sounds are positive. SKIN: No acute rash. NEUROLOGIC: Limited at the present time. PERTINENT LABORATORY DATA: Chest x-ray was done on 01/01/2018. It shows no active pulmonary disease. A CAT scan of the abdomen and pelvis was also done. There are small bilateral pleural effusions noted. There are no significant infiltrates. There are no other acute intra-abdominal findings. CBC: White count 3.1, hemoglobin 8.7, hematocrit 26.8, platelets of 89,000. Complete metabolic profile: Chloride 97, BUN 31, glucose 120, calcium 8.1, ALT 68, total protein 4.9, albumin 2.2. Rest of the metabolic profiles within normal limits. Blood cultures are positive for gram-negative rods. IMPRESSION: 1. Gram-negative boris sepsis. 2. Advanced B-cell lymphoma. 3. Mild bronchospasm. 4. Small bilateral pleural effusions. 5. Coronary artery disease. 6. Cardiomyopathy. 7. Anemia. 8. Thrombocytopenia. PLAN: The patient presents to [facility] with main complaints of fevers for 2 days. As above, he was at the transfusion center on Saturday - where he was noted to have a low-grade fever. Blood cultures were done at that time. Subsequent evaluation of the blood cultures revealed gram-negative bacteremia. The patient was then instructed to come back from home to the hospital for admission. On physical exam, there is only mild bronchospasm noted. In addition, there is no significant alveolar-arterial gradient. Oxygen saturation on nasal cannula is 98%. I will place the patient on inhaled steroids this morning. He does have a history of cardiac arrhythmias, so I will try to stay away from any beta-agonists for now. I would continue with the antibiotic coverage as per Infectious Disease. Input by Dr. Gutierrez is noted. The temperatures have completely resolved. Input by Cardiology (Dr. Valles) is also noted. The patient remains on intravenous Lasix. Clinical status of the patient is certainly improved - while in the hospital. I will discuss the above with Dr. Johnson later today. Thank you very much for this pulmonary consultation. Tyler Moore MD [facility] # [id number] NELSY
[2018-01-03] MEDS ORDERED: Magnesium Sulfate 2 GM in Sodium Chloride 0.9% 100 ML IVPB ONE (09:05)
[2018-01-03 09:06] LABS: MONOCYTE 1 % (1.0-6.0); NEUTROPHIL 10 % (50.0-70.0)
[2018-01-03] MEDS: Propranolol 60 mg ER Cap PO SCH (09:06)
[2018-01-03 09:07] LABS: LYMPHOCYTE 89 % (22.0-35.0)
[2018-01-03 09:08] LABS: ANISOCYTOSIS 1+; HYPOCHROMIA 2+; PLATELET ESTIMATE LOW (NORMAL); POLYCHROMASIA SLIGHT
[2018-01-03] MEDS: Magnesium Oxide 400 mg Tab UD PO SCH ×2 (09:32→17:50)
[2018-01-03] MEDS: Potassium & Sodium Phosphate PO SCH ×3 (09:32→17:50)
[2018-01-03] MEDS: Non Formulary Medication (Dutasteride [Avodart] 0.5 MG) PO SCH (11:00)
[2018-01-03] MEDS: cefTRIAXone 2 GM IN NS 2 GM/100 ML BAG IVPB SCH (11:23)
--- NOTE | 2018-01-03 11:55 | PN ---
DATE: 01/03/2018 REASON FOR CONSULTATION: Cardiac evaluation of coronary artery disease, recent history of AFib, converted to normal sinus, admitted with Gram-negative sepsis. SUBJECTIVE: The patient denies any chest pain, shortness of breath or any palpitation, feeling better. OBJECTIVE: GENERAL: Not in apparent distress. VITAL SIGNS: Temperature afebrile, heart rate 80, blood pressure 144/81. HEENT: PERRLA. Extraocular muscles intact. NECK: Supple. No carotid bruit or thyromegaly. CHEST: Clear to auscultation. HEART: S1 and S2 regular. ABDOMEN: Soft. EXTREMITIES: Clubbing and cyanosis negative. LABORATORY DATA: Blood workup as follows, WBC 2.7, hemoglobin 8.1, hematocrit 24.6, platelet count 80. Chemistry showed sodium of 130, potassium 3.5, chloride 98, carbon dioxide 26, anion gap of 9, BUN 21, creatinine 0.9, blood sugar is 155, calcium 7.7, phosphorous 2.1, magnesium 1.5, total protein 4.7, albumin 2.1, albumin-globulin ratio 0.8. IMPRESSION: Severe protein-calorie malnutrition, which was present with moderate multiple electrolyte abnormality, hypomagnesemia, hypokalemia, hypophosphatemia, anemia, thrombocytopenia, leukemia, B-cell lymphoma, coronary artery disease; atrial fibrillation, new onset converted to normal sinus; cardiomyopathy, ejection fraction 45%, converted to normal sinus. Repeat MUGA scan done yesterday. MUGA scan done yesterday shows ejection fraction of 63%, improved after being converted to normal sinus. History of coronary artery disease with stent in 2007, 2008, and 2015. Patient is converted to atrial fibrillation after having Imbruvica from leukemia. RECOMMENDATION: Continue amiodarone 200 mg daily, continue Eliquis 2.5 daily, continue propranolol 120 mg daily, continue Lasix. We will discontinue IV fluids. Repeat blood culture today. We will follow with you. We will change the Lasix to 40 once a day from tomorrow. Supplement electrolytes aggressively. Thank you Dr. Johnson for providing me the opportunity in taking care of Reji Buchanan. Toribio Valles MD
[2018-01-03] MEDS ORDERED: MethylPREDNISolone 40 mg Vial IVP PRN (12:00)
[2018-01-03] MEDS: MethylPREDNISolone 40 mg Vial IVP PRN ×2 (14:17→17:15)
--- NOTE | 2018-01-03 14:32 | CP.PCM.PN ---
Subjective - Date & Time of Evaluation Date of Evaluation: 01/03/18 Time of Evaluation: 12:00 - Subjective Subjective: Comfortable in bed, no fevers overnight, not in distress. Objective - Vital Signs/Intake and Output Vital Signs (last 24 hours): Temp Pulse Resp BP Pulse Ox 98.2 F 64 20 134/60 98 01/03/18 14:15 01/03/18 14:15 01/03/18 14:15 01/03/18 14:15 01/03/18 06:55 Intake and Output: 01/03/18 01/03/18 06:59 18:59 Intake Total 780 50 Output Total 350 Balance 430 50 - Medications Medications: Current Medications Acetaminophen (Tylenol 325mg Tab) 650 mg PO Q4 PRN PRN Reason: pre medication: Stop: 01/03/18 19:00 Last Admin: 01/03/18 14:17 Dose: 650 mg Amiodarone HCl (Cordarone) 200 mg PO DAILY [facility] Last Admin: 01/03/18 09:07 Dose: 200 mg Apixaban (Eliquis) 2.5 mg PO BID [facility] PRN Reason: Protocol Last Admin: 01/03/18 09:08 Dose: 2.5 mg Aspirin (Ecotrin) 81 mg PO DAILY [facility] Last Admin: 01/03/18 09:08 Dose: 81 mg Atorvastatin Calcium (Lipitor) 20 mg PO DAILY [facility] Last Admin: 01/03/18 09:08 Dose: 20 mg Budesonide (Pulmicort Respules) 0.5 mg IH [id number] [facility] Last Admin: 01/03/18 07:58 Dose: 0.5 mg Furosemide (Lasix) 40 mg IV 0800,1400 [facility] Stop: 01/03/18 23:59 Last Admin: 01/03/18 14:11 Dose: Not Given Furosemide (Lasix) 40 mg IV DAILY [facility] Ceftriaxone Sodium (Rocephin 2 Gm Ivpb) 2 gm in 100 mls @ 100 mls/hr IVPB DAILY [facility] PRN Reason: Protocol Last Admin: 01/03/18 11:23 Dose: 100 mls/hr Insulin Human Regular (Humulin R High) 0 units SC ACHS [facility] PRN Reason: Protocol Last Admin: 01/03/18 12:05 Dose: 4 units Magnesium Oxide (Mag-Ox) 400 mg PO BID [facility] Stop: 01/04/18 23:59 Last Admin: 01/03/18 09:32 Dose: 400 mg Methylprednisolone (Solu-Medrol) 20 mg IVP BID PRN PRN Reason: pre medication Stop: 01/03/18 19:00 Last Admin: 01/03/18 14:17 Dose: 20 mg Non-Formulary Medication (Dutasteride [Avodart]) 0.5 mg PO DAILY [facility] Last Admin: 01/03/18 11:00 Dose: Not Given Pantoprazole Sodium (Protonix Ec Tab) 40 mg PO 0600 [facility] Last Admin: 01/03/18 05:59 Dose: 40 mg Potassium Phos/Sodium Phos (Neutra-Phos) 1 pkt PO TID [facility] Stop: 01/04/18 23:00 Last Admin: 01/03/18 14:17 Dose: 1 pkt Propranolol HCl (Inderal La) 120 mg PO DAILY [facility] Last Admin: 01/03/18 09:06 Dose: 120 mg Tamsulosin HCl (Flomax) 0.4 mg PO DAILY [facility] Last Admin: 01/03/18 09:08 Dose: 0.4 mg - Labs Labs: 01/03/18 06:45 01/03/18 06:45 PT 16.5 SECONDS (9.4-12.5) H 01/01/18 17:45 INR 1.44 (0.93-1.08) H 01/01/18 17:45 APTT 32.0 Seconds (25.1-36.5) 01/01/18 17:45 - Constitutional Appears: Non-toxic - Head Exam Head Exam: NORMAL INSPECTION - ENT Exam ENT Exam: Mucous Membranes Moist - Neck Exam Neck Exam: absent: Meningismus - Respiratory Exam Respiratory Exam: Decreased Breath Sounds - Cardiovascular Exam Cardiovascular Exam: +S1, +S2 - GI/Abdominal Exam GI & Abdominal Exam: Soft. absent: Tenderness Assessment and Plan - Assessment and Plan (Free Text) Plan: Assessment severe sepsis with neutropenia due to Klebsiella bacteremia, source unclear R/O intra-abdominal infection history of Sepsis due to healthcare-associated left lower lobe pneumonia with left sided pleural effusion S/P ultrasound-guided thoracentesis B-cell lymphoma CAD S/P PCI and stents placed HTN DM dyslipidemia bladder CA S/P left orchiectomy Plan we will switch Merrem top Rocephin day 3 - will need 10-14 days of antibiotics, but we can switch to PO antibiotics once patient is more stable CT A/P does not show specific intra-abdominal pathology will monitor clinically
--- NOTE | 2018-01-03 18:22 | CON ---
DATE: 01/03/2018 HEMATOLOGY CONSULTATION HISTORY OF PRESENT ILLNESS: This is a 77-year-old man with several medical problems. He has cardiac condition with new-onset atrial fibrillation that was treated last week. Mainly though, he has a chronic lymphocytic leukemia, it is rather aggressive. He was put on Imbruvica for a white count of 50,000 about 2 months ago and over the 6 weeks, white count went down to now it is 3000, but the lymphocytes are still about 95%. More importantly, he is also having severe anemia and he has been getting several blood transfusions. His last blood transfusion was 3 days ago. He had almost 2 units of packed cells and his hemoglobin was 9.7 and now 8.7. He may need another transfusion over the next couple of days. We will see about that. Third of all, he started having fevers. This is about 3 days ago with chills at night and he rashes, serpiginous rash, which in retrospect was probably manifestation of the sepsis. In any event, we sent him home on [facility] on Saturday, but once his blood cultures came back positive for E. coli and he was admitted to the hospital with sepsis with an acidosis and sugar of 500, that is all are far better. PHYSICAL EXAMINATION: As of today, SKIN: No petechiae. No bruises. HEENT: Anicteric. NODES: Nonpalpable in the axillary, cervical, supraclavicular, or inguinal regions. LUNGS: Clear at present. The patient is able to lie flat in bed. HEART: S1 and S2. ABDOMEN: Shows no liver, no spleen, no tenderness. No rebound. No ascites. EXTREMITIES: Show some edema in ankles. CENTRAL NERVOUS SYSTEM: No focal findings. LABORATORY DATA: The white count is 3 with about 90% lymphocytes, his hemoglobin is 8.7, platelet count about 90. ASSESSMENT AND PLAN: At this point, we are holding off on Procrit, we are holding off on Neupogen. He is afebrile now and he is markedly improved. He is able to converse much better and he says he is feeling much better. At this point, my intention was to stop the Imbruvica mostly because he is now on a blood thinner for his cardiac condition, which has a lot of contraindication and we were going to start him on either bendamustine, Rituxan or Rituxan alone, but then this Escherichia coli sepsis came about. My hope is that by next week, he will be off antibiotics and at the end of next week, with beginning of 2 weeks from now, we will start him most likely on Rituxan alone as a single agent weekly for 4 weeks and watch his counts, but for now he is in the hospital for the sepsis. Jak Nielson MD
--- NOTE | 2018-01-03 21:28 | PN ---
DATE: SUBJECTIVE: This is a 77-year-old male. Patient is receiving IV antibiotics for gram-negative rods, severe sepsis. Nursing staff relates that there were no particular problems during the night. PHYSICAL EXAMINATION: VITAL SIGNS: Temperature is 98.2, pulse is 57, blood pressure is 134/60, respiratory rate is 20. GENERAL: He is alert, oriented. LUNGS: Clear. HEART: S1 and S2 rhythm. ABDOMEN: Soft with positive bowel sounds. EXTREMITIES: Showed 3+ edema. LABORATORY DATA: Shows WBC of 2.7, RBC of 2.55, hemoglobin 8.1, hematocrit 24.6, platelet count is 80,000. Chemistry shows sodium of 130, potassium of 3.5, chloride of 98, BUN of 21, and creatinine of 0.9. Random blood sugar was 155. Calcium is 7.7. His phosphorus is 2.1. Magnesium is 1.5. Procalcitonin is 1.93. Microbiological studies: Blood cultures show evidence of Klebsiella pneumonia. MRSA screen is negative. MEDICATIONS: At this time, the patient is being followed by Cardiology and has been placed on Eliquis 2.5 mg b.i.d., amiodarone 200 mg daily, Inderal 120 mg daily, Lasix 40 mg q.12 which is now being switched to daily, Lipitor 20 mg daily, magnesium oxide 400 mg b.i.d., he is on Neutra-Phos one packet t.i.d., Protonix 40 mg daily, Pulmicort 0.5 mg q.12. He has now been switched to Rocephin IV 2 g. ASSESSMENT AND PLAN: He is getting blood transfusions recommended by Oncology. He will continue to be followed by Pulmonary, Cardiology, Oncology, and Infectious Disease. Clinical studies to date have been discussed with the patient. He had a MUGA scan which reports a normal gated wall motion of left ventricle with left ventricular ejection fraction of 63% and normal right ventricular wall motion. CAT scan of the abdomen and pelvis, showing [id number] enlargement of the prostate. We will continue IV antibiotics as per Infectious Disease for the severe sepsis in a patient with chronic lymphocytic leukemia. Followup the patient's labs. Replete his serum potassium and will receive 2 units of packed red blood cells as per Oncology. Melissa Johnson MD [facility] # [id number]
[2018-01-04] MEDS: Pantoprazole 40 mg EC Tab PO SCH (05:12)
[2018-01-04] MEDS: Budesonide 0.5 mg/2 ml Inhal Susp UD IH SCH ×2 (07:51→19:57)
[2018-01-04] MEDS: Insulin Reg-HIGH-Coverage SC SCH ×4 (08:16→22:14)
[2018-01-04 08:33] LABS: GRAN # 0.46 (1.4-6.5); GRAN % 12.3 % (50.0-68.0); HEMOGLOBIN 11.2 g/dL (14.0-18.0); LYMPH # 3.3 (1.2-3.4); LYMPH % 87.4 % (22.0-35.0); MEAN CELL VOLUME 93.9 fl (80.0-105.0); MEAN CORPUSCULAR HEMOGLOBIN 30.9 pg (25.0-35.0); MEAN CORPUSCULAR HGB CONC 32.8 g/dl (31.0-37.0); MONO % 0.3 % (1.0-6.0); RBC 3.63 10^6/uL (3.5-6.1); RED CELL DISTRIBUTION WIDTH 16.9 % (11.5-14.5); WHITE BLOOD COUNT 3.7 10^3/ul (4.5-11.0)
[2018-01-04 09:04] LABS: ALB/GLOB RATIO 0.8 (1.1-1.8); ALBUMIN 2.2 g/dL (3.0-4.8); ALT/SGPT 58 U/L (7-56); AST/SGOT 18 U/L (17-59); BLOOD UREA NITROGEN 27 mg/dL (7-21); CALCIUM 7.8 mg/dL (8.4-10.5); GFR AFRICAN-AMERICAN > 60; GFR NON-AFRICAN AMERICAN > 60; MAGNESIUM 2.2 mg/dL (1.7-2.2)
[2018-01-04] MEDS: Magnesium Oxide 400 mg Tab UD PO SCH ×2 (09:38→17:10)
[2018-01-04] MEDS: Propranolol 60 mg ER Cap PO SCH (09:38)
[2018-01-04] MEDS: Potassium & Sodium Phosphate PO SCH ×3 (09:38→17:09)
[2018-01-04] MEDS: Non Formulary Medication (Dutasteride [Avodart] 0.5 MG) PO SCH (10:28)
[2018-01-04] MEDS: cefTRIAXone 2 GM IN NS 2 GM/100 ML BAG IVPB SCH (11:24)
[2018-01-04] MEDS ORDERED: Potassium Chloride 20 mEq ER Tab PO ONE (15:00)
--- NOTE | 2018-01-04 15:28 | PN ---
DATE: REASON FOR CONSULTATION: Followup cardiac evaluation; coronary artery disease; recent history of atrial fibrillation, converted to normal sinus, admitted with gram-negative sepsis. SUBJECTIVE: The patient denies any chest pain, lying flat to the bed. PHYSICAL EXAMINATION: GENERAL: Not in apparent distress. VITAL SIGNS: Temperature afebrile, heart rate 80, blood pressure 162/75. HEENT: PERRLA. Extraocular muscles intact. NECK: Supple. No carotid bruit or thyromegaly. CHEST: Clear to auscultation. HEART: S1 and S2, regular. ABDOMEN: Soft. EXTREMITIES: Clubbing and cyanosis negative. LABORATORY DATA: Blood workup as follows: WBC 3.7, hemoglobin 11.8, hematocrit 34.1, platelet count 79. Chemistry shows sodium 135, potassium 3.8, chloride 99, carbon dioxide ____, anion gap of 12, BUN 27, creatinine 0.8. DATA: CAT scan of the abdomen and pelvis, no acute intraabdominal findings. No lymphadenopathy noted. Spleen and liver is not enlarged. The patient had a MUGA scan done yesterday that showed ejection fraction, LV preserved, 63% . IMPRESSION: Gram-negative sepsis; Klebsiella pneumoniae in the blood, repeat blood culture pending; B cell lymphoma; leukemia; coronary artery disease; paroxysmal atrial fibrillation, ejection fraction 45% when the patient is in atrial fibrillation, converted to normal sinus, repeat MUGA scan done showed ejection fraction of 63%. Leg edema. The patient converted to atrial fibrillation secondary to leukemia, we will consider Imbruvica. RECOMMENDATIONS: Continue amiodarone 200 mg daily, continue Eliquis 2.5 mg, continue propranolol 120 mg daily, continue gentle diuretics. The patient's blood pressure is increasing so we will add on losartan 50 and continue diuretics. Discuss with Dr. Nielson in length, appears that the patient has an aggressive hematologic malignancy. The patient requires 2 to 3 units of blood every week thrombocytopenia. We will follow with you and states the patient is getting a lot of blood product. We will increase the Lasix to 40 twice a day. We will give an extra dose at 03:00 p.m. and we will increase losartan. Also, we will follow with you. Discussed in length about the patient's condition and explained his heart condition as well. Increase nutritional support. The patient getting protein-calorie malnutrition, which was present in mild but now is getting moderate to severe during dictation. We will discontinue IV fluid. We will supplement potassium also. We will give a 50 of losartan today and start 100 from tomorrow. We will give extra Lasix at 03:00 p.m. and discontinue IV fluid. We will follow with you. Repeat the blood work in the morning. As mentioned above, discussed in length with Dr. Nielson. This was explained to the patient. Thank you, Dr. Johnson for providing us the opportunity in taking the care of the patient, Chanel Mendoza. Toribio Valles MD
--- NOTE | 2018-01-04 15:48 | PN ---
DATE: 01/04/2018 PULMONARY PROGRESS NOTE SUBJECTIVE: The patient is markedly improved. He was admitted as per Dr. Moore's consultation yesterday. He is feeling better despite his numerous medical problems. He is complaining of no respiratory distress, no cough or chest pain. He has been given antibiotics for Gram-negative bacteremia. No additional pulmonary complaints are noted this morning. PHYSICAL EXAMINATION: GENERAL: Mr. Buchanan is comfortable. VITAL SIGNS: Stable, afebrile, temperature 98. HEENT: Normocephalic, atraumatic. No JVD. No lymphadenopathy. No bruits. CARDIOVASCULAR: Regular rhythm. S1, S2 without gallop or rub. There is a soft systolic ejection murmur at the lower left sternal border. LUNGS: Essentially clear to percussion and auscultation. There is a prolonged expiratory phase. GASTROINTESTINAL: Abdomen is soft. Bowel sounds are normoactive without mass, guarding, rebound, or organomegaly. EXTREMITIES: Reveal no clubbing, cyanosis, or edema. SKIN: Shows no rash or excoriation. NEUROLOGIC: Normal. LABORATORY DATA: No new laboratory studies available since yesterday. CLINICAL IMPRESSION: 1. Chronic obstructive pulmonary disease. 2. Gram-negative septicemia. 3. Advanced B-cell lymphoma. 4. Bilateral pleural effusions. 5. Coronary artery disease. 6. Cardiomyopathy. PLAN: Continue vigorous bronchodilator therapy as a baseline. Continue antibiotics as per Infectious Disease. We will follow closely with you and decide any further intervention as required. Abhishek Jacobs MD
--- NOTE | 2018-01-04 20:09 | PN ---
DATE: SUBJECTIVE: A 77-year-old male resting comfortably this morning. Nursing staff relates that there were no particular problems during the night; however, it was reported that he had a low temperature orally and rectally posttransfusion. PHYSICAL EXAMINATION VITAL SIGNS: Temperature was 96.3, 97.5. His pulse is 55, his blood pressure is 126/62, his respiratory rate is 18. GENERAL: He does not offer any specific complaints at this time. LUNGS: Clear. HEART: S1 and S2 rhythm. ABDOMEN: Soft with positive bowel sounds. EXTREMITIES: Showed 2+ edema. LABORATORY DATA: Showed WBC of 3.7, RBC of 3.63, hemoglobin 11.2, hematocrit 34.1, platelet count is 79,000. He is status 2 units of packed red blood cells. His chemistry showed normal electrolytes, BUN is 27, creatinine is 0.8. His blood sugar was initially 414, it is now 269. ALT is 58. His albumin is 2.2. ASSESSMENT AND PLAN: He has underlying chronic lymphocytic leukemia. He is to receive Neupogen today as per his oncologist, Dr. Nielson. He is being treated by Infectious Disease for his Gram negative sepsis, currently on Rocephin. His non-insulin dependent diabetes history is being monitored with fingerstick coverage. He has known coronary disease, paroxysmal atrial fibrillation, benign prostatic hypertrophy, history of bladder cancer. We will continue current medical care. Monitor patient's temperature. Follow up his labs. Melissa Johnson MD
--- NOTE | 2018-01-04 23:25 | PN ---
DATE: 01/04/2018 SUBJECTIVE: The patient is seen early this morning in 374, bed 2. No fevers and no chills. PHYSICAL EXAMINATION: VITAL SIGNS: Temperature is 95.9, blood pressure is 120/60, heart rate is 54, respiratory rate is 20. HEENT: Unremarkable. NECK: Supple. LUNGS: Decreased breath sounds. HEART: Normal S1 and S2. ABDOMEN: Soft. Nontender. LABORATORY DATA: Reveals the patient's white count is 3.7 with an absolute granulocyte count of 460, which appears to be on an incline. Coagulation is noted. Chemistry reveals the patient's BUN is 27, creatinine is 0.8 and the patient's procalcitonin is 1.93. Urinalysis is noted. Microbiology reveals the repeat blood cultures are no growth. The initial Klebsiella that grew from the blood is a rodriguez-sensitive Klebsiella. ASSESSMENT AND PLAN: This is a 77-year-old male with severe sepsis neutropenic febrile with Klebsiella bacteremia with a patient has underlying B-cell lymphoma, chronic lymphocytic leukemia, coronary artery disease, hypertension, diabetes, dyslipidemia on ceftriaxone and repeat blood cultures were negative. A lengthy discussion with Dr. Jak Nielson this morning about the patient's outcome and he is concerned about the degree of neutropenia and immune suppression and we will follow up closely with you. Abebe Rolle MD
[2018-01-05] MEDS: Pantoprazole 40 mg EC Tab PO SCH (06:27)
[2018-01-05] MEDS: Budesonide 0.5 mg/2 ml Inhal Susp UD IH SCH ×2 (08:01→20:19)
[2018-01-05] MEDS: Insulin Reg-HIGH-Coverage SC SCH ×4 (08:11→21:44)
[2018-01-05 08:22] LABS: BASO # 0.01 K/mm3 (0.0-2.0); BASO % 0.1 % (0.0-3.0); EOS % 0.3 % (1.5-5.0); GRAN # 1.81 (1.4-6.5); GRAN % 24.3 % (50.0-68.0); HEMOGLOBIN 11.5 g/dL (14.0-18.0); LYMPH # 5.6 (1.2-3.4); LYMPH % 74.8 % (22.0-35.0); MEAN CELL VOLUME 94.4 fl (80.0-105.0); MEAN CORPUSCULAR HEMOGLOBIN 30.7 pg (25.0-35.0); MEAN CORPUSCULAR HGB CONC 32.5 g/dl (31.0-37.0); MEAN PLATELET VOLUME 11.5 fl (7.0-11.0); MONO % 0.5 % (1.0-6.0); RBC 3.75 10^6/uL (3.5-6.1); WHITE BLOOD COUNT 7.5 10^3/ul (4.5-11.0)
[2018-01-05 09:14] LABS: ALB/GLOB RATIO 0.8 (1.1-1.8); ALBUMIN 2.2 g/dL (3.0-4.8); ALT/SGPT 76 U/L (7-56); AST/SGOT 22 U/L (17-59); BLOOD UREA NITROGEN 28 mg/dL (7-21); CALCIUM 8.2 mg/dL (8.4-10.5); GFR AFRICAN-AMERICAN > 60; GFR NON-AFRICAN AMERICAN > 60; MAGNESIUM 2.2 mg/dL (1.7-2.2)
[2018-01-05] MEDS: Propranolol 60 mg ER Cap PO SCH (09:48)
[2018-01-05] MEDS: cefTRIAXone 2 GM IN NS 2 GM/100 ML BAG IVPB SCH (09:48)
[2018-01-05] MEDS: Non Formulary Medication (Dutasteride [Avodart] 0.5 MG) PO SCH (10:00)
--- NOTE | 2018-01-05 13:37 | PN ---
DATE: 01/05/2018 SUBJECTIVE: Patient seen in room 374, bed 2. He states he is feeling much better. He is doing well. Appetite is still good. No fevers and his hypothermia is corrected. PHYSICAL EXAMINATION: VITAL SIGNS: On exam, temperature is 98, blood pressure is 152/60, respiratory rate of 20, heart rate of 56. HEENT: Examination is unremarkable. NECK: Supple. LUNGS: Have decreased breath sounds. HEART: Normal S1, S2. ABDOMEN: Soft, nontender. DATA: Laboratory examination reveals a white count of 7.5, hemoglobin of 11, platelets of 88,000 with 24% granulocytosis, 74% lymphocytosis. His absolute granulocyte count is up to 1800 and coagulation is noted. The chemistries reveals the patient has a BUN of 27, creatinine of 0.8. Urinalysis is as noted. The repeat blood cultures are negative. The patient's EKG shows a QTc to be 449. Review of orders reveals the patient to be on ceftriaxone. ASSESSMENT AND PLAN: A 77-year-old male with severe sepsis, neutropenic febrile with Klebsiella bacteremia, status post chemotherapy with chronic lymphocytic leukemia, improved with . The patient is doing much better this morning, may switch to p.o. Cipro to complete therapy for 500 mg p.o. b.i.d. x10 days upon discharge. Case discussed with the patient at length and all questions have been answered. Abebe Rolle MD
[2018-01-05] MEDS: Potassium & Sodium Phosphate PO SCH ×2 (14:46→18:07)
--- NOTE | 2018-01-05 15:29 | PN ---
DATE: SUBJECTIVE: A 77-year-old male, resting comfortably this morning. Nursing staff relates that there were no particular problems during the night. PHYSICAL EXAMINATION: VITAL SIGNS: His temp is 98.1, his pulse is 56, his blood pressure is 136/56, respiratory rate is 20, oxygen saturation is 95% on room air. He states that he is feeling a bit better this morning. GENERAL: He is alert. NECK: Supple. LUNGS: Clear. HEART: S1 and S2 rhythm. ABDOMEN: Soft. Positive bowel sounds. EXTREMITIES: Showed trace edema, 1+. LABORATORY DATA: His laboratory data shows a WBC of 7.5, RBC of 3.75, hemoglobin 11.5, hematocrit 35.4, platelet count 88,000. Chemistry shows sodium of 133, potassium 4, chloride 98, BUN is 28, creatinine is 0.8, random blood sugar is 230. His AST is 22, ALT is 76, albumin is 2.2. ASSESSMENT AND PLAN: The patient is receiving intravenous antibiotic for Klebsiella pneumonia, severe sepsis. Repeat blood cultures have been reported as being negative. He is on anticoagulation therapy with a history of paroxysmal atrial fibrillation. He is on Lasix with a history of congestive heart failure. He is on amiodarone with a history of paroxysmal atrial fibrillation. He is on Lipitor for hyperlipidemia. He is on potassium supplementation. Gastrointestinal prophylaxis with Protonix and respiratory treatment. We will continue current level of care and follow up the patient's labs. He has underlying chronic lymphocytic leukemia, benign prostatic hypertrophy, remote history of bladder cancer, degenerative arthritis of the spine, hypertension, hyperlipidemia, [id number] diabetes, coronary artery disease with several stents. We will continue current care. Following the recommendations of Oncology and Infectious Disease. Melissa Johnson MD
--- NOTE | 2018-01-05 16:00 | PN ---
DATE: 01/05/2018 REASON FOR CONSULTATION AND FOLLOWUP: Cardiac evaluation, coronary artery disease, recent history of atrial fibrillation converted to normal sinus, admitted with Gram-negative sepsis, protein-calorie malnutrition. SUBJECTIVE: The patient denies any chest pain, shortness of breath, or any palpitation, complaining of swelling of the leg. OBJECTIVE: GENERAL: Not in any apparent distress. VITAL SIGNS: As follows: Temperature afebrile, heart rate 55, blood pressure 136/56. HEENT: PERRLA intact. NECK: Supple. No carotid bruit. No thyromegaly. CHEST: Clear to auscultation. HEART: S1 and S2 regular. ABDOMEN: Soft. EXTREMITIES: Clubbing and cyanosis negative. LABORATORY DATA: Blood workup as follows: WBC 7.5, hemoglobin 11.5, hematocrit 35.4, platelet count 88. Chemistry showed sodium 133, potassium 4, chloride 90, carbon dioxide 26, anion gap of 13, BUN 28, creatinine 0.8, total protein 5, albumin 2.2, albumin-globulin ratio 0.2, phosphorus 2.4, magnesium 2.2. IMPRESSION: Protein-calorie malnutrition which was present on admission is moderate, now getting severe; anemia; thrombocytopenia; leukopenia, status post packed red blood cell transfusion; atrial fibrillation, new onset converted to normal sinus, most likely atrial fibrillation secondary to Imbruvica medicine treated for B-cell lymphoma; history of B-cell lymphoma. Recent echo on prior admission shows last admission ejection fraction of 45%. The patient at that time in atrial fibrillation. Now, the patient converted to normal sinus, and MUGA scan done that showed ejection fraction of 63% while the patient is in normal sinus, leg swelling. RECOMMENDATION: We will increase nutrition support, start Ensure pudding, continue amiodarone 200 mg daily for , continue propranolol, continue diuretics 40 mg daily. We will get an extra dose today. I have started yesterday Diovan because the pressure was going up, discontinue IV fluid. No further IV fluid, just only IV medication. Discussed and explained the patient above condition. We will follow with you. If the patient remains in sinus, we will discontinue Eliquis soon. Supplement phosphate with potassium. We will follow with you. We will continue Neutra-Phos 1 pack 3 times a day. We will give extra dose of Lasix at 3 p.m. and we will start Neutra-Phos 1 pack p.o. t.i.d. for yesterday and tomorrow. Repeat the blood workup in the morning. As mentioned, we will increase nutritional support with Ensure pudding. We will follow with you. Thank you, Dr. Johnson, for providing me the opportunity in taking care of the patient, Reji Buchanan. Toribio Valles MD
[2018-01-06] MEDS: Pantoprazole 40 mg EC Tab PO SCH (05:11)
[2018-01-06 06:47] LABS: BASO # 0.01 K/mm3 (0.0-2.0); BASO % 0.1 % (0.0-3.0); EOS % 0.1 % (1.5-5.0); GRAN # 1.62 (1.4-6.5); GRAN % 22.2 % (50.0-68.0); HEMOGLOBIN 10.3 g/dL (14.0-18.0); LYMPH # 5.6 (1.2-3.4); LYMPH % 76.5 % (22.0-35.0); MEAN CELL VOLUME 94.6 fl (80.0-105.0); MEAN CORPUSCULAR HEMOGLOBIN 31.1 pg (25.0-35.0); MEAN CORPUSCULAR HGB CONC 32.9 g/dl (31.0-37.0); MEAN PLATELET VOLUME 11.2 fl (7.0-11.0); MONO # 0.1 (0.1-0.6); MONO % 1.1 % (1.0-6.0); RBC 3.31 10^6/uL (3.5-6.1); RED CELL DISTRIBUTION WIDTH 16.4 % (11.5-14.5); WHITE BLOOD COUNT 7.3 10^3/ul (4.5-11.0)
[2018-01-06 07:16] LABS: ALB/GLOB RATIO 0.8 (1.1-1.8); ALBUMIN 2.1 g/dL (3.0-4.8); ALT/SGPT 63 U/L (7-56); AST/SGOT 15 U/L (17-59); BLOOD UREA NITROGEN 25 mg/dL (7-21); CALCIUM 8.1 mg/dL (8.4-10.5); GFR AFRICAN-AMERICAN > 60; GFR NON-AFRICAN AMERICAN > 60
[2018-01-06] MEDS: Budesonide 0.5 mg/2 ml Inhal Susp UD IH SCH ×2 (08:32→20:59)
[2018-01-06] MEDS: Insulin Reg-HIGH-Coverage SC SCH ×4 (08:41→21:56)
--- NOTE | 2018-01-06 09:19 | PN ---
DATE: 01/04/2018 ONCOLOGY CONSULTATION HISTORY OF PRESENT ILLNESS: This is a 77-year-old man with a chronic lymphocytic leukemia. Several issues; 1. I spoke with Dr. Valles this morning. He says that the echocardiogram that he did yesterday shows normal ejection fraction and he is in a regular sinus rhythm, so that takes this out of the equation. 2. We are checking the blood cultures, but so far he has been afebrile. 3. However, his temperature is very low at about 96, we repeated that temperature rectally as well as orally and this morning it is still low; however, he is feeling fine. His blood pressure is fine. He has no shaking chills whatsoever. He is sitting up and eating his breakfast. PHYSICAL EXAMINATION: SKIN: No petechiae. HEENT: Anicteric. NODES: Nonpalpable in the axillary, cervical, supraclavicular and inguinal regions. LUNGS: Clear at present. No vertebral tenderness. HEART: S1 and S2. Regular rhythm. ABDOMEN: Shows no liver, no spleen, no tenderness. No rebound. EXTREMITIES: Show +1 edema. CENTRAL NERVOUS SYSTEM: No focal finding. ASSESSMENT AND PLAN: 1. So it is unclear to me why the temperature is low. We did give him Solu-Medrol yesterday with his transfusion and Tylenol. It should be coming out of the system by now, but unclear. We just have to observe that. I did speak with Dr. Rolle this morning and he is aware of the temperature. He is going to be checking the blood cultures that were done yesterday, but so far they are negative. 2. His hematologic situation. His white from 2.6 today is 3.6 with 85% lymphocytes. The platelet count is stable at 80 and hemoglobin has gone up to 11.2 as of the transfusions that he had yesterday. So at present I spoke with Dr. Rolle. I am going to add Neupogen 480 for the next 3 to 4 days to ensure that his neutrophils are high. His neutrophil count is below 500 and we will see if that helps him in terms of his infection. So at this point, he is on the antibiotics. We are going to watch his CBCs and we will give him the Neupogen. Jak Nielson MD
--- NOTE | 2018-01-06 10:32 | PN ---
DATE: 01/06/2018 PULMONARY NOTE SUBJECTIVE: The patient appears very comfortable this morning. He is not short of breath at rest. PHYSICAL EXAMINATION VITAL SIGNS: Temperature 98.7, pulse is 60, respirations 18/20, blood pressure 164/68. Oxygen saturation on room air is 93%-96%. HEENT: Normocephalic, atraumatic. No JVD. CARDIOVASCULAR: Systolic ejection murmur at the lower left sternal border. No S3 gallop. LUNGS: Minimal crackles at the bases. Otherwise clear. EXTREMITIES: Mild edema. No cyanosis, no clubbing. Calves are nontender to palpation. GI: Abdomen is soft, nontender and nondistended. Bowel sounds are positive. SKIN: No acute rash. NEUROLOGIC: Limited at the present time. IMPRESSION: 1. Gram-negative boris sepsis. 2. Advanced B-cell lymphoma. 3. Mild bronchospasm. 4. Small bilateral pleural effusions. 5. Coronary artery disease. 6. Cardiomyopathy. 7. Anemia. 8. Thrombocytopenia. PLAN: The patient appears very comfortable this morning. He is not short of breath at rest. He does state to feeling much, much better overall. On physical exam, his bronchospasm has primarily resolved. In addition, there is no significant alveolar-arterial gradient. I will continue the inhaled steroids for now. The patient remains on antibiotic therapy - as per Infectious Disease. Temperatures are resolving. Inputs by Cardiology and Hematology are also noted. Clinical status of the patient is definitely improved - compared to the initial presentation. However, unfortunately, the future status/prognosis for this patient does remain very guarded. I will discuss the above with Dr. Johnson. Tyler Moore MD NELSY
[2018-01-06] MEDS: Propranolol 60 mg ER Cap PO SCH (10:50)
[2018-01-06] MEDS: Potassium & Sodium Phosphate PO SCH ×3 (10:51→18:11)
[2018-01-06] MEDS: cefTRIAXone 2 GM IN NS 2 GM/100 ML BAG IVPB SCH (10:52)
[2018-01-06] MEDS: Non Formulary Medication (Dutasteride [Avodart] 0.5 MG) PO SCH (12:18)
--- NOTE | 2018-01-06 12:47 | CP.PCM.PN ---
Subjective - Date & Time of Evaluation Date of Evaluation: 01/06/18 Time of Evaluation: 11:25 - Subjective Subjective: Comfortable, no abdominal pain, no fevers, not in distress. Objective - Vital Signs/Intake and Output Vital Signs (last 24 hours): Temp Pulse Resp BP Pulse Ox 98.7 F 60 20 164/68 H 93 L 01/06/18 05:32 01/06/18 05:32 01/06/18 05:32 01/06/18 05:32 01/06/18 05:32 - Medications Medications: Current Medications Amiodarone HCl (Cordarone) 200 mg PO DAILY [facility] Last Admin: 01/05/18 09:46 Dose: 200 mg Apixaban (Eliquis) 2.5 mg PO BID [facility] PRN Reason: Protocol Last Admin: 01/05/18 18:06 Dose: 2.5 mg Aspirin (Ecotrin) 81 mg PO DAILY [facility] Last Admin: 01/05/18 09:49 Dose: 81 mg Atorvastatin Calcium (Lipitor) 20 mg PO DAILY [facility] Last Admin: 01/05/18 09:48 Dose: 20 mg Budesonide (Pulmicort Respules) 0.5 mg IH [id number] [facility] Last Admin: 01/06/18 08:32 Dose: 0.5 mg Furosemide (Lasix) 40 mg IV DAILY [facility] Last Admin: 01/05/18 09:47 Dose: 40 mg Ceftriaxone Sodium (Rocephin 2 Gm Ivpb) 2 gm in 100 mls @ 100 mls/hr IVPB DAILY [facility] PRN Reason: Protocol Last Admin: 01/05/18 09:48 Dose: 100 mls/hr Insulin Human Regular (Humulin R High) 0 units SC ACHS [facility] PRN Reason: Protocol Last Admin: 01/06/18 08:41 Dose: 2 units Losartan Potassium (Cozaar) 100 mg PO DAILY [facility] Last Admin: 01/05/18 09:47 Dose: 100 mg Non-Formulary Medication (Dutasteride [Avodart]) 0.5 mg PO DAILY [facility] Last Admin: 01/05/18 10:00 Dose: Not Given Pantoprazole Sodium (Protonix Ec Tab) 40 mg PO 0600 [facility] Last Admin: 01/06/18 05:11 Dose: 40 mg Potassium Phos/Sodium Phos (Neutra-Phos) 1 pkt PO TID [facility] Stop: 01/06/18 23:59 Last Admin: 01/05/18 18:07 Dose: 1 pkt Propranolol HCl (Inderal La) 120 mg PO DAILY [facility] Last Admin: 01/05/18 09:48 Dose: 120 mg Tamsulosin HCl (Flomax) 0.4 mg PO DAILY [facility] Last Admin: 01/05/18 09:49 Dose: 0.4 mg - Labs Labs: 01/06/18 06:00 01/06/18 06:00 PT 16.5 SECONDS (9.4-12.5) H 01/01/18 17:45 INR 1.44 (0.93-1.08) H 01/01/18 17:45 APTT 32.0 Seconds (25.1-36.5) 01/01/18 17:45 - Constitutional Appears: Non-toxic - Head Exam Head Exam: NORMAL INSPECTION - ENT Exam ENT Exam: Mucous Membranes Moist - Neck Exam Neck Exam: absent: Meningismus - Respiratory Exam Respiratory Exam: Decreased Breath Sounds - Cardiovascular Exam Cardiovascular Exam: +S1, +S2 - GI/Abdominal Exam GI & Abdominal Exam: Soft. absent: Tenderness Assessment and Plan - Assessment and Plan (Free Text) Plan: Assessment severe sepsis with neutropenia due to Klebsiella bacteremia, source unclear R/O intra-abdominal infection history of Sepsis due to healthcare-associated left lower lobe pneumonia with left sided pleural effusion S/P ultrasound-guided thoracentesis B-cell lymphoma CAD S/P PCI and stents placed HTN DM dyslipidemia bladder CA S/P left orchiectomy Plan on Rocephin day 6 - will need 10-14 days of antibiotics, but we can switch to PO antibiotics once patient is more stable - discussed with Dr. Johnson CT A/P does not show specific intra-abdominal pathology
[2018-01-06] MEDS ORDERED: Potassium Chloride 20 mEq ER Tab PO ONE (15:00)
--- NOTE | 2018-01-06 18:04 | CP.PCM.PN ---
Subjective - Date & Time of Evaluation Date of Evaluation: 01/06/18 Time of Evaluation: 14:54 - Subjective Subjective: Code star note Code star note called at 2:54PM. Rapid response team responded immediately. Patient is a 77yo male with history of CLL, Bladder CA, CAD, DM, HTN, HLD, A-fib , CHF that fell while in the bathroom changing. Per patient and nurse, patient had been changing his underwear in the bathroom and while lifting his leg slipped and fell on his buttocks. Patient denied hitting his head, tongue biting , loss of consciousness, bowel/bladder incontinence. He reports that his fall was mechanical in nature due to getting his leg stuck in his underwear while attempting to change. His vitals were noted as follows: BP 148/66, HR 63bpm, O2sat 96% on room air, respiratory rate 18, temperature 98.0F. Patient denied chest pain, palpitations, SOB, abdominal pain, nausea, vomiting, focal weakness , numbness, tingling. Gait was stable on examination and patient was seen ambulating. Physical examination: Head: atraumatic, normocephalic Cardio: S1, S2, no murmurs, rubs or gallops Lungs: Clear to auscultation bilaterally; no wheezing, rales or ronchi Abd: soft, nontender, nondistended Extremities: no clubbing, cyanosis, motor strength 5/5 bilaterally in upper and lower extremities Neuro: EOMI, PERRL, CN2-12 grossly intact, sensory intact throughout Assessment/Plan: 77yo male with history of CLL, bladder ca, CAD, DM, HTN, HLD, Afib, CHF s/p mechanical fall while attempting to change -No visible head/back injuries and patient denied pain on palpitation -Non-slip socks -Instructed patient to call for assistance when ambulating out of bed -Vitals were within normal limits -Neuro examination without focal deficits -Fall precautions -PMD notified Objective - Vital Signs/Intake and Output Vital Signs (last 24 hours): Temp Pulse Resp BP Pulse Ox 97.9 F 55 L 18 148/66 93 L 01/06/18 12:00 01/06/18 14:00 01/06/18 12:00 01/06/18 15:19 01/06/18 05:32 - Medications Medications: Current Medications Amiodarone HCl (Cordarone) 200 mg PO DAILY [facility] Last Admin: 01/06/18 10:50 Dose: 200 mg Apixaban (Eliquis) 2.5 mg PO BID [facility] PRN Reason: Protocol Stop: 01/08/18 23:59 Last Admin: 01/06/18 10:50 Dose: 2.5 mg Aspirin (Ecotrin) 81 mg PO DAILY [facility] Last Admin: 01/06/18 10:51 Dose: 81 mg Atorvastatin Calcium (Lipitor) 20 mg PO DAILY [facility] Last Admin: 01/06/18 10:49 Dose: 20 mg Budesonide (Pulmicort Respules) 0.5 mg IH [id number] [facility] Last Admin: 01/06/18 08:32 Dose: 0.5 mg Furosemide (Lasix) 40 mg IV DAILY [facility] Last Admin: 01/06/18 10:52 Dose: 40 mg Ceftriaxone Sodium (Rocephin 2 Gm Ivpb) 2 gm in 100 mls @ 100 mls/hr IVPB DAILY [facility] PRN Reason: Protocol Last Admin: 01/06/18 10:52 Dose: 100 mls/hr Insulin Human Regular (Humulin R High) 0 units SC ACHS [facility] PRN Reason: Protocol Last Admin: 01/06/18 12:23 Dose: 10 units Losartan Potassium (Cozaar) 100 mg PO DAILY [facility] Last Admin: 01/06/18 10:50 Dose: 100 mg Non-Formulary Medication (Dutasteride [Avodart]) 0.5 mg PO DAILY [facility] Last Admin: 01/06/18 12:18 Dose: Not Given Pantoprazole Sodium (Protonix Ec Tab) 40 mg PO 0600 [facility] Last Admin: 01/06/18 05:11 Dose: 40 mg Potassium Phos/Sodium Phos (Neutra-Phos) 1 pkt PO TID [facility] Stop: 01/06/18 23:59 Last Admin: 01/06/18 15:19 Dose: 1 pkt Propranolol HCl (Inderal La) 120 mg PO DAILY [facility] Last Admin: 01/06/18 10:50 Dose: 120 mg Tamsulosin HCl (Flomax) 0.4 mg PO DAILY [facility] Last Admin: 01/06/18 10:49 Dose: 0.4 mg - Labs Labs: 01/06/18 06:00 01/06/18 06:00 PT 16.5 SECONDS (9.4-12.5) H 01/01/18 17:45 INR 1.44 (0.93-1.08) H 01/01/18 17:45 APTT 32.0 Seconds (25.1-36.5) 01/01/18 17:45
--- NOTE | 2018-01-06 21:53 | PN ---
DATE: PHYSICAL EXAMINATION: VITAL SIGNS: Show temp of 97.9, pulse is 57, blood pressure is 147/66. GENERAL: The patient is resting quietly in bed. Nursing staff related there were problems during the night. He is alert. He is oriented x3. LUNGS: Clear. HEART: S1 and S2 rhythm. ABDOMEN: Soft with positive bowel sounds. EXTREMITIES: Show 1+ edema. LABORATORY DATA: Shows a WBC of 7.3, RBC of 3.31, hemoglobin 10.3, hematocrit 31.3, platelet count 77,000. Chemistry shows a sodium of 134, potassium 3.9, chloride 97, BUN is 25, creatinine is 0.9, random blood sugar is 172. The patient's AST is 15, ALT is 63, alkaline phosphatase is 58, albumin is 2.1. ASSESSMENT AND PLAN: 1. The patient is currently on intravenous antibiotics for Klebsiella pneumonia sepsis. 2. He is status post Neupogen for low white count with underlying chronic lymphocytic leukemia. 3. His hemoglobin today is noted to be slightly lower than the day before and after discussion with Oncology, Dr. Nielson. We mutually agreed and discussed with the patient and it will be better to observe the CBC in the morning in the event that the patient might need a blood transfusion because of his prior history. 4. He is being followed by Cardiology with a history of paroxysmal atrial fibrillation with congestive heart failure and coronary artery disease. 5. He is being followed by Pulmonary with a history of respiratory tract infections and bronchitis. 6. He is being followed by Infectious Disease as well as by Dr. Nielson, his oncology. We will continue current level of care. His medications consist of amiodarone, Cozaar, Avodart, Ecotrin, Eliquis, Flomax, sliding insulin scale, Inderal long acting, Lasix, Lipitor, Neutra-Phos, Protonix and Pulmicort. He is on IV Rocephin at this time. Melissa Johnson MD
--- NOTE | 2018-01-07 01:49 | CP.PCM.PN ---
Subjective - Date & Time of Evaluation Date of Evaluation: 01/07/18 Time of Evaluation: 01:46 - Subjective Subjective: S:Nurse calls and tells that BP is 178/70 mmHg. Patient was seen at bedside. Has no complaints. Denies headache, dizziness, heaviness in head, chest pain, sob, weakness, paraesthesia. Medical record was reviewed. O: BP 178/70 Last Vital Signs 3 Temp 99.0 F 01/07/18 00:01 Pulse 56 L 01/07/18 01:07 Resp 20 01/07/18 00:01 BP 178/70 H 01/07/18 01:07 Pulse Ox 99 01/07/18 00:01 Not in distress. LUNGS: Normal breathing pattern. A:Elevated blood pressure reading. P:Clonidine 0.1 mg po x 1. Objective - Vital Signs/Intake and Output Vital Signs (last 24 hours): Temp Pulse Resp BP Pulse Ox 99.0 F 56 L 20 178/70 H 99 01/07/18 00:01 01/07/18 01:07 01/07/18 00:01 01/07/18 01:07 01/07/18 00:01 - Medications Medications: Current Medications Amiodarone HCl (Cordarone) 200 mg PO DAILY [facility] Last Admin: 01/06/18 10:50 Dose: 200 mg Apixaban (Eliquis) 2.5 mg PO BID [facility] PRN Reason: Protocol Stop: 01/08/18 23:59 Last Admin: 01/06/18 18:11 Dose: 2.5 mg Aspirin (Ecotrin) 81 mg PO DAILY [facility] Last Admin: 01/06/18 10:51 Dose: 81 mg Atorvastatin Calcium (Lipitor) 20 mg PO DAILY [facility] Last Admin: 01/06/18 10:49 Dose: 20 mg Budesonide (Pulmicort Respules) 0.5 mg IH [id number] [facility] Last Admin: 01/06/18 20:59 Dose: 0.5 mg Furosemide (Lasix) 40 mg IV DAILY [facility] Last Admin: 01/06/18 10:52 Dose: 40 mg Ceftriaxone Sodium (Rocephin 2 Gm Ivpb) 2 gm in 100 mls @ 100 mls/hr IVPB DAILY [facility] PRN Reason: Protocol Last Admin: 01/06/18 10:52 Dose: 100 mls/hr Insulin Human Regular (Humulin R High) 0 units SC ACHS [facility] PRN Reason: Protocol Last Admin: 01/06/18 21:56 Dose: Not Given Losartan Potassium (Cozaar) 100 mg PO DAILY [facility] Last Admin: 01/06/18 10:50 Dose: 100 mg Non-Formulary Medication (Dutasteride [Avodart]) 0.5 mg PO DAILY [facility] Last Admin: 01/06/18 12:18 Dose: Not Given Pantoprazole Sodium (Protonix Ec Tab) 40 mg PO 0600 [facility] Last Admin: 01/06/18 05:11 Dose: 40 mg Propranolol HCl (Inderal La) 120 mg PO DAILY [facility] Last Admin: 01/06/18 10:50 Dose: 120 mg Tamsulosin HCl (Flomax) 0.4 mg PO DAILY [facility] Last Admin: 01/06/18 10:49 Dose: 0.4 mg - Labs Labs: 01/06/18 06:00 01/06/18 06:00 PT 16.5 SECONDS (9.4-12.5) H 01/01/18 17:45 INR 1.44 (0.93-1.08) H 01/01/18 17:45 APTT 32.0 Seconds (25.1-36.5) 01/01/18 17:45
[2018-01-07] MEDS: Pantoprazole 40 mg EC Tab PO SCH (05:20)
[2018-01-07 07:18] LABS: HEMOGLOBIN 10.9 g/dL (14.0-18.0); MEAN CELL VOLUME 96.3 fl (80.0-105.0); MEAN CORPUSCULAR HEMOGLOBIN 30.7 pg (25.0-35.0); MEAN CORPUSCULAR HGB CONC 31.9 g/dl (31.0-37.0); MEAN PLATELET VOLUME 11.8 fl (7.0-11.0); RBC 3.55 10^6/uL (3.5-6.1); RED CELL DISTRIBUTION WIDTH 16.3 % (11.5-14.5)
[2018-01-07] MEDS: Budesonide 0.5 mg/2 ml Inhal Susp UD IH SCH (07:58)
[2018-01-07 08:03] LABS: BLOOD UREA NITROGEN 21 mg/dL (7-21); CALCIUM 8.7 mg/dL (8.4-10.5); GFR AFRICAN-AMERICAN > 60; GFR NON-AFRICAN AMERICAN > 60; MAGNESIUM 2.1 mg/dL (1.7-2.2)
--- NOTE | 2018-01-07 08:29 | PN ---
DATE: 01/06/2018 REASON FOR CONSULTATION: Followup cardiac evaluation, coronary artery disease, recent history of atrial fibrillation converted to normal sinus, admitted with Gram-negative sepsis, protein-calorie malnutrition. SUBJECTIVE: The patient denies any chest pain, shortness of breath, or any palpitation. Lying flat in the bed,. OBJECTIVE: GENERAL: Not in apparent distress. VITAL SIGNS: Temperature afebrile, heart rate , blood pressure 157/71. HEENT: PERRLA. Extraocular muscles intact. NECK: Supple. No carotid bruit. No thyromegaly. CHEST: Clear to auscultation. HEART: S1 and S2 regular. ABDOMEN: Soft. EXTREMITIES: Clubbing and cyanosis negative. LABORATORY DATA: WBC 7.3, hemoglobin 10.3, hematocrit 31.3, platelet count 77. Chemistry showed sodium 134, potassium 3.9, chloride , bicarbonate 29, anion gap of 12, BUN 25, creatinine 0.7, total protein 5, albumin albumin-globulin ratio 0.8. IMPRESSION: Severe protein-calorie malnutrition which was present as mild to moderate, now is severe; anemia, thrombocytopenia, B cell lymphoma, leukemia, status post chemo, status post Imbruvica leading to atrial fibrillation, new onset, now patient is in normal sinus, Klebsiella pneumoniae infection, Gram-negative sepsis, atrial fibrillation, most recent MUGA scan shows ejection fraction of echo shows ejection fraction of 45%. RECOMMENDATION: Continue support, patient is put on supplement. Patient is already on almost 10 days of Eliquis, probably will discontinue Eliquis in a week, by day after tomorrow, and we will continue amiodarone, continue aspirin, continue propranolol and continue losartan. Blood pressure is relatively stable. If we need, we can add on Lasix later on, but for now, continue amiodarone, propranolol and losartan. Patient was at home non-formulary, so we will put on losartan. Continue IV Lasix. We will get extra dose of Lasix at 3 p.m. today, with 40 of potassium chloride. We will repeat the lab in the morning, and possible discharge planning. Once medicine was changed to p.o., we will change to discharge planning. Thank you, for providing us the opportunity in taking care of the patient, Chanel Mendoza. Toribio Valles MD
[2018-01-07] MEDS: Insulin Reg-HIGH-Coverage SC SCH ×2 (08:30→11:56)
--- NOTE | 2018-01-07 09:58 | PN ---
DATE: 01/07/2018 PULMONARY NOTE SUBJECTIVE: The patient appears very comfortable this morning. He is not short of breath at rest. PHYSICAL EXAMINATION: VITAL SIGNS: Temperature 98.3, pulse 54, respirations 18, blood pressure 167/68. Oxygen saturation on room air is 96%. HEENT: Normocephalic, atraumatic. No JVD. CARDIOVASCULAR: Systolic ejection murmur at the lower left sternal border. No S3 gallop. LUNGS: Minimal crackles at the bases. Otherwise clear. EXTREMITIES: Less edema. No cyanosis. No clubbing. Calves are nontender to palpation. GI: Abdomen is soft, nontender and nondistended. Bowel sounds are positive. SKIN: No acute rash. NEUROLOGIC: Limited at the present time. IMPRESSION: 1. Gram-negative boris sepsis. 2. Advanced B-cell lymphoma. 3. Mild bronchospasm. 4. Small bilateral pleural effusions. 5. Coronary artery disease. 6. Cardiomyopathy. 7. Anemia. 8. Thrombocytopenia. PLAN: The patient appears very comfortable this morning. He is not short of breath at rest. He does state to feeling much better overall. On physical exam, his bronchospasm has resolved. In addition, the oxygen saturation on room air is now 96%. I will continue with the current inhaled steroids for now. I would continue with the cardiology evaluation. Input by Dr. Valles is noted. The patient remains on Lasix/afterload reduction. The patient also remains on antibiotic therapy - as per Infectious Disease. The temperatures have fully resolved. Clinical status of the patient is significantly improved. However, again, the future status/prognosis for this patient does remain guarded. I will discuss the above with Dr. Johnson. Tyler Moore MD NELSY
[2018-01-07] MEDS: Non Formulary Medication (Dutasteride [Avodart] 0.5 MG) PO SCH (10:10)
[2018-01-07] MEDS: Propranolol 60 mg ER Cap PO SCH (10:21)
[2018-01-07] MEDS: cefTRIAXone 2 GM IN NS 2 GM/100 ML BAG IVPB SCH (10:23)
--- NOTE | 2018-01-07 12:02 | PN ---
DATE: 01/07/2018 REASON FOR CONSULTATION: Followup cardiac evaluation, coronary artery disease, recent history of atrial fibrillation, converted to normal sinus. Admitted with gram-negative sepsis, protein-calorie malnutrition. SUBJECTIVE: The patient denies any chest pain, shortness of breath or any palpitation. Remains in normal sinus. OBJECTIVE: GENERAL: Not in any apparent distress. VITAL SIGNS: Temperature afebrile, heart rate 64, blood pressure 167/68. HEENT: PERRLA. Extraocular muscles intact. NECK: Supple. No carotid bruit. No thyromegaly. CHEST: Clear to auscultation. HEART: S1 and S2 regular. ABDOMEN: Soft. EXTREMITIES: Clubbing and cyanosis negative. LABORATORY DATA: Blood workup as follows. WBC 9, hemoglobin 10.9, hematocrit is 34.2, platelet count 81. Chemistry shows sodium 137, potassium 5.6, chloride 97, carbon dioxide 33, anion gap of 11, BUN 21, creatinine 0.1. Total protein 2.1, albumin and globulin ration 0.8. IMPRESSION: Severe protein-calorie malnutrition, which was present as mild to moderate, now with severe anemia, thrombocytopenia, B-cell lymphoma, leukemia, status post chemotherapy, was on Imbruvica leading to atrial fibrillation, now converted to normal sinus, Klebsiella pneumoniae, gram-negative sepsis. MUGA scan shows ejection fraction 63%. Echocardiogram shows ejection fraction of 45%. RECOMMENDATION: Continue diuretics. Continue losartan. Continue Eliquis till tomorrow, 2 weeks post conversion to normal sinus. Continue amiodarone. Continue propranolol. We will add on Norvasc 10 mg daily for blood pressure. Once the patient changed to p.o. antibiotic, the patient can be discharge home and tomorrow will be the last due for Eliquis. We will discontinue potassium because of the elevated potassium. Probably, repeat a stat potassium and if repeat potassium is more than 5.0, we will cancel it, but I doubted probably secondary to hemolysis. We will follow. We will give an extra dose of Lasix at 3:00 p.m. Possible discharge home tomorrow. We will discontinue telemetry. As mentioned, we will add on Norvasc because of the increasing blood pressure and we will send a stat K. Initially, the patient came with blood pressure was systolic 100s, all the p.o. meds was held and now we are restarting back to his baseline medication. Thank you Dr. Johnson for providing us the opportunity in taking care of the patient, Reji Buchanan. Toribio Valles MD
[2018-01-07 12:19] VITALS: BP 143/65; PULSE 53; RESP 18; TEMP 98.2; O2SAT 99
--- NOTE | 2018-01-07 12:32 | CP.PCM.PN ---
Subjective - Date & Time of Evaluation Date of Evaluation: 01/07/18 Time of Evaluation: 11:00 - Subjective Subjective: Comfortable in bed, no fevers. Objective - Vital Signs/Intake and Output Vital Signs (last 24 hours): Temp Pulse Resp BP Pulse Ox 98.3 F 54 L 20 167/68 H 96 01/07/18 06:00 01/07/18 06:00 01/07/18 06:00 01/07/18 06:00 01/07/18 06:00 Intake and Output: 01/07/18 01/07/18 06:59 18:59 Intake Total 60 Output Total 1100 Balance -1040 - Medications Medications: Current Medications Amiodarone HCl (Cordarone) 200 mg PO DAILY [facility] Last Admin: 01/06/18 10:50 Dose: 200 mg Amlodipine Besylate (Norvasc) 10 mg PO DAILY [facility] Apixaban (Eliquis) 2.5 mg PO BID [facility] PRN Reason: Protocol Stop: 01/08/18 23:59 Last Admin: 01/06/18 18:11 Dose: 2.5 mg Aspirin (Ecotrin) 81 mg PO DAILY [facility] Last Admin: 01/06/18 10:51 Dose: 81 mg Atorvastatin Calcium (Lipitor) 20 mg PO DAILY [facility] Last Admin: 01/06/18 10:49 Dose: 20 mg Budesonide (Pulmicort Respules) 0.5 mg IH [id number] [facility] Last Admin: 01/07/18 07:58 Dose: 0.5 mg Furosemide (Lasix) 40 mg IV DAILY [facility] Last Admin: 01/06/18 10:52 Dose: 40 mg Ceftriaxone Sodium (Rocephin 2 Gm Ivpb) 2 gm in 100 mls @ 100 mls/hr IVPB DAILY [facility] PRN Reason: Protocol Last Admin: 01/06/18 10:52 Dose: 100 mls/hr Insulin Human Regular (Humulin R High) 0 units SC ACHS [facility] PRN Reason: Protocol Last Admin: 01/07/18 08:30 Dose: 4 units Losartan Potassium (Cozaar) 100 mg PO DAILY [facility] Last Admin: 01/06/18 10:50 Dose: 100 mg Non-Formulary Medication (Dutasteride [Avodart]) 0.5 mg PO DAILY [facility] Last Admin: 01/07/18 10:10 Dose: Not Given Pantoprazole Sodium (Protonix Ec Tab) 40 mg PO 0600 [facility] Last Admin: 01/07/18 05:20 Dose: 40 mg Propranolol HCl (Inderal La) 120 mg PO DAILY [facility] Last Admin: 01/06/18 10:50 Dose: 120 mg Tamsulosin HCl (Flomax) 0.4 mg PO DAILY [facility] Last Admin: 01/06/18 10:49 Dose: 0.4 mg - Labs Labs: 01/07/18 06:30 01/07/18 06:30 PT 16.5 SECONDS (9.4-12.5) H 01/01/18 17:45 INR 1.44 (0.93-1.08) H 01/01/18 17:45 APTT 32.0 Seconds (25.1-36.5) 01/01/18 17:45 - Constitutional Appears: Non-toxic, Chronically Ill - Head Exam Head Exam: NORMAL INSPECTION - ENT Exam ENT Exam: Mucous Membranes Moist - Neck Exam Neck Exam: absent: Meningismus - Respiratory Exam Respiratory Exam: Decreased Breath Sounds - Cardiovascular Exam Cardiovascular Exam: +S1, +S2 - GI/Abdominal Exam GI & Abdominal Exam: Soft. absent: Tenderness Assessment and Plan - Assessment and Plan (Free Text) Plan: Assessment severe sepsis with neutropenia due to Klebsiella bacteremia, source unclear R/O intra-abdominal infection history of Sepsis due to healthcare-associated left lower lobe pneumonia with left sided pleural effusion S/P ultrasound-guided thoracentesis B-cell lymphoma CAD S/P PCI and stents placed HTN DM dyslipidemia bladder CA S/P left orchiectomy Plan on Rocephin day 7 - will need 10-14 days of antibiotics, but we can switch to PO antibiotics on discharge (ie. from today, 3 more days of PO Ciprofloxacin) - patient should stop Cipro if he develops pain in his achilles heel area CT A/P does not show specific intra-abdominal pathology
[2018-01-08] MEDS ORDERED: Cefpodoxime (Vantin) 200 mg Tab PO SCH (10:00)
--- NOTE | 2018-01-08 18:42 | DS ---
HISTORY OF PRESENT ILLNESS: A 77-year-old male receiving treatment for Klebsiella pneumonia, severe sepsis, chronic lymphocytic leukemia, [id number] diabetes, history of paroxysmal atrial fibrillation, history of CHF, history of degenerative arthritis of the lumbar spine, history of bladder cancer, history of BPH, history of coronary artery disease, history of hyperlipidemia. The patient has been cleared by the individual consultants. Discussion has been held with his oncologist, Dr. Nielson. WBC is 9 and RBC is 3.55, hemoglobin 10.9, hematocrit 34.2, platelet count was 81,000. Chemistry showed a sodium of 136, potassium 4.5, chloride 97, BUN was 21, creatinine 0.9. Patient will be discharged home on Lasix 40 mg b.i.d., Lipitor 20 mg daily, Flomax 0.4 mg daily, propranolol 120 mg daily, Ecotrin 81 mg daily, amiodarone 200 mg daily, Diovan 160 mg daily, Vantin 200 mg q. 12 for 3 days, Norvasc 10 mg daily, metformin 5/500 mg b.i.d., Avodart 0.5 mg daily, and Eliquis 2.5 mg b.i.d. for 1 more day. PHYSICAL EXAMINATION: GENERAL: He is alert and oriented x3. VITAL SIGNS: His temp was 98.2, his pulse was 53, blood pressure was 143/64, oxygen saturation was 99%, respiratory rate was 18. LUNGS: Clear. HEART: In S1 and S2 rhythm. ABDOMEN: Soft with positive bowel sounds. EXTREMITIES: Trace edema. NEUROLOGIC: Alert and oriented x3. LABORATORY DATA: His repeat blood cultures were negative. His MRSA screen was negative as well. ASSESSMENT AND PLAN: He will be followed as an outpatient, with followup with the individual consultants. Melissa Johnson MD
== END 2018-01-07 16:35 | disposition home or self-care (01) | DRG 871 ==
LOC: EDUNIT# → ED 16:10 → ERH 21:11 → ICU 01-02 00:34 → 3RSO 01-02 21:45
PROVIDERS: ADMIT Internal Medicine; ATTEND Internal Medicine
PROC: 30233N1 Transfusion of Nonautologous Red Blood Cells into Peripheral Vein, Percutaneous Approach (ICD-10-PCS; principal; 2018-01-03)
DX: A41.59 Other Gram-negative sepsis (principal); E43 Unspecified severe protein-calorie malnutrition; J15.0 Pneumonia due to Klebsiella pneumoniae; D61.818 Other pancytopenia; C85.10 Unspecified B-cell lymphoma, unspecified site; D70.9 Neutropenia, unspecified; C91.10 Chronic lymphocytic leukemia of B-cell type not having achieved remission; E11.65 Type 2 diabetes mellitus with hyperglycemia; E83.39 Other disorders of phosphorus metabolism; I08.3 Combined rheumatic disorders of mitral, aortic and tricuspid valves; I42.9 Cardiomyopathy, unspecified; E87.2 Acidosis; J44.0 Chronic obstructive pulmonary disease with (acute) lower respiratory infection; E11.69 Type 2 diabetes mellitus with other specified complication; B96.1 Klebsiella pneumoniae [K. pneumoniae] as the cause of diseases classified elsewhere; E78.5 Hyperlipidemia, unspecified; E83.42 Hypomagnesemia; E87.6 Hypokalemia; H40.9 Unspecified glaucoma; I11.0 Hypertensive heart disease with heart failure; I25.10 Atherosclerotic heart disease of native coronary artery without angina pectoris; I48.0 Paroxysmal atrial fibrillation; I50.9 Heart failure, unspecified; J98.01 Acute bronchospasm; N40.0 Benign prostatic hyperplasia without lower urinary tract symptoms; R50.81 Fever presenting with conditions classified elsewhere; R65.20 Severe sepsis without septic shock; Z79.01 Long term (current) use of anticoagulants; Z79.82 Long term (current) use of aspirin; Z79.84 Long term (current) use of oral hypoglycemic drugs; Z79.899 Other long term (current) drug therapy; Z85.46 Personal history of malignant neoplasm of prostate; Z85.51 Personal history of malignant neoplasm of bladder; Z87.01 Personal history of pneumonia (recurrent); Z87.440 Personal history of urinary (tract) infections; Z92.21 Personal history of antineoplastic chemotherapy; Z95.5 Presence of coronary angioplasty implant and graft; Z91.013 Allergy to seafood; Z91.048 Other nonmedicinal substance allergy status; Z90.79 Acquired absence of other genital organ(s); T45.1X5A Adverse effect of antineoplastic and immunosuppressive drugs, initial encounter; R40.2412 Glasgow coma scale score 13-15, at arrival to emergency department